=== PATIENT | male | born 1935 | race African-American/Black ===

== ENCOUNTER 2017-09-15 12:54 | Inpatient (IN) | payer OTHER ==
[~2017-09-15] VITALS: Ht 182.9 cm; Wt 61.2 kg
--- NOTE | 2017-09-15 13:37 | Emergency Room Report ---
History of Present Illness General Chief Complaint: Gastrointestinal Bleed Source: EMS Present Illness HPI 81-year-old male, coming from group home, presenting with lower GI bleeding. This morning noticed some bright red blood in diaper. Did not say how many bloody bowel movements. No vomiting. Currently patient is awake, oriented x1 which is his baseline. Denies any complaints at this time however poor historian. Patient is on Plavix. Unknown last colonoscopy or endoscopy Allergies: Coded Allergies: No Known Allergies (Unverified , 09/15/17) Patient History Past Medical History: see triage record Past Surgical History: none Pertinent Family History: none Reviewed Nursing Documentation: PMH: Agreed, PSxH: Agreed Nursing Documentation-PMH Hx Hypertension: Yes Hx Diabetes: Yes Hx Cerebrovascular Accident: Yes Review of Systems All Other Systems: negative except mentioned in HPI Physical Exam Vital Signs Date Time Temp Pulse Resp B/P (MAP) Pulse Ox O2 Delivery O2 Flow Rate FiO2 09/15/17 12:50 97.3 56 18 120/54 95 Room Air Sp02 EP Interpretation: reviewed, normal General Appearance: thin, other - NAD, Chronically Ill Head: normocephalic, atraumatic Eyes: bilateral eye normal inspection, bilateral eye PERRL, bilateral eye EOMI ENT: normal ENT inspection, normal pharynx, normal voice, moist mucus membranes Neck: normal inspection, full range of motion, supple Respiratory: normal inspection, lungs clear, normal breath sounds, no respiratory distress, no retraction, no wheezing, speaking full sentences, chest symmetrical Cardiovascular #1: normal inspection, regular rate, rhythm, normal capillary refill Cardiovascular #2: 2+ radial (R), 2+ radial (L) Gastrointestinal: other - thin abdomen, nontender all quadrants Musculoskeletal: back normal, non-tender Neurologic: other - Oriented to person, moving extremities on command however not able to cooperate with full exam Psychiatric: normal inspection, judgement/insight normal, memory normal Skin: normal inspection, normal color, no rash, warm/dry, well hydrated, normal turgor Medical Decision Making ER Course 81-year-old male with lower GI bleeding DDX: Diverticulosis versus diverticulitis versus AV malformation versus coagulopathy Plan: Obtain labs, ua, EKG, CXR Signed out to Dr Muñoz 81 yo M with BRBPR -pending labs and admission Please note that this Emergency Department Report was dictated using Digital [employer] stretcher technology software, occasionally this can lead to erroneous entry secondary to interpretation by the dictation equipment. Last Vital Signs Date Time Temp Pulse Resp B/P (MAP) Pulse Ox O2 Delivery O2 Flow Rate FiO2 09/15/17 12:50 97.3 56 18 120/54 95 Room Air Alexa Ngo M.D. Sep 15, 2017 13:37
[2017-09-15 14:00] VITALS: BP 128/49
[2017-09-15 14:13] LABS: BASOPHILS % (AUTO) 1.1 % (0.0-2.0); EOSINOPHILS % (AUTO) 1.9 % (0.0-3.0); HEMOGLOBIN 12.7 G/DL (14.2-18.0); LYMPHOCYTES % (AUTO) 29.5 % (20.0-45.0); MEAN CORPUSCULAR VOLUME 95 FL (80-99); MONOCYTES % (AUTO) 8.5 % (1.0-10.0); PLATELET COUNT 611 K/UL (150-450); RED BLOOD COUNT 4.21 M/UL (4.70-6.10); RED CELL DISTRIBUTION WIDTH 14.9 % (11.6-14.8); WHITE BLOOD COUNT 8.9 K/UL (4.8-10.8)
[2017-09-15 14:18] LABS: INR 1.1 (0.9-1.1)
--- NOTE | 2017-09-15 14:20 | Emergency Room Report ---
Physical Exam Patient presents with red blood per rectum. According to paramedics the facility said there was a large amount. This was initially noted this morning. The patient has dementia and cannot give history. Please see that note by Dr. Ngo. PMHx: agree with documented ROS: limited due to dementia. SHX: SNF Vital Signs Date Time Temp Pulse Resp B/P (MAP) Pulse Ox O2 Delivery O2 Flow Rate FiO2 09/15/17 12:50 97.3 56 18 120/54 95 Room Air Sp02 EP Interpretation: reviewed, abnormal - interpreted as low by me General Appearance: Chronically Ill Head: normocephalic, atraumatic Eyes: bilateral eye normal inspection, bilateral eye PERRL ENT: moist mucus membranes Neck: supple Respiratory: rhonchi Cardiovascular #1: regular rate, rhythm Cardiovascular #2: 2+ radial (L) Gastrointestinal: normal bowel sounds, non tender, soft, hernia - R inguinal, scaphoid Rectal: other - stool neg Genitourinary: other - R hernia Musculoskeletal: back normal, normal range of motion Neurologic: alert, motor strength/tone normal, DTRs symmetric, sensory intact Psychiatric: other - flat affect Skin: normal inspection, normal color, no rash Medical Decision Making Diagnostic Impression: Primary Impression: Gastrointestinal hemorrhage Qualified Codes: K92.2 - Gastrointestinal hemorrhage, unspecified Additional Impressions: Pulmonary infiltrate in right lung on chest x-ray Right inguinal hernia Dementia Qualified Codes: F03.90 - Unspecified dementia without behavioral disturbance ER Course The patient presents with lower GI bleed. Differential includes diverticulosis , and Coleman, mass amongst others. Evaluation will be with labs and CT. In addition to that he is coughing and will take a chest x-ray. EKG without injury. CXR with infiltrate. Labs with normal CBC and lytes ( slight anemia). BC and antibiotics begun. CT abdomen/pelvis: Improved however needs admission for lower GI bleed work up. Laboratory Tests Test 09/15/17 13:45 09/15/17 15:53 09/15/17 17:50 09/16/17 02:00 White Blood Count 8.9 K/UL (4.8-10.8) Red Blood Count 4.21 M/UL (4.70-6.10) L Hemoglobin 12.7 G/DL (14.2-18.0) L Hematocrit 40.0 % (42.0-52.0) L Mean Corpuscular Volume 95 FL (80-99) Mean Corpuscular Hemoglobin 30.1 PG (27.0-31.0) Mean Corpuscular Hemoglobin Concent 31.7 G/DL (32.0-36.0) L Red Cell Distribution Width 14.9 % (11.6-14.8) H Platelet Count 611 K/UL (150-450) H Mean Platelet Volume 5.3 FL (6.5-10.1) L Neutrophils (%) (Auto) 59.0 % (45.0-75.0) Lymphocytes (%) (Auto) 29.5 % (20.0-45.0) Monocytes (%) (Auto) 8.5 % (1.0-10.0) Eosinophils (%) (Auto) 1.9 % (0.0-3.0) Basophils (%) (Auto) 1.1 % (0.0-2.0) Prothrombin Time 11.2 SEC (9.30-11.50) Prothrombin Time INR 1.1 (0.9-1.1) PTT 24 SEC (23-33) Sodium Level 139 MMOL/L (136-145) Potassium Level 5.0 MMOL/L (3.5-5.1) Chloride Level 103 MMOL/L (98-107) Carbon Dioxide Level 28 MMOL/L (21-32) Anion Gap 8 mmol/L (5-15) Blood Urea Nitrogen 16 mg/dL (7-18) Creatinine 1.0 MG/DL (0.55-1.30) Estimate Glomerular Filtration Rate mL/min (>60) Glucose Level 97 MG/DL (74-106) Calcium Level 10.1 MG/DL (8.5-10.1) Total Bilirubin 0.5 MG/DL (0.2-1.0) Aspartate Amino Transferase (AST) 31 U/L (15-37) Alanine Aminotransferase (ALT) 49 U/L (12-78) Alkaline Phosphatase 183 U/L (46-116) H Troponin I 0.000 ng/mL (0.000-0.056) Total Protein 8.2 G/DL (6.4-8.2) Albumin 2.8 G/DL (3.4-5.0) L Globulin 5.4 g/dL Albumin/Globulin Ratio 0.5 (1.0-2.7) L Lipase 191 U/L (73-393) Lactic Acid Level 1.50 mmol/L (0.66-2.22) Urine Color Pale yellow Urine Appearance Clear Urine pH 7 (4.5-8.0) Urine Specific [place] 1.005 (1.005-1.035) Urine Protein Negative (NEGATIVE) Urine Glucose (UA) Negative (NEGATIVE) Urine Ketones Negative (NEGATIVE) Urine Occult Blood Negative (NEGATIVE) Urine Nitrite Negative (NEGATIVE) Urine Bilirubin Negative (NEGATIVE) Urine Urobilinogen Normal MG/DL (0.0-1.0) Urine Leukocyte Esterase Negative (NEGATIVE) Stool Occult Blood Pending EKG Diagnostic Results Rate: normal Rhythm: NSR ST Segments: no acute changes Rhythm Strip Diag. Results EP Interpretation: yes Rhythm: NSR, no PVC's, no ectopy Chest X-Ray Diagnostic Results Chest X-Ray Diagnostic Results : Chest X-Ray Ordered: Yes # of Views/Limited/Complete: 1 View Indication: Other Interpretation: no effusion, no pneumothorax, other - R infiltrate Impression: Other Electronically Signed by: Antonino Muñoz MD CT/MRI/US Diagnostic Results CT/MRI/US Diagnostic Results : Imaging Test Ordered: abd/pelvis Impression hernia, pulm densities IMPRESSION: Large right inguinal hernia containing bowel. Correlate clinically for incarceration. No CT evidence for bowel obstruction. Thickening of the urinary bladder wall consistent with cystitis. Correlate clinically. Reticular nodular densities at the lung bases. Consider small airways disease and interstitial pneumonitis. Spondylosis Atherosclerotic vascular disease Last Vital Signs Date Time Temp Pulse Resp B/P (MAP) Pulse Ox O2 Delivery O2 Flow Rate FiO2 09/16/17 04:25 96.4 88 18 137/64 95 Room Air Status: improved Disposition: ADMITTED INPATIENT Condition: Serious Antonino Muñoz M.D. Sep 15, 2017 14:20
[2017-09-15 14:24] LABS: ANION GAP 8 mmol/L (5-15); BLOOD UREA NITROGEN 16 mg/dL (7-18); CALCIUM 10.1 MG/DL (8.5-10.1); CARBON DIOXIDE 28 MMOL/L (21-32); CHLORIDE 103 MMOL/L (98-107); SODIUM 139 MMOL/L (136-145)
[2017-09-15 14:29] LABS: ALANINE AMINOTRANSFERASE 49 U/L (12-78); ALBUMIN 2.8 G/DL (3.4-5.0); ALBUMIN/GLOBULIN RATIO 0.5 (1.0-2.7); ALKALINE PHOSPHATASE 183 U/L (46-116); ASPARTATE AMINO TRANSFERASE 31 U/L (15-37); BILIRUBIN,TOTAL 0.5 MG/DL (0.2-1.0)
[2017-09-15] MEDS: Sodium Chloride 500ML 550 ML IV SCH ×2 (14:34→21:34)
[2017-09-15 14:57] VITALS: BP 128/49
--- NOTE | 2017-09-15 15:14 | Diagnostic Imaging Report ---
Indication: Dyspnea Comparison: None A single view chest radiograph was obtained. Findings: Vague interstitial prominence noted in the right perihilar region. Infiltrate suspected. Please correlate clinically. Deformity of the left humeral head noted. Bones are osteopenic. Heart size is within normal limits. IMPRESSION: Suspected infiltrate right perihilar region. Please correlate clinically for pneumonia.
[2017-09-15] MEDS ORDERED: cefTRIAXone 1 GM in NS 55 ML IVPB ONE (15:30)
[2017-09-15] MEDS ORDERED: NS 55 ML IV ONE (15:54)
[2017-09-15] MEDS ORDERED: Tubing IV Cassette IV ONE (15:54)
[2017-09-15 16:00] VITALS: BP 150/60
[2017-09-15] MEDS ORDERED: Bisacodyl EC 5mg tab ORAL ONE (16:00)
[2017-09-15] MEDS ORDERED: Nulytely 4L ORAL ONE (16:00)
[2017-09-15] MEDS ORDERED: Miralax 17gm pkt ORAL PRN (16:15)
[2017-09-15] MEDS ORDERED: Nitroglycerin Subl 0.4mg tab SL PRN (16:15)
[2017-09-15] MEDS ORDERED: Mylanta II UD 30ml ORAL PRN (16:15)
[2017-09-15] MEDS ORDERED: Morphine Sulfate 2mg/ml Inj IVP PRN (16:15)
--- NOTE | 2017-09-15 16:59 | Diagnostic Imaging Report ---
Indication: Abdominal pain Technique: Continuous helical transaxial imaging of the abdomen and pelvis was obtained from the lung bases to the pubic symphysis during intravenous contrast administration. Coronal 2-D reformats were also obtained. Study obtained in a Siemens sensation [address] Automatic Exposure Control was utilized. Total Dose length Product (DLP): 792.[address] Dose Index Volume (CTDIvol): 13.21 mGy Comparison: None Findings: Reticular nodular densities are demonstrated within the interstitium of the visualized part of the lung bases bilaterally. Findings are nonspecific but may indicate small airways disease. In addition there are coarse linear densities likely atelectasis. Trace right pleural effusion present. The liver and spleen are unremarkable in appearance. Gallbladder is unremarkable. Small renal cysts noted on the right. Moderate stool demonstrated within the colon. There is a large right inguinal hernia that contains loops of opacified small bowel and mesenteric fat. The hernia is 9 to 10 cm in size on transverse imaging and may be incarcerated. Please correlate clinically. There is no CT evidence for bowel obstruction due to the hernia. There is thickening of the wall of the urinary bladder. Aorta is mildly calcified. There is narrowing of intervertebral discs and accompanying endplate osteophyte formation. Hypertrophied facet joints also demonstrated.. IMPRESSION: Large right inguinal hernia containing bowel. Correlate clinically for incarceration. No CT evidence for bowel obstruction. Thickening of the urinary bladder wall consistent with cystitis. Correlate clinically. Reticular nodular densities at the lung bases. Consider small airways disease and interstitial pneumonitis. Spondylosis Atherosclerotic vascular disease The CT scanner at [facility] is accredited by the [employer] and the scans are performed using dose optimization techniques as appropriate to a performed exam including Automatic Exposure control.
--- NOTE | 2017-09-15 17:10 | GI Initial Consult Note ---
Nani Marley N.P. 09/15/17 1710: History of Present Illness General Date patient seen: Sep 15, 2017 Time patient seen: 17:04 Reason for Hospitalization: Gastrointestinal Bleed Referring physician: MARY STANTON Reason for Consultation: RECTAL BLEED Present Illness HPI 81-year-old male, coming from [facility], presenting with lower GI bleeding. This morning noticed some bright red blood in diaper. Did not say how many bloody bowel movements. No vomiting. Currently patient is awake, oriented x1 which is his baseline. Denies any complaints at this time however poor historian. Patient is on Plavix, unknown time of last administration. GI consulted for rectal bleed. HPI noted above. ROS limited, patient is poor historian. Seen in ED awake, A&O with no active N/V/D or rectal bleed noted. No external hemorrhoids noted. Trace amounts of blood noted in rectal area. Presents with anemia and elevated alkaline phosphatase. Unknown history of endoscopies / colonoscopies. Home Meds Reported Medications Bisacodyl (BISACODYL) 10 Mg Supp.rect, 10 MG RC DAILY Y for Constipation, SUPP 09/16/17 Magnesium Hydroxide* (MILK OF MAGNESIA*) 400 Mg/5 Ml Oral.susp, 30 ML ORAL DAILY Y for Constipation, ML 09/16/17 Docusate Sodium* (DOCUSATE SODIUM*) 100 Mg Capsule, 100 MG ORAL DAILY, CAP 09/16/17 Acetaminophen* (ACETAMINOPHEN 325MG TABLET*) 325 Mg Tablet, 650 MG ORAL Q6HR Y for Mild Pain/Temp > 100.5, TAB 09/16/17 Ipratropium/Albuterol Sulfate (DuoNeb 0.5-3(2.5)mg/3ml) 3 Ml Ampul.neb, 3 ML HHN Q4HR Y for Shortness of Breath, EA 09/16/17 Ondansetron (Zofran) 4 Mg Tablet, 4 MG ORAL Q6H Y for Nausea & Vomiting, TAB 09/16/17 Clopidogrel* (CLOPIDOGREL*) 75 Mg Tablet, 75 MG ORAL DAILY, TAB 09/16/17 Atorvastatin (Lipitor) 80 Mg Tablet, 40 MG ORAL BEDTIME, #30 TAB 0 Refills 09/16/17 Famotidine (FAMOTIDINE) 20 Mg Tablet, 20 MG ORAL DAILY, #30 TAB 0 Refills 09/16/17 Ipratropium [place] (ATROVENT HFA) 12.9 Gm Hfa.aer.ad, 17 MCG INH DAILY 09/16/17 Amlodipine Besylate (Norvasc) 5 Mg Tablet, 5 MG ORAL DAILY, TAB Hold for SBP less than 110 09/16/17 Metformin Hcl* (METFORMIN HCL*) 500 Mg Tablet, 500 MG ORAL TWICE A DAY, TAB 09/16/17 Allergies: Coded Allergies: No Known Allergies (Unverified , 09/15/17) Patient History Limited by: medical condition History Provided By: Medical Record PMH Narrative Past Medical History: see triage record Past Surgical History: none Pertinent Family History: none Reviewed Nursing Documentation: PMH: Agreed, PSxH: Agreed Nursing Documentation-PMH Hx Hypertension: Yes Hx Diabetes: Yes Hx Cerebrovascular Accident: Yes Review of Systems All Other Systems: negative except mentioned in HPI Physical Exam Vital Signs Date Time Temp Pulse Resp B/P (MAP) Pulse Ox O2 Delivery O2 Flow Rate FiO2 09/15/17 12:50 97.3 56 18 120/54 95 Room Air Sp02 EP Interpretation: reviewed, normal Labs Laboratory Tests Test 09/15/17 13:45 09/15/17 15:53 White Blood Count 8.9 K/UL (4.8-10.8) Red Blood Count 4.21 M/UL (4.70-6.10) L Hemoglobin 12.7 G/DL (14.2-18.0) L Hematocrit 40.0 % (42.0-52.0) L Mean Corpuscular Volume 95 FL (80-99) Mean Corpuscular Hemoglobin 30.1 PG (27.0-31.0) Mean Corpuscular Hemoglobin Concent 31.7 G/DL (32.0-36.0) L Red Cell Distribution Width 14.9 % (11.6-14.8) H Platelet Count 611 K/UL (150-450) H Mean Platelet Volume 5.3 FL (6.5-10.1) L Neutrophils (%) (Auto) 59.0 % (45.0-75.0) Lymphocytes (%) (Auto) 29.5 % (20.0-45.0) Monocytes (%) (Auto) 8.5 % (1.0-10.0) Eosinophils (%) (Auto) 1.9 % (0.0-3.0) Basophils (%) (Auto) 1.1 % (0.0-2.0) Prothrombin Time 11.2 SEC (9.30-11.50) Prothromb Time International Ratio 1.1 (0.9-1.1) Activated Partial Thromboplast Time 24 SEC (23-33) Sodium Level 139 MMOL/L (136-145) Potassium Level 5.0 MMOL/L (3.5-5.1) Chloride Level 103 MMOL/L (98-107) Carbon Dioxide Level 28 MMOL/L (21-32) Anion Gap 8 mmol/L (5-15) Blood Urea Nitrogen 16 mg/dL (7-18) Creatinine 1.0 MG/DL (0.55-1.30) Estimat Glomerular Filtration Rate mL/min (>60) Glucose Level 97 MG/DL (74-106) Calcium Level 10.1 MG/DL (8.5-10.1) Total Bilirubin 0.5 MG/DL (0.2-1.0) Aspartate Amino Transf (AST/SGOT) 31 U/L (15-37) Alanine Aminotransferase (ALT/SGPT) 49 U/L (12-78) Alkaline Phosphatase 183 U/L (46-116) H Troponin I 0.000 ng/mL (0.000-0.056) Total Protein 8.2 G/DL (6.4-8.2) Albumin 2.8 G/DL (3.4-5.0) L Globulin 5.4 g/dL Albumin/Globulin Ratio 0.5 (1.0-2.7) L Lipase 191 U/L (73-393) Lactic Acid Level 1.50 mmol/L (0.66-2.22) General Appearance: well appearing, no apparent distress, alert, thin Head: normocephalic EENT: PERRL/EOMI, normal ENT inspection Neck: supple Respiratory: normal breath sounds, no respiratory distress Cardiovascular: normal rate Gastrointestinal: normal inspection, non tender, soft, normal bowel sounds, non -distended Rectal: other - scant amounts of bright red blood. No active bleeding. No external hemorrhoids. Genitourinary: deferred Musculoskeletal: normal inspection, back normal Neurologic: normal inspection, alert, oriented x3, responsive Psychiatric: other - dementia Skin: normal inspection, normal color, no rash, warm/dry, palpation normal, well hydrated Lymphatic: normal inspection, no adenopathy Current Medications Current Medications Medications (Trade) Dose Ordered Sig/Lenora Route PRN Reason Start Time Stop Time Status Last Admin Dose Admin Acetaminophen (Tylenol) 650 mg Q4H PRN ORAL fever 09/15/17 16:15 10/15/17 16:14 UNV Al Hydroxide/Mg Hydroxide (Mylanta II) 30 ml Q6H PRN ORAL dyspepsia 09/15/17 16:15 10/15/17 16:14 UNV Bisacodyl (Dulcolax) 10 mg ONCE ONCE ORAL 09/15/17 16:00 09/15/17 16:01 UNV Dextrose (Dextrose 50%) STAT PRN IV Hypoglycemia 09/15/17 16:15 10/15/17 16:14 UNV Dextrose/Sodium Chloride 1,000 ml @ 75 mls/hr [id number] IV 09/15/17 16:01 10/15/17 16:00 UNV Diphenhydramine HCl (Benadryl) 25 mg Q6H PRN ORAL Itching/Pruritis 09/15/17 16:15 10/15/17 16:14 UNV Insulin Aspart (NovoLOG) BEFORE MEALS AND HS SUBQ 09/15/17 16:30 10/15/17 16:29 UNV Morphine Sulfate (Morphine Sulfate) 2 mg EVERY 4 HOURS PRN IVP severe Pain (Pain Scale 7-10) 09/15/17 16:15 09/22/17 16:14 UNV Nitroglycerin (Ntg) 0.4 mg Q5M X 3 DOSES PRN SL Prn Chest Pain 09/15/17 16:15 10/15/17 16:14 UNV Ondansetron HCl (Zofran) 4 mg Q6H PRN IVP Nausea & Vomiting 09/15/17 16:15 10/15/17 16:14 UNV Polyethylene Glycol (Miralax) 17 gm HSPRN PRN ORAL Constipation 09/15/17 16:15 10/15/17 16:14 UNV Polyethylene Glycol/ Electrolytes (Nulytely) 4,000 ml ONCE ONCE ORAL 09/15/17 16:00 09/15/17 16:01 UNV Sodium Chloride 550 ml @ 150 mls/hr Q3H40M IV 09/15/17 14:30 10/15/17 14:29 09/15/17 14:34 Sodium Phosphate (Fleet's Sodium Phosl Enema) 133 ml ONCE ONCE RECTAL 09/15/17 23:00 09/15/17 23:01 UNV Temazepam (Restoril) 15 mg HSPRN PRN ORAL Insomnia 09/15/17 16:15 09/22/17 16:14 UNV GI: Plan Problems: (1) Anemia (2) Gastrointestinal hemorrhage Plan Colonoscopy scheduled for tomorrow late case. - Place on [facility] now. Prep patient in ED [facility] and continue prep when patient is admitted as inpatient up until 0200. - NPO @ 0200am. The patient will be added onto Dr. Sifuentes's last case. Approximately 11am. - HOLD PLAVIX. monitor H&H, prn transfusions fu labs Discussed with Dr. Sifuentes. Thank you for this patient referral, we will follow. SRIKANTH SIFUENTES 09/16/17 1011: History of Present Illness General Reason for Hospitalization: Gastrointestinal Bleed Present Illness Home Meds Reported Medications Bisacodyl (BISACODYL) 10 Mg Supp.rect, 10 MG RC DAILY Y for Constipation, SUPP 09/16/17 Magnesium Hydroxide* (MILK OF MAGNESIA*) 400 Mg/5 Ml Oral.susp, 30 ML ORAL DAILY Y for Constipation, ML 09/16/17 Docusate Sodium* (DOCUSATE SODIUM*) 100 Mg Capsule, 100 MG ORAL DAILY, CAP 09/16/17 Acetaminophen* (ACETAMINOPHEN 325MG TABLET*) 325 Mg Tablet, 650 MG ORAL Q6HR Y for Mild Pain/Temp > 100.5, TAB 09/16/17 Ipratropium/Albuterol Sulfate (DuoNeb 0.5-3(2.5)mg/3ml) 3 Ml Ampul.neb, 3 ML HHN Q4HR Y for Shortness of Breath, EA 09/16/17 Ondansetron (Zofran) 4 Mg Tablet, 4 MG ORAL Q6H Y for Nausea & Vomiting, TAB 09/16/17 Clopidogrel* (CLOPIDOGREL*) 75 Mg Tablet, 75 MG ORAL DAILY, TAB 09/16/17 Atorvastatin (Lipitor) 80 Mg Tablet, 40 MG ORAL BEDTIME, #30 TAB 0 Refills 09/16/17 Famotidine (FAMOTIDINE) 20 Mg Tablet, 20 MG ORAL DAILY, #30 TAB 0 Refills 09/16/17 Ipratropium [place] (ATROVENT HFA) 12.9 Gm Hfa.aer.ad, 17 MCG INH DAILY 09/16/17 Amlodipine Besylate (Norvasc) 5 Mg Tablet, 5 MG ORAL DAILY, TAB Hold for SBP less than 110 09/16/17 Metformin Hcl* (METFORMIN HCL*) 500 Mg Tablet, 500 MG ORAL TWICE A DAY, TAB 09/16/17 Allergies: Coded Allergies: No Known Allergies (Unverified , 09/15/17) GI: Plan Plan The patient was seen and examined at bedside and all new and available data was reviewed in the patients chart. I agree with the above findings, impression and plan. (Patient seen earlier today. Signature stamp does not reflect patient encounter time.). - MD Ayaka Gomez Anh Jeromy Ward Sep 15, 2017 17:10 SRIKANTH SIFUENTES Sep 16, 2017 10:11
[2017-09-15 18:00] VITALS: BP 144/64
[2017-09-15 18:31] LABS: APPEARANCE,URINE CLEAR; BILIRUBIN, URINE NEGATIVE (NEGATIVE); COLOR,URINE PALE YELLOW; GLUCOSE, URINE (UA) NEGATIVE (NEGATIVE); KETONES,URINE NEGATIVE (NEGATIVE); LEUKOCYTE ESTERASE ,URINE NEGATIVE (NEGATIVE); NITRITE,URINE NEGATIVE (NEGATIVE); PH,URINE 7 (4.5-8.0); PROTEIN,URINE NEGATIVE (NEGATIVE); UROBILINOGEN,URINE NORMAL MG/DL (0.0-1.0)
--- NOTE | 2017-09-15 19:58 | History and Physical ---
History of Present Illness General Date patient seen: Sep 15, 2017 Reason for Hospitalization: Gastrointestinal Bleed Present Illness HPI 81-year-old male with hx of dementia, htn, cachexia, coming from long term, presenting with lower GI bleeding. This morning noticed some bright red blood in diaper. Currently patient is awake, oriented x1 which is his baseline. But cant give any history.. Patient is on Plavix. Pt is admitted to telemetry for further work up. Allergies: Coded Allergies: No Known Allergies (Unverified , 09/15/17) Medication History Scheduled Amlodipine Besylate (Norvasc), 5 MG ORAL DAILY, (Reported) Atorvastatin (Lipitor), 40 MG ORAL BEDTIME, (Reported) Clopidogrel* (Clopidogrel*), 75 MG ORAL DAILY, (Reported) Docusate Sodium* (Docusate Sodium*), 100 MG ORAL DAILY, (Reported) Famotidine (Famotidine), 20 MG ORAL DAILY, (Reported) Ipratropium [place] (Atrovent Hfa), 17 MCG INH DAILY, (Reported) Metformin Hcl* (Metformin Hcl*), 500 MG ORAL TWICE A DAY, (Reported) Scheduled PRN Acetaminophen* (Acetaminophen 325MG Tablet*), 650 MG ORAL Q6HR PRN for Mild Pain /Temp > 100.5, (Reported) Bisacodyl (Bisacodyl), 10 MG RC DAILY PRN for Constipation, (Reported) Ipratropium/Albuterol Sulfate (DuoNeb 0.5-3(2.5)mg/3ml), 3 ML HHN Q4HR PRN for Shortness of Breath, (Reported) Magnesium Hydroxide* (Milk Of Magnesia*), 30 ML ORAL DAILY PRN for Constipation, (Reported) Ondansetron (Zofran), 4 MG ORAL Q6H PRN for Nausea & Vomiting, (Reported) Patient History Healthcare decision maker N Resuscitation status Advanced Directive on File Past Medical/Surgical History Past Medical/Surgical History: (1) Dementia Review of Systems Constitutional: Reports: malaise, weakness Physical Exam General Appearance: cachetic Lines, tubes and drains: peripheral HEENT: normocephalic, atraumatic Neck: non-tender, normal alignment Respiratory/Chest: chest wall non-tender, lungs clear Breasts: no masses Cardiovascular/Chest: normal peripheral pulses Abdomen: normal bowel sounds Last 24 Hour Vital Signs Date Time Temp Pulse Resp B/P (MAP) Pulse Ox O2 Delivery O2 Flow Rate FiO2 09/15/17 18:00 87 18 144/64 99 Room Air 09/15/17 16:00 73 16 150/60 100 Room Air 09/15/17 14:00 72 18 128/49 100 Room Air 09/15/17 12:50 97.3 56 18 120/54 95 Room Air Laboratory Tests Test 09/15/17 13:45 09/15/17 15:53 09/15/17 17:50 White Blood Count 8.9 K/UL (4.8-10.8) Red Blood Count 4.21 M/UL (4.70-6.10) L Hemoglobin 12.7 G/DL (14.2-18.0) L Hematocrit 40.0 % (42.0-52.0) L Mean Corpuscular Volume 95 FL (80-99) Mean Corpuscular Hemoglobin 30.1 PG (27.0-31.0) Mean Corpuscular Hemoglobin Concent 31.7 G/DL (32.0-36.0) L Red Cell Distribution Width 14.9 % (11.6-14.8) H Platelet Count 611 K/UL (150-450) H Mean Platelet Volume 5.3 FL (6.5-10.1) L Neutrophils (%) (Auto) 59.0 % (45.0-75.0) Lymphocytes (%) (Auto) 29.5 % (20.0-45.0) Monocytes (%) (Auto) 8.5 % (1.0-10.0) Eosinophils (%) (Auto) 1.9 % (0.0-3.0) Basophils (%) (Auto) 1.1 % (0.0-2.0) Prothrombin Time 11.2 SEC (9.30-11.50) Prothromb Time International Ratio 1.1 (0.9-1.1) Activated Partial Thromboplast Time 24 SEC (23-33) Sodium Level 139 MMOL/L (136-145) Potassium Level 5.0 MMOL/L (3.5-5.1) Chloride Level 103 MMOL/L (98-107) Carbon Dioxide Level 28 MMOL/L (21-32) Anion Gap 8 mmol/L (5-15) Blood Urea Nitrogen 16 mg/dL (7-18) Creatinine 1.0 MG/DL (0.55-1.30) Estimat Glomerular Filtration Rate mL/min (>60) Glucose Level 97 MG/DL (74-106) Calcium Level 10.1 MG/DL (8.5-10.1) Total Bilirubin 0.5 MG/DL (0.2-1.0) Aspartate Amino Transf (AST/SGOT) 31 U/L (15-37) Alanine Aminotransferase (ALT/SGPT) 49 U/L (12-78) Alkaline Phosphatase 183 U/L (46-116) H Troponin I 0.000 ng/mL (0.000-0.056) Total Protein 8.2 G/DL (6.4-8.2) Albumin 2.8 G/DL (3.4-5.0) L Globulin 5.4 g/dL Albumin/Globulin Ratio 0.5 (1.0-2.7) L Lipase 191 U/L (73-393) Lactic Acid Level 1.50 mmol/L (0.66-2.22) Urine Color Pale yellow Urine Appearance Clear Urine pH 7 (4.5-8.0) Urine Specific [place] 1.005 (1.005-1.035) Urine Protein Negative (NEGATIVE) Urine Glucose (UA) Negative (NEGATIVE) Urine Ketones Negative (NEGATIVE) Urine Occult Blood Negative (NEGATIVE) Urine Nitrite Negative (NEGATIVE) Urine Bilirubin Negative (NEGATIVE) Urine Urobilinogen Normal MG/DL (0.0-1.0) Urine Leukocyte Esterase Negative (NEGATIVE) Height (Feet): 6 Weight (Pounds): 135 Medications Current Medications Medications (Trade) Dose Ordered Sig/Lenora Route PRN Reason Start Time Stop Time Status Last Admin Dose Admin Acetaminophen (Tylenol) 650 mg Q4H PRN ORAL fever 09/15/17 16:15 10/15/17 16:14 Al Hydroxide/Mg Hydroxide (Mylanta II) 30 ml Q6H PRN ORAL dyspepsia 09/15/17 16:15 10/15/17 16:14 Dextrose (Dextrose 50%) STAT PRN IV Hypoglycemia 09/15/17 16:15 10/15/17 16:14 Dextrose/Sodium Chloride 1,000 ml @ 75 mls/hr [id number] IV 09/15/17 16:01 10/15/17 16:00 Diphenhydramine HCl (Benadryl) 25 mg Q6H PRN ORAL Itching/Pruritis 09/15/17 16:15 10/15/17 16:14 Insulin Aspart (NovoLOG) BEFORE MEALS AND HS SUBQ 09/15/17 16:30 10/15/17 16:29 UNV Morphine Sulfate (Morphine Sulfate) 2 mg EVERY 4 HOURS PRN IVP severe Pain (Pain Scale 7-10) 09/15/17 16:15 09/22/17 16:14 Nitroglycerin (Ntg) 0.4 mg Q5M X 3 DOSES PRN SL Prn Chest Pain 09/15/17 16:15 10/15/17 16:14 Ondansetron HCl (Zofran) 4 mg Q6H PRN IVP Nausea & Vomiting 09/15/17 16:15 10/15/17 16:14 Polyethylene Glycol (Miralax) 17 gm HSPRN PRN ORAL Constipation 09/15/17 16:15 10/15/17 16:14 Sodium Chloride 550 ml @ 150 mls/hr Q3H40M IV 09/15/17 14:30 10/15/17 14:29 09/15/17 14:34 Sodium Phosphate (Fleet's Sodium Phosl Enema) 133 ml ONCE ONCE RECTAL 09/15/17 23:00 09/15/17 23:01 Temazepam (Restoril) 15 mg HSPRN PRN ORAL Insomnia 09/15/17 16:15 09/22/17 16:14 Assessment/Plan Problem List: (1) Gastrointestinal hemorrhage ICD Codes: K92.2 - Gastrointestinal hemorrhage, unspecified SNOMED: 26129660 Qualifiers: Qualified Codes: K92.2 - Gastrointestinal hemorrhage, unspecified (2) Anemia ICD Codes: D64.9 - Anemia, unspecified SNOMED: 945937557 (3) Dementia ICD Codes: F03.90 - Unspecified dementia without behavioral disturbance SNOMED: 38013345, 086018122 Qualifiers: Qualified Codes: F03.90 - Unspecified dementia without behavioral disturbance Assessment/Plan npo IV fluids check h/h prn prbc GI evaluation pt/ot MAYR FELIX Sep 15, 2017 19:57
[2017-09-15] MEDS: NovoLOG Insulin Flexpen SUBQ SCH (21:00)
[2017-09-15] MEDS: D5 1/2NS 1,000 ML IV SCH (21:24)
[2017-09-15] MEDS ORDERED: Fleet's Enema 133ml RECTAL ONE (23:00)
[2017-09-16] VITALS (12 sets, daily range): BP systolic 91–148; BP diastolic 43–71
[2017-09-16] MEDS ORDERED: LIPITOR80 MG ORAL (01:16)
[2017-09-16] MEDS ORDERED: ACETAMINOPHEN325 M1 ORAL (01:16)
[2017-09-16] MEDS ORDERED: FAMOTIDINE20 MG ORAL (01:16)
[2017-09-16] MEDS ORDERED: BISACODYL10 M1 RC (01:16)
[2017-09-16] MEDS ORDERED: DOCUSATE SODIU100 MG ORAL (01:16)
[2017-09-16] MEDS ORDERED: METFORMIN HCL500 M1 ORAL (01:16)
[2017-09-16] MEDS ORDERED: ZOFRAN4 M1 ORAL (01:16)
[2017-09-16] MEDS ORDERED: ATROVENT HFA12.9 GM INH (01:16)
[2017-09-16] MEDS ORDERED: NORVASC5 MG ORAL (01:16)
[2017-09-16] MEDS ORDERED: CLOPIDOGREL75 MG ORAL (01:16)
[2017-09-16] MEDS ORDERED: MILK OF MA400 MG/51 ORAL (01:16)
[2017-09-16] MEDS ORDERED: DUONEB 0.5-3(2.53 ML HHN (01:16)
[2017-09-16] MEDS: D5 1/2NS 1,000 ML IV SCH ×2 (05:31→18:39)
[2017-09-16] MEDS ORDERED: Fleet's Enema 133ml RECTAL ONE ×2 (06:00→08:45)
[2017-09-16] MEDS: NovoLOG Insulin Flexpen SUBQ SCH ×4 (06:21→21:00)
[2017-09-16] MEDS ORDERED: Midazolam 2mg/2ml Inj ONE (08:00)
[2017-09-16] MEDS ORDERED: Propofol 200mg/20ml IV ONE (08:00)
[2017-09-16] MEDS ORDERED: NS 500ML ONE (08:00)
[2017-09-16] MEDS ORDERED: Phenylephrine 10mg/ml Vial ONE (08:00)
[2017-09-16 08:24] LABS: BASOPHILS % (AUTO) 0.5 % (0.0-2.0); EOSINOPHILS % (AUTO) 0.2 % (0.0-3.0); HEMATOCRIT 37.2 % (42.0-52.0); HEMOGLOBIN 11.7 G/DL (14.2-18.0); LYMPHOCYTES % (AUTO) 13.1 % (20.0-45.0); MEAN CORPUSCULAR VOLUME 96 FL (80-99); MONOCYTES % (AUTO) 6.7 % (1.0-10.0); NEUTROPHILS % (AUTO) 79.5 % (45.0-75.0); PLATELET COUNT 617 K/UL (150-450); RED BLOOD COUNT 3.86 M/UL (4.70-6.10); WHITE BLOOD COUNT 11.9 K/UL (4.8-10.8)
--- NOTE | 2017-09-16 08:41 | Pre-Procedure Note/Attestation ---
Pre-Procedure Note/Attestation Complete Prior to Procedure Planned Procedure: not applicable Procedure Narrative: colonoscopy Indications for Procedure Pre-Operative Diagnosis: rectal bleed Attestation I attest that I discussed the nature of the procedure; its benefits; risks and complications; and alternatives (and the risks and benefits of such alternatives ), prior to the procedure, with the patient (or the patient's legal financial service representative). I attest that, if there was a reasonable possibility of needing a blood transfusion, the patient (or the patient's legal financial service representative) was given the [facility] standardized written summary, pursuant to the William Fitz Blood Safety Act ([place] Health and Safety Code # 1645, as amended). I attest that I re-evaluated the patient just prior to the surgery and that there has been no change in the patient's H&P, except as documented below: SRIKANTH SIFUENTES Sep 16, 2017 08:41
[2017-09-16 08:53] LABS: INR 1.1 (0.9-1.1)
[2017-09-16] MEDS ORDERED: NS 500ML IV ONE (08:55)
--- NOTE | 2017-09-16 09:26 | Anethesia Preoperative Eval ---
Anesthesia Pre-op PMH/ROS General Date of Evaluation: Sep 16, 2017 Time of Evaluation: 08:52 Anesthesiologist: Hollie ASA Score: ASA 4 Mallampati Score Class I : Soft palate, uvula, fauces, pillars visible Class II: Soft palate, uvula, fauces visible Class III: Soft palate, base of uvula visible Class IV: Only hard plate visible Mallampati Classification: Class II Surgeon: Milton Diagnosis: GI bleed Surgical Procedure: colonoscopy Anesthesia History: none Family History: no anesthesia problems Allergies: Coded Allergies: No Known Allergies (Unverified , 09/15/17) Medications: see eMAR Past Medical History Cardiovascular: Reports: HTN Pulmonary: Denies: asthma, COPD, WILLY, other Gastrointestinal/Genitourinary: Reports: GERD, other - GI bleed, Right inguinal hernia, dysphagia, scrotal edema/hernia Neurologic/Psychiatric: Reports: dementia, CVA Endocrine: Reports: DM Hematology/Immune: Reports: anemia Musculoskeletal/Integumentary: Reports: OA, other - muscle weakness, left side weakness Anesthesia Pre-op Phys. Exam Physician Exam Last Vital Signs Date Time Temp Pulse Resp B/P (MAP) Pulse Ox O2 Delivery O2 Flow Rate FiO2 09/16/17 04:25 96.4 88 18 137/64 95 Room Air Constitutional: NAD Neurologic: CN 2-12 intact Cardiovascular: RRR Respiratory: CTA Gastrointestinal: S/NT/ND Airway Exam Mallampati Score: Class II MO: full ROM: full Teeth: missing Dentures: no upper, no lower Anesthesia Pre-op A/P Labs Hematology Test 09/15/17 13:45 09/16/17 07:25 White Blood Count 8.9 K/UL (4.8-10.8) 11.9 K/UL (4.8-10.8) H Red Blood Count 4.21 M/UL (4.70-6.10) L 3.86 M/UL (4.70-6.10) L Hemoglobin 12.7 G/DL (14.2-18.0) L 11.7 G/DL (14.2-18.0) L Hematocrit 40.0 % (42.0-52.0) L 37.2 % (42.0-52.0) L Mean Corpuscular Volume 95 FL (80-99) 96 FL (80-99) Mean Corpuscular Hemoglobin 30.1 PG (27.0-31.0) 30.3 PG (27.0-31.0) Mean Corpuscular Hemoglobin Concent 31.7 G/DL (32.0-36.0) L 31.4 G/DL (32.0-36.0) L Red Cell Distribution Width 14.9 % (11.6-14.8) H 15.0 % (11.6-14.8) H Platelet Count 611 K/UL (150-450) H 617 K/UL (150-450) H Mean Platelet Volume 5.3 FL (6.5-10.1) L 5.5 FL (6.5-10.1) L Neutrophils (%) (Auto) 59.0 % (45.0-75.0) 79.5 % (45.0-75.0) H Lymphocytes (%) (Auto) 29.5 % (20.0-45.0) 13.1 % (20.0-45.0) L Monocytes (%) (Auto) 8.5 % (1.0-10.0) 6.7 % (1.0-10.0) Eosinophils (%) (Auto) 1.9 % (0.0-3.0) 0.2 % (0.0-3.0) Basophils (%) (Auto) 1.1 % (0.0-2.0) 0.5 % (0.0-2.0) Erythrocyte Sedimentation Rate Pending Reticulocyte Count Pending Coagulation Test 09/15/17 13:45 09/16/17 07:25 Prothrombin Time 11.2 SEC (9.30-11.50) 12.0 SEC (9.30-11.50) H Prothromb Time International Ratio 1.1 (0.9-1.1) 1.1 (0.9-1.1) Activated Partial Thromboplast Time 24 SEC (23-33) 33 SEC (23-33) Chemistry Test 09/15/17 13:45 09/15/17 15:53 09/16/17 07:25 Sodium Level 139 MMOL/L (136-145) Pending Potassium Level 5.0 MMOL/L (3.5-5.1) Pending Chloride Level 103 MMOL/L (98-107) Pending Carbon Dioxide Level 28 MMOL/L (21-32) Pending Anion Gap 8 mmol/L (5-15) Blood Urea Nitrogen 16 mg/dL (7-18) Pending Creatinine 1.0 MG/DL (0.55-1.30) Pending Estimat Glomerular Filtration Rate mL/min (>60) Pending Glucose Level 97 MG/DL (74-106) Pending Calcium Level 10.1 MG/DL (8.5-10.1) Pending Total Bilirubin 0.5 MG/DL (0.2-1.0) Pending Aspartate Amino Transf (AST/SGOT) 31 U/L (15-37) Pending Alanine Aminotransferase (ALT/SGPT) 49 U/L (12-78) Pending Alkaline Phosphatase 183 U/L (46-116) H Pending Troponin I 0.000 ng/mL (0.000-0.056) Total Protein 8.2 G/DL (6.4-8.2) Pending Albumin 2.8 G/DL (3.4-5.0) L Pending Globulin 5.4 g/dL Pending Albumin/Globulin Ratio 0.5 (1.0-2.7) L Lipase 191 U/L (73-393) Pending Lactic Acid Level 1.50 mmol/L (0.66-2.22) Iron Level Pending Unsaturated Iron Binding Pending Lactate Dehydrogenase Pending Amylase Level Pending Vitamin B12 Level Pending Folate Pending Studies Pre-op Studies: EKG - NSR 81 BPM Risk Assessment & Plan Assessment: confused, pt has dementia, spoke with family for anesthesia consent Plan: discussed with family and Dr. Milton AGUIRRE and convert to General if needed Status Change Before Surgery: No Pre-Antibiotics Given Within 1 Hr of Incision: Deya Mccormick CRNA Sep 16, 2017 09:26
--- NOTE | 2017-09-16 09:27 | Immediate Post-Op Evaluation ---
Immediate Post-Op Evalulation Immediate Post-Op Evalulation Procedure: colonoscopy with biopsy Date of Evaluation: Sep 16, 2017 Time of Evaluation: 09:41 IV Fluids: NSS 400 ml Blood Products: 0 Estimated Blood Loss: 0 Urinary Output: 0 Blood Pressure Systolic: 108 Blood Pressure Diastolic: 45 Pulse Rate: 66 Respiratory Rate: 20 O2 Sat by Pulse Oximetry: 99 Temperature (Fahrenheit): 97.7 Pain Score (1-10): 0 Nausea: No Vomiting: No Complications none Patient Status: awake, reacts Hydration Status: adequate Given Within 1 Hr of Incision: No - none per surgeon Deya Browne CRNA Sep 16, 2017 09:27
--- NOTE | 2017-09-16 09:28 | 48 Hour Post Anesthesia Eval ---
Post Anesthesia Evaluation Procedure: colonoscopy with biopsy Date of Evaluation: Sep 16, 2017 Time of Evaluation: 09:50 Blood Pressure Systolic: 105 0: 48 Pulse Rate: 66 Respiratory Rate: 20 Temperature (Fahrenheit): 97.7 O2 Sat by Pulse Oximetry: 99 Airway: patent Nausea: No Vomiting: No Pain Intensity: 0 Hydration Status: adequate Cardiopulmonary Status: WNL Mental Status/LOC: patient returned to baseline Post-Anesthesia Complications: none Follow-up care needed: patient intructions given Deya Browne CRNA Sep 16, 2017 09:27
--- NOTE | 2017-09-16 09:38 | Endoscopy Procedure Note ---
Endoscopy Procedure Note Indication for Procedure: rectal bleed Procedures Performed: colonoscopy Operative Findings/Diagnosis: 2 polyps, diverticulosis Specimen: yes Pt Tolerated Procedure Well: Yes Estimated Blood Loss: none Anesthesiologist: dez Anesthesia: MAC Implant(s) used?: No 50 yrs or older w/o bx or poly: Not Applicable 10yrs. F/U not recommended: Not Applicable SRIKANTH SIFUENTES Sep 16, 2017 09:37
[2017-09-16 09:52] LABS: ALANINE AMINOTRANSFERASE 58 U/L (12-78); ALBUMIN 2.7 G/DL (3.4-5.0); ALBUMIN/GLOBULIN RATIO 0.5 (1.0-2.7); ALKALINE PHOSPHATASE 176 U/L (46-116); AMYLASE 195 U/L (25-115); ANION GAP 10 mmol/L (5-15); ASPARTATE AMINO TRANSFERASE 29 U/L (15-37); BILIRUBIN,TOTAL 0.6 MG/DL (0.2-1.0); BLOOD UREA NITROGEN 13 mg/dL (7-18); CALCIUM 9.9 MG/DL (8.5-10.1); CARBON DIOXIDE 26 MMOL/L (21-32); CHLORIDE 103 MMOL/L (98-107); CREATININE 0.9 MG/DL (0.55-1.30); POTASSIUM 3.9 MMOL/L (3.5-5.1); SODIUM 139 MMOL/L (136-145)
[2017-09-16 10:54] LABS: LACTATE DEHYDROGENASE 214 U/L (81-234)
[2017-09-16 10:55] LABS: % IRON SATURATION 15 % (15-50); IRON 30 ug/dL (50-175); TOTAL IRON BINDING CAPACITY 205 ug/dL (250-450)
--- NOTE | 2017-09-16 14:34 | Pulmonology Progress Note ---
Assessment/Plan Problems: (1) Gastrointestinal hemorrhage (2) Anemia (3) Dementia Assessment/Plan iv venofer endoscoy results reviewed iv fluids watch h/h prn prbc hold plavix Subjective ROS Limited/Unobtainable: No Constitutional: Reports: no symptoms HEENT: Repors: no symptoms Respiratory: Reports: no symptoms Allergies: Coded Allergies: No Known Allergies (Unverified , 09/15/17) Objective Last 24 Hour Vital Signs Date Time Temp Pulse Resp B/P (MAP) Pulse Ox O2 Delivery O2 Flow Rate FiO2 09/16/17 12:00 97.5 72 20 129/60 93 Room Air 09/16/17 10:15 97.8 71 17 125/66 96 Room Air 09/16/17 10:00 68 18 102/51 97 Room Air 09/16/17 09:56 66 20 99 09/16/17 09:55 66 17 105/55 97 Room Air 09/16/17 09:55 66 20 99 09/16/17 09:50 67 17 107/46 96 Room Air 09/16/17 09:45 78 15 91/43 98 Room Air 09/16/17 09:40 97.2 66 20 108/45 95 Room Air 09/16/17 08:00 80 09/16/17 08:00 97.0 89 20 118/57 98 Room Air 09/16/17 04:25 96.4 88 18 137/64 95 Room Air 09/16/17 04:25 Room Air 09/16/17 04:00 81 09/16/17 00:27 98.1 90 18 145/71 95 Room Air 09/16/17 00:27 Room Air 09/16/17 00:00 89 09/15/17 20:13 97.3 87 18 144/64 99 Room Air 09/15/17 18:00 87 18 144/64 99 Room Air 09/15/17 16:00 73 16 150/60 100 Room Air Intake and Output 09/15/17 09/16/17 19:00 07:00 Intake Total 0 ml 720 ml Output Total 400 ml Balance 0 ml 320 ml Intake Oral 0 ml IV Total 720 ml Output Urine Total 400 ml # Bowel Movements 4 General Appearance: WD/WN HEENT: normocephalic, atraumatic Respiratory/Chest: chest wall non-tender, lungs clear Cardiovascular: normal peripheral pulses, normal rate Abdomen: normal bowel sounds, soft, non tender Genitourinary: normal external genitalia Laboratory Tests 09/15/17 15:53: Lactic Acid Level 1.50 09/15/17 17:50: Urine Color Pale yellow, Urine Appearance Clear, Urine pH 7, Urine Specific [place] 1.005, Urine Protein Negative, Urine Glucose (UA) Negative, Urine Ketones Negative, Urine Occult Blood Negative, Urine Nitrite Negative, Urine Bilirubin Negative, Urine Urobilinogen Normal, Urine Leukocyte Esterase Negative 09/16/17 02:00: Stool Occult Blood Positive 09/16/17 07:25: White Blood Count 11.9H, Red Blood Count 3.86L, Hemoglobin 11.7L, Hematocrit 37.2L, Mean Corpuscular Volume 96, Mean Corpuscular Hemoglobin 30.3, Mean Corpuscular Hemoglobin Concent 31.4L, Red Cell Distribution Width 15.0H, Platelet Count 617H, Mean Platelet Volume 5.5L, Neutrophils (%) (Auto) 79.5H, Lymphocytes (%) (Auto) 13.1L, Monocytes (%) (Auto) 6.7, Eosinophils (%) (Auto) 0.2, Basophils (%) (Auto) 0.5, Differential Total Cells Counted 100, Neutrophils % (Manual) 83H, Lymphocytes % (Manual) 11L, Monocytes % (Manual) 6, Eosinophils % (Manual) 0, Basophils % (Manual) 0, Band Neutrophils 0, Platelet Estimate IncreasedH, Platelet Morphology Normal, Hypochromasia 1+, Anisocytosis 1+, Erythrocyte Sedimentation Rate 82H, Reticulocyte Count 1.2, Prothrombin Time 12.0H, Prothromb Time International Ratio 1.1, Activated Partial Thromboplast Time 33, Sodium Level 139, Potassium Level 3.9, Chloride Level 103 , Carbon Dioxide Level 26, Anion Gap 10, Blood Urea Nitrogen 13, Creatinine 0.9 , Estimat Glomerular Filtration Rate , Glucose Level 104, Calcium Level 9.9, Iron Level 30L, Total Iron Binding Capacity 205L, Percent Iron Saturation 15, Unsaturated Iron Binding 175, Total Bilirubin 0.6, Aspartate Amino Transf (AST/ SGOT) 29, Alanine Aminotransferase (ALT/SGPT) 58, Alkaline Phosphatase 176H, Lactate Dehydrogenase 214, Total Protein 8.0, Albumin 2.7L, Globulin 5.3, Albumin/Globulin Ratio 0.5L, Amylase Level 195H, Lipase 147, Vitamin B12 Level 559, Folate 5.4L Current Medications Medications (Trade) Dose Ordered Sig/Lenora Route PRN Reason Start Time Stop Time Status Last Admin Dose Admin Acetaminophen (Tylenol) 650 mg Q4H PRN ORAL fever 09/15/17 16:15 10/15/17 16:14 Al Hydroxide/Mg Hydroxide (Mylanta II) 30 ml Q6H PRN ORAL dyspepsia 09/15/17 16:15 10/15/17 16:14 Dextrose (Dextrose 50%) STAT PRN IV Hypoglycemia 09/15/17 16:15 10/15/17 16:14 Dextrose/Sodium Chloride 1,000 ml @ 75 mls/hr [id number] IV 09/15/17 16:01 10/15/17 16:00 09/16/17 05:31 Diphenhydramine HCl (Benadryl) 25 mg Q6H PRN ORAL Itching/Pruritis 09/15/17 16:15 10/15/17 16:14 Insulin Aspart (NovoLOG) BEFORE MEALS AND HS SUBQ 09/15/17 21:00 10/15/17 20:59 Morphine Sulfate (Morphine Sulfate) 2 mg EVERY 4 HOURS PRN IVP severe Pain (Pain Scale 7-10) 09/15/17 16:15 09/22/17 16:14 Nitroglycerin (Ntg) 0.4 mg Q5M X 3 DOSES PRN SL Prn Chest Pain 09/15/17 16:15 10/15/17 16:14 Ondansetron HCl (Zofran) 4 mg Q6H PRN IVP Nausea & Vomiting 09/15/17 16:15 10/15/17 16:14 Polyethylene Glycol (Miralax) 17 gm HSPRN PRN ORAL Constipation 09/15/17 16:15 10/15/17 16:14 Temazepam (Restoril) 15 mg HSPRN PRN ORAL Insomnia 09/15/17 16:15 09/22/17 16:14 MARY FELIX Sep 16, 2017 14:34
--- NOTE | 2017-09-16 15:15 | Procedure Note ---
DATE OF PROCEDURE: 09/16/2017 SURGEON: Marshal Rose M.D. REFERRING PHYSICIAN: Earnestine Hanson M.D. PROCEDURE: Colonoscopy with snare polypectomy. ANESTHESIA: Per EDGAR Browne. INSTRUMENT: Olympus adult flexible colonoscope. INDICATION: Rectal bleeding. The procedure, risks, benefits, and possible consequences, including hemorrhage, aspiration, perforation and infection, and alternative treatments, were explained to the patient/legal guardian by Dr. Marshal Rose and the patient/legal guardian understood and accepted these risks. DESCRIPTION OF PROCEDURE: After informed consent was obtained and the patient was adequately sedated, first rectal exam performed, which was normal. Then, the scope was advanced from the rectum into the cecum documented by appendiceal orifice, ileocecal valve, and right upper quadrant palpation. Quality of prep was mediocre to poor. The patient had significant diverticulosis especially in the left colon. The whole right and left colon were full of , but more prominent in left making the procedure challenging given this prep. The patient had two polyps, the larger one was in the sigmoid colon, pedunculated about 1 cm, removed with the snare polypectomy technique. Another polyp in the ascending colon, sessile, measured 7 mm, removed with snare. There is no active bleeding at this time. The patient most probably bled from one of these diverticula and now stopped. Retroflexion of the rectum showed evidence of few small internal hemorrhoids. SUMMARY FINDINGS: 1. Mediocre/poor prep. 2. Diverticulosis. 3. Two colonic polyps removed. 4. Internal hemorrhoids. RECOMMENDATIONS: 1. Start full-liquid diet. 2. Monitor hemoglobin and hematocrit. 3. Transfuse as needed. 4. Follow up pathology. 5. Given this prep and this large polyp, we recommend repeat colonoscopy no later than three years. I want to thank Dr. Hanson for this kind referral. Marshal Rose M.D. DR: RONAN JOB#: [id number] CC: Earnestine Hanson M.D.; Fax#: [phone]
[2017-09-16] MEDS: Iron Sucrose 100 MG in NS 55 ML IV SCH (21:04)
[2017-09-17] VITALS: BP 164/81
[2017-09-17 04:00] VITALS: BP 144/66
[2017-09-17] MEDS: NovoLOG Insulin Flexpen SUBQ SCH ×4 (05:48→20:44)
[2017-09-17 07:02] LABS: BASOPHILS % (AUTO) 0.5 % (0.0-2.0); EOSINOPHILS % (AUTO) 1.5 % (0.0-3.0); HEMATOCRIT 30.1 % (42.0-52.0); HEMOGLOBIN 9.9 G/DL (14.2-18.0); LYMPHOCYTES % (AUTO) 23.1 % (20.0-45.0); MEAN CORPUSCULAR VOLUME 96 FL (80-99); MONOCYTES % (AUTO) 7.6 % (1.0-10.0); NEUTROPHILS % (AUTO) 67.3 % (45.0-75.0); PLATELET COUNT 467 K/UL (150-450); RED BLOOD COUNT 3.14 M/UL (4.70-6.10); RED CELL DISTRIBUTION WIDTH 14.9 % (11.6-14.8); WHITE BLOOD COUNT 9.9 K/UL (4.8-10.8)
[2017-09-17 07:11] LABS: ANION GAP 6 mmol/L (5-15); BLOOD UREA NITROGEN 9 mg/dL (7-18); CALCIUM 8.7 MG/DL (8.5-10.1); CARBON DIOXIDE 27 MMOL/L (21-32); CHLORIDE 105 MMOL/L (98-107); POTASSIUM 3.6 MMOL/L (3.5-5.1); SODIUM 138 MMOL/L (136-145)
[2017-09-17 08:00] VITALS: BP 127/71
[2017-09-17] MEDS: D5 1/2NS 1,000 ML IV SCH ×2 (09:58→13:35)
--- NOTE | 2017-09-17 10:51 | GI Progress Note ---
Assessment/Plan Problems: (1) Gastrointestinal hemorrhage ICD Codes: K92.2 - Gastrointestinal hemorrhage, unspecified SNOMED: 77485076 Qualifiers: Qualified Codes: K92.2 - Gastrointestinal hemorrhage, unspecified (2) Right inguinal hernia ICD Codes: K40.90 - Unilateral inguinal hernia, without obstruction or gangrene , not specified as recurrent SNOMED: 171297546, 681156188 (3) Pulmonary infiltrate in right lung on chest x-ray ICD Codes: R91.8 - Other nonspecific abnormal finding of lung field SNOMED: 310435635, 127007665 (4) Dementia ICD Codes: F03.90 - Unspecified dementia without behavioral disturbance SNOMED: 64843537, 016479406 Qualifiers: Qualified Codes: F03.90 - Unspecified dementia without behavioral disturbance (5) Anemia ICD Codes: D64.9 - Anemia, unspecified SNOMED: 036532293 (6) Acute blood loss anemia ICD Codes: D62 - Acute posthemorrhagic anemia SNOMED: 983182277 Status: stable Status Narrative Discussed with Dr. Rose. Assessment/Plan SUMMARY FINDINGS: 1. Mediocre/poor prep. 2. Diverticulosis. 3. Two colonic polyps removed. 4. Internal hemorrhoids. RECOMMENDATIONS: adv diet as tolerated 2. Monitor hemoglobin and hematocrit. 3. Transfuse as needed. 4. Follow up pathology. 5. Given this prep and this large polyp, we recommend repeat colonoscopy no later than three years. ok to restart Plavix per primary/cardio The patient was seen and examined at bedside and all new and available data was reviewed in the patients chart. I agree with the above findings, impression and plan. (Patient seen earlier today. Signature stamp does not reflect patient encounter time.). - Josh Rose MD Subjective Subjective limited Objective Last 24 Hour Vital Signs Date Time Temp Pulse Resp B/P (MAP) Pulse Ox O2 Delivery O2 Flow Rate FiO2 09/17/17 08:00 96.8 72 18 127/71 97 Room Air 72 09/17/17 04:00 Room Air 09/17/17 04:00 97.5 71 18 144/66 98 Room Air 71 09/17/17 04:00 68 09/17/17 00:00 70 09/17/17 00:00 98.1 91 20 164/81 93 Room Air 09/17/17 00:00 Room Air 1/17/18 20:00 88 09/16/17 20:00 Room Air 09/16/17 20:00 97.5 83 20 141/66 95 09/16/17 16:00 78 09/16/17 16:00 97.3 98 20 148/59 95 Room Air 09/16/17 12:00 97.5 72 20 129/60 93 Room Air 09/16/17 12:00 72 Intake and Output 09/16/17 09/17/17 19:00 07:00 Intake Total 675 ml 986 ml Balance 675 ml 986 ml IV Total 675 ml 986 ml # Bowel Movements 1 3 Laboratory Tests Test 09/17/17 06:25 White Blood Count 9.9 K/UL (4.8-10.8) Red Blood Count 3.14 M/UL (4.70-6.10) L Hemoglobin 9.9 G/DL (14.2-18.0) L Hematocrit 30.1 % (42.0-52.0) L Mean Corpuscular Volume 96 FL (80-99) Mean Corpuscular Hemoglobin 31.7 PG (27.0-31.0) H Mean Corpuscular Hemoglobin Concent 33.1 G/DL (32.0-36.0) Red Cell Distribution Width 14.9 % (11.6-14.8) H Platelet Count 467 K/UL (150-450) H Mean Platelet Volume 6.3 FL (6.5-10.1) L Neutrophils (%) (Auto) 67.3 % (45.0-75.0) Lymphocytes (%) (Auto) 23.1 % (20.0-45.0) Monocytes (%) (Auto) 7.6 % (1.0-10.0) Eosinophils (%) (Auto) 1.5 % (0.0-3.0) Basophils (%) (Auto) 0.5 % (0.0-2.0) Sodium Level 138 MMOL/L (136-145) Potassium Level 3.6 MMOL/L (3.5-5.1) Chloride Level 105 MMOL/L (98-107) Carbon Dioxide Level 27 MMOL/L (21-32) Anion Gap 6 mmol/L (5-15) Blood Urea Nitrogen 9 mg/dL (7-18) Creatinine 1.0 MG/DL (0.55-1.30) Estimat Glomerular Filtration Rate mL/min (>60) Glucose Level 86 MG/DL (74-106) Calcium Level 8.7 MG/DL (8.5-10.1) Height (Feet): 6 Height (Inches): 0.00 Weight (Pounds): 135 General Appearance: WD/WN, no apparent distress, alert, thin Cardiovascular: normal rate Respiratory/Chest: normal breath sounds, no respiratory distress Abdominal Exam: normal bowel sounds, non tender, soft Extremities: non-tender Nani Marley N.P. Sep 17, 2017 10:51 SRIKANTH ROSE Sep 17, 2017 15:38
--- NOTE | 2017-09-17 11:53 | Pulmonology Progress Note ---
Assessment/Plan Problems: (1) Gastrointestinal hemorrhage (2) Anemia (3) Dementia Assessment/Plan still blood in stool iv venofer endoscoy results reviewed iv fluids watch h/h prn prbc hold plavix check h/h in am Subjective ROS Limited/Unobtainable: No Constitutional: Reports: no symptoms HEENT: Repors: no symptoms Respiratory: Reports: no symptoms Allergies: Coded Allergies: No Known Allergies (Unverified , 09/15/17) Objective Last 24 Hour Vital Signs Date Time Temp Pulse Resp B/P (MAP) Pulse Ox O2 Delivery O2 Flow Rate FiO2 09/17/17 08:00 96.8 72 18 127/71 97 Room Air 72 09/17/17 04:00 Room Air 09/17/17 04:00 97.5 71 18 144/66 98 Room Air 71 09/17/17 04:00 68 09/17/17 00:00 70 09/17/17 00:00 98.1 91 20 164/81 93 Room Air 09/17/17 00:00 Room Air 09/16/17 20:00 88 09/16/17 20:00 Room Air 09/16/17 20:00 97.5 83 20 141/66 95 09/16/17 16:00 78 09/16/17 16:00 97.3 98 20 148/59 95 Room Air 09/16/17 12:00 97.5 72 20 129/60 93 Room Air 09/16/17 12:00 72 Intake and Output 09/16/17 09/17/17 19:00 07:00 Intake Total 675 ml 986 ml Balance 675 ml 986 ml IV Total 675 ml 986 ml # Bowel Movements 1 3 General Appearance: cachetic HEENT: normocephalic, atraumatic Respiratory/Chest: chest wall non-tender, normal breath sounds Cardiovascular: normal peripheral pulses, normal rate, regularly irregular Abdomen: normal bowel sounds, no organomegaly, no mass Genitourinary: normal external genitalia Extremities: no cyanosis Skin: no rash, no lesions Microbiology Date/Time Source Procedure Growth Status 09/15/17 15:55 Blood Blood Culture - Preliminary NO GROWTH AFTER 24 HOURS Resulted 09/15/17 15:35 Blood Blood Culture - Preliminary NO GROWTH AFTER 24 HOURS Resulted 09/15/17 16:00 Nasal Nares MRSA Culture - Final Staphylococcus Aureus - Mrsa Complete Laboratory Tests 09/17/17 06:25: White Blood Count 9.9, Red Blood Count 3.14L, Hemoglobin 9.9L, Hematocrit 30.1L , Mean Corpuscular Volume 96, Mean Corpuscular Hemoglobin 31.7H, Mean Corpuscular Hemoglobin Concent 33.1, Red Cell Distribution Width 14.9H, Platelet Count 467H, Mean Platelet Volume 6.3L, Neutrophils (%) (Auto) 67.3, Lymphocytes (%) (Auto) 23.1, Monocytes (%) (Auto) 7.6, Eosinophils (%) (Auto) 1.5, Basophils (%) (Auto) 0.5, Sodium Level 138, Potassium Level 3.6, Chloride Level 105, Carbon Dioxide Level 27, Anion Gap 6, Blood Urea Nitrogen 9, Creatinine 1.0, Estimat Glomerular Filtration Rate , Glucose Level 86, Calcium Level 8.7 Current Medications Medications (Trade) Dose Ordered Sig/Lenora Route PRN Reason Start Time Stop Time Status Last Admin Dose Admin Acetaminophen (Tylenol) 650 mg Q4H PRN ORAL fever 09/15/17 16:15 10/15/17 16:14 Al Hydroxide/Mg Hydroxide (Mylanta II) 30 ml Q6H PRN ORAL dyspepsia 09/15/17 16:15 10/15/17 16:14 Dextrose (Dextrose 50%) STAT PRN IV Hypoglycemia 09/15/17 16:15 10/15/17 16:14 Dextrose/Sodium Chloride 1,000 ml @ 75 mls/hr [id number] IV 09/15/17 16:01 10/15/17 16:00 09/17/17 09:58 Diphenhydramine HCl (Benadryl) 25 mg Q6H PRN ORAL Itching/Pruritis 09/15/17 16:15 10/15/17 16:14 Folic Acid (Folate) 1 mg DAILY ORAL 09/17/17 09:30 10/17/17 09:29 09/17/17 09:53 Insulin Aspart (NovoLOG) BEFORE MEALS AND HS SUBQ 09/15/17 21:00 10/15/17 20:59 09/16/17 16:36 Iron Sucrose 100 mg/Sodium Chloride 60 ml @ 240 mls/hr BEDTIME IV 09/16/17 21:00 09/20/17 21:14 09/16/17 21:04 Morphine Sulfate (Morphine Sulfate) 2 mg EVERY 4 HOURS PRN IVP severe Pain (Pain Scale 7-10) 09/15/17 16:15 09/22/17 16:14 Nitroglycerin (Ntg) 0.4 mg Q5M X 3 DOSES PRN SL Prn Chest Pain 09/15/17 16:15 10/15/17 16:14 Ondansetron HCl (Zofran) 4 mg Q6H PRN IVP Nausea & Vomiting 09/15/17 16:15 10/15/17 16:14 Polyethylene Glycol (Miralax) 17 gm HSPRN PRN ORAL Constipation 09/15/17 16:15 10/15/17 16:14 Temazepam (Restoril) 15 mg HSPRN PRN ORAL Insomnia 09/15/17 16:15 09/22/17 16:14 MARY FELIX Sep 17, 2017 11:53
[2017-09-17 12:00] VITALS: BP 129/66
[2017-09-17] MEDS ORDERED: Aminocaproic Acid Inj 5,000 MG in NS 110 ML IV ONE (13:30)
[2017-09-17 16:00] VITALS: BP 109/48
--- NOTE | 2017-09-17 18:29 | Consultation ---
History of Present Illness General Date patient seen: Sep 17, 2017 Chief Complaint: Gastrointestinal Bleed Referring physician: MARY STANTON Reason for Consultation: RECTAL BLEED Present Illness HPI 81M residential resident was noted to have bright red blood in diaper prior to admission. Was admitted to [facility] for care and management. Upon admission anemia and during admission worsening. Scope performed by GI and results noted. Surgery called to evaluate for GI bleeding. When seen patient states he is well. tolerating diet and comfortable. does not believe he is still having GI bleeding. patient examined, chart reviewed, labs noted. Allergies: Coded Allergies: No Known Allergies (Unverified , 09/15/17) Medication History Scheduled Amlodipine Besylate (Norvasc), 5 MG ORAL DAILY, (Reported) Atorvastatin (Lipitor), 40 MG ORAL BEDTIME, (Reported) Clopidogrel* (Clopidogrel*), 75 MG ORAL DAILY, (Reported) Docusate Sodium* (Docusate Sodium*), 100 MG ORAL DAILY, (Reported) Famotidine (Famotidine), 20 MG ORAL DAILY, (Reported) Ipratropium [place] (Atrovent Hfa), 17 MCG INH DAILY, (Reported) Metformin Hcl* (Metformin Hcl*), 500 MG ORAL TWICE A DAY, (Reported) Scheduled PRN Acetaminophen* (Acetaminophen 325MG Tablet*), 650 MG ORAL Q6HR PRN for Mild Pain /Temp > 100.5, (Reported) Bisacodyl (Bisacodyl), 10 MG RC DAILY PRN for Constipation, (Reported) Ipratropium/Albuterol Sulfate (DuoNeb 0.5-3(2.5)mg/3ml), 3 ML HHN Q4HR PRN for Shortness of Breath, (Reported) Magnesium Hydroxide* (Milk Of Magnesia*), 30 ML ORAL DAILY PRN for Constipation, (Reported) Ondansetron (Zofran), 4 MG ORAL Q6H PRN for Nausea & Vomiting, (Reported) Patient History History Provided By: Patient, Medical Record, PMD Healthcare decision maker N Resuscitation status Full Code Advanced Directive on File Past Medical/Surgical History Past Medical/Surgical History: (1) Anemia (2) Gastrointestinal hemorrhage (3) Dementia (4) Right inguinal hernia (5) Pulmonary infiltrate in right lung on chest x-ray (6) Acute blood loss anemia Review of Systems Constitutional: Denies: no symptoms, see HPI, chills, sweats, fever, malaise, weakness, other Eye: Denies: no symptoms, see HPI, eye pain, blurred vision, tearing, double vision, nose pain, nose congestion, acuity changes, discharge, other ENT: Denies: no symptoms, see HPI, ear pain, ear discharge, nose pain, nose congestion, throat pain, throat swelling, mouth pain, hearing loss, nasal discharge, other Respiratory: Denies: no symptoms, see HPI, cough, orthopnea, shortness of breath, stridor, wheezing, WHITESIDE, sputum, other Cardiovascular: Denies: no symptoms, see HPI, chest pain, edema, palpitations, syncope, PND, other Gastrointestinal: Denies: no symptoms, see HPI, abdominal pain, constipation, diarrhea, nausea, vomiting, melena, hematemesis, other Genitourinary: Denies: no symptoms, see HPI, discharge, dysuria, frequency, hematuria, pain, retention, incontinence, urgency, vag bleed/dc, other Musculoskeletal: Denies: no symptoms, see HPI, back pain, gout, joint pain, joint swelling, muscle pain, muscle stiffness, other Skin: Denies: no symptoms, see HPI, rash, change in color, change in hair/nails , dryness, lesions, other Psychiatric: Denies: no symptoms, see HPI, prior hx, anxiety, depressed feelings, emotional problems, SI, HI, hallucinations, other Neurological: Denies: no symptoms, see HPI, headache, numbness, paresthesia, seizure, tingling, tremors, focal weakness, syncope, dizziness, other Endocrine: Denies: no symptoms, see HPI, excessive sweating, flushing, intolerance to temperature, increased thirst, increased urine, unexplained weight loss, other Hematologic/Lymphatic: Denies: no symptoms, see HPI, anemia, blood clots, easy bleeding, easy bruising, swollen glands, diathesis, other Physical Exam General Appearance: no apparent distress, alert HEENT: atraumatic Neck: normal alignment, normal inspection Respiratory/Chest: normal breath sounds, no respiratory distress, no accessory muscle use Cardiovascular/Chest: normal peripheral pulses, normal rate Abdomen: soft, no organomegaly, no mass Extremities: normal range of motion, non-tender Skin Exam: normal pigmentation Neurologic: alert, responsive Last 24 Hour Vital Signs Date Time Temp Pulse Resp B/P (MAP) Pulse Ox O2 Delivery O2 Flow Rate FiO2 09/17/17 16:00 96.8 67 20 109/48 95 Room Air 72 09/17/17 16:00 68 09/17/17 12:00 96.2 86 20 129/66 97 Room Air 72 09/17/17 12:00 59 09/17/17 08:00 96.8 72 18 127/71 97 Room Air 72 09/17/17 08:00 75 09/17/17 04:00 Room Air 09/17/17 04:00 97.5 71 18 144/66 98 Room Air 71 09/17/17 04:00 68 09/17/17 00:00 70 09/17/17 00:00 98.1 91 20 164/81 93 Room Air 09/17/17 00:00 Room Air 09/16/17 20:00 88 09/16/17 20:00 Room Air 09/16/17 20:00 97.5 83 20 141/66 95 Intake and Output 09/16/17 09/17/17 19:00 07:00 Intake Total 675 ml 986 ml Balance 675 ml 986 ml IV Total 675 ml 986 ml # Bowel Movements 1 3 Laboratory Tests Test 09/17/17 06:25 White Blood Count 9.9 K/UL (4.8-10.8) Red Blood Count 3.14 M/UL (4.70-6.10) L Hemoglobin 9.9 G/DL (14.2-18.0) L Hematocrit 30.1 % (42.0-52.0) L Mean Corpuscular Volume 96 FL (80-99) Mean Corpuscular Hemoglobin 31.7 PG (27.0-31.0) H Mean Corpuscular Hemoglobin Concent 33.1 G/DL (32.0-36.0) Red Cell Distribution Width 14.9 % (11.6-14.8) H Platelet Count 467 K/UL (150-450) H Mean Platelet Volume 6.3 FL (6.5-10.1) L Neutrophils (%) (Auto) 67.3 % (45.0-75.0) Lymphocytes (%) (Auto) 23.1 % (20.0-45.0) Monocytes (%) (Auto) 7.6 % (1.0-10.0) Eosinophils (%) (Auto) 1.5 % (0.0-3.0) Basophils (%) (Auto) 0.5 % (0.0-2.0) Sodium Level 138 MMOL/L (136-145) Potassium Level 3.6 MMOL/L (3.5-5.1) Chloride Level 105 MMOL/L (98-107) Carbon Dioxide Level 27 MMOL/L (21-32) Anion Gap 6 mmol/L (5-15) Blood Urea Nitrogen 9 mg/dL (7-18) Creatinine 1.0 MG/DL (0.55-1.30) Estimat Glomerular Filtration Rate mL/min (>60) Glucose Level 86 MG/DL (74-106) Calcium Level 8.7 MG/DL (8.5-10.1) Height (Feet): 6 Height (Inches): 0.00 Weight (Pounds): 135 Medications Current Medications Medications (Trade) Dose Ordered Sig/Lenora Route PRN Reason Start Time Stop Time Status Last Admin Dose Admin Acetaminophen (Tylenol) 650 mg Q4H PRN ORAL fever 09/15/17 16:15 10/15/17 16:14 Al Hydroxide/Mg Hydroxide (Mylanta II) 30 ml Q6H PRN ORAL dyspepsia 09/15/17 16:15 10/15/17 16:14 Dextrose (Dextrose 50%) STAT PRN IV Hypoglycemia 09/15/17 16:15 10/15/17 16:14 Dextrose/Sodium Chloride 1,000 ml @ 50 mls/hr Q20H IV 09/17/17 12:30 10/17/17 12:29 09/17/17 13:35 Diphenhydramine HCl (Benadryl) 25 mg Q6H PRN ORAL Itching/Pruritis 09/15/17 16:15 10/15/17 16:14 Folic Acid (Folate) 1 mg DAILY ORAL 09/17/17 09:30 10/17/17 09:29 09/17/17 09:53 Insulin Aspart (NovoLOG) BEFORE MEALS AND HS SUBQ 09/15/17 21:00 10/15/17 20:59 09/17/17 17:37 Iron Sucrose 100 mg/Sodium Chloride 60 ml @ 240 mls/hr BEDTIME IV 09/16/17 21:00 09/20/17 21:14 09/16/17 21:04 Morphine Sulfate (Morphine Sulfate) 2 mg EVERY 4 HOURS PRN IVP severe Pain (Pain Scale 7-10) 09/15/17 16:15 09/22/17 16:14 Nitroglycerin (Ntg) 0.4 mg Q5M X 3 DOSES PRN SL Prn Chest Pain 09/15/17 16:15 10/15/17 16:14 Ondansetron HCl (Zofran) 4 mg Q6H PRN IVP Nausea & Vomiting 09/15/17 16:15 10/15/17 16:14 Polyethylene Glycol (Miralax) 17 gm HSPRN PRN ORAL Constipation 09/15/17 16:15 10/15/17 16:14 Temazepam (Restoril) 15 mg HSPRN PRN ORAL Insomnia 09/15/17 16:15 09/22/17 16:14 Assessment/Plan Problem List: (1) Gastrointestinal hemorrhage Assessment & Plan: 81M with lower GI bleed. afebrile, HD stable, anemia with Hb 9's today. colonoscopy with poor prep but polyps and diverticula noted. hemorrhoids noted. -no acute active bleeding currently but H/H is downtrending -trend H/H -no acute surgical intervention necessary but will monitor closely. thank you for this consultation. ICD Codes: K92.2 - Gastrointestinal hemorrhage, unspecified SNOMED: 51477893 Qualifiers: Qualified Codes: K92.2 - Gastrointestinal hemorrhage, unspecified Status: stable VirgilJordan Sep 17, 2017 18:29
[2017-09-17 20:00] VITALS: BP 116/54
[2017-09-17] MEDS: Iron Sucrose 100 MG in NS 55 ML IV SCH (20:31)
[2017-09-18] VITALS: BP 109/59
[2017-09-18 04:00] VITALS: BP 119/56
[2017-09-18] MEDS: NovoLOG Insulin Flexpen SUBQ SCH ×4 (06:30→20:30)
[2017-09-18 08:00] VITALS: BP 122/61
[2017-09-18 08:04] LABS: BASOPHILS % (AUTO) 0.9 % (0.0-2.0); EOSINOPHILS % (AUTO) 2.6 % (0.0-3.0); HEMATOCRIT 28.2 % (42.0-52.0); HEMOGLOBIN 9.1 G/DL (14.2-18.0); LYMPHOCYTES % (AUTO) 41.2 % (20.0-45.0); MEAN CORPUSCULAR VOLUME 96 FL (80-99); MONOCYTES % (AUTO) 9.2 % (1.0-10.0); NEUTROPHILS % (AUTO) 46.1 % (45.0-75.0); PLATELET COUNT 428 K/UL (150-450); RED BLOOD COUNT 2.95 M/UL (4.70-6.10); RED CELL DISTRIBUTION WIDTH 14.7 % (11.6-14.8); WHITE BLOOD COUNT 6.1 K/UL (4.8-10.8)
[2017-09-18 08:10] LABS: INR 1.1 (0.9-1.1)
[2017-09-18 08:19] LABS: ALANINE AMINOTRANSFERASE 37 U/L (12-78); ALBUMIN/GLOBULIN RATIO 0.5 (1.0-2.7); ALKALINE PHOSPHATASE 122 U/L (46-116); ANION GAP 7 mmol/L (5-15); ASPARTATE AMINO TRANSFERASE 27 U/L (15-37); BILIRUBIN,TOTAL 0.3 MG/DL (0.2-1.0); BLOOD UREA NITROGEN 12 mg/dL (7-18); CALCIUM 8.8 MG/DL (8.5-10.1); CARBON DIOXIDE 25 MMOL/L (21-32); CHLORIDE 107 MMOL/L (98-107); CREATININE 0.9 MG/DL (0.55-1.30); POTASSIUM 3.8 MMOL/L (3.5-5.1); SODIUM 138 MMOL/L (136-145)
[2017-09-18] MEDS: D5 1/2NS 1,000 ML IV SCH (08:49)
[2017-09-18 09:03] LABS: PHOSPHORUS 2.6 MG/DL (2.5-4.9)
--- NOTE | 2017-09-18 10:26 | GI Progress Note ---
Assessment/Plan Problems: (1) Gastrointestinal hemorrhage ICD Codes: K92.2 - Gastrointestinal hemorrhage, unspecified SNOMED: 85925779 Qualifiers: Qualified Codes: K92.2 - Gastrointestinal hemorrhage, unspecified (2) Right inguinal hernia ICD Codes: K40.90 - Unilateral inguinal hernia, without obstruction or gangrene , not specified as recurrent SNOMED: 875392325, 268729020 (3) Pulmonary infiltrate in right lung on chest x-ray ICD Codes: R91.8 - Other nonspecific abnormal finding of lung field SNOMED: 211912773, 302769374 (4) Dementia ICD Codes: F03.90 - Unspecified dementia without behavioral disturbance SNOMED: 99925586, 099295145 Qualifiers: Qualified Codes: F03.90 - Unspecified dementia without behavioral disturbance (5) Anemia ICD Codes: D64.9 - Anemia, unspecified SNOMED: 838675121 (6) Acute blood loss anemia ICD Codes: D62 - Acute posthemorrhagic anemia SNOMED: 052961730 Status: unchanged Status Narrative Discussed with Dr. Rose. Assessment/Plan SUMMARY FINDINGS: 1. Mediocre/poor prep. 2. Diverticulosis. >> most likely cause of bleed 3. Two colonic polyps removed. 4. Internal hemorrhoids. RECOMMENDATIONS: adv diet as tolerated Monitor hemoglobin and hematocrit. Transfuse as needed. Follow up pathology. >> no dysphagia, no malignancy Given this prep and this large polyp, we recommend repeat colonoscopy no later than three years. ok to restart Plavix per primary/cardio The patient was seen and examined at bedside and all new and available data was reviewed in the patients chart. I agree with the above findings, impression and plan. (Patient seen earlier today. Signature stamp does not reflect patient encounter time.). - Josh Rose MD Subjective Subjective limited, dementia denies any symptoms Objective Last 24 Hour Vital Signs Date Time Temp Pulse Resp B/P (MAP) Pulse Ox O2 Delivery O2 Flow Rate FiO2 09/18/17 08:00 60 09/18/17 08:00 97.9 63 18 122/61 99 Room Air 09/18/17 04:00 68 09/18/17 04:00 96.8 68 17 119/56 100 Room Air 09/18/17 00:00 67 09/18/17 00:00 98.2 67 19 109/59 99 09/17/17 20:00 97.8 69 19 116/54 98 09/17/17 20:00 71 09/17/17 16:00 96.8 67 20 109/48 95 Room Air 72 09/17/17 16:00 68 09/17/17 12:00 96.2 86 20 129/66 97 Room Air 72 09/17/17 12:00 59 Intake and Output 09/17/17 09/18/17 19:00 07:00 Intake Total 1040 ml 260 ml Output Total 100 ml Balance 940 ml 260 ml Intake Oral 990 ml 100 ml IV Total 50 ml 160 ml Output Urine Total 100 ml # Voids 3 2 # Bowel Movements 3 Laboratory Tests Test 09/18/17 06:30 White Blood Count 6.1 K/UL (4.8-10.8) Red Blood Count 2.95 M/UL (4.70-6.10) L Hemoglobin 9.1 G/DL (14.2-18.0) L Hematocrit 28.2 % (42.0-52.0) L Mean Corpuscular Volume 96 FL (80-99) Mean Corpuscular Hemoglobin 30.8 PG (27.0-31.0) Mean Corpuscular Hemoglobin Concent 32.2 G/DL (32.0-36.0) Red Cell Distribution Width 14.7 % (11.6-14.8) Platelet Count 428 K/UL (150-450) Mean Platelet Volume 5.8 FL (6.5-10.1) L Neutrophils (%) (Auto) 46.1 % (45.0-75.0) Lymphocytes (%) (Auto) 41.2 % (20.0-45.0) Monocytes (%) (Auto) 9.2 % (1.0-10.0) Eosinophils (%) (Auto) 2.6 % (0.0-3.0) Basophils (%) (Auto) 0.9 % (0.0-2.0) Prothrombin Time 12.0 SEC (9.30-11.50) H Prothromb Time International Ratio 1.1 (0.9-1.1) Activated Partial Thromboplast Time 44 SEC (23-33) H Sodium Level 138 MMOL/L (136-145) Potassium Level 3.8 MMOL/L (3.5-5.1) Chloride Level 107 MMOL/L (98-107) Carbon Dioxide Level 25 MMOL/L (21-32) Anion Gap 7 mmol/L (5-15) Blood Urea Nitrogen 12 mg/dL (7-18) Creatinine 0.9 MG/DL (0.55-1.30) Estimat Glomerular Filtration Rate mL/min (>60) Glucose Level 80 MG/DL (74-106) Calcium Level 8.8 MG/DL (8.5-10.1) Phosphorus Level 2.6 MG/DL (2.5-4.9) Magnesium Level 1.7 MG/DL (1.8-2.4) L Total Bilirubin 0.3 MG/DL (0.2-1.0) Aspartate Amino Transf (AST/SGOT) 27 U/L (15-37) Alanine Aminotransferase (ALT/SGPT) 37 U/L (12-78) Alkaline Phosphatase 122 U/L (46-116) H Total Protein 6.0 G/DL (6.4-8.2) L Albumin 2.0 G/DL (3.4-5.0) L Globulin 4.0 g/dL Albumin/Globulin Ratio 0.5 (1.0-2.7) L Height (Feet): 6 Height (Inches): 0.00 Weight (Pounds): 135 General Appearance: alert, thin Cardiovascular: normal rate Respiratory/Chest: normal breath sounds, no respiratory distress Abdominal Exam: normal bowel sounds, non tender, soft Extremities: non-tender Nani Marley N.P. Sep 18, 2017 10:26 SRIKANTH ROSE Sep 18, 2017 10:47
[2017-09-18 12:00] VITALS: BP 110/58
[2017-09-18 16:00] VITALS: BP 119/76
--- NOTE | 2017-09-18 16:55 | General Surgery Progress Note ---
General Surgery-Progress Note Subjective Additional Comments no acute events. stable. H/H trending down a bit today. no signs of active bleeding. Objective Last 24 Hour Vital Signs Date Time Temp Pulse Resp B/P (MAP) Pulse Ox O2 Delivery O2 Flow Rate FiO2 09/18/17 12:00 56 09/18/17 12:00 96.9 63 18 110/58 99 Room Air 09/18/17 08:00 60 09/18/17 08:00 97.9 63 18 122/61 99 Room Air 09/18/17 04:00 68 09/18/17 04:00 96.8 68 17 119/56 100 Room Air 09/18/17 00:00 67 09/18/17 00:00 98.2 67 19 109/59 99 09/17/17 20:00 97.8 69 19 116/54 98 09/17/17 20:00 71 I&O Intake and Output 09/17/17 09/18/17 19:00 07:00 Intake Total 1040 ml 260 ml Output Total 100 ml Balance 940 ml 260 ml Intake Oral 990 ml 100 ml IV Total 50 ml 160 ml Output Urine Total 100 ml # Voids 3 2 # Bowel Movements 3 Cardiovascular: RSR Respiratory: clear Abdomen: soft, non-tender, present bowel sounds Extremities: no tenderness Laboratory Tests Test 09/18/17 06:30 White Blood Count 6.1 K/UL (4.8-10.8) Red Blood Count 2.95 M/UL (4.70-6.10) L Hemoglobin 9.1 G/DL (14.2-18.0) L Hematocrit 28.2 % (42.0-52.0) L Mean Corpuscular Volume 96 FL (80-99) Mean Corpuscular Hemoglobin 30.8 PG (27.0-31.0) Mean Corpuscular Hemoglobin Concent 32.2 G/DL (32.0-36.0) Red Cell Distribution Width 14.7 % (11.6-14.8) Platelet Count 428 K/UL (150-450) Mean Platelet Volume 5.8 FL (6.5-10.1) L Neutrophils (%) (Auto) 46.1 % (45.0-75.0) Lymphocytes (%) (Auto) 41.2 % (20.0-45.0) Monocytes (%) (Auto) 9.2 % (1.0-10.0) Eosinophils (%) (Auto) 2.6 % (0.0-3.0) Basophils (%) (Auto) 0.9 % (0.0-2.0) Prothrombin Time 12.0 SEC (9.30-11.50) H Prothromb Time International Ratio 1.1 (0.9-1.1) Activated Partial Thromboplast Time 44 SEC (23-33) H Sodium Level 138 MMOL/L (136-145) Potassium Level 3.8 MMOL/L (3.5-5.1) Chloride Level 107 MMOL/L (98-107) Carbon Dioxide Level 25 MMOL/L (21-32) Anion Gap 7 mmol/L (5-15) Blood Urea Nitrogen 12 mg/dL (7-18) Creatinine 0.9 MG/DL (0.55-1.30) Estimat Glomerular Filtration Rate mL/min (>60) Glucose Level 80 MG/DL (74-106) Calcium Level 8.8 MG/DL (8.5-10.1) Phosphorus Level 2.6 MG/DL (2.5-4.9) Magnesium Level 1.7 MG/DL (1.8-2.4) L Total Bilirubin 0.3 MG/DL (0.2-1.0) Aspartate Amino Transf (AST/SGOT) 27 U/L (15-37) Alanine Aminotransferase (ALT/SGPT) 37 U/L (12-78) Alkaline Phosphatase 122 U/L (46-116) H Total Protein 6.0 G/DL (6.4-8.2) L Albumin 2.0 G/DL (3.4-5.0) L Globulin 4.0 g/dL Albumin/Globulin Ratio 0.5 (1.0-2.7) L Plan Problems: (1) Gastrointestinal hemorrhage Assessment & Plan: 81M with lower GI bleed. afebrile, HD stable, anemia. colonoscopy with poor prep but polyps and diverticula noted. hemorrhoids noted. no active bleeding. H/H trending down. -no acute active bleeding currently but H/H is downtrending -trend H/H -transfuse prn -no acute surgical intervention necessary but will monitor closely. thank you for this consultation. Jordan Herman Sep 18, 2017 16:55
--- NOTE | 2017-09-18 18:40 | Pulmonology Progress Note ---
Assessment/Plan Problems: (1) Severe protein-calorie malnutrition (2) Pulmonary infiltrate in right lung on chest x-ray (3) Gastrointestinal hemorrhage (4) Anemia (5) Dementia Assessment/Plan still blood in stool iv venofer check h/h endoscoy results reviewed iv fluids watch h/h prn prbc hold plavix check h/h in am Subjective ROS Limited/Unobtainable: Yes Constitutional: Reports: no symptoms Allergies: Coded Allergies: No Known Allergies (Unverified , 09/15/17) Objective Last 24 Hour Vital Signs Date Time Temp Pulse Resp B/P (MAP) Pulse Ox O2 Delivery O2 Flow Rate FiO2 09/18/17 16:00 63 09/18/17 16:00 98.1 76 18 119/76 100 Room Air 09/18/17 12:00 56 09/18/17 12:00 96.9 63 18 110/58 99 Room Air 09/18/17 08:00 60 09/18/17 08:00 97.9 63 18 122/61 99 Room Air 09/18/17 04:00 68 09/18/17 04:00 96.8 68 17 119/56 100 Room Air 09/18/17 00:00 67 09/18/17 00:00 98.2 67 19 109/59 99 09/17/17 20:00 97.8 69 19 116/54 98 09/17/17 20:00 71 Intake and Output 09/17/17 09/18/17 19:00 07:00 Intake Total 1040 ml 260 ml Output Total 100 ml Balance 940 ml 260 ml Intake Oral 990 ml 100 ml IV Total 50 ml 160 ml Output Urine Total 100 ml # Voids 3 2 # Bowel Movements 3 Objective General Appearance: cachetic HEENT: normocephalic, atraumatic Respiratory/Chest: chest wall non-tender, normal breath sounds Cardiovascular: normal peripheral pulses, normal rate, regularly irregular Abdomen: normal bowel sounds, no organomegaly, no mass Genitourinary: normal external genitalia Extremities: no cyanosis Skin: no rash, no lesions Laboratory Tests 09/18/17 06:30: White Blood Count 6.1, Red Blood Count 2.95L, Hemoglobin 9.1L, Hematocrit 28.2L , Mean Corpuscular Volume 96, Mean Corpuscular Hemoglobin 30.8, Mean Corpuscular Hemoglobin Concent 32.2, Red Cell Distribution Width 14.7, Platelet Count 428, Mean Platelet Volume 5.8L, Neutrophils (%) (Auto) 46.1, Lymphocytes ( %) (Auto) 41.2, Monocytes (%) (Auto) 9.2, Eosinophils (%) (Auto) 2.6, Basophils (%) (Auto) 0.9, Prothrombin Time 12.0H, Prothromb Time International Ratio 1.1, Activated Partial Thromboplast Time 44H, Sodium Level 138, Potassium Level 3.8, Chloride Level 107, Carbon Dioxide Level 25, Anion Gap 7, Blood Urea Nitrogen 12 , Creatinine 0.9, Estimat Glomerular Filtration Rate , Glucose Level 80, Calcium Level 8.8, Phosphorus Level 2.6, Magnesium Level 1.7L, Total Bilirubin 0.3, Aspartate Amino Transf (AST/SGOT) 27, Alanine Aminotransferase (ALT/SGPT) 37, Alkaline Phosphatase 122H, Total Protein 6.0L, Albumin 2.0L, Globulin 4.0, Albumin/Globulin Ratio 0.5L Current Medications Medications (Trade) Dose Ordered Sig/Lenora Route PRN Reason Start Time Stop Time Status Last Admin Dose Admin Acetaminophen (Tylenol) 650 mg Q4H PRN ORAL fever 09/15/17 16:15 10/15/17 16:14 Al Hydroxide/Mg Hydroxide (Mylanta II) 30 ml Q6H PRN ORAL dyspepsia 09/15/17 16:15 10/15/17 16:14 Dextrose (Dextrose 50%) STAT PRN IV Hypoglycemia 09/15/17 16:15 10/15/17 16:14 Dextrose/Sodium Chloride 1,000 ml @ 50 mls/hr Q20H IV 09/17/17 12:30 10/17/17 12:29 09/18/17 08:49 Diphenhydramine HCl (Benadryl) 25 mg Q6H PRN ORAL Itching/Pruritis 09/15/17 16:15 10/15/17 16:14 Folic Acid (Folate) 1 mg DAILY ORAL 09/17/17 09:30 10/17/17 09:29 09/18/17 08:49 Insulin Aspart (NovoLOG) BEFORE MEALS AND HS SUBQ 09/15/17 21:00 10/15/17 20:59 09/18/17 12:35 Iron Sucrose 100 mg/Sodium Chloride 60 ml @ 240 mls/hr BEDTIME IV 09/16/17 21:00 09/20/17 21:14 09/17/17 20:31 Magnesium Sulfate 100 ml @ 100 mls/hr Q1H IVPB 09/18/17 17:30 09/18/17 19:29 09/18/17 17:50 Morphine Sulfate (Morphine Sulfate) 2 mg EVERY 4 HOURS PRN IVP severe Pain (Pain Scale 7-10) 09/15/17 16:15 09/22/17 16:14 Nitroglycerin (Ntg) 0.4 mg Q5M X 3 DOSES PRN SL Prn Chest Pain 09/15/17 16:15 10/15/17 16:14 Ondansetron HCl (Zofran) 4 mg Q6H PRN IVP Nausea & Vomiting 09/15/17 16:15 10/15/17 16:14 Polyethylene Glycol (Miralax) 17 gm HSPRN PRN ORAL Constipation 09/15/17 16:15 10/15/17 16:14 Temazepam (Restoril) 15 mg HSPRN PRN ORAL Insomnia 09/15/17 16:15 09/22/17 16:14 MARY FELIX Sep 18, 2017 18:40
[2017-09-18] MEDS ORDERED: D5 1/2NS 1000ml IV ONE (18:59)
[2017-09-18] MEDS ORDERED: Tubing IV Secondary IV ONE (18:59)
[2017-09-18 20:00] VITALS: BP 128/68
[2017-09-18] MEDS: Iron Sucrose 100 MG in NS 55 ML IV SCH (20:29)
[2017-09-19] VITALS (7 sets, daily range): BP systolic 118–158; BP diastolic 52–74
[2017-09-19] MEDS: D5 1/2NS 1,000 ML IV SCH ×2 (05:31→19:00)
[2017-09-19] MEDS: NovoLOG Insulin Flexpen SUBQ SCH ×4 (06:29→21:00)
--- NOTE | 2017-09-19 07:26 | Pulmonology Progress Note ---
Assessment/Plan Assessment/Plan ASSESMENT GI hemorrhage anemia s/p colonoscopy severe protein calorie malnutrition PNA dementia DM PLAN OF CARE Tele GI follows stool OB + s/p colon with findings of polyps, s/p bx, diverticula, internal hemorrhoids Biopsy c/w tubular adenoma Due to poor prep GI recommended repeat colonoscopy within 3 years HH with trend down anemia w/up noted started on IV venofer , monitor counts, transfuse prn gentle IVF Hold Plavix Venous Duplex negative CT A/P with large inguinal hernia containing bowel surgery follows Per surgery no acute surgical interventions necessary at this time BS management with SS of insulin Bowel regimen Subjective Allergies: Coded Allergies: No Known Allergies (Unverified , 09/15/17) Objective Last 24 Hour Vital Signs Date Time Temp Pulse Resp B/P (MAP) Pulse Ox O2 Delivery O2 Flow Rate FiO2 09/19/17 04:31 98.7 101 20 152/70 97 Room Air 09/19/17 04:31 Room Air 09/19/17 04:00 71 09/19/17 00:33 98.7 66 20 139/74 98 09/19/17 00:33 Room Air 09/19/17 00:00 63 09/18/17 20:00 68 09/18/17 20:00 99.2 67 21 128/68 98 09/18/17 20:00 Room Air 09/18/17 16:00 63 09/18/17 16:00 98.1 76 18 119/76 100 Room Air 09/18/17 12:00 56 09/18/17 12:00 96.9 63 18 110/58 99 Room Air 09/18/17 08:00 60 09/18/17 08:00 97.9 63 18 122/61 99 Room Air Intake and Output 09/18/17 09/19/17 19:00 07:00 Intake Total 638 ml 548 ml Balance 638 ml 548 ml Intake Oral 588 ml IV Total 50 ml 548 ml # Voids 2 2 # Bowel Movements 3 Current Medications Medications (Trade) Dose Ordered Sig/Lenora Route PRN Reason Start Time Stop Time Status Last Admin Dose Admin Acetaminophen (Tylenol) 650 mg Q4H PRN ORAL fever 09/15/17 16:15 18 16:14 Al Hydroxide/Mg Hydroxide (Mylanta II) 30 ml Q6H PRN ORAL dyspepsia 09/15/17 16:15 10/15/17 16:14 Dextrose (Dextrose 50%) STAT PRN IV Hypoglycemia 09/15/17 16:15 10/15/17 16:14 Dextrose/Sodium Chloride 1,000 ml @ 50 mls/hr Q20H IV 09/17/17 12:30 10/17/17 12:29 09/19/17 05:31 Diphenhydramine HCl (Benadryl) 25 mg Q6H PRN ORAL Itching/Pruritis 09/15/17 16:15 10/15/17 16:14 Folic Acid (Folate) 1 mg DAILY ORAL 09/17/17 09:30 10/17/17 09:29 09/18/17 08:49 Insulin Aspart (NovoLOG) BEFORE MEALS AND HS SUBQ 09/15/17 21:00 10/15/17 20:59 09/18/17 12:35 Iron Sucrose 100 mg/Sodium Chloride 60 ml @ 240 mls/hr BEDTIME IV 09/16/17 21:00 09/20/17 21:14 09/18/17 20:29 Morphine Sulfate (Morphine Sulfate) 2 mg EVERY 4 HOURS PRN IVP severe Pain (Pain Scale 7-10) 09/15/17 16:15 09/22/17 16:14 Nitroglycerin (Ntg) 0.4 mg Q5M X 3 DOSES PRN SL Prn Chest Pain 09/15/17 16:15 10/15/17 16:14 Ondansetron HCl (Zofran) 4 mg Q6H PRN IVP Nausea & Vomiting 09/15/17 16:15 10/15/17 16:14 Polyethylene Glycol (Miralax) 17 gm HSPRN PRN ORAL Constipation 09/15/17 16:15 10/15/17 16:14 Temazepam (Restoril) 15 mg HSPRN PRN ORAL Insomnia 09/15/17 16:15 09/22/17 16:14 Akilah Mesa NP ([facility]) Sep 19, 2017 07:26
[2017-09-19 08:03] LABS: BASOPHILS % (AUTO) 0.6 % (0.0-2.0); EOSINOPHILS % (AUTO) 1.5 % (0.0-3.0); HEMATOCRIT 34.5 % (42.0-52.0); HEMOGLOBIN 10.9 G/DL (14.2-18.0); LYMPHOCYTES % (AUTO) 23.8 % (20.0-45.0); MEAN CORPUSCULAR VOLUME 96 FL (80-99); MONOCYTES % (AUTO) 7.1 % (1.0-10.0); PLATELET COUNT 523 K/UL (150-450); RED BLOOD COUNT 3.61 M/UL (4.70-6.10); WHITE BLOOD COUNT 9.1 K/UL (4.8-10.8)
--- NOTE | 2017-09-19 08:07 | General Progress Note ---
Assessment/Plan Problem List: (1) Severe protein-calorie malnutrition ICD Codes: E43 - Unspecified severe protein-calorie malnutrition SNOMED: 452998490 (2) Dementia ICD Codes: F03.90 - Unspecified dementia without behavioral disturbance SNOMED: 83756604, 014628911 Qualifiers: Qualified Codes: F03.90 - Unspecified dementia without behavioral disturbance (3) Gastrointestinal hemorrhage ICD Codes: K92.2 - Gastrointestinal hemorrhage, unspecified SNOMED: 71734342 Qualifiers: Qualified Codes: K92.2 - Gastrointestinal hemorrhage, unspecified (4) Anemia ICD Codes: D64.9 - Anemia, unspecified SNOMED: 636512640 Assessment/Plan SUMMARY FINDINGS: 1. Mediocre/poor prep. 2. Diverticulosis. >> most likely cause of bleed 3. Two colonic polyps removed. 4. Internal hemorrhoids. RECOMMENDATIONS: fu H&H prn blood transfusion plan repeat colonoscopy on Thursday if still bleeding Subjective ROS Limited/Unobtainable: No Allergies: Coded Allergies: No Known Allergies (Unverified , 09/15/17) Subjective still has some rectal bleed per nurses Objective Last 24 Hour Vital Signs Date Time Temp Pulse Resp B/P (MAP) Pulse Ox O2 Delivery O2 Flow Rate FiO2 09/19/17 04:31 98.7 101 20 152/70 97 Room Air 09/19/17 04:31 Room Air 09/19/17 04:00 71 09/19/17 00:33 98.7 66 20 139/74 98 09/19/17 00:33 Room Air 09/19/17 00:00 63 09/18/17 20:00 68 09/18/17 20:00 99.2 67 21 128/68 98 09/18/17 20:00 Room Air 09/18/17 16:00 63 09/18/17 16:00 98.1 76 18 119/76 100 Room Air 09/18/17 12:00 56 09/18/17 12:00 96.9 63 18 110/58 99 Room Air Intake and Output 09/18/17 09/19/17 19:00 07:00 Intake Total 638 ml 623 ml Balance 638 ml 623 ml Intake Oral 588 ml IV Total 50 ml 623 ml # Voids 2 2 # Bowel Movements 3 Laboratory Tests 09/19/17 06:25: White Blood Count [Pending], Red Blood Count [Pending], Hemoglobin [Pending], Hematocrit [Pending], Mean Corpuscular Volume [Pending], Mean Corpuscular Hemoglobin [Pending], Mean Corpuscular Hemoglobin Concent [Pending], Red Cell Distribution Width [Pending], Platelet Count [Pending], Mean Platelet Volume [ Pending], Neutrophils (%) (Auto) [Pending], Lymphocytes (%) (Auto) [Pending], Monocytes (%) (Auto) [Pending], Eosinophils (%) (Auto) [Pending], Basophils (%) (Auto) [Pending], Sodium Level [Pending], Potassium Level [Pending], Chloride Level [Pending], Carbon Dioxide Level [Pending], Blood Urea Nitrogen [Pending], Creatinine [Pending], Estimat Glomerular Filtration Rate [Pending], Glucose Level [Pending], Calcium Level [Pending] Height (Feet): 6 Height (Inches): 0.00 Weight (Pounds): 135 General Appearance: no apparent distress EENT: normal ENT inspection Neck: supple Cardiovascular: normal rate Respiratory/Chest: decreased breath sounds Abdomen: normal bowel sounds, non tender, soft Extremities: non-tender SRIKANTH SIFUENTES Sep 19, 2017 08:07
[2017-09-19 08:49] LABS: ANION GAP 9 mmol/L (5-15); BLOOD UREA NITROGEN 10 mg/dL (7-18); CALCIUM 9.3 MG/DL (8.5-10.1); CARBON DIOXIDE 27 MMOL/L (21-32); CHLORIDE 101 MMOL/L (98-107); CREATININE 0.9 MG/DL (0.55-1.30); POTASSIUM 3.6 MMOL/L (3.5-5.1); SODIUM 137 MMOL/L (136-145)
--- NOTE | 2017-09-19 14:03 | General Surgery Progress Note ---
General Surgery-Progress Note Subjective Symptoms: improved Additional Comments tolerating diet. having flatus and BM's. no active bleeding. no complaints. states he feels well. Objective Last 24 Hour Vital Signs Date Time Temp Pulse Resp B/P (MAP) Pulse Ox O2 Delivery O2 Flow Rate FiO2 09/19/17 12:00 63 09/19/17 12:00 98.0 63 20 139/65 98 Room Air 09/19/17 08:00 97.2 63 20 118/52 98 Room Air 09/19/17 08:00 76 09/19/17 04:31 98.7 101 20 152/70 97 Room Air 09/19/17 04:31 Room Air 09/19/17 04:00 71 09/19/17 00:33 98.7 66 20 139/74 98 09/19/17 00:33 Room Air 09/19/17 00:00 63 09/18/17 20:00 68 09/18/17 20:00 99.2 67 21 128/68 98 09/18/17 20:00 Room Air 09/18/17 16:00 63 09/18/17 16:00 98.1 76 18 119/76 100 Room Air I&O Intake and Output 09/18/17 09/19/17 19:00 07:00 Intake Total 638 ml 623 ml Balance 638 ml 623 ml Intake Oral 588 ml IV Total 50 ml 623 ml # Voids 2 2 # Bowel Movements 3 Cardiovascular: RSR Respiratory: clear Abdomen: soft, flat, non-tender, present bowel sounds Extremities: no tenderness Laboratory Tests Test 09/19/17 06:25 White Blood Count 9.1 K/UL (4.8-10.8) Red Blood Count 3.61 M/UL (4.70-6.10) L Hemoglobin 10.9 G/DL (14.2-18.0) L Hematocrit 34.5 % (42.0-52.0) L Mean Corpuscular Volume 96 FL (80-99) Mean Corpuscular Hemoglobin 30.3 PG (27.0-31.0) Mean Corpuscular Hemoglobin Concent 31.7 G/DL (32.0-36.0) L Red Cell Distribution Width 15.0 % (11.6-14.8) H Platelet Count 523 K/UL (150-450) H Mean Platelet Volume 5.5 FL (6.5-10.1) L Neutrophils (%) (Auto) 67.0 % (45.0-75.0) Lymphocytes (%) (Auto) 23.8 % (20.0-45.0) Monocytes (%) (Auto) 7.1 % (1.0-10.0) Eosinophils (%) (Auto) 1.5 % (0.0-3.0) Basophils (%) (Auto) 0.6 % (0.0-2.0) Sodium Level 137 MMOL/L (136-145) Potassium Level 3.6 MMOL/L (3.5-5.1) Chloride Level 101 MMOL/L (98-107) Carbon Dioxide Level 27 MMOL/L (21-32) Anion Gap 9 mmol/L (5-15) Blood Urea Nitrogen 10 mg/dL (7-18) Creatinine 0.9 MG/DL (0.55-1.30) Estimat Glomerular Filtration Rate mL/min (>60) Glucose Level 104 MG/DL (74-106) Calcium Level 9.3 MG/DL (8.5-10.1) Additional Comments LARGE reducible right inguinal hernia down to scrotum. able to reduce at bedside without difficulty. as noted on CT Plan Problems: (1) Gastrointestinal hemorrhage Assessment & Plan: 81M with lower GI bleed. afebrile, HD stable, anemia. colonoscopy with poor prep but polyps and diverticula noted. hemorrhoids noted. no active bleeding. H/H trending down. noted on CT to have large right inguinal hernia with bowel. able to completely reduce at bedside. hernia down to scrotum and easily reducible. -no acute active bleeding currently but H/H is downtrending -trend H/H -transfuse prn -no acute surgical intervention necessary but will monitor closely. -should have right inguinal hernia repaired. can be done electively unless becomes incarcerated, obstructive or strangulated. currently easily reducible. thank you for this consultation. Jordan Herman Sep 19, 2017 14:03
--- NOTE | 2017-09-19 15:35 | Pulmonology Progress Note ---
Assessment/Plan Assessment/Plan ASSESSMENT GI hemorrhage anemia s/p colonoscopy severe protein calorie malnutrition atelectasis, ( doubt PNA) dementia DM PLAN OF CARE Tele GI follows stool OB + s/p colon with findings of polyps, s/p bx, diverticula, internal hemorrhoids Biopsy c/w tubular adenoma Due to poor prep GI recommended repeat colonoscopy within 3 years HH with trend down anemia w/up noted started on IV venofer , monitor counts, transfuse prn gentle IVF Hold Plavix Venous Duplex negative CT A/P with large inguinal hernia containing bowel surgery follows Per surgery no acute surgical interventions necessary at this time BS management with SS of insulin Bowel regimen transfer to [place] floor per GI if still bleeding will consider repeat colonoscopy on Thursday case discussed and evaluated by supervising physician Subjective Allergies: Coded Allergies: No Known Allergies (Unverified , 09/15/17) Subjective HH remains stable no chest pain no SOB Objective Last 24 Hour Vital Signs Date Time Temp Pulse Resp B/P (MAP) Pulse Ox O2 Delivery O2 Flow Rate FiO2 09/19/17 12:00 63 09/19/17 12:00 98.0 63 20 139/65 98 Room Air 09/19/17 08:00 97.2 63 20 118/52 98 Room Air 09/19/17 08:00 76 09/19/17 04:31 98.7 101 20 152/70 97 Room Air 09/19/17 04:31 Room Air 09/19/17 04:00 71 09/19/17 00:33 98.7 66 20 139/74 98 09/19/17 00:33 Room Air 09/19/17 00:00 63 09/18/17 20:00 68 09/18/17 20:00 99.2 67 21 128/68 98 09/18/17 20:00 Room Air 09/18/17 16:00 63 09/18/17 16:00 98.1 76 18 119/76 100 Room Air Intake and Output 09/18/17 09/19/17 19:00 07:00 Intake Total 638 ml 623 ml Balance 638 ml 623 ml Intake Oral 588 ml IV Total 50 ml 623 ml # Voids 2 2 # Bowel Movements 3 General Appearance: no acute distress HEENT: normocephalic, atraumatic Respiratory/Chest: lungs clear, no respiratory distress Cardiovascular: normal rate, regular rhythm - SR on tele Abdomen: soft, non tender, non distended Extremities: no edema Neurologic/Psychiatric: abnormal gait, alert Musculoskeletal: atrophy - BLE Laboratory Tests 09/19/17 06:25: White Blood Count 9.1, Red Blood Count 3.61L, Hemoglobin 10.9L, Hematocrit 34.5L , Mean Corpuscular Volume 96, Mean Corpuscular Hemoglobin 30.3, Mean Corpuscular Hemoglobin Concent 31.7L, Red Cell Distribution Width 15.0H, Platelet Count 523H, Mean Platelet Volume 5.5L, Neutrophils (%) (Auto) 67.0, Lymphocytes (%) (Auto) 23.8, Monocytes (%) (Auto) 7.1, Eosinophils (%) (Auto) 1.5, Basophils (%) (Auto) 0.6, Sodium Level 137, Potassium Level 3.6, Chloride Level 101, Carbon Dioxide Level 27, Anion Gap 9, Blood Urea Nitrogen 10, Creatinine 0.9, Estimat Glomerular Filtration Rate , Glucose Level 104, Calcium Level 9.3 Current Medications Medications (Trade) Dose Ordered Sig/Lenora Route PRN Reason Start Time Stop Time Status Last Admin Dose Admin Acetaminophen (Tylenol) 650 mg Q4H PRN ORAL fever 09/15/17 16:15 10/15/17 16:14 Al Hydroxide/Mg Hydroxide (Mylanta II) 30 ml Q6H PRN ORAL dyspepsia 09/15/17 16:15 10/15/17 16:14 Dextrose (Dextrose 50%) STAT PRN IV Hypoglycemia 09/15/17 16:15 10/15/17 16:14 Dextrose/Sodium Chloride 1,000 ml @ 50 mls/hr Q20H IV 09/17/17 12:30 10/17/17 12:29 09/19/17 05:31 Diphenhydramine HCl (Benadryl) 25 mg Q6H PRN ORAL Itching/Pruritis 09/15/17 16:15 10/15/17 16:14 Folic Acid (Folate) 1 mg DAILY ORAL 09/17/17 09:30 10/17/17 09:29 09/19/17 09:18 Insulin Aspart (NovoLOG) BEFORE MEALS AND HS SUBQ 09/15/17 21:00 10/15/17 20:59 09/18/17 12:35 Iron Sucrose 100 mg/Sodium Chloride 60 ml @ 240 mls/hr BEDTIME IV 09/16/17 21:00 09/20/17 21:14 09/18/17 20:29 Morphine Sulfate (Morphine Sulfate) 2 mg EVERY 4 HOURS PRN IVP severe Pain (Pain Scale 7-10) 09/15/17 16:15 09/22/17 16:14 Nitroglycerin (Ntg) 0.4 mg Q5M X 3 DOSES PRN SL Prn Chest Pain 09/15/17 16:15 10/15/17 16:14 Ondansetron HCl (Zofran) 4 mg Q6H PRN IVP Nausea & Vomiting 09/15/17 16:15 10/15/17 16:14 Polyethylene Glycol (Miralax) 17 gm HSPRN PRN ORAL Constipation 09/15/17 16:15 10/15/17 16:14 Temazepam (Restoril) 15 mg HSPRN PRN ORAL Insomnia 09/15/17 16:15 09/22/17 16:14 Moshe ([facility])Akilah NP Sep 19, 2017 15:35
[2017-09-19] MEDS ORDERED: Nitroglycerin Subl 0.4mg tab SL PRN (18:00)
[2017-09-19] MEDS ORDERED: Mylanta II UD 30ml ORAL PRN (19:00)
[2017-09-19] MEDS ORDERED: Morphine Sulfate 2mg/ml Inj IVP PRN (19:00)
[2017-09-19] MEDS ORDERED: Miralax 17gm pkt ORAL PRN (19:00)
[2017-09-19] MEDS: Iron Sucrose 100 MG in NS 55 ML IV SCH (21:18)
[2017-09-19] MEDS ORDERED: Tubing IV Secondary IV ONE (22:53)
[2017-09-19] MEDS ORDERED: D5 1/2NS 1000ml IV ONE ×2 (22:53→22:55)
[2017-09-20] VITALS: BP 141/67
[2017-09-20 04:00] VITALS: BP 166/73
[2017-09-20] MEDS: NovoLOG Insulin Flexpen SUBQ SCH ×4 (06:30→21:00)
--- NOTE | 2017-09-20 07:30 | General Progress Note ---
Assessment/Plan Problem List: (1) Severe protein-calorie malnutrition ICD Codes: E43 - Unspecified severe protein-calorie malnutrition SNOMED: 622366118 (2) Dementia ICD Codes: F03.90 - Unspecified dementia without behavioral disturbance SNOMED: 61468142, 098374328 Qualifiers: Qualified Codes: F03.90 - Unspecified dementia without behavioral disturbance (3) Gastrointestinal hemorrhage ICD Codes: K92.2 - Gastrointestinal hemorrhage, unspecified SNOMED: 79995484 Qualifiers: Qualified Codes: K92.2 - Gastrointestinal hemorrhage, unspecified (4) Anemia ICD Codes: D64.9 - Anemia, unspecified SNOMED: 716066096 Assessment/Plan SUMMARY FINDINGS: 1. Mediocre/poor prep. 2. Diverticulosis. >> most likely cause of bleed 3. Two colonic polyps removed. 4. Internal hemorrhoids. RECOMMENDATIONS: fu H&H prn blood transfusion no recurrent bleed stable H&H on diet ok to dc GI stand point Subjective ROS Limited/Unobtainable: Yes Allergies: Coded Allergies: No Known Allergies (Unverified , 09/15/17) Subjective no recurrent rectal bleed Objective Last 24 Hour Vital Signs Date Time Temp Pulse Resp B/P (MAP) Pulse Ox O2 Delivery O2 Flow Rate FiO2 09/20/17 04:00 98.4 95 18 166/73 94 Room Air 09/20/17 00:00 98.7 88 18 141/67 96 Room Air 09/19/17 22:19 98.7 09/19/17 20:00 100.8 18 158/69 Room Air 09/19/17 18:30 98.6 86 20 149/61 96 Room Air 09/19/17 16:00 98.2 67 20 138/69 96 Room Air 09/19/17 16:00 65 09/19/17 12:00 63 09/19/17 12:00 98.0 63 20 139/65 98 Room Air 09/19/17 08:00 97.2 63 20 118/52 98 Room Air 09/19/17 08:00 76 Intake and Output 09/19/17 09/20/17 19:00 07:00 Intake Total 910 ml Balance 910 ml Intake Oral 360 ml IV Total 550 ml # Voids 2 # Bowel Movements 1 Height (Feet): 6 Height (Inches): 0.00 Weight (Pounds): 135 General Appearance: no apparent distress EENT: normal ENT inspection Neck: supple Cardiovascular: normal rate Respiratory/Chest: decreased breath sounds Abdomen: normal bowel sounds, non tender, soft Extremities: non-tender SRIKANTH SIFUENTES Sep 20, 2017 07:30
[2017-09-20 07:55] LABS: BASOPHILS % (AUTO) 0.8 % (0.0-2.0); HEMATOCRIT 34.1 % (42.0-52.0); HEMOGLOBIN 10.9 G/DL (14.2-18.0); LYMPHOCYTES % (AUTO) 9.5 % (20.0-45.0); MEAN CORPUSCULAR VOLUME 95 FL (80-99); MONOCYTES % (AUTO) 7.9 % (1.0-10.0); NEUTROPHILS % (AUTO) 81.8 % (45.0-75.0); PLATELET COUNT 466 K/UL (150-450); RED CELL DISTRIBUTION WIDTH 15.3 % (11.6-14.8); WHITE BLOOD COUNT 11.5 K/UL (4.8-10.8)
[2017-09-20 08:00] VITALS: BP 122/58
[2017-09-20 12:00] VITALS: BP 138/65
--- NOTE | 2017-09-20 12:27 | General Surgery Progress Note ---
General Surgery-Progress Note Subjective Additional Comments low grade fever. mild leukocytosis. otherwise well. alert and follows commands but not oriented. moving around in bed. noted to be eating way too fast and cupping food in his mouth Objective Last 24 Hour Vital Signs Date Time Temp Pulse Resp B/P (MAP) Pulse Ox O2 Delivery O2 Flow Rate FiO2 09/20/17 08:00 98.0 85 18 122/58 09/20/17 04:00 98.4 95 18 166/73 94 Room Air 09/20/17 00:00 98.7 88 18 141/67 96 Room Air 09/19/17 22:19 98.7 09/19/17 20:00 100.8 18 158/69 Room Air 09/19/17 18:30 98.6 86 20 149/61 96 Room Air 09/19/17 16:00 98.2 67 20 138/69 96 Room Air 09/19/17 16:00 65 I&O Intake and Output 09/19/17 09/20/17 19:00 07:00 Intake Total 910 ml 120 ml Balance 910 ml 120 ml Intake Oral 360 ml 120 ml IV Total 550 ml # Voids 2 # Bowel Movements 1 1 Cardiovascular: RSR Respiratory: clear Abdomen: soft, flat, non-tender, present bowel sounds Extremities: no tenderness Laboratory Tests Test 09/20/17 06:05 White Blood Count 11.5 K/UL (4.8-10.8) H Red Blood Count 3.60 M/UL (4.70-6.10) L Hemoglobin 10.9 G/DL (14.2-18.0) L Hematocrit 34.1 % (42.0-52.0) L Mean Corpuscular Volume 95 FL (80-99) Mean Corpuscular Hemoglobin 30.3 PG (27.0-31.0) Mean Corpuscular Hemoglobin Concent 31.9 G/DL (32.0-36.0) L Red Cell Distribution Width 15.3 % (11.6-14.8) H Platelet Count 466 K/UL (150-450) H Mean Platelet Volume 5.5 FL (6.5-10.1) L Neutrophils (%) (Auto) 81.8 % (45.0-75.0) H Lymphocytes (%) (Auto) 9.5 % (20.0-45.0) L Monocytes (%) (Auto) 7.9 % (1.0-10.0) Eosinophils (%) (Auto) 0.0 % (0.0-3.0) Basophils (%) (Auto) 0.8 % (0.0-2.0) Plan Problems: (1) Gastrointestinal hemorrhage Assessment & Plan: 81M with lower GI bleed. colonoscopy with poor prep but polyps and diverticula noted. hemorrhoids noted. no active bleeding. H/H stable noted on CT to have large right inguinal hernia with bowel. able to completely reduce at bedside. hernia down to scrotum and easily reducible. low grade fever and mild leukocytosis. hernia okay. no active bleeding -no acute active bleeding currently but H/H is downtrending -trend H/H -transfuse prn -no acute surgical intervention necessary but will monitor closely. -should have right inguinal hernia repaired. can be done electively unless becomes incarcerated, obstructive or strangulated. currently easily reducible. thank you for this consultation. Jordan Herman Sep 20, 2017 12:27
--- NOTE | 2017-09-20 14:42 | Pulmonology Progress Note ---
Assessment/Plan Assessment/Plan ASSESSMENT GI hemorrhage anemia of chronic disease folate deficiency anemia s/p colonoscopy with polypectomy internal hemorrhoids severe protein calorie malnutrition atelectasis, ( doubt PNA) large right inguinal hernia dementia DM PLAN OF CARE GI follows stool OB + s/p colon with findings of polyps, s/p bx, diverticula, internal hemorrhoids Biopsy c/w tubular adenoma Due to poor prep GI recommended repeat colonoscopy within 3 years HH with trend up bleeding was possibly due to internal hemorrhoids, HH remains stable , no further episode of GI bleeding anemia w/up noted on IV venofer , monitor counts, transfuse prn add folate gentle IVF Hold Plavix Venous Duplex negative CT A/P with large inguinal hernia containing bowel surgery follows Per surgery no acute surgical interventions necessary at this time BS management with SS of insulin Bowel regimen per surgery right inguinal hernia ( seen on CT) repair can be done electively unless becomes incarcerated, obstructive or strangulated. currently easily reducible. dc plan for am case discussed and evaluated by supervising physician Subjective Allergies: Coded Allergies: No Known Allergies (Unverified , 09/15/17) Subjective HH remains stable no chest pain no SOB low grade fever last night Objective Last 24 Hour Vital Signs Date Time Temp Pulse Resp B/P (MAP) Pulse Ox O2 Delivery O2 Flow Rate FiO2 09/20/17 12:00 97.8 77 18 138/65 96 Room Air 09/20/17 08:00 98.0 85 18 122/58 09/20/17 04:00 98.4 95 18 166/73 94 Room Air 09/20/17 00:00 98.7 88 18 141/67 96 Room Air 09/19/17 22:19 98.7 09/19/17 20:00 100.8 18 158/69 Room Air 09/19/17 18:30 98.6 86 20 149/61 96 Room Air 09/19/17 16:00 98.2 67 20 138/69 96 Room Air 09/19/17 16:00 65 Intake and Output 09/19/17 09/20/17 19:00 07:00 Intake Total 910 ml 120 ml Balance 910 ml 120 ml Intake Oral 360 ml 120 ml IV Total 550 ml # Voids 2 # Bowel Movements 1 1 Objective General Appearance: no acute distress HEENT: normocephalic, atraumatic Respiratory/Chest: lungs clear, no respiratory distress Cardiovascular: normal rate, regular rhythm - SR on tele Abdomen: soft, non tender, non distended Extremities: no edema Neurologic/Psychiatric: abnormal gait, alert Musculoskeletal: atrophy - BLE Laboratory Tests 09/20/17 06:05: White Blood Count 11.5H, Red Blood Count 3.60L, Hemoglobin 10.9L, Hematocrit 34.1L, Mean Corpuscular Volume 95, Mean Corpuscular Hemoglobin 30.3, Mean Corpuscular Hemoglobin Concent 31.9L, Red Cell Distribution Width 15.3H, Platelet Count 466H, Mean Platelet Volume 5.5L, Neutrophils (%) (Auto) 81.8H, Lymphocytes (%) (Auto) 9.5L, Monocytes (%) (Auto) 7.9, Eosinophils (%) (Auto) 0.0, Basophils (%) (Auto) 0.8 Current Medications Medications (Trade) Dose Ordered Sig/Lenora Route PRN Reason Start Time Stop Time Status Last Admin Dose Admin Acetaminophen (Tylenol) 650 mg Q4H PRN ORAL fever (temp>100.5F) 09/19/17 20:15 10/15/17 16:14 09/19/17 21:20 Al Hydroxide/Mg Hydroxide (Mylanta II) 30 ml Q6H PRN ORAL dyspepsia 09/19/17 19:00 10/15/17 18:59 Dextrose (Dextrose 50%) STAT PRN IV Hypoglycemia 09/19/17 19:00 10/19/17 18:59 Dextrose/Sodium Chloride 1,000 ml @ 50 mls/hr Q20H IV 09/19/17 19:00 10/17/17 18:59 Diphenhydramine HCl (Benadryl) 25 mg Q6H PRN ORAL Itching/Pruritis 09/19/17 19:00 10/15/17 18:59 Folic Acid (Folate) 1 mg DAILY ORAL 09/20/17 09:00 10/17/17 09:29 09/20/17 09:01 Insulin Aspart (NovoLOG) BEFORE MEALS AND HS SUBQ 09/19/17 21:00 10/15/17 20:59 Iron Sucrose 100 mg/Sodium Chloride 60 ml @ 240 mls/hr BEDTIME IV 09/19/17 21:00 09/20/17 21:01 09/19/17 21:18 Morphine Sulfate (Morphine Sulfate) 2 mg Q4H PRN IVP severe Pain (Pain Scale 7-10) 09/19/17 19:00 09/26/17 18:59 Nitroglycerin (Ntg) 0.4 mg Q5M X 3 DOSES PRN SL Prn Chest Pain 09/19/17 18:00 10/15/17 16:14 Ondansetron HCl (Zofran) 4 mg Q6H PRN IVP Nausea & Vomiting 09/19/17 19:00 10/15/17 18:59 Polyethylene Glycol (Miralax) 17 gm HSPRN PRN ORAL Constipation 09/19/17 19:00 10/19/17 18:59 Temazepam (Restoril) 15 mg HSPRN PRN ORAL Insomnia 09/19/17 19:00 09/26/17 18:59 Moshe ([facility])Akilah NP Sep 20, 2017 14:42
[2017-09-20] MEDS: D5 1/2NS 1,000 ML IV SCH (15:51)
[2017-09-20 16:00] VITALS: BP 126/57
[2017-09-20] MEDS ORDERED: FOLIC ACID1 MG ORAL (19:52)
[2017-09-20 20:00] VITALS: BP 130/61
[2017-09-20] MEDS: Iron Sucrose 100 MG in NS 55 ML IV SCH (22:00)
[2017-09-21] VITALS: BP 137/57
[2017-09-21 04:00] VITALS: BP 151/91
[2017-09-21] MEDS: NovoLOG Insulin Flexpen SUBQ SCH ×2 (06:30→13:09)
[2017-09-21 07:30] LABS: BASOPHILS % (AUTO) 0.4 % (0.0-2.0); EOSINOPHILS % (AUTO) 0.1 % (0.0-3.0); HEMATOCRIT 30.9 % (42.0-52.0); HEMOGLOBIN 9.9 G/DL (14.2-18.0); LYMPHOCYTES % (AUTO) 18.7 % (20.0-45.0); MEAN CORPUSCULAR VOLUME 95 FL (80-99); MONOCYTES % (AUTO) 13.7 % (1.0-10.0); NEUTROPHILS % (AUTO) 67.2 % (45.0-75.0); PLATELET COUNT 405 K/UL (150-450); RED BLOOD COUNT 3.24 M/UL (4.70-6.10); RED CELL DISTRIBUTION WIDTH 15.4 % (11.6-14.8); WHITE BLOOD COUNT 10.3 K/UL (4.8-10.8)
[2017-09-21 08:05] VITALS: BP 129/52
[2017-09-21] MEDS: D5 1/2NS 1,000 ML IV SCH (11:00)
[2017-09-21 11:45] VITALS: BP 183/99
--- NOTE | 2017-09-21 14:04 | General Surgery Progress Note ---
General Surgery-Progress Note Subjective Symptoms: improved Additional Comments no acute events. comfortable. no complaints. Objective Last 24 Hour Vital Signs Date Time Temp Pulse Resp B/P (MAP) Pulse Ox O2 Delivery O2 Flow Rate FiO2 09/21/17 11:45 97.7 92 20 183/99 96 Room Air 09/21/17 08:05 97.6 78 15 129/52 97 Room Air 09/21/17 04:00 97.5 107 20 151/91 92 09/21/17 00:00 98.4 79 19 137/57 98 Room Air 09/20/17 20:00 98.9 83 19 130/61 90 Room Air 09/20/17 16:00 98.2 72 18 126/57 95 I&O Intake and Output 09/20/17 09/21/17 19:00 07:00 Intake Total 630 ml 50 ml Balance 630 ml 50 ml Intake Oral 480 ml IV Total 150 ml 50 ml # Voids 6 3 # Bowel Movements 2 1 Drains: none Cardiovascular: RSR Respiratory: clear Abdomen: soft, non-tender, present bowel sounds Extremities: no tenderness Laboratory Tests Test 09/21/17 05:30 White Blood Count 10.3 K/UL (4.8-10.8) Red Blood Count 3.24 M/UL (4.70-6.10) L Hemoglobin 9.9 G/DL (14.2-18.0) L Hematocrit 30.9 % (42.0-52.0) L Mean Corpuscular Volume 95 FL (80-99) Mean Corpuscular Hemoglobin 30.6 PG (27.0-31.0) Mean Corpuscular Hemoglobin Concent 32.1 G/DL (32.0-36.0) Red Cell Distribution Width 15.4 % (11.6-14.8) H Platelet Count 405 K/UL (150-450) Mean Platelet Volume 5.7 FL (6.5-10.1) L Neutrophils (%) (Auto) 67.2 % (45.0-75.0) Lymphocytes (%) (Auto) 18.7 % (20.0-45.0) L Monocytes (%) (Auto) 13.7 % (1.0-10.0) H Eosinophils (%) (Auto) 0.1 % (0.0-3.0) Basophils (%) (Auto) 0.4 % (0.0-2.0) Additional Comments right inguinal hernia large, to scrotum, reducible. Plan Problems: (1) Gastrointestinal hemorrhage Assessment & Plan: 81M with lower GI bleed. colonoscopy with poor prep but polyps and diverticula noted. hemorrhoids noted. no active bleeding. H/H stable noted on CT to have large right inguinal hernia with bowel. able to completely reduce at bedside. hernia down to scrotum and easily reducible. -no acute surgical intervention necessary but will monitor closely. -should have right inguinal hernia repaired. can be done electively unless becomes incarcerated, obstructive or strangulated. currently easily reducible. thank you for this consultation. Jordan Herman Sep 21, 2017 14:04
[2017-09-21] MEDS ORDERED: D5 1/2NS 1000ml IV ONE (14:39)
[2017-09-21] MEDS ORDERED: Tubing IV Secondary IV ONE (14:39)
[2017-09-21] MEDS ORDERED: Sterile Water Irrig 1000ml IRRIG ONE (14:39)
--- NOTE | 2017-09-21 15:50 | GI Progress Note ---
Assessment/Plan Problems: (1) Gastrointestinal hemorrhage ICD Codes: K92.2 - Gastrointestinal hemorrhage, unspecified SNOMED: 68510054 Qualifiers: Qualified Codes: K92.2 - Gastrointestinal hemorrhage, unspecified (2) Right inguinal hernia ICD Codes: K40.90 - Unilateral inguinal hernia, without obstruction or gangrene , not specified as recurrent SNOMED: 007733472, 591279824 (3) Pulmonary infiltrate in right lung on chest x-ray ICD Codes: R91.8 - Other nonspecific abnormal finding of lung field SNOMED: 809150943, 594968106 (4) Dementia ICD Codes: F03.90 - Unspecified dementia without behavioral disturbance SNOMED: 19245458, 454286221 Qualifiers: Qualified Codes: F03.90 - Unspecified dementia without behavioral disturbance (5) Anemia ICD Codes: D64.9 - Anemia, unspecified SNOMED: 716757766 (6) Acute blood loss anemia ICD Codes: D62 - Acute posthemorrhagic anemia SNOMED: 447917187 Status: stable Status Narrative Discussed with Dr. Rose. Assessment/Plan SUMMARY FINDINGS: 1. Mediocre/poor prep. 2. Diverticulosis. >> most likely cause of bleed 3. Two colonic polyps removed. 4. Internal hemorrhoids. RECOMMENDATIONS: okay for DC per GI standpoint adv diet as tolerated Monitor hemoglobin and hematocrit. Transfuse as needed. Follow up pathology. >> no dysphagia, no malignancy Given this prep and this large polyp, we recommend repeat colonoscopy no later than three years. ok to restart Plavix per primary/cardio Subjective Gastrointestinal/Abdominal: Reports: no symptoms Subjective limited, dementia denies any symptoms Objective Last 24 Hour Vital Signs Date Time Temp Pulse Resp B/P (MAP) Pulse Ox O2 Delivery O2 Flow Rate FiO2 09/21/17 11:45 97.7 92 20 183/99 96 Room Air 09/21/17 08:05 97.6 78 15 129/52 97 Room Air 09/21/17 04:00 97.5 107 20 151/91 92 09/21/17 00:00 98.4 79 19 137/57 98 Room Air 09/20/17 20:00 98.9 83 19 130/61 90 Room Air 09/20/17 16:00 98.2 72 18 126/57 95 Intake and Output 09/20/17 09/21/17 19:00 07:00 Intake Total 630 ml 50 ml Balance 630 ml 50 ml Intake Oral 480 ml IV Total 150 ml 50 ml # Voids 6 3 # Bowel Movements 2 1 Laboratory Tests Test 09/21/17 05:30 White Blood Count 10.3 K/UL (4.8-10.8) Red Blood Count 3.24 M/UL (4.70-6.10) L Hemoglobin 9.9 G/DL (14.2-18.0) L Hematocrit 30.9 % (42.0-52.0) L Mean Corpuscular Volume 95 FL (80-99) Mean Corpuscular Hemoglobin 30.6 PG (27.0-31.0) Mean Corpuscular Hemoglobin Concent 32.1 G/DL (32.0-36.0) Red Cell Distribution Width 15.4 % (11.6-14.8) H Platelet Count 405 K/UL (150-450) Mean Platelet Volume 5.7 FL (6.5-10.1) L Neutrophils (%) (Auto) 67.2 % (45.0-75.0) Lymphocytes (%) (Auto) 18.7 % (20.0-45.0) L Monocytes (%) (Auto) 13.7 % (1.0-10.0) H Eosinophils (%) (Auto) 0.1 % (0.0-3.0) Basophils (%) (Auto) 0.4 % (0.0-2.0) Height (Feet): 6 Height (Inches): 0.00 Weight (Pounds): 135 General Appearance: WD/WN, no apparent distress, alert, thin Cardiovascular: normal rate Respiratory/Chest: normal breath sounds, no respiratory distress Abdominal Exam: normal bowel sounds, non tender, soft Extremities: normal range of motion, non-tender Nani Marley N.P. Sep 21, 2017 15:50
--- NOTE | 2017-09-21 16:47 | Pulmonology Progress Note ---
Assessment/Plan Problems: (1) Severe protein-calorie malnutrition (2) Pulmonary infiltrate in right lung on chest x-ray (3) Gastrointestinal hemorrhage (4) Anemia (5) Dementia Assessment/Plan improving iv venofer check h/h iv fluids watch h/h prn prbc dc planning in process Subjective ROS Limited/Unobtainable: No Allergies: Coded Allergies: No Known Allergies (Unverified , 09/15/17) Objective Last 24 Hour Vital Signs Date Time Temp Pulse Resp B/P (MAP) Pulse Ox O2 Delivery O2 Flow Rate FiO2 09/21/17 11:45 97.7 92 20 183/99 96 Room Air 09/21/17 08:05 97.6 78 15 129/52 97 Room Air 09/21/17 04:00 97.5 107 20 151/91 92 09/21/17 00:00 98.4 79 19 137/57 98 Room Air 09/20/17 20:00 98.9 83 19 130/61 90 Room Air Intake and Output 09/20/17 09/21/17 19:00 07:00 Intake Total 630 ml 50 ml Balance 630 ml 50 ml Intake Oral 480 ml IV Total 150 ml 50 ml # Voids 6 3 # Bowel Movements 2 1 Objective General Appearance: cachetic HEENT: normocephalic, atraumatic Respiratory/Chest: chest wall non-tender, normal breath sounds Cardiovascular: normal peripheral pulses, normal rate, regularly irregular Abdomen: normal bowel sounds, no organomegaly, no mass Genitourinary: normal external genitalia Extremities: no cyanosis Skin: no rash, no lesions Laboratory Tests 09/21/17 05:30: White Blood Count 10.3, Red Blood Count 3.24L, Hemoglobin 9.9L, Hematocrit 30.9L , Mean Corpuscular Volume 95, Mean Corpuscular Hemoglobin 30.6, Mean Corpuscular Hemoglobin Concent 32.1, Red Cell Distribution Width 15.4H, Platelet Count 405, Mean Platelet Volume 5.7L, Neutrophils (%) (Auto) 67.2, Lymphocytes (%) (Auto) 18.7L, Monocytes (%) (Auto) 13.7H, Eosinophils (%) (Auto ) 0.1, Basophils (%) (Auto) 0.4 MARY FELIX Sep 21, 2017 16:47
--- NOTE | 2017-09-22 13:22 | Discharge Summary ---
Discharge Summary Hospital Course Date of Admission Sep 15, 2017 at 15:00 Date of Discharge Sep 21, 2017 at 14:40 Admitting Diagnosis GI bleed HPI Ammon Melendez is a 81 year old male who was admitted on Sep 15, 2017 at 15:00 for Gastrointestinal Bleed Hospital Course dc summary #[id number] Discharge Medications New Medications: Folic Acid* (Folic Acid*) 1 Mg Tablet 1 MG ORAL DAILY, #30 TAB Continued Medications: Acetaminophen* (Acetaminophen 325MG Tablet*) 325 Mg Tablet 650 MG ORAL Q6HR PRN for Mild Pain/Temp > 100.5, TAB Amlodipine Besylate (Norvasc) 5 Mg Tablet 5 MG ORAL DAILY, TAB Hold for SBP less than 110 Atorvastatin (Lipitor) 80 Mg Tablet 40 MG ORAL BEDTIME, #30 TAB 0 Refills Bisacodyl (Bisacodyl) 10 Mg Supp.rect 10 MG RC DAILY PRN for Constipation, SUPP Docusate Sodium* (Docusate Sodium*) 100 Mg Capsule 100 MG ORAL DAILY, CAP Famotidine (Famotidine) 20 Mg Tablet 20 MG ORAL DAILY, #30 TAB 0 Refills Ipratropium [place] (Atrovent Hfa) 12.9 Gm Hfa.aer.ad 17 MCG INH DAILY Ipratropium/Albuterol Sulfate (DuoNeb 0.5-3(2.5)mg/3ml) 3 Ml Ampul.neb 3 ML HHN Q4HR PRN for Shortness of Breath, EA Magnesium Hydroxide* (Milk Of Magnesia*) 400 Mg/5 Ml Oral.susp 30 ML ORAL DAILY PRN for Constipation, ML Metformin Hcl* (Metformin Hcl*) 500 Mg Tablet 500 MG ORAL TWICE A DAY, TAB Ondansetron (Zofran) 4 Mg Tablet 4 MG ORAL Q6H PRN for Nausea & Vomiting, TAB Discontinued Medications: Clopidogrel* (Clopidogrel*) 75 Mg Tablet 75 MG ORAL DAILY, TAB Discharge Condition Upon Discharge: stable Discharge Disposition Patient was discharged to SNF Discharge Diagnoses: Moshe (Akilah Odonnell NP Sep 22, 2017 13:22
--- NOTE | 2017-09-23 00:30 | Discharge Summary 2 SIG ---
DATE OF ADMISSION: 09/15/2017 DATE OF DISCHARGE: 09/21/2017 REASON FOR ADMISSION: 81-year-old male with past medical history of CVA, hypertension, and diabetes, was [facility] from [facility] for lower GI bleeding. Nursing staff noted bright red blood in diaper. No vomiting. The patient was on Plavix. In the emergency department, vital signs were stable. No leukocytosis. Hemoglobin- 12.7 and hematocrit- 40. Electrolytes were stable. Glucose -97. LFT within normal limits. Troponin negative. Lipase -191. Albumin- 2.8. Lactic acid -1.5. Urinalysis with no evidence of UTI. EKG revealed sinus bradycardia -58. No evidence of acute ischemic changes. Chest x-ray revealed findings suspicious for infiltrate right perihilar region. The patient was admitted with diagnoses of GI hemorrhage, dementia, and pulmonary infiltrate in the right lung on chest x-ray. HOSPITAL COURSE: The patient was admitted. GI and Surgery consults were requested. Supplemental oxygen and pulmonary toilet were provided as needed. Pulse oximetry was stable on room air. No respiratory distress. Hemoglobin and hematocrit were closely monitored. The patient initially was kept NPO and started on the IV fluids. Stool OB was positive. Hemoglobin and hematocrit were closely monitored and remained at the baseline. No need for transfusion. CT of the abdomen and pelvis revealed reticular nodular density at the lung bases bilaterally. Findings were nonspecific, but probably indicative of small airway disease or possible interstitial pneumonitis. In addition, coarse linear density, likely due to atelectasis, with trace of right pleural effusion was present. The liver and spleen were unremarkable. Gallbladder was unremarkable. Large right inguinal hernia containing bowel noted. No evidence of bowel obstruction. Thickening of the urinary bladder consistent with cystitis. GI seen and evaluated the patient. The patient was scheduled for colonoscopy, which was done 09/16/2017. The patient was found to have poor preparation. Two colonic polyps were removed. Internal hemorrhoids and diverticulosis were noted. After colonoscopy, the patient was started on full liquid diet and advanced as tolerated. Given the poor prep and the large polyp, GI recommended to repeat colonoscopy no later than in three years. Bleeding was likely secondary to internal hemorrhoids. Pathology report revealed tubular adenoma . Surgeon seen and evaluated the patient. Per surgeon, no active bleeding; hemoglobin and hematocrit remained stable. Surgeon was able to completely reduce hernia at the bedside. Per surgeon, no acute surgical intervention was necessary at this time, monitor closely. The patient should have right inguinal hernia repair, which can be done electively unless becomes incarcerated , obstructed, or strangulated. Again, currently easily reducible. The patient was on the IV Venofer. Counts were monitored. Anemia workup revealed folate deficiency, folate supplement was added to medication regimen. The patient was on gentle IV fluids. Plavix was on hold. Venous duplex of bilateral lower extremities was negative. Blood sugar was managed with sliding scale of insulin. Bowel regimen instituted. No signs of respiratory distress, no fever, no respiratory complaints, no leukocytosis. Doubt pneumonia, likely atelectasis. The patient was stable for discharge. FINAL DIAGNOSES: 1. Gastrointestinal hemorrhage. 2. Anemia. 3. Status post colonoscopy with polypectomy. 4. Severe protein-calorie malnutrition. 5. Atelectasis. 6. Large right inguinal hernia. 7. Folate deficiency 8. Dementia. 9. Diabetes. DISCHARGE MEDICATIONS: See medication reconciliation list. DISCHARGE INSTRUCTIONS: The [facility]. FOLLOWUP: Follow up with medical doctor at the facility. Colonoscopy within three years as recommended by GI. Earnestine Hanson M.D. Akilah DewittNortheast Health SystemStephenie N.PGriffin DR: [place] JOB#: [id number] CC: MIKA
--- NOTE | 2017-09-27 20:31 | Diagnostic Imaging Report ---
APPROVED REPORT CPT Code: 85038 Present Symptoms Lower Extremity Pain: Comments: R/O DVT. BILATERAL LOWER EXTREMITY VENOUS DUPLEX: Imaging reveals a patent deep venous system bilaterally. There is no evidence of thrombus within the femoral, popliteal or tibial segments. The greater saphenous veins are also within normal limits. Doppler indicates normal spontaneous flow within these segments.
== END 2017-09-21 14:40 | DRG 377 ==
LOC: EDBD 12:54 → EMR 13:25 → 2E 15:00 → EDBEDREQ 18:57 → 2E 21:11 → 4E 09-19 18:59
PROC: 0DBN8ZZ Excision of Sigmoid Colon, Via Natural or Artificial Opening Endoscopic (ICD-10-PCS; principal; 2017-09-16 08:59)
PROC: 0DBK8ZZ Excision of Ascending Colon, Via Natural or Artificial Opening Endoscopic (ICD-10-PCS; principal; 2017-09-16 08:59)
DX: K92.2 Gastrointestinal hemorrhage, unspecified (principal); E43 Unspecified severe protein-calorie malnutrition; F03.90 Unspecified dementia, unspecified severity, without behavioral disturbance, psychotic disturbance, mood disturbance, and anxiety; D64.9 Anemia, unspecified; Z68.1 Body mass index [BMI] 19.9 or less, adult; J98.11 Atelectasis; K40.90 Unilateral inguinal hernia, without obstruction or gangrene, not specified as recurrent; Z79.02 Long term (current) use of antithrombotics/antiplatelets; E53.8 Deficiency of other specified B group vitamins; K57.90 Diverticulosis of intestine, part unspecified, without perforation or abscess without bleeding; K64.8 Other hemorrhoids; N30.90 Cystitis, unspecified without hematuria
CPT/HCPCS: 36415; 71045; 74177; 80048; 80053; 81003; 82150; 82270; 82378; 82607; 82746; 82962; 83540; 83550; 83605; 83615; 83690; 83735; 84100; 84484; 85007; 85025; 85044; 85060; 85610; 85651; 85730; 86850; 86900; 86901; 87040; 87081; 93970; 94003; 94150; 99285; J1815; J2250; J2370

== ENCOUNTER 2017-10-29 07:17 | Inpatient (IN) | payer MEDICARE, OTHER ==
[~2017-10-29] VITALS: Ht 165.1 cm; Wt 60.3 kg
[2017-10-29] VITALS (20 sets, daily range): BP systolic 70–149; BP diastolic 45–87
[~2017-10-29 07:17] MED LIST: ACETAMINOPHEN325 M1 ORAL; ATROVENT HFA12.9 GM INH; BISACODYL10 M1 RC; CLOPIDOGREL75 MG ORAL; DOCUSATE SODIU100 MG ORAL; DUONEB 0.5-3(2.53 ML HHN; FAMOTIDINE20 MG ORAL; FOLIC ACID1 MG ORAL; LIPITOR80 MG ORAL; METFORMIN HCL500 M1 ORAL; MILK OF MA400 MG/51 ORAL; NORVASC5 MG ORAL; ZOFRAN4 M1 ORAL
[2017-10-29] MEDS ORDERED: Piperacillin/Tazobactam 4.5 GM in NS 110 ML IV STA (07:24)
[2017-10-29] MEDS ORDERED: Solu-MEDROL 125mg Inj IVP ONE (07:30)
[2017-10-29] MEDS ORDERED: Albuterol ud Inhalation HHN ONE ×2 (07:30→09:00)
[2017-10-29] MEDS ORDERED: Vancomycin 1 GM in NS 275 ML IV ONE (07:30)
[2017-10-29] MEDS ORDERED: Ipratropium 0.02% Inh Soln 2.5ml UD HHN ONE (07:30)
--- NOTE | 2017-10-29 07:42 | Emergency Room Report ---
History of Present Illness General Chief Complaint: Dyspnea/Respdistress Source: EMS Present Illness HPI Patient was brought in by EMS. They were called to the senior care facility for altered mental status and respiratory difficulty. The patient has a history of COPD. Apparently they were unable to get O2 saturation above 55% with assisted ventilations. An IV was started. Accu-Chek was 127. Apparently the patient is a full code. He is unable to give us a history. Old records state L sided weakness. Discharged 09/21/17: 1. Gastrointestinal hemorrhage. 2. Anemia. 3. Status post colonoscopy with polypectomy. 4. Severe protein-calorie malnutrition. 5. Atelectasis. 6. Large right inguinal hernia. 7. Folate deficiency 8. Dementia. 9. Diabetes. Allergies: Coded Allergies: No Known Allergies (Unverified , 09/15/17) Patient History Limited by: medical condition Past Medical History: see triage record, old chart reviewed Social History Narrative SNF Reviewed Nursing Documentation: PMH: Agreed, PSxH: Agreed Nursing Documentation-PMH Past Medical History: No History, Except For Hx Cardiac Problems: Yes Hx Hypertension: Yes Hx Diabetes: Yes Hx Cancer: No Hx Gastrointestinal Problems: Yes Hx Neurological Problems: Yes Hx Cerebrovascular Accident: Yes Hx Dysphasia: Yes Hx Weakness: Yes - left side Review of Systems All Other Systems: limited Physical Exam Vital Signs Date Time Temp Pulse Resp B/P (MAP) Pulse Ox O2 Delivery O2 Flow Rate FiO2 10/29/17 07:17 125 12 102/51 97 Ambu-Bag 15.0 Sp02 EP Interpretation: reviewed, abnormal - critically low as interpreted by me General Appearance: severe distress, thin, Chronically Ill, Stupor Head: normocephalic, atraumatic Eyes: bilateral eye PERRL, bilateral eye EOMI ENT: moist mucus membranes, other - vomitus guaiac + Neck: supple Respiratory: respiratory distress, accessory muscle use, rales, wheezing, expiration, inspiration Cardiovascular #1: tachycardia Cardiovascular #2: 2+ femoral (R), 2+ femoral (L) Gastrointestinal: hernia - R innguinal with BS, decreased bowel sounds, scaphoid Genitourinary: normal inspection Neurologic: other - stupor Psychiatric: other - stupor Skin: cyanosis Procedures Critical Care Time Critical Care Time Total Critical Care Time: 90 min of bedside evaluation and treatment excludes procedures Procedures: CVP, intubation, EKG Reason for Critical Care: Hypotension, sepsis, metabolic acidosis, prevention of end organ injury, respiratory failure Course: the patient presented with AMS. I assessed respiratory distress/ failure. He was immediately intubated. He later dropped his blood pressure during fluid resuscitation. A central line was started. In addition, antibiotics were initiated. Guaiac + vomitus led to starting protonix and type and rh. Repeated evaluations were made as well as discussion with admitting MD. He was more alert and sedation with Versed was ordered. Based on ABG vent support adjusted. Patient with severe sepsis and repeated evaluations for this. His care was discussed with his sister. Improved mentation and BP without need for pressors. Patient admitted to ICU. Consultations: PMD, RT, nursing, family Alternative history: EMS Result: Patient was improved but critical Performed by: Dr. Muñoz Central Line Central Line : Consent: Emergent Central Line Lumen: triple Maximal Sterile Barrier Tech: yes cap, yes mask, yes sterile gown, yes sterile gloves, yes large sterile sheet, yes hand hygiene, yes chlorhexidine prep No Max Barrier Tech Because: emergency insertion Central Line Postion: femoral (L) Anesthesia: none Complications: arterial puncture R Central Line Post Position: sutured, good blood return Attempts: Other - 2 Patient Tolerated: Well Complications: Other - see above Progress Bloods drawn for type and screen EBL = 14 ml (with blood). Intubation Intubation : Consent: Emergent Intubation Method: orotracheal Tube Size (cm): 7.5 Medications: Other - none Breath Sounds after Intubation: equal Intubation Complications: no complications Post Intubation Xray: Yes Attempts: One Patient Tolerated: Well Complications: None Progress prior hypoxia. Attempt BAG valve mask with good airway but unable to raise O2 sat. Copious purulent sputum via ET. BS bilat with wheezes. Medical Decision Making Diagnostic Impression: Primary Impression: Respiratory failure Qualified Codes: J96.01 - Acute respiratory failure with hypoxia; J96.02 - Acute respiratory failure with hypercapnia Additional Impressions: Bilateral pneumonia Qualified Codes: J18.9 - Pneumonia, unspecified organism COPD (chronic obstructive pulmonary disease) Qualified Codes: J44.1 - Chronic obstructive pulmonary disease with (acute) exacerbation Upper GI bleed Severe sepsis ER Course Patient presents with hypoxia and respiratory failure. The patient was immediately intubated. Differential includes COPD recent exacerbation, pneumonia, pulmonary embolism, sepsis amongst others. Because of copious amount of purulent sputum pneumonia his highest on the list although the patient has bronchospasm and therefore will be treated with a page and send Solu -Medrol. EKG, no injury. CXR bilateral infiltrates. Discussed with patient's sister. 7:40, patient more awake and attempting to sit up. Vomiting OG ordered and sedation. 7:47 vomit tests guaiac + protonix ordered. Also type and Rh. 7:55 - BP low, initial bolus not in, however CVP started. 8:10 BP much better with initial bolus. Will give 30 ml/kg. Patient responds appropriately still tachycardia BP better extremities warm Has responded to initial fluid bolus (1 liter). 8:50 - vent orders changed based on ABG - albuterol ordered Improved but critical. Admit ICU. Laboratory Tests Test 10/29/17 07:30 10/29/17 07:55 10/29/17 08:15 10/29/17 08:35 White Blood Count 4.9 K/UL (4.8-10.8) Red Blood Count 4.68 M/UL (4.70-6.10) L Hemoglobin 14.4 G/DL (14.2-18.0) Hematocrit 44.8 % (42.0-52.0) Mean Corpuscular Volume 96 FL (80-99) Mean Corpuscular Hemoglobin 30.8 PG (27.0-31.0) Mean Corpuscular Hemoglobin Concent 32.2 G/DL (32.0-36.0) Red Cell Distribution Width 16.0 % (11.6-14.8) H Platelet Count 239 K/UL (150-450) Mean Platelet Volume 8.1 FL (6.5-10.1) Neutrophils (%) (Auto) 59.8 % (45.0-75.0) Lymphocytes (%) (Auto) 36.9 % (20.0-45.0) Monocytes (%) (Auto) 1.5 % (1.0-10.0) Eosinophils (%) (Auto) 0.6 % (0.0-3.0) Basophils (%) (Auto) 1.1 % (0.0-2.0) Lactic Acid Level 3.10 mmol/L (0.66-2.22) H 3.60 mmol/L (0.66-2.22) H Prothrombin Time 10.5 SEC (9.30-11.50) Prothrombin Time INR 1.0 (0.9-1.1) PTT 25 SEC (23-33) Urine Color Pale yellow Urine Appearance Clear Urine pH 6.5 (4.5-8.0) Urine Specific [place] 1.015 (1.005-1.035) Urine Protein 1+ (NEGATIVE) H Urine Glucose (UA) Negative (NEGATIVE) Urine Ketones Negative (NEGATIVE) Urine Occult Blood 5+ (NEGATIVE) H Urine Nitrite Negative (NEGATIVE) Urine Bilirubin Negative (NEGATIVE) Urine Urobilinogen 1 MG/DL (0.0-1.0) H Urine Leukocyte Esterase 1+ (NEGATIVE) H Urine RBC 20-30 /HPF (0 - 0) H Urine WBC 2-4 /HPF (0 - 0) Urine Squamous Epithelial Cells Occasional /LPF Urine Bacteria Occasional /HPF (NONE) Sodium Level 133 MMOL/L (136-145) L Potassium Level 4.0 MMOL/L (3.5-5.1) Chloride Level 100 MMOL/L (98-107) Carbon Dioxide Level 26 MMOL/L (21-32) Anion Gap 7 mmol/L (5-15) Blood Urea Nitrogen 28 mg/dL (7-18) H Creatinine 1.4 MG/DL (0.55-1.30) H Estimate Glomerular Filtration Rate mL/min (>60) Glucose Level 156 MG/DL (74-106) H Calcium Level 9.8 MG/DL (8.5-10.1) Total Bilirubin 0.6 MG/DL (0.2-1.0) Aspartate Amino Transferase (AST) 29 U/L (15-37) Alanine Aminotransferase (ALT) 37 U/L (12-78) Alkaline Phosphatase 140 U/L (46-116) H Total Creatine Kinase 72 U/L (26-308) Troponin I 0.017 ng/mL (0.000-0.056) Pro-B-Type Natriuretic Peptide 170 pg/mL (0-125) H Total Protein 7.4 G/DL (6.4-8.2) Albumin 3.2 G/DL (3.4-5.0) L Globulin 4.2 g/dL Albumin/Globulin Ratio 0.8 (1.0-2.7) L Arterial Blood pH 7.175 (7.350-7.450) Arterial Blood Partial Pressure CO2 60.3 mmHg (35.0-45.0) *H Arterial Blood Partial Pressure O2 265.3 mmHg (75.0-100.0) H Arterial Blood HCO3 21.7 mmol/L (22.0-26.0) L Arterial Blood Oxygen Saturation 98.8 % (92.0-98.0) H Arterial Blood Base Excess -7.4 Donnie Test Positive Test 10/29/17 17:50 Arterial Blood pH 7.310 (7.350-7.450) Arterial Blood Partial Pressure CO2 42.0 mmHg (35.0-45.0) Arterial Blood Partial Pressure O2 181.8 mmHg (75.0-100.0) H Arterial Blood HCO3 20.9 mmol/L (22.0-26.0) L Arterial Blood Oxygen Saturation 99.2 % (92.0-98.0) H Arterial Blood Base Excess -5.0 Donnie Test Positive Microbiology Date/Time Source Procedure Growth Status 10/29/17 07:20 Nasal Nares Influenza Types A,B Antigen (HAJA) - Final Complete EKG Diagnostic Results Rate: tachycardiac ST Segments: no acute changes Rhythm Strip Diag. Results EP Interpretation: yes Rhythm: no PVC's, no ectopy, other - ST Chest X-Ray Diagnostic Results Chest X-Ray Diagnostic Results #1: Chest X-Ray Ordered: Yes # of Views/Limited/Complete: 1 View Indication: Shortness of Breath Interpretation: no effusion, no pneumothorax, other - ET OK, bilateral infiltrates Impression: Other Electronically Signed by: Electronically signed by Antonino Muñoz MD Chest X-Ray Diagnostic Results #2: Chest X-Ray Ordered: Yes # of Views/Limited/Complete: 1 View Indication: Other Interpretation: no effusion, no pneumothorax, other - bilateral infiltrates , ET and NG too high Impression: Other Electronically Signed by: Antonino Muñoz MD Last Vital Signs Date Time Temp Pulse Resp B/P (MAP) Pulse Ox O2 Delivery O2 Flow Rate FiO2 10/29/17 23:00 109 20 75/45 100 Mechanical Ventilator 35 10/29/17 19:00 98.3 98.3 10/29/17 10:35 15.0 Status: improved Disposition: ADMITTED INPATIENT Condition: Critical Antonino Muñoz M.D. Oct 29, 2017 07:42
[2017-10-29 07:43] LABS: BASOPHILS % (AUTO) 1.1 % (0.0-2.0); EOSINOPHILS % (AUTO) 0.6 % (0.0-3.0); HEMATOCRIT 44.8 % (42.0-52.0); HEMOGLOBIN 14.4 G/DL (14.2-18.0); LYMPHOCYTES % (AUTO) 36.9 % (20.0-45.0); MEAN CORPUSCULAR VOLUME 96 FL (80-99); MONOCYTES % (AUTO) 1.5 % (1.0-10.0); NEUTROPHILS % (AUTO) 59.8 % (45.0-75.0); PLATELET COUNT 239 K/UL (150-450); RED BLOOD COUNT 4.68 M/UL (4.70-6.10); WHITE BLOOD COUNT 4.9 K/UL (4.8-10.8)
[2017-10-29] MEDS ORDERED: Midazolam 2mg/2ml Inj IVP ONE (07:45)
[2017-10-29] MEDS ORDERED: Midazolam for drip 50 MG in NS 90 ML IV ONE (07:45)
[2017-10-29] MEDS ORDERED: Zosyn 4.5gm inj ONE (08:00)
[2017-10-29] MEDS ORDERED: Pantoprazole Inj IVP ONE (08:00)
[2017-10-29 08:27] LABS: APPEARANCE,URINE CLEAR; BILIRUBIN, URINE NEGATIVE (NEGATIVE); COLOR,URINE PALE YELLOW; GLUCOSE, URINE (UA) NEGATIVE (NEGATIVE); KETONES,URINE NEGATIVE (NEGATIVE); LEUKOCYTE ESTERASE ,URINE 1+ (NEGATIVE); NITRITE,URINE NEGATIVE (NEGATIVE); PH,URINE 6.5 (4.5-8.0); PROTEIN,URINE 1+ (NEGATIVE); UROBILINOGEN,URINE 1 MG/DL (0.0-1.0)
[2017-10-29] MEDS ORDERED: NS 1000ml 1,900 ML IVLG ONE (08:30)
[2017-10-29 08:34] LABS: ANION GAP 7 mmol/L (5-15); BLOOD UREA NITROGEN 28 mg/dL (7-18); CALCIUM 9.8 MG/DL (8.5-10.1); CARBON DIOXIDE 26 MMOL/L (21-32); CHLORIDE 100 MMOL/L (98-107); CREATININE 1.4 MG/DL (0.55-1.30); SODIUM 133 MMOL/L (136-145)
[2017-10-29 08:45] LABS: ALANINE AMINOTRANSFERASE 37 U/L (12-78); ALBUMIN 3.2 G/DL (3.4-5.0); ALBUMIN/GLOBULIN RATIO 0.8 (1.0-2.7); ALKALINE PHOSPHATASE 140 U/L (46-116); ASPARTATE AMINO TRANSFERASE 29 U/L (15-37); BILIRUBIN,TOTAL 0.6 MG/DL (0.2-1.0); CREATINE KINASE 72 U/L (26-308)
--- NOTE | 2017-10-29 09:17 | Diagnostic Imaging Report ---
Indication: Post intubation Technique: One view of the chest Comparison: 09/15/2017 Findings: Interim endotracheal intubation, with satisfactory position of endotracheal tube approximately 7 cm above the paulo. Bilateral interstitial and airspace opacities are now present, diffuse but predominantly in the mid and lower lungs. Heart size is normal. The pleural spaces are clear. Degenerative changes of the shoulders are again noted Impression: Satisfactory endotracheal intubation Bilateral interstitial and alveolar infiltrates versus edema
[2017-10-29] MEDS ORDERED: Albuterol/Ipratropium 3ml neb HHN PRN (10:00)
[2017-10-29] MEDS ORDERED: Vancomycin 1gm inj IVPB ONE (10:11)
--- NOTE | 2017-10-29 10:12 | Diagnostic Imaging Report ---
Indication: Status post nasogastric intubation Technique: One view of the chest Comparison: 2 hours earlier Findings: Interim placement nasogastric tube, tip of which projects just beyond the gastroesophageal junction, proximal port in the distal esophagus. Serial satisfactory position of endotracheal tube. Bilateral interstitial and airspace opacities stable or perhaps slightly improved. Impression: High position of nasogastric tube. Advancement recommended. This critical value phoned to Dr. Muñoz in the emergency room at the time of interpretation Other findings as noted
[2017-10-29] MEDS ORDERED: Morphine Sulfate 2mg/ml Inj IVP PRN (11:00)
[2017-10-29] MEDS ORDERED: Promethazine/Codeine 5ml UD ORAL PRN (11:00)
[2017-10-29] MEDS ORDERED: Nitroglycerin Subl 0.4mg tab SL PRN (11:00)
[2017-10-29] MEDS ORDERED: Ketorolac 30mg Inj IV PRN (11:00)
[2017-10-29] MEDS ORDERED: LORazepam Inj 2mg/ml 1ml IV PRN ×2 (11:00→16:45)
[2017-10-29] MEDS: Solu-MEDROL 125mg Inj IV SCH ×2 (12:26→18:18)
[2017-10-29] MEDS ORDERED: Piperacillin/Tazobactam 2.25 GM in D5W 55 ML IV SCH (14:00)
[2017-10-29] MEDS: Zoysn 3.37gm in NS 100ML IVPB SCH ×2 (14:41→22:37)
--- NOTE | 2017-10-29 15:32 | Consultation ---
Consult Note Consult Note ID # [id number] BHUMI COLLINS M.D. Oct 29, 2017 15:32
--- NOTE | 2017-10-29 16:38 | History and Physical ---
History of Present Illness General Date patient seen: Oct 29, 2017 Reason for Hospitalization: Dyspnea/Respdistress Present Illness HPI 82 year old male with hx of COPD, [facility] resident was brought in by EMS. They were called for altered mental status and respiratory difficulty. The patient has a history of COPD. Apparently they were unable to get O2 saturation about 55% with assisted ventilations. An IV was started. Accu-Chek was 127. Apparently the patient is a full code. He was unable to give us a history. He was intubated in ER and transferred to ICU for further treatment. Allergies: Coded Allergies: No Known Allergies (Unverified , 09/15/17) Medication History Scheduled Amlodipine Besylate (Norvasc), 5 MG ORAL DAILY, (Reported) Atorvastatin (Lipitor), 40 MG ORAL BEDTIME, (Reported) Docusate Sodium* (Docusate Sodium*), 100 MG ORAL DAILY, (Reported) Famotidine (Famotidine), 20 MG ORAL DAILY, (Reported) Folic Acid* (Folic Acid*), 1 MG ORAL DAILY Ipratropium [place] (Atrovent Hfa), 17 MCG INH DAILY, (Reported) Metformin Hcl* (Metformin Hcl*), 500 MG ORAL TWICE A DAY, (Reported) Scheduled PRN Acetaminophen* (Acetaminophen 325MG Tablet*), 650 MG ORAL Q6HR PRN for Mild Pain /Temp > 100.5, (Reported) Bisacodyl (Bisacodyl), 10 MG RC DAILY PRN for Constipation, (Reported) Ipratropium/Albuterol Sulfate (DuoNeb 0.5-3(2.5)mg/3ml), 3 ML HHN Q4HR PRN for Shortness of Breath, (Reported) Magnesium Hydroxide* (Milk Of Magnesia*), 30 ML ORAL DAILY PRN for Constipation, (Reported) Ondansetron (Zofran), 4 MG ORAL Q6H PRN for Nausea & Vomiting, (Reported) Patient History Healthcare decision maker Resuscitation status Full Code Advanced Directive on File Past Medical/Surgical History Past Medical/Surgical History: (1) COPD (chronic obstructive pulmonary disease) Review of Systems All Other Systems: negative except mentioned in HPI Physical Exam General Appearance: WD/WN HEENT: normocephalic, atraumatic Neck: non-tender, normal alignment Respiratory/Chest: chest wall non-tender, lungs clear, normal breath sounds Breasts: no masses Cardiovascular/Chest: normal peripheral pulses, normal rate Abdomen: normal bowel sounds, non tender Genitourinary/Rectal: normal genital exam, normal rectal exam Extremities: normal range of motion Last 24 Hour Vital Signs Date Time Temp Pulse Resp B/P (MAP) Pulse Ox O2 Delivery O2 Flow Rate FiO2 10/29/17 15:17 107 21 65 10/29/17 15:00 110 22 102/58 100 Mechanical Ventilator 65 10/29/17 14:00 97.8 108 22 124/73 100 Mechanical Ventilator 65 97.8 10/29/17 13:14 104 21 65 10/29/17 13:00 109 22 124/73 100 Mechanical Ventilator 65 10/29/17 12:00 109 10/29/17 12:00 105 22 118/65 100 Mechanical Ventilator 65 10/29/17 12:00 65 10/29/17 10:55 126 34 65 10/29/17 10:45 97.7 124 30 134/65 100 Mechanical Ventilator 65 97.7 10/29/17 10:35 97.1 131 25 100/56 100 Mechanical Ventilator 15.0 65 97.1 10/29/17 10:31 122 25 65 10/29/17 10:02 97.1 131 31 100/56 100 Mechanical Ventilator 15.0 65 97.1 10/29/17 09:34 20 10/29/17 09:30 140 26 146/61 100 Mechanical Ventilator 15.0 65 10/29/17 09:00 133 30 146/61 100 Mechanical Ventilator 15.0 100 10/29/17 08:55 132 34 65 10/29/17 08:30 121 34 149/71 98 Mechanical Ventilator 15.0 100 10/29/17 08:15 121 28 96 Mechanical Ventilator 10/29/17 08:00 96.9 120 24 130/68 98 Mechanical Ventilator 15.0 100 96.9 10/29/17 07:41 113 28 93 Mechanical Ventilator 100 10/29/17 07:41 113 28 Mechanical Ventilator 100 10/29/17 07:30 117 25 89/64 97 Mechanical Ventilator 15.0 100 10/29/17 07:17 95.9 125 12 102/51 97 Ambu-Bag 15.0 95.9 10/29/17 07:17 125 12 Ambu-Bag 15.0 100 10/29/17 07:17 204.6 12 102/51 97 Ambu-Bag 15.0 100 204.6 10/29/17 07:17 15.0 100 10/29/17 07:15 116 28 100 Laboratory Tests Test 10/29/17 07:30 10/29/17 07:55 10/29/17 08:15 10/29/17 08:35 White Blood Count 4.9 K/UL (4.8-10.8) Red Blood Count 4.68 M/UL (4.70-6.10) L Hemoglobin 14.4 G/DL (14.2-18.0) Hematocrit 44.8 % (42.0-52.0) Mean Corpuscular Volume 96 FL (80-99) Mean Corpuscular Hemoglobin 30.8 PG (27.0-31.0) Mean Corpuscular Hemoglobin Concent 32.2 G/DL (32.0-36.0) Red Cell Distribution Width 16.0 % (11.6-14.8) H Platelet Count 239 K/UL (150-450) Mean Platelet Volume 8.1 FL (6.5-10.1) Neutrophils (%) (Auto) 59.8 % (45.0-75.0) Lymphocytes (%) (Auto) 36.9 % (20.0-45.0) Monocytes (%) (Auto) 1.5 % (1.0-10.0) Eosinophils (%) (Auto) 0.6 % (0.0-3.0) Basophils (%) (Auto) 1.1 % (0.0-2.0) Lactic Acid Level 3.10 mmol/L (0.66-2.22) H 3.60 mmol/L (0.66-2.22) H Prothrombin Time 10.5 SEC (9.30-11.50) Prothromb Time International Ratio 1.0 (0.9-1.1) Activated Partial Thromboplast Time 25 SEC (23-33) Urine Color Pale yellow Urine Appearance Clear Urine pH 6.5 (4.5-8.0) Urine Specific [place] 1.015 (1.005-1.035) Urine Protein 1+ (NEGATIVE) H Urine Glucose (UA) Negative (NEGATIVE) Urine Ketones Negative (NEGATIVE) Urine Occult Blood 5+ (NEGATIVE) H Urine Nitrite Negative (NEGATIVE) Urine Bilirubin Negative (NEGATIVE) Urine Urobilinogen 1 MG/DL (0.0-1.0) H Urine Leukocyte Esterase 1+ (NEGATIVE) H Urine RBC 20-30 /HPF (0 - 0) H Urine WBC 2-4 /HPF (0 - 0) Urine Squamous Epithelial Cells Occasional /LPF Urine Bacteria Occasional /HPF (NONE) Sodium Level 133 MMOL/L (136-145) L Potassium Level 4.0 MMOL/L (3.5-5.1) Chloride Level 100 MMOL/L (98-107) Carbon Dioxide Level 26 MMOL/L (21-32) Anion Gap 7 mmol/L (5-15) Blood Urea Nitrogen 28 mg/dL (7-18) H Creatinine 1.4 MG/DL (0.55-1.30) H Estimat Glomerular Filtration Rate mL/min (>60) Glucose Level 156 MG/DL (74-106) H Calcium Level 9.8 MG/DL (8.5-10.1) Total Bilirubin 0.6 MG/DL (0.2-1.0) Aspartate Amino Transf (AST/SGOT) 29 U/L (15-37) Alanine Aminotransferase (ALT/SGPT) 37 U/L (12-78) Alkaline Phosphatase 140 U/L (46-116) H Total Creatine Kinase 72 U/L (26-308) Troponin I 0.017 ng/mL (0.000-0.056) Pro-B-Type Natriuretic Peptide 170 pg/mL (0-125) H Total Protein 7.4 G/DL (6.4-8.2) Albumin 3.2 G/DL (3.4-5.0) L Globulin 4.2 g/dL Albumin/Globulin Ratio 0.8 (1.0-2.7) L Arterial Blood pH 7.175 (7.350-7.450) Arterial Blood Partial Pressure CO2 60.3 mmHg (35.0-45.0) *H Arterial Blood Partial Pressure O2 265.3 mmHg (75.0-100.0) H Arterial Blood HCO3 21.7 mmol/L (22.0-26.0) L Arterial Blood Oxygen Saturation 98.8 % (92.0-98.0) H Arterial Blood Base Excess -7.4 Donnie Test Positive Microbiology Date/Time Source Procedure Growth Status 10/29/17 07:20 Nasal Nares Influenza Types A,B Antigen (HAJA) - Final Complete Height (Feet): 5 Height (Inches): 8.00 Weight (Pounds): 127 Medications Current Medications Medications (Trade) Dose Ordered Sig/Lenora Route PRN Reason Start Time Stop Time Status Last Admin Dose Admin Albuterol/ Ipratropium (Albuterol/ Ipratropium) 3 ml Q4H PRN HHN dyspnea 10/29/17 10:00 11/03/17 09:59 Amlodipine Besylate (Norvasc) 5 mg DAILY ORAL 10/30/17 10:00 11/29/17 09:59 Dextrose (Dextrose 50%) STAT PRN IV Hypoglycemia 10/29/17 11:00 11/28/17 10:59 Heparin Sodium (Porcine) (Heparin 5000 units/ml) 5,000 units EVERY 12 HOURS SUBQ 10/29/17 21:00 11/28/17 20:59 Ketorolac Tromethamine (Toradol 30mg) 30 mg EVERY 8 HOURS PRN IV Moderate Pain (Pain Scale 4-6) 10/29/17 11:00 11/03/17 10:59 Lorazepam (Ativan 2mg/ml 1ml) 0.5 mg Q4H PRN IV For Anxiety 10/29/17 11:00 11/05/17 10:59 10/29/17 16:18 Methylprednisolone Sodium Succinate (Solu-MEDROL) 60 mg EVERY 6 HOURS IV 10/29/17 12:00 11/28/17 11:59 10/29/17 12:26 Morphine Sulfate (Morphine Sulfate) 2 mg Q4H PRN IVP Severe Pain (Pain Scale 7-10) 10/29/17 11:00 11/05/17 10:59 Nitroglycerin (Ntg) 0.4 mg Q5M X 3 DOSES PRN SL Prn Chest Pain 10/29/17 11:00 11/28/17 10:59 Ondansetron HCl (Zofran) 4 mg Q6H PRN IVP Nausea & Vomiting 10/29/17 11:00 11/28/17 10:59 Piperacillin Sod/ Tazobactam Sod 3.375 gm/Sodium Chloride 110 ml @ 27.5 mls/hr EVERY 8 HOURS IVPB 10/29/17 14:00 11/03/17 13:59 10/29/17 14:41 Promethazine HCl/ Codeine (Phenergan with Codeine) 5 ml Q6H PRN ORAL cough 10/29/17 11:00 11/28/17 10:59 Sodium Chloride 1,000 ml @ 300 mls/hr Q3H20M IV 10/29/17 07:30 11/28/17 07:29 10/29/17 09:28 Temazepam (Restoril) 15 mg HSPRN PRN ORAL Insomnia 10/29/17 21:00 11/05/17 20:59 Theophylline (Varghese-Dur) 100 mg EVERY 12 HOURS ORAL 10/29/17 21:00 11/28/17 20:59 Vancomycin HCl (Vanco rx to dose) 1 ea DAILY PRN MISC Per rx protocol 10/29/17 15:45 11/28/17 15:44 Vancomycin/Sodium Chloride 250 ml @ 166.667 mls/hr Q24H IVPB 10/30/17 10:00 11/04/17 09:59 Assessment/Plan Problem List: (1) Acute respiratory failure ICD Codes: J96.00 - Acute respiratory failure, unspecified whether with hypoxia or hypercapnia SNOMED: 92319934 (2) COPD (chronic obstructive pulmonary disease) ICD Codes: J44.9 - Chronic obstructive pulmonary disease, unspecified SNOMED: 98366882 Qualifiers: Qualified Codes: J44.1 - Chronic obstructive pulmonary disease with (acute) exacerbation (3) Bilateral pneumonia ICD Codes: J18.9 - Pneumonia, unspecified organism SNOMED: 816266928 Qualifiers: Qualified Codes: J18.9 - Pneumonia, unspecified organism (4) Severe sepsis ICD Codes: A41.9 - Sepsis, unspecified organism; R65.20 - Severe sepsis without septic shock SNOMED: 87740928 (5) Anemia ICD Codes: D64.9 - Anemia, unspecified SNOMED: 127482026 (6) Severe protein-calorie malnutrition ICD Codes: E43 - Unspecified severe protein-calorie malnutrition SNOMED: 236253865 Assessment/Plan respiratory treatment iv abx vent management daily cxr titrate fio2 TV, RR dvt prophylaxis NG tube feeding sedation, with ativan and morphine MARY FELIX Oct 29, 2017 16:38
[2017-10-29] MEDS ORDERED: Morphine Sulfate 4mg/ml Inj IVP PRN (16:45)
[2017-10-29] MEDS: Heparin 5000 units/ml inj SUBQ SCH (21:11)
[2017-10-29] MEDS: Theophylline ER 100mg ORAL SCH (21:12)
[2017-10-30] VITALS (24 sets, daily range): BP systolic 77–136; BP diastolic 41–67
[2017-10-30] MEDS: Solu-MEDROL 125mg Inj IV SCH ×5 (00:14→23:29)
--- NOTE | 2017-10-30 01:15 | Consultation ---
DATE OF CONSULTATION: 10/29/2017 INFECTIOUS DISEASE CONSULTATION CONSULTING PHYSICIAN: Dallas Myers M.D REFERRING PHYSICIAN: Earnestine Hanson M.D. REASON FOR CONSULTATION: Evaluation of patient for pneumonia, sepsis, antibiotic management. HISTORY OF PRESENT ILLNESS: The patient is an 82-year-old male, who was brought from nursing home facility to this medical center due to altered level of consciousness and shortness of breath. The patient had to be intubated and was placed in the ICU. Infectious Disease consultation has been requested for further evaluation of the patient's pneumonia and sepsis. PAST MEDICAL HISTORY: 1. History of CVA with left-sided weakness. 2. Hypertension. 3. Hyperlipidemia. 4. History of GI bleed/GERD. 5. History of diabetes. 6. Anemia. ALLERGIES: No known drug allergies. SOCIAL HISTORY: The [facility] a [facility]. FAMILY HISTORY: Unavailable. REVIEW OF SYSTEMS: Unobtainable. MEDICATIONS: Zosyn, Solu-Medrol, and vancomycin. PHYSICAL EXAMINATION: VITAL SIGNS: Temperature 97.8, blood pressure 124/73, pulse 56, and respiratory rate 18. HEENT: No pale conjunctivae. No icterus. NECK: No lymphadenopathy. CHEST: Coarse breath sounds. HEART: S1 and S2. ABDOMEN: Soft . EXTREMITIES: No cyanosis at this time. NEUROLOGIC: Obtunded. LABORATORY AND DIAGNOSTIC DATA: White blood cells 7.9, hemoglobin 14, platelets 239. UA, 20 to 30 red blood cells. BUN 28, creatinine 1.4. ALT and AST are unremarkable. Alkaline phosphatase 140. Influenza testing negative. Chest x-ray, bilateral interstitial alveolar infiltrates versus edema. ASSESSMENT: The patient is an 82-year-old male with, 1. Healthcare-associated pneumonia. 2. Sepsis. 3. Ventilator-dependent respiratory failure (intubated on 10/29/2017). 4. Rule out bacteremia. PLAN: 1. We will continue the patient on vancomycin and Zosyn. 2. Monitor CBC. 3. Monitor BMP. 4. Monitor cultures (blood, sputum, urine). 5. Monitor chest x-ray. 6. Urine Legionella antigen. 7. Continue respiratory support. 8. Based on the patient's clinical course and labs, we will do further recommendation. Thank you, Dr. Hanson, for allowing me to participate in the care of this patient. I will follow the patient with you during this hospitalization. Dallas Myers M.D. DR: KAREN JOB#: [id number] CC:
[2017-10-30 05:27] LABS: HEMATOCRIT 30.8 % (42.0-52.0); HEMOGLOBIN 10.4 G/DL (14.2-18.0); MEAN CORPUSCULAR VOLUME 96 FL (80-99); PLATELET COUNT 215 K/UL (150-450); RED BLOOD COUNT 3.22 M/UL (4.70-6.10); WHITE BLOOD COUNT 10.1 K/UL (4.8-10.8)
[2017-10-30] MEDS: Zoysn 3.37gm in NS 100ML IVPB SCH ×3 (05:39→20:41)
[2017-10-30 05:51] LABS: ALANINE AMINOTRANSFERASE 28 U/L (12-78); ALBUMIN 2.3 G/DL (3.4-5.0); ALBUMIN/GLOBULIN RATIO 0.6 (1.0-2.7); ALKALINE PHOSPHATASE 57 U/L (46-116); ANION GAP 8 mmol/L (5-15); ASPARTATE AMINO TRANSFERASE 20 U/L (15-37); BILIRUBIN,TOTAL 0.9 MG/DL (0.2-1.0); BLOOD UREA NITROGEN 31 mg/dL (7-18); CARBON DIOXIDE 26 MMOL/L (21-32); CHLORIDE 106 MMOL/L (98-107); CREATININE 1.3 MG/DL (0.55-1.30); PHOSPHORUS 3.2 MG/DL (2.5-4.9); POTASSIUM 4.5 MMOL/L (3.5-5.1); SODIUM 140 MMOL/L (136-145)
[2017-10-30] MEDS: Theophylline ER 100mg ORAL SCH ×2 (08:41→20:40)
[2017-10-30] MEDS: Pantoprazole Inj IV SCH (08:41)
[2017-10-30] MEDS: Heparin 5000 units/ml inj SUBQ SCH ×2 (08:47→20:42)
[2017-10-30] MEDS: Vancomycin 750mg/NS 250ml IVPB SCH (09:07)
--- NOTE | 2017-10-30 10:49 | Pulmonolgy Critical Care Note ---
Critical Care - Asmt/Plan Problems: (1) Acute respiratory failure (2) COPD (chronic obstructive pulmonary disease) (3) Bilateral pneumonia (4) Severe protein-calorie malnutrition Respiratory: monitor respiratory rate, adjust FIO2, CXR Cardiac: continue pressors, continue to monitor HR/BP Renal: F/U I&O, keep IV fluid Infectious Disease: check cultures Gastrointestinal: continue feedings/current rate Endocrine: monitor blood sugar, check TSH, continue sliding scale insulin Hematologic: monitor H/H, transfuse if hgb<8.5 Neurologic: PRN Ativan, keep patient comfortable Prophylaxis: Protonix, Heparin Time Spent (Minutes): 40 Notes 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, 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 Discussed with: nurses, consultants, manager caseshopper insights manager - Objective Last 24 Hour Vital Signs Date Time Temp Pulse Resp B/P (MAP) Pulse Ox O2 Delivery O2 Flow Rate FiO2 10/30/17 10:00 85 20 112/64 100 Mechanical Ventilator 35 10/30/17 09:21 95 20 35 10/30/17 09:08 92 100/56 10/30/17 09:00 99 10/30/17 09:00 92 20 96/41 100 Mechanical Ventilator 35 10/30/17 08:00 35 10/30/17 08:00 98.4 96 20 100/52 100 Mechanical Ventilator 35 98.4 10/30/17 07:07 95 20 35 10/30/17 07:00 109 20 95/61 100 Mechanical Ventilator 35 10/30/17 06:00 99 20 82/51 100 Mechanical Ventilator 35 10/30/17 05:20 112 21 35 10/30/17 05:00 101 20 98/50 100 Mechanical Ventilator 35 10/30/17 04:00 98.3 99 20 126/56 100 Mechanical Ventilator 35 98.3 10/30/17 04:00 35 10/30/17 04:00 103 10/30/17 03:25 100 20 35 10/30/17 03:00 101 20 98/50 100 Mechanical Ventilator 35 10/30/17 02:00 98 20 82/49 100 Mechanical Ventilator 35 10/30/17 01:20 96 20 35 10/30/17 01:00 99 20 77/47 100 Mechanical Ventilator 35 10/30/17 00:00 98.1 101 20 93/54 100 Mechanical Ventilator 35 98.1 10/30/17 00:00 95 10/29/17 23:00 109 20 75/45 100 Mechanical Ventilator 35 10/29/17 22:48 113 20 35 10/29/17 22:00 113 20 70/48 100 Mechanical Ventilator 35 10/29/17 21:00 109 20 98/57 100 Mechanical Ventilator 35 10/29/17 20:50 108 20 35 10/29/17 20:00 35 10/29/17 20:00 114 10/29/17 20:00 111 20 125/67 100 Mechanical Ventilator 55 10/29/17 19:04 119 23 45 10/29/17 19:00 98.3 116 21 97/60 100 Mechanical Ventilator 55 98.3 10/29/17 18:00 107 21 102/59 100 Mechanical Ventilator 55 10/29/17 17:01 115 19 55 10/29/17 17:00 65 10/29/17 17:00 113 16 87/52 100 Mechanical Ventilator 65 10/29/17 16:00 65 10/29/17 16:00 106 10/29/17 16:00 87 16 127/87 100 Mechanical Ventilator 65 10/29/17 15:17 107 21 65 10/29/17 15:00 110 22 102/58 100 Mechanical Ventilator 65 10/29/17 14:00 97.8 108 22 124/73 100 Mechanical Ventilator 65 97.8 10/29/17 13:14 104 21 65 10/29/17 13:00 109 22 124/73 100 Mechanical Ventilator 65 10/29/17 12:00 109 10/29/17 12:00 105 22 118/65 100 Mechanical Ventilator 65 10/29/17 12:00 65 10/29/17 10:55 126 34 65 Status: awake Condition: critical HEENT: atraumatic Neck: full ROM Heart: HR/BP stable Abdomen: soft, non-tender, feeding tube Extremities: no C/C/E, edema Micro: Microbiology Date/Time Source Procedure Growth Status 10/29/17 09:00 Sputum Gram Stain - Final Resulted 10/29/17 09:00 Sputum Culture - Preliminary Gram Negative Bacillus 1 Resulted 10/29/17 07:20 Nasal Nares Influenza Types A,B Antigen (HAJA) - Final Complete Accucheck: 104 Critical Care - Subjective ROS Limited/Unobtainable: Yes ICU Day: 2 Intubation Day: 2 Condition: critical EKG Rhythm: Sinus Rhythm FI02: 35 Vent Support Breath Rate: 20 Vent Support Mode: AC Vent Tidal Volume: 600 Sputum Amount: None PEEP: 5.0 PIP: 21 I&O: Intake and Output 10/29/17 10/30/17 19:00 07:00 Intake Total 2200.0 ml 170.0 ml Output Total 340 ml 270 ml Balance 1860.0 ml -100.0 ml Intake Free Water 30 ml IV Total 2170.0 ml 110.0 ml Other 60 ml Output Urine Total 340 ml 270 ml # Voids 1 # Bowel Movements 3 1 CXR: ET in good position, no change ET-Tube: 7.5 ET Position: 23 Labs: Laboratory Tests Test 10/29/17 17:50 10/30/17 04:00 10/30/17 05:00 Arterial Blood pH 7.310 (7.350-7.450) 7.425 (7.350-7.450) Arterial Blood Partial Pressure CO2 42.0 mmHg (35.0-45.0) 37.3 mmHg (35.0-45.0) Arterial Blood Partial Pressure O2 181.8 mmHg (75.0-100.0) H 103.4 mmHg (75.0-100.0) H Arterial Blood HCO3 20.9 mmol/L (22.0-26.0) L 23.9 mmol/L (22.0-26.0) Arterial Blood Oxygen Saturation 99.2 % (92.0-98.0) H 97.9 % (92.0-98.0) Arterial Blood Base Excess -5.0 -0.3 Donnie Test Positive Positive White Blood Count 10.1 K/UL (4.8-10.8) # Red Blood Count 3.22 M/UL (4.70-6.10) L Hemoglobin 10.4 G/DL (14.2-18.0) L Hematocrit 30.8 % (42.0-52.0) #L Mean Corpuscular Volume 96 FL (80-99) Mean Corpuscular Hemoglobin 32.2 PG (27.0-31.0) H Mean Corpuscular Hemoglobin Concent 33.7 G/DL (32.0-36.0) Red Cell Distribution Width 15.0 % (11.6-14.8) H Platelet Count 215 K/UL (150-450) Mean Platelet Volume 6.2 FL (6.5-10.1) L Neutrophils (%) (Auto) % (45.0-75.0) Lymphocytes (%) (Auto) % (20.0-45.0) Monocytes (%) (Auto) % (1.0-10.0) Eosinophils (%) (Auto) % (0.0-3.0) Basophils (%) (Auto) % (0.0-2.0) Differential Total Cells Counted 100 Neutrophils % (Manual) 73 % (45-75) Lymphocytes % (Manual) 16 % (20-45) L Monocytes % (Manual) 5 % (1-10) Eosinophils % (Manual) 0 % (0-3) Basophils % (Manual) 0 % (0-2) Band Neutrophils 6 % (0-8) Platelet Estimate Adequate Platelet Morphology Normal Anisocytosis 1+ Sodium Level 140 MMOL/L (136-145) Potassium Level 4.5 MMOL/L (3.5-5.1) Chloride Level 106 MMOL/L (98-107) Carbon Dioxide Level 26 MMOL/L (21-32) Anion Gap 8 mmol/L (5-15) Blood Urea Nitrogen 31 mg/dL (7-18) H Creatinine 1.3 MG/DL (0.55-1.30) Estimat Glomerular Filtration Rate mL/min (>60) Glucose Level 103 MG/DL (74-106) Calcium Level 9.0 MG/DL (8.5-10.1) Phosphorus Level 3.2 MG/DL (2.5-4.9) Magnesium Level 1.5 MG/DL (1.8-2.4) L Total Bilirubin 0.9 MG/DL (0.2-1.0) Aspartate Amino Transf (AST/SGOT) 20 U/L (15-37) Alanine Aminotransferase (ALT/SGPT) 28 U/L (12-78) Alkaline Phosphatase 57 U/L (46-116) Total Protein 6.0 G/DL (6.4-8.2) L Albumin 2.3 G/DL (3.4-5.0) L Globulin 3.7 g/dL Albumin/Globulin Ratio 0.6 (1.0-2.7) L MARY FELIX Oct 30, 2017 10:49
--- NOTE | 2017-10-30 11:54 | Diagnostic Imaging Report ---
Indication: Dyspnea Comparison: 10/29/2017 A single view chest radiograph was obtained. Findings: Reticular densities are present and patchy in distribution but appears improved overall since the last examination. The nasogastric tube is still high in location and should be advanced further. The tip, while in the stomach is high and the proximal port is above the EG junction. IMPRESSION: Patchy interstitial infiltrates with slight improvement since last exam. Nasogastric tube should be advanced further.
[2017-10-30] MEDS ORDERED: Lidocaine 1% MPF 10mg/ml 5ml INJ ONE (12:15)
[2017-10-30] MEDS ORDERED: Heparin 2000 units/Ns 1000ml INJ ONE (12:15)
--- NOTE | 2017-10-30 13:50 | Diagnostic Imaging Report ---
Indication: NG tube placement Comparison: None Single view of the abdomen obtained Findings: Visual the upper abdomen shows a proximal port and tip both in the stomach. IMPRESSION: NG tube satisfactory in position
[2017-10-30] MEDS ORDERED: Tubing IV Secondary IV ONE (14:53)
[2017-10-30] MEDS ORDERED: NovoLOG Insulin Flexpen SUBQ SCH (16:30)
--- NOTE | 2017-10-30 18:21 | Infectious Diseases Prog Note ---
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 Rule out bacteremia. History of CVA with left-sided weakness Hypertension Hyperlipidemia History of GI bleed/GERD History of diabetes Anemia P: We will continue the patient on vancomycin and Zosyn d# 2 Monitor CBC Monitor BMP Monitor cultures (blood, sputum, urine). Monitor chest x-ray. Urine Legionella antigen Continue respiratory support Subjective Constitutional: Denies: no symptoms, fever, chills, fatigue, anorexia, drenching sweats, other Allergies: Coded Allergies: No Known Allergies (Unverified , 09/15/17) Objective Vital Signs Last 24 Hour Vital Signs Date Time Temp Pulse Resp B/P (MAP) Pulse Ox O2 Delivery O2 Flow Rate FiO2 10/30/17 17:00 35 10/30/17 17:00 89 20 93/52 100 Mechanical Ventilator 35 10/30/17 16:00 82 10/30/17 16:00 98.2 86 20 93/50 98 Mechanical Ventilator 35 98.2 10/30/17 15:17 80 20 35 10/30/17 15:00 82 20 84/45 98 Mechanical Ventilator 35 10/30/17 14:00 92 20 100/50 99 Mechanical Ventilator 35 10/30/17 13:20 92 20 35 10/30/17 13:00 97 20 100/51 100 Mechanical Ventilator 35 10/30/17 12:00 98.4 96 20 88/48 98 Mechanical Ventilator 35 98.4 10/30/17 12:00 88 10/30/17 12:00 35 10/30/17 11:13 89 20 35 10/30/17 11:00 89 20 85/47 99 Mechanical Ventilator 35 10/30/17 10:00 85 20 112/64 100 Mechanical Ventilator 35 10/30/17 09:21 95 20 35 10/30/17 09:08 92 100/56 10/30/17 09:00 99 10/30/17 09:00 92 20 96/41 100 Mechanical Ventilator 35 10/30/17 08:00 35 10/30/17 08:00 98.4 96 20 100/52 100 Mechanical Ventilator 35 98.4 10/30/17 07:07 95 20 35 10/30/17 07:00 109 20 95/61 100 Mechanical Ventilator 35 10/30/17 06:00 99 20 82/51 100 Mechanical Ventilator 35 10/30/17 05:20 112 21 35 10/30/17 05:00 101 20 98/50 100 Mechanical Ventilator 35 10/30/17 04:00 98.3 99 20 126/56 100 Mechanical Ventilator 35 98.3 10/30/17 04:00 35 10/30/17 04:00 103 10/30/17 03:25 100 20 35 10/30/17 03:00 101 20 98/50 100 Mechanical Ventilator 35 10/30/17 02:00 98 20 82/49 100 Mechanical Ventilator 35 10/30/17 01:20 96 20 35 10/30/17 01:00 99 20 77/47 100 Mechanical Ventilator 35 10/30/17 00:00 98.1 101 20 93/54 100 Mechanical Ventilator 35 98.1 10/30/17 00:00 95 10/29/17 23:00 109 20 75/45 100 Mechanical Ventilator 35 10/29/17 22:48 113 20 35 10/29/17 22:00 113 20 70/48 100 Mechanical Ventilator 35 10/29/17 21:00 109 20 98/57 100 Mechanical Ventilator 35 10/29/17 20:50 108 20 35 10/29/17 20:00 35 10/29/17 20:00 114 10/29/17 20:00 111 20 125/67 100 Mechanical Ventilator 55 10/29/17 19:04 119 23 45 10/29/17 19:00 98.3 116 21 97/60 100 Mechanical Ventilator 55 98.3 Height (Feet): 5 Height (Inches): 8.00 Weight (Pounds): 127 HEENT: atraumatic Respiratory/Chest: no respiratory distress Cardiovascular: regular rhythm Abdomen: no organomegaly Extremities: no cyanosis Microbiology Date/Time Source Procedure Growth Status 10/29/17 09:00 Sputum Gram Stain - Final Resulted 10/29/17 09:00 Sputum Culture - Preliminary Gram Negative Bacillus 1 Resulted 10/29/17 07:20 Nasal Nares Influenza Types A,B Antigen (HAJA) - Final Complete Laboratory Tests Test 10/30/17 04:00 10/30/17 05:00 10/30/17 12:40 Arterial Blood pH 7.425 (7.350-7.450) Arterial Blood Partial Pressure CO2 37.3 mmHg (35.0-45.0) Arterial Blood Partial Pressure O2 103.4 mmHg (75.0-100.0) H Arterial Blood HCO3 23.9 mmol/L (22.0-26.0) Arterial Blood Oxygen Saturation 97.9 % (92.0-98.0) Arterial Blood Base Excess -0.3 Donnie Test Positive White Blood Count 10.1 K/UL (4.8-10.8) # Red Blood Count 3.22 M/UL (4.70-6.10) L Hemoglobin 10.4 G/DL (14.2-18.0) L Hematocrit 30.8 % (42.0-52.0) #L Mean Corpuscular Volume 96 FL (80-99) Mean Corpuscular Hemoglobin 32.2 PG (27.0-31.0) H Mean Corpuscular Hemoglobin Concent 33.7 G/DL (32.0-36.0) Red Cell Distribution Width 15.0 % (11.6-14.8) H Platelet Count 215 K/UL (150-450) Mean Platelet Volume 6.2 FL (6.5-10.1) L Neutrophils (%) (Auto) % (45.0-75.0) Lymphocytes (%) (Auto) % (20.0-45.0) Monocytes (%) (Auto) % (1.0-10.0) Eosinophils (%) (Auto) % (0.0-3.0) Basophils (%) (Auto) % (0.0-2.0) Differential Total Cells Counted 100 Neutrophils % (Manual) 73 % (45-75) Lymphocytes % (Manual) 16 % (20-45) L Monocytes % (Manual) 5 % (1-10) Eosinophils % (Manual) 0 % (0-3) Basophils % (Manual) 0 % (0-2) Band Neutrophils 6 % (0-8) Platelet Estimate Adequate Platelet Morphology Normal Anisocytosis 1+ Sodium Level 140 MMOL/L (136-145) Potassium Level 4.5 MMOL/L (3.5-5.1) Chloride Level 106 MMOL/L (98-107) Carbon Dioxide Level 26 MMOL/L (21-32) Anion Gap 8 mmol/L (5-15) Blood Urea Nitrogen 31 mg/dL (7-18) H Creatinine 1.3 MG/DL (0.55-1.30) Estimat Glomerular Filtration Rate mL/min (>60) Glucose Level 103 MG/DL (74-106) Calcium Level 9.0 MG/DL (8.5-10.1) Phosphorus Level 3.2 MG/DL (2.5-4.9) Magnesium Level 1.5 MG/DL (1.8-2.4) L Total Bilirubin 0.9 MG/DL (0.2-1.0) Aspartate Amino Transf (AST/SGOT) 20 U/L (15-37) Alanine Aminotransferase (ALT/SGPT) 28 U/L (12-78) Alkaline Phosphatase 57 U/L (46-116) Total Protein 6.0 G/DL (6.4-8.2) L Albumin 2.3 G/DL (3.4-5.0) L Globulin 3.7 g/dL Albumin/Globulin Ratio 0.6 (1.0-2.7) L Lactic Acid Level 1.30 mmol/L (0.66-2.22) Current Medications Medications (Trade) Dose Ordered Sig/Lenora Route PRN Reason Start Time Stop Time Status Last Admin Dose Admin Albuterol/ Ipratropium (Albuterol/ Ipratropium) 3 ml Q4H PRN HHN dyspnea 10/29/17 10:00 11/03/17 09:59 Amlodipine Besylate (Norvasc) 5 mg DAILY ORAL 10/30/17 10:00 11/29/17 09:59 10/30/17 09:08 Chlorhexidine Gluconate (Shoshana-Hex 2%) 1 applic DAILY@1999 TOPIC 10/30/17 20:00 11/29/17 19:59 Dextrose (Dextrose 50%) STAT PRN IV Hypoglycemia 10/29/17 11:00 11/28/17 10:59 Heparin Sodium (Porcine) (Heparin 5000 units/ml) 5,000 units EVERY 12 HOURS SUBQ 10/29/17 21:00 11/28/17 20:59 10/30/17 08:47 Insulin Aspart (NovoLOG) BEFORE MEALS AND HS SUBQ 10/30/17 16:30 11/29/17 16:29 10/30/17 16:10 Lorazepam (Ativan 2mg/ml 1ml) 2 mg Q4H PRN IV For Anxiety 10/29/17 16:45 11/05/17 16:44 Methylprednisolone Sodium Succinate (Solu-MEDROL) 60 mg EVERY 6 HOURS IV 10/29/17 12:00 11/28/17 11:59 10/30/17 17:07 Morphine Sulfate (Morphine Sulfate) 2 mg Q4H PRN IVP Severe Pain (Pain Scale 7-10) 10/29/17 11:00 11/05/17 10:59 Morphine Sulfate (Morphine Sulfate) 4 mg Q4H PRN IVP Severe breakthrough pain >7 10/29/17 16:45 11/05/17 16:44 10/29/17 22:44 Nitroglycerin (Ntg) 0.4 mg Q5M X 3 DOSES PRN SL Prn Chest Pain 10/29/17 11:00 11/28/17 10:59 Ondansetron HCl (Zofran) 4 mg Q6H PRN IVP Nausea & Vomiting 10/29/17 11:00 11/28/17 10:59 Pantoprazole (Protonix) 40 mg DAILY IV 10/30/17 09:00 11/29/17 08:59 10/30/17 08:41 Piperacillin Sod/ Tazobactam Sod 3.375 gm/Sodium Chloride 110 ml @ 27.5 mls/hr EVERY 8 HOURS IVPB 10/29/17 14:00 11/03/17 13:59 10/30/17 13:38 Promethazine HCl/ Codeine (Phenergan with Codeine) 5 ml Q6H PRN ORAL cough 10/29/17 11:00 11/28/17 10:59 Temazepam (Restoril) 15 mg HSPRN PRN ORAL Insomnia 10/29/17 21:00 11/05/17 20:59 Theophylline (Varghese-Dur) 100 mg EVERY 12 HOURS ORAL 10/29/17 21:00 11/28/17 20:59 10/30/17 08:41 Vancomycin HCl (Vanco rx to dose) 1 ea DAILY PRN MISC Per rx protocol 10/29/17 15:45 11/28/17 15:44 Vancomycin/Sodium Chloride 250 ml @ 166.667 mls/hr Q24H IVPB 10/30/17 10:00 11/04/17 09:59 10/30/17 09:07 BHUMI COLLINS M.D. Oct 30, 2017 18:21
[2017-10-30] MEDS: Dyna-Hex 2% Top Sol 2oz TOPIC SCH (20:40)
[2017-10-30] MEDS: NovoLOG Insulin Flexpen SUBQ SCH (23:29)
[2017-10-31] VITALS (24 sets, daily range): BP systolic 88–132; BP diastolic 52–82
[2017-10-31] MEDS: Solu-MEDROL 125mg Inj IV SCH ×3 (05:23→17:48)
[2017-10-31] MEDS: Zoysn 3.37gm in NS 100ML IVPB SCH ×3 (05:23→21:40)
[2017-10-31] MEDS: NovoLOG Insulin Flexpen SUBQ SCH ×3 (05:32→17:54)
[2017-10-31 07:15] LABS: HEMATOCRIT 30.1 % (42.0-52.0); HEMOGLOBIN 10.3 G/DL (14.2-18.0); MEAN CORPUSCULAR VOLUME 95 FL (80-99); PLATELET COUNT 218 K/UL (150-450); RED BLOOD COUNT 3.17 M/UL (4.70-6.10); RED CELL DISTRIBUTION WIDTH 14.8 % (11.6-14.8); WHITE BLOOD COUNT 15.8 K/UL (4.8-10.8)
--- NOTE | 2017-10-31 07:15 | Pulmonolgy Critical Care Note ---
Critical Care - Asmt/Plan Assessment/Plan: ASSESSMENT Acute hypoxemic hypercapnic RF requiring intubation severe sepsis Bilateral PNA COPD exacerbation Anemia HTN DM severe protein calorie malnutrition PLAN OF CARE ICU care vent support pulmonary toilet daily CXR and ABG titrate settings as needed wean when ready abx ID follows sputum, + Providencia steroids and taper gradually Theophylline a/tussive prn NGT feeding with strict aspiration precautions BS management with SSI BP management with CCB DVT GI prophylaxis case discussed and evaluated by supervising physician Critical Care - Objective Last 24 Hour Vital Signs Date Time Temp Pulse Resp B/P (MAP) Pulse Ox O2 Delivery O2 Flow Rate FiO2 10/31/17 07:00 89 21 114/66 98 Mechanical Ventilator 28 10/31/17 06:00 77 20 100/54 98 Mechanical Ventilator 28 10/31/17 05:19 78 20 35 10/31/17 05:00 78 20 106/54 98 Mechanical Ventilator 28 10/31/17 04:00 98.4 89 20 105/54 99 Mechanical Ventilator 28 98.4 10/31/17 04:00 28 10/31/17 04:00 103 10/31/17 03:42 98 20 35 10/31/17 03:00 93 20 127/68 99 Mechanical Ventilator 28 10/31/17 02:00 83 20 102/58 99 Mechanical Ventilator 28 10/31/17 01:00 75 20 104/56 98 Mechanical Ventilator 28 10/31/17 00:41 77 20 35 10/31/17 00:00 99.1 76 20 88/67 98 Mechanical Ventilator 28 99.1 10/31/17 00:00 76 10/31/17 00:00 28 10/30/17 23:00 76 20 88/67 98 Mechanical Ventilator 28 10/30/17 22:55 78 20 35 10/30/17 22:00 84 20 85/47 98 Mechanical Ventilator 28 10/30/17 21:34 99 21 35 10/30/17 21:00 102 20 95/46 98 Mechanical Ventilator 28 10/30/17 20:00 28 10/30/17 20:00 99.0 105 20 127/61 98 Mechanical Ventilator 28 99.0 10/30/17 20:00 98 10/30/17 19:57 97 21 35 10/30/17 19:00 99 20 124/60 97 Mechanical Ventilator 35 10/30/17 18:00 95 20 136/59 97 Mechanical Ventilator 35 10/30/17 17:08 82 20 35 10/30/17 17:00 35 10/30/17 17:00 89 20 93/52 100 Mechanical Ventilator 35 10/30/17 16:00 82 10/30/17 16:00 98.2 86 20 93/50 98 Mechanical Ventilator 35 98.2 10/30/17 15:17 80 20 35 10/30/17 15:00 82 20 84/45 98 Mechanical Ventilator 35 10/30/17 14:00 92 20 100/50 99 Mechanical Ventilator 35 10/30/17 13:20 92 20 35 10/30/17 13:00 97 20 100/51 100 Mechanical Ventilator 35 10/30/17 12:00 98.4 96 20 88/48 98 Mechanical Ventilator 35 98.4 10/30/17 12:00 88 10/30/17 12:00 35 10/30/17 11:13 89 20 35 10/30/17 11:00 89 20 85/47 99 Mechanical Ventilator 35 10/30/17 10:00 85 20 112/64 100 Mechanical Ventilator 35 10/30/17 09:21 95 20 35 10/30/17 09:08 92 100/56 10/30/17 09:00 99 10/30/17 09:00 92 20 96/41 100 Mechanical Ventilator 35 10/30/17 08:00 35 10/30/17 08:00 98.4 96 20 100/52 100 Mechanical Ventilator 35 98.4 Status: awake, other - awake, alert, responsive, intubated Condition: critical HEENT: atraumatic, normocephalic, other - OP with ET in place, NGT Lungs: rhonchi - ferw isolated rhonchi Heart: HR/BP stable Abdomen: soft, non-tender, active bowel sounds Extremities: no C/C/E Micro: Microbiology Date/Time Source Procedure Growth Status 10/29/17 09:00 Sputum Gram Stain - Final Resulted 10/29/17 09:00 Sputum Culture - Preliminary Gram Negative Bacillus 1 Resulted 10/29/17 07:20 Nasal Nares Influenza Types A,B Antigen (HAJA) - Final Complete Accucheck: 120 Critical Care - Subjective ROS Limited/Unobtainable: Yes Interval Events: leukocytosis, afebrile remains intubated no signs of resp distress Condition: critical IV Access: peripheral EKG Rhythm: Sinus Rhythm FI02: 28 Vent Support Breath Rate: 20 Vent Support Mode: AC Vent Tidal Volume: 600 Sputum Amount: None PEEP: 5.0 PIP: 24 Tube Feeding Amount: 45 I&O: Intake and Output 10/30/17 10/31/17 19:00 07:00 Intake Total 773.334 ml 592.5 ml Output Total 525 ml 450 ml Balance 248.334 ml 142.5 ml Intake Free Water 50 ml IV Total 698.334 ml 137.5 ml Tube Feeding 75 ml 405 ml Output Urine Total 525 ml 450 ml ET-Tube: 7.5 ET Position: 23 Moshe ([facility],Akilah REILLY Oct 31, 2017 07:15
[2017-10-31 07:20] LABS: ALANINE AMINOTRANSFERASE 33 U/L (12-78); ALBUMIN 2.5 G/DL (3.4-5.0); ALBUMIN/GLOBULIN RATIO 0.6 (1.0-2.7); ALKALINE PHOSPHATASE 68 U/L (46-116); ANION GAP 6 mmol/L (5-15); ASPARTATE AMINO TRANSFERASE 29 U/L (15-37); BILIRUBIN,TOTAL 0.8 MG/DL (0.2-1.0); BLOOD UREA NITROGEN 35 mg/dL (7-18); CALCIUM 9.7 MG/DL (8.5-10.1); CARBON DIOXIDE 26 MMOL/L (21-32); CHLORIDE 107 MMOL/L (98-107); CREATININE 1.2 MG/DL (0.55-1.30); PHOSPHORUS 2.6 MG/DL (2.5-4.9); POTASSIUM 3.7 MMOL/L (3.5-5.1); SODIUM 139 MMOL/L (136-145)
[2017-10-31] MEDS: Pantoprazole Inj IV SCH (08:49)
[2017-10-31] MEDS: Theophylline ER 100mg ORAL SCH ×2 (08:50→20:38)
[2017-10-31] MEDS: Heparin 5000 units/ml inj SUBQ SCH ×2 (08:52→20:39)
[2017-10-31 09:12] LABS: HEMATOCRIT 28.7 % (42.0-52.0); HEMOGLOBIN 9.9 G/DL (14.2-18.0); MEAN CORPUSCULAR VOLUME 95 FL (80-99); PLATELET COUNT 209 K/UL (150-450); RED BLOOD COUNT 3.02 M/UL (4.70-6.10); RED CELL DISTRIBUTION WIDTH 14.9 % (11.6-14.8)
[2017-10-31] MEDS: Vancomycin 750mg/NS 250ml IVPB SCH (10:29)
--- NOTE | 2017-10-31 11:09 | Diagnostic Imaging Report ---
Indication: Dyspnea Comparison: 10/30/2017 A single view chest radiograph was obtained. Findings: Interstitial reticular prominence noted within the lungs nonspecific in nature. Findings are stable. Heart size is stable. The nasogastric tube is high and should be advanced much further. The tip is at the GE junction. Endotracheal tube is in good position. IMPRESSION: Nasogastric tube is high and should be advanced further. Suggest 8 to 10 cm advancement. No change otherwise
[2017-10-31] MEDS: Dyna-Hex 2% Top Sol 2oz TOPIC SCH (20:37)
[2017-11-01] VITALS (24 sets, daily range): BP systolic 106–133; BP diastolic 53–80
[2017-11-01] MEDS: Solu-MEDROL 125mg Inj IV SCH ×4 (02:04→22:10)
[2017-11-01] MEDS: NovoLOG Insulin Flexpen SUBQ SCH ×4 (05:32→18:00)
[2017-11-01] MEDS: Zoysn 3.37gm in NS 100ML IVPB SCH ×3 (05:33→22:11)
[2017-11-01 06:57] LABS: ANION GAP 7 mmol/L (5-15); BLOOD UREA NITROGEN 33 mg/dL (7-18); CALCIUM 9.5 MG/DL (8.5-10.1); CARBON DIOXIDE 27 MMOL/L (21-32); CHLORIDE 112 MMOL/L (98-107); POTASSIUM 4.1 MMOL/L (3.5-5.1); SODIUM 146 MMOL/L (136-145)
[2017-11-01 07:00] LABS: HEMATOCRIT 29.2 % (42.0-52.0); HEMOGLOBIN 9.9 G/DL (14.2-18.0); MEAN CORPUSCULAR VOLUME 95 FL (80-99); PLATELET COUNT 206 K/UL (150-450); RED BLOOD COUNT 3.08 M/UL (4.70-6.10); RED CELL DISTRIBUTION WIDTH 15.2 % (11.6-14.8); WHITE BLOOD COUNT 12.7 K/UL (4.8-10.8)
[2017-11-01] MEDS: Theophylline ER 100mg ORAL SCH ×2 (09:00→21:15)
[2017-11-01] MEDS: Pantoprazole Inj IV SCH (09:00)
[2017-11-01] MEDS: Heparin 5000 units/ml inj SUBQ SCH ×2 (09:00→21:17)
[2017-11-01] MEDS: Vancomycin 750mg/NS 250ml IVPB SCH (10:00)
--- NOTE | 2017-11-01 10:50 | Pulmonolgy Critical Care Note ---
Critical Care - Asmt/Plan Assessment/Plan: ASSESSMENT Acute hypoxemic hypercapnic RF requiring intubation severe sepsis Bilateral PNA COPD exacerbation Anemia HTN DM severe protein calorie malnutrition PLAN OF CARE ICU care vent support pulmonary toilet daily CXR and ABG titrate settings as needed wean soon abx ID follows sputum, + Providencia steroids and taper gradually Theophylline a/tussive prn NGT feeding with strict aspiration precautions BS management with SSI BP management with CCB DVT GI prophylaxis case discussed and evaluated by supervising physician Critical Care - Objective Last 24 Hour Vital Signs Date Time Temp Pulse Resp B/P (MAP) Pulse Ox O2 Delivery O2 Flow Rate FiO2 11/01/17 10:36 64 20 28 11/01/17 10:00 64 20 127/75 99 Mechanical Ventilator 28 11/01/17 09:22 66 20 28 11/01/17 09:00 20 11/01/17 09:00 60 20 116/74 99 Mechanical Ventilator 28 11/01/17 08:00 97.5 61 20 119/72 98 Mechanical Ventilator 28 97.5 11/01/17 08:00 82 11/01/17 08:00 28 11/01/17 07:00 75 20 114/65 97 Mechanical Ventilator 28 11/01/17 06:54 67 20 28 11/01/17 06:00 58 20 116/65 98 Mechanical Ventilator 28 11/01/17 05:22 87 20 28 11/01/17 05:00 64 20 117/67 98 Mechanical Ventilator 28 11/01/17 04:00 28 11/01/17 04:00 98.6 77 20 111/55 98 Mechanical Ventilator 28 98.6 11/01/17 04:00 74 11/01/17 03:36 87 20 28 11/01/17 03:00 89 20 113/61 97 Mechanical Ventilator 28 11/01/17 02:22 75 20 28 11/01/17 02:00 89 20 125/67 98 Mechanical Ventilator 28 11/01/17 01:00 79 20 118/58 98 Mechanical Ventilator 28 11/01/17 00:00 99.4 77 20 106/56 98 Mechanical Ventilator 28 99.4 10/31/17 23:00 77 20 106/69 98 Mechanical Ventilator 10/31/17 22:00 78 21 108/82 100 Mechanical Ventilator 10/31/17 21:10 86 24 28 10/31/17 21:00 85 22 107/59 100 Mechanical Ventilator 10/31/17 20:00 99.0 80 24 97/54 100 Mechanical Ventilator 99.0 10/31/17 20:00 28 10/31/17 20:00 80 10/31/17 19:03 96 20 28 10/31/17 19:00 89 22 124/59 100 Mechanical Ventilator 10/31/17 18:00 98 20 113/54 Mechanical Ventilator 28 10/31/17 17:01 98 21 28 10/31/17 17:00 83 19 107/53 Mechanical Ventilator 28 10/31/17 16:00 99.4 99 20 103/52 Mechanical Ventilator 28 99.4 10/31/17 16:00 28 10/31/17 16:00 99 10/31/17 15:00 98 20 104/56 Mechanical Ventilator 28 10/31/17 14:30 95 20 28 10/31/17 14:00 88 20 118/73 Mechanical Ventilator 28 10/31/17 13:00 83 24 107/59 Mechanical Ventilator 28 10/31/17 12:54 80 20 28 10/31/17 12:00 28 10/31/17 12:00 99.0 82 20 100/56 Mechanical Ventilator 28 99.0 10/31/17 12:00 81 10/31/17 11:08 85 20 28 10/31/17 11:00 100 24 132/60 Mechanical Ventilator 28 Objective: Status: asleep, arousable, intubated Condition: critical HEENT: atraumatic, normocephalic, OP with ET in place, NGT Lungs: rhonchi - few isolated rhonchi Heart: HR/BP stable Abdomen: soft, non-tender, active bowel sounds Extremities: no C/C/E Accucheck: 110 Critical Care - Subjective ROS Limited/Unobtainable: Yes Interval Events: remains intubated, leuk with trend down,afebrile no signs of resp distress on current settings Condition: critical IV Access: peripheral EKG Rhythm: Sinus Rhythm FI02: 28 Vent Support Breath Rate: 20 Vent Support Mode: AC Vent Tidal Volume: 600 Sputum Amount: None PEEP: 5.0 PIP: 26 Tube Feeding Amount: 55 I&O: Intake and Output 10/31/17 11/01/17 19:00 07:00 Intake Total 993.4 ml 820 ml Output Total 384 ml 380 ml Balance 609.4 ml 440 ml Intake Free Water 50 ml IV Total 333.4 ml 110 ml Tube Feeding 660 ml 660 ml Output Urine Total 384 ml 380 ml Stool Total 0 ml CXR: Lung volumes are significantly less on the current evaluation. Interstitial disease again noted likely due to CHF/interstitial edema. Please correlate clinically. Tubes and lines are satisfactory and stable. ET-Tube: 7.5 ET Position: 23 Moshe ([facility]),Akilah REILLY Nov 01, 2017 10:50
[2017-11-01] MEDS ORDERED: Albuterol/Ipratropium 3ml neb HHN PRN (11:00)
--- NOTE | 2017-11-01 12:14 | Diagnostic Imaging Report ---
Indication: Dyspnea Comparison: 10/31/2017 A single view chest radiograph was obtained. Findings: Lung volumes are significantly less on the current evaluation. Interstitial disease again noted likely due to CHF/interstitial edema. Please correlate clinically. Tubes and lines are satisfactory and stable. IMPRESSION: Suspected interstitial edema.
[2017-11-01] MEDS ORDERED: NS 275ml ONE ×2 (16:51→18:31)
--- NOTE | 2017-11-01 17:11 | Infectious Diseases Prog Note ---
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 Rule out bacteremia. History of CVA with left-sided weakness Hypertension Hyperlipidemia History of GI bleed/GERD History of diabetes Anemia P: We will continue the patient on Zosyn d# 4, Dc vancomycin d# 4 Monitor CBC Monitor BMP Monitor cultures (blood, sputum, urine). Monitor chest x-ray. Urine Legionella antigen Continue respiratory support Subjective Allergies: Coded Allergies: No Known Allergies (Unverified , 09/15/17) Subjective afebrile Objective Vital Signs Last 24 Hour Vital Signs Date Time Temp Pulse Resp B/P (MAP) Pulse Ox O2 Delivery O2 Flow Rate FiO2 11/01/17 16:00 79 11/01/17 16:00 98.3 80 16 133/61 99 Mechanical Ventilator 28 98.3 11/01/17 15:04 77 16 28 11/01/17 15:00 76 18 131/67 98 Mechanical Ventilator 28 11/01/17 14:00 74 17 120/62 98 Mechanical Ventilator 28 11/01/17 14:00 28 11/01/17 13:35 75 15 28 11/01/17 13:00 76 16 115/65 98 Mechanical Ventilator 28 11/01/17 12:04 66 11/01/17 12:04 28 11/01/17 12:00 98.2 62 12 112/64 98 Mechanical Ventilator 28 98.2 11/01/17 11:00 62 20 118/61 98 Mechanical Ventilator 28 11/01/17 10:36 64 20 28 11/01/17 10:00 64 20 127/75 99 Mechanical Ventilator 28 11/01/17 09:22 66 20 28 11/01/17 09:00 20 11/01/17 09:00 60 20 116/74 99 Mechanical Ventilator 28 11/01/17 08:00 97.5 61 20 119/72 98 Mechanical Ventilator 28 97.5 11/01/17 08:00 82 11/01/17 08:00 28 11/01/17 07:00 75 20 114/65 97 Mechanical Ventilator 28 11/01/17 06:54 67 20 28 11/01/17 06:00 58 20 116/65 98 Mechanical Ventilator 28 11/01/17 05:22 87 20 28 11/01/17 05:00 64 20 117/67 98 Mechanical Ventilator 28 11/01/17 04:00 28 11/01/17 04:00 98.6 77 20 111/55 98 Mechanical Ventilator 28 98.6 11/01/17 04:00 74 11/01/17 03:36 87 20 28 11/01/17 03:00 89 20 113/61 97 Mechanical Ventilator 28 11/01/17 02:22 75 20 28 11/01/17 02:00 89 20 125/67 98 Mechanical Ventilator 28 11/01/17 01:00 79 20 118/58 98 Mechanical Ventilator 28 11/01/17 00:00 99.4 77 20 106/56 98 Mechanical Ventilator 28 99.4 10/31/17 23:00 77 20 106/69 98 Mechanical Ventilator 10/31/17 22:00 78 21 108/82 100 Mechanical Ventilator 10/31/17 21:10 86 24 28 10/31/17 21:00 85 22 107/59 100 Mechanical Ventilator 10/31/17 20:00 99.0 80 24 97/54 100 Mechanical Ventilator 99.0 10/31/17 20:00 28 10/31/17 20:00 80 10/31/17 19:03 96 20 28 10/31/17 19:00 89 22 124/59 100 Mechanical Ventilator 10/31/17 18:00 98 20 113/54 Mechanical Ventilator 28 Height (Feet): 5 Height (Inches): 8.00 Weight (Pounds): 118 HEENT: anicteric Respiratory/Chest: no respiratory distress Cardiovascular: regularly irregular Abdomen: no organomegaly Laboratory Tests Test 11/01/17 04:00 11/01/17 04:50 11/01/17 09:50 Arterial Blood pH 7.513 (7.350-7.450) Arterial Blood Partial Pressure CO2 33.7 mmHg (35.0-45.0) L Arterial Blood Partial Pressure O2 81.9 mmHg (75.0-100.0) Arterial Blood HCO3 26.5 mmol/L (22.0-26.0) H Arterial Blood Oxygen Saturation 95.3 % (92.0-98.0) Arterial Blood Base Excess 3.6 Donnie Test Positive White Blood Count 12.7 K/UL (4.8-10.8) H Red Blood Count 3.08 M/UL (4.70-6.10) L Hemoglobin 9.9 G/DL (14.2-18.0) L Hematocrit 29.2 % (42.0-52.0) L Mean Corpuscular Volume 95 FL (80-99) Mean Corpuscular Hemoglobin 32.1 PG (27.0-31.0) H Mean Corpuscular Hemoglobin Concent 33.9 G/DL (32.0-36.0) Red Cell Distribution Width 15.2 % (11.6-14.8) H Platelet Count 206 K/UL (150-450) Mean Platelet Volume 6.9 FL (6.5-10.1) Neutrophils (%) (Auto) % (45.0-75.0) Lymphocytes (%) (Auto) % (20.0-45.0) Monocytes (%) (Auto) % (1.0-10.0) Eosinophils (%) (Auto) % (0.0-3.0) Basophils (%) (Auto) % (0.0-2.0) Differential Total Cells Counted 100 Neutrophils % (Manual) 79 % (45-75) H Lymphocytes % (Manual) 7 % (20-45) L Monocytes % (Manual) 6 % (1-10) Eosinophils % (Manual) 0 % (0-3) Basophils % (Manual) 0 % (0-2) Band Neutrophils 8 % (0-8) Platelet Estimate Adequate Platelet Morphology Normal Anisocytosis 1+ Sodium Level 146 MMOL/L (136-145) H Potassium Level 4.1 MMOL/L (3.5-5.1) Chloride Level 112 MMOL/L (98-107) H Carbon Dioxide Level 27 MMOL/L (21-32) Anion Gap 7 mmol/L (5-15) Blood Urea Nitrogen 33 mg/dL (7-18) H Creatinine 1.0 MG/DL (0.55-1.30) Estimat Glomerular Filtration Rate mL/min (>60) Glucose Level 111 MG/DL (74-106) H Calcium Level 9.5 MG/DL (8.5-10.1) Vancomycin Level Trough 5.6 ug/mL (5.0-12.0) Current Medications Medications (Trade) Dose Ordered Sig/Lenora Route PRN Reason Start Time Stop Time Status Last Admin Dose Admin Albuterol/ Ipratropium (Albuterol/ Ipratropium) 3 ml Q4H PRN HHN dyspnea 11/01/17 11:00 11/06/17 10:59 Amlodipine Besylate (Norvasc) 5 mg DAILY ORAL 10/30/17 10:00 11/29/17 09:59 11/01/17 09:00 Chlorhexidine Gluconate (Shoshana-Hex 2%) 1 applic DAILY@1999 TOPIC 10/30/17 20:00 11/29/17 19:59 10/31/17 20:37 Dextrose (Dextrose 50%) STAT PRN IV Hypoglycemia 10/30/17 20:00 11/29/17 19:59 Heparin Sodium (Porcine) (Heparin 5000 units/ml) 5,000 units EVERY 12 HOURS SUBQ 10/29/17 21:00 11/28/17 20:59 11/01/17 09:00 Insulin Aspart (NovoLOG) EVERY 6 HOURS SUBQ 10/31/17 00:00 11/30/17 00:00 10/31/17 17:54 Lorazepam (Ativan 2mg/ml 1ml) 2 mg Q4H PRN IV For Anxiety 10/29/17 16:45 11/05/17 16:44 11/01/17 02:08 Methylprednisolone Sodium Succinate (Solu-MEDROL) 60 mg Q8HR IV 11/01/17 14:00 11/28/17 11:59 11/01/17 14:00 Morphine Sulfate (Morphine Sulfate) 2 mg Q4H PRN IVP Severe Pain (Pain Scale 7-10) 10/29/17 11:00 11/05/17 10:59 11/01/17 05:35 Morphine Sulfate (Morphine Sulfate) 4 mg Q4H PRN IVP Severe breakthrough pain >7 10/29/17 16:45 11/05/17 16:44 10/29/17 22:44 Nitroglycerin (Ntg) 0.4 mg Q5M X 3 DOSES PRN SL Prn Chest Pain 10/29/17 11:00 11/28/17 10:59 Ondansetron HCl (Zofran) 4 mg Q6H PRN IVP Nausea & Vomiting 10/29/17 11:00 11/28/17 10:59 Pantoprazole (Protonix) 40 mg DAILY IV 10/30/17 09:00 11/29/17 08:59 11/01/17 09:00 Piperacillin Sod/ Tazobactam Sod 3.375 gm/Sodium Chloride 110 ml @ 27.5 mls/hr EVERY 8 HOURS IVPB 10/29/17 14:00 11/03/17 13:59 11/01/17 14:01 Promethazine HCl/ Codeine (Phenergan with Codeine) 5 ml Q6H PRN ORAL cough 10/29/17 11:00 11/28/17 10:59 Temazepam (Restoril) 15 mg HSPRN PRN ORAL Insomnia 10/29/17 21:00 11/05/17 20:59 10/30/17 20:40 Theophylline (Vargehse-Dur) 100 mg EVERY 12 HOURS ORAL 10/29/17 21:00 11/28/17 20:59 11/01/17 09:00 Vancomycin HCl (Vanco rx to dose) 1 ea DAILY PRN MISC Per rx protocol 10/29/17 15:45 11/28/17 15:44 Vancomycin/Sodium Chloride 250 ml @ 166.667 mls/hr Q12HR@1000,2200 IVPB 11/01/17 22:00 11/06/17 21:59 BHUMI COLLINS M.D. Nov 01, 2017 17:11
[2017-11-01] MEDS ORDERED: D5W 275ml ONE (18:31)
[2017-11-01] MEDS ORDERED: Tubing IV Secondary IV ONE (18:31)
[2017-11-01] MEDS: Dyna-Hex 2% Top Sol 2oz TOPIC SCH (21:15)
[2017-11-01] MEDS ORDERED: Vancomycin 750mg/NS 250ml IVPB SCH (22:00)
[2017-11-02] VITALS (24 sets, daily range): BP systolic 108–138; BP diastolic 55–101
[2017-11-02] MEDS: NovoLOG Insulin Flexpen SUBQ SCH ×5 (05:26→23:43)
[2017-11-02] MEDS: Zoysn 3.37gm in NS 100ML IVPB SCH ×3 (05:30→22:26)
[2017-11-02] MEDS: Solu-MEDROL 125mg Inj IV SCH ×3 (05:30→22:23)
[2017-11-02 07:34] LABS: HEMATOCRIT 31.3 % (42.0-52.0); HEMOGLOBIN 10.4 G/DL (14.2-18.0); MEAN CORPUSCULAR VOLUME 96 FL (80-99); PLATELET COUNT 218 K/UL (150-450); RED BLOOD COUNT 3.26 M/UL (4.70-6.10); RED CELL DISTRIBUTION WIDTH 15.3 % (11.6-14.8); WHITE BLOOD COUNT 7.9 K/UL (4.8-10.8)
[2017-11-02 08:22] LABS: ANION GAP 6 mmol/L (5-15); BLOOD UREA NITROGEN 29 mg/dL (7-18); CALCIUM 9.3 MG/DL (8.5-10.1); CARBON DIOXIDE 28 MMOL/L (21-32); CHLORIDE 114 MMOL/L (98-107); POTASSIUM 4.5 MMOL/L (3.5-5.1); SODIUM 147 MMOL/L (136-145)
[2017-11-02] MEDS: Theophylline ER 100mg ORAL SCH ×2 (08:57→20:26)
[2017-11-02] MEDS: Pantoprazole Inj IV SCH (08:59)
[2017-11-02] MEDS: Heparin 5000 units/ml inj SUBQ SCH ×2 (09:10→20:27)
--- NOTE | 2017-11-02 10:14 | Diagnostic Imaging Report ---
Indication: Status post nasogastric tube placement Technique: Supine view of the abdomen Comparison: 10/30/2017 Findings: There is a nasogastric tube in place, tip projected at the level of the gastric antrum. Bowel gas pattern is unremarkable. Impression: Satisfactory nasogastric intubation. This agrees with the preliminary interpretation provided overnight by [facility] teleradiology service.
--- NOTE | 2017-11-02 10:57 | Pulmonolgy Critical Care Note ---
Critical Care - Asmt/Plan Problems: (1) Acute respiratory failure (2) COPD (chronic obstructive pulmonary disease) (3) Bilateral pneumonia (4) Severe protein-calorie malnutrition Respiratory: monitor respiratory rate, adjust FIO2, CXR Cardiac: continue to monitor HR/BP Renal: F/U I&O, keep IV fluid Infectious Disease: check cultures Gastrointestinal: continue feedings/current rate Endocrine: monitor blood sugar, check TSH, check HgA1C, continue sliding scale insulin Hematologic: monitor H/H, transfuse if hgb<8.5 Neurologic: PRN Ativan, keep patient comfortable Affect: PRN ativan Prophylaxis: Heparin Notes 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, 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 Discussed with: nurses, consultants, child support case officertheater manager - Objective Last 24 Hour Vital Signs Date Time Temp Pulse Resp B/P (MAP) Pulse Ox O2 Delivery O2 Flow Rate FiO2 11/02/17 10:00 28 11/02/17 10:00 62 15 124/55 99 Mechanical Ventilator 28 11/02/17 09:54 98 11/02/17 09:06 65 14 28 11/02/17 09:00 68 15 138/62 99 Mechanical Ventilator 28 11/02/17 08:57 64 126/65 11/02/17 08:00 28 11/02/17 08:00 62 11/02/17 08:00 97.5 65 14 126/65 98 Mechanical Ventilator 28 97.5 11/02/17 07:24 61 21 28 11/02/17 07:00 65 15 137/65 99 Mechanical Ventilator 28 11/02/17 06:00 97.5 67 16 112/61 100 Mechanical Ventilator 28 97.5 11/02/17 05:05 66 21 28 11/02/17 05:00 69 16 116/79 100 Mechanical Ventilator 28 11/02/17 04:00 62 14 121/62 99 Mechanical Ventilator 28 11/02/17 04:00 62 11/02/17 04:00 28 11/02/17 03:00 59 14 108/62 98 Mechanical Ventilator 28 11/02/17 02:50 61 15 28 11/02/17 02:00 68 16 116/64 99 Mechanical Ventilator 28 11/02/17 01:20 61 15 28 11/02/17 01:00 65 16 112/59 97 Mechanical Ventilator 28 11/02/17 00:00 62 11/02/17 00:00 97.8 65 16 119/62 97 Mechanical Ventilator 28 97.8 11/02/17 00:00 28 11/01/17 23:04 80 18 28 11/01/17 23:00 66 16 117/64 98 Mechanical Ventilator 28 11/01/17 22:00 79 11/01/17 22:00 70 18 117/64 98 Mechanical Ventilator 28 11/01/17 21:25 80 18 28 11/01/17 21:00 69 14 125/75 98 Mechanical Ventilator 28 11/01/17 20:14 76 16 28 11/01/17 20:00 28 11/01/17 20:00 98.2 70 14 120/80 98 Mechanical Ventilator 28 98.2 11/01/17 19:00 71 16 117/75 98 Mechanical Ventilator 28 11/01/17 18:00 79 17 125/75 98 Mechanical Ventilator 28 11/01/17 17:07 81 26 28 11/01/17 17:00 82 18 118/53 98 Mechanical Ventilator 28 11/01/17 16:00 79 11/01/17 16:00 98.3 80 16 133/61 99 Mechanical Ventilator 28 98.3 11/01/17 15:04 77 16 28 11/01/17 15:00 76 18 131/67 98 Mechanical Ventilator 28 11/01/17 14:00 74 17 120/62 98 Mechanical Ventilator 28 11/01/17 14:00 28 11/01/17 13:35 75 15 28 11/01/17 13:00 76 16 115/65 98 Mechanical Ventilator 28 11/01/17 12:04 66 11/01/17 12:04 28 11/01/17 12:00 98.2 62 12 112/64 98 Mechanical Ventilator 28 98.2 11/01/17 11:00 62 20 118/61 98 Mechanical Ventilator 28 Status: awake Condition: critical Lungs: chest wall tender Heart: regular Abdomen: feeding tube Decubiti: location Accucheck: 122 Critical Care - Subjective ROS Limited/Unobtainable: Yes ICU Day: 4 Condition: critical EKG Rhythm: Sinus Tachycardia FI02: 28 Vent Support Breath Rate: 10 Vent Support Mode: CPAP Vent Tidal Volume: 600 Sputum Amount: Small PEEP: 5.0 PIP: 22 Tube Feeding Amount: 55 I&O: Intake and Output 11/01/17 11/02/17 19:00 07:00 Intake Total 835.0 ml 1000.0 ml Output Total 475 ml 380 ml Balance 360.0 ml 620.0 ml Intake Free Water 100 ml 175 ml IV Total 350.0 ml 165.0 ml Tube Feeding 385 ml 660 ml Output Urine Total 475 ml 380 ml CXR: no acute infiltrate ET-Tube: 7.5 ET Position: 23 Labs: Laboratory Tests Test 11/02/17 06:00 11/02/17 08:52 White Blood Count 7.9 K/UL (4.8-10.8) Red Blood Count 3.26 M/UL (4.70-6.10) L Hemoglobin 10.4 G/DL (14.2-18.0) L Hematocrit 31.3 % (42.0-52.0) L Mean Corpuscular Volume 96 FL (80-99) Mean Corpuscular Hemoglobin 31.9 PG (27.0-31.0) H Mean Corpuscular Hemoglobin Concent 33.2 G/DL (32.0-36.0) Red Cell Distribution Width 15.3 % (11.6-14.8) H Platelet Count 218 K/UL (150-450) Mean Platelet Volume 6.8 FL (6.5-10.1) Neutrophils (%) (Auto) % (45.0-75.0) Lymphocytes (%) (Auto) % (20.0-45.0) Monocytes (%) (Auto) % (1.0-10.0) Eosinophils (%) (Auto) % (0.0-3.0) Basophils (%) (Auto) % (0.0-2.0) Differential Total Cells Counted 100 Neutrophils % (Manual) 73 % (45-75) Lymphocytes % (Manual) 16 % (20-45) L Monocytes % (Manual) 2 % (1-10) Eosinophils % (Manual) 0 % (0-3) Basophils % (Manual) 0 % (0-2) Band Neutrophils 9 % (0-8) H Platelet Estimate Adequate Platelet Morphology Normal Anisocytosis 1+ Sodium Level 147 MMOL/L (136-145) H Potassium Level 4.5 MMOL/L (3.5-5.1) Chloride Level 114 MMOL/L (98-107) H Carbon Dioxide Level 28 MMOL/L (21-32) Anion Gap 6 mmol/L (5-15) Blood Urea Nitrogen 29 mg/dL (7-18) H Creatinine 1.0 MG/DL (0.55-1.30) Estimat Glomerular Filtration Rate mL/min (>60) Glucose Level 118 MG/DL (74-106) H Calcium Level 9.3 MG/DL (8.5-10.1) Arterial Blood pH 7.440 (7.350-7.450) Arterial Blood Partial Pressure CO2 37.1 mmHg (35.0-45.0) Arterial Blood Partial Pressure O2 93.2 mmHg (75.0-100.0) Arterial Blood HCO3 25.1 mmol/L (22.0-26.0) Arterial Blood Oxygen Saturation 96.6 % (92.0-98.0) Arterial Blood Base Excess 1.2 Odnnie Test Positive MARY FELIX Nov 02, 2017 10:57
--- NOTE | 2017-11-02 11:22 | Diagnostic Imaging Report ---
Indication: Shortness of breath Technique: One view of the chest Comparison: 11/01/2017 Findings: Stable satisfactory position of endotracheal tube. Nasogastric tube projects beyond the edge of the image, appears to be in farther than on the prior study. There is marked improvement of previously demonstrated retrocardiac consolidation. Better aeration currently. Overall decreased interstitial congestion. Some atelectasis persists at the left lung base. There is likely a small amount of pleural fluid at the left lung base Impression: Decreased retrocardiac consolidation. Decreased generalized interstitial congestion, over one day Left lateral basilar atelectasis and small effusion persists Stable tube positions as described
[2017-11-02] MEDS: Dyna-Hex 2% Top Sol 2oz TOPIC SCH (20:26)
--- NOTE | 2017-11-02 22:17 | Infectious Diseases Prog Note ---
Assessment/Plan Assessment/Plan ASSESSMENT: The patient is an 82-year-old male with, Healthcare-associated pneumonia Scx: Providencia ( MDR ) Influenza: negative Chest x-ray, bilateral interstitial alveolar infiltrates versus edema Sepsis Leukocytosis improving Ventilator-dependent respiratory failure (intubated on 10/29/2017)., Extubated Rule out bacteremia. History of CVA with left-sided weakness Hypertension Hyperlipidemia History of GI bleed/GERD History of diabetes Anemia P: We will continue the patient on Zosyn d# 5 3/4 SP vancomycin d# 4 Monitor CBC Monitor BMP Monitor cultures (blood, urine) Monitor chest x-ray. Urine Legionella antigen Continue respiratory support Subjective Allergies: Coded Allergies: No Known Allergies (Unverified , 09/15/17) Subjective afebrile Objective Vital Signs Last 24 Hour Vital Signs Date Time Temp Pulse Resp B/P (MAP) Pulse Ox O2 Delivery O2 Flow Rate FiO2 11/02/17 21:00 73 15 138/68 94 Nasal Cannula 2.0 11/02/17 20:00 97.6 75 16 132/73 95 Nasal Cannula 2.0 97.6 11/02/17 19:04 Nasal Cannula 2.0 28 11/02/17 19:04 94 Nasal Cannula 2.0 28 11/02/17 19:00 75 14 131/70 95 Mechanical Ventilator 2.0 11/02/17 18:00 81 16 135/68 93 Mechanical Ventilator 2.0 11/02/17 17:00 80 15 134/64 94 Mechanical Ventilator 2.0 11/02/17 16:00 98.1 74 14 132/67 94 Mechanical Ventilator 2.0 98.1 11/02/17 16:00 73 11/02/17 15:36 Nasal Cannula 2.0 11/02/17 15:35 98 Nasal Cannula 2.0 11/02/17 15:00 73 14 123/69 100 Mechanical Ventilator 28 11/02/17 14:00 80 16 135/69 100 Mechanical Ventilator 28 11/02/17 13:30 Nasal Cannula 2.0 11/02/17 13:00 80 15 132/68 100 Mechanical Ventilator 28 11/02/17 12:40 82 17 28 11/02/17 12:00 75 11/02/17 12:00 98.0 71 17 127/100 100 Mechanical Ventilator 28 98.0 11/02/17 11:06 72 13 28 11/02/17 11:00 87 15 133/101 100 Mechanical Ventilator 28 11/02/17 10:00 28 11/02/17 10:00 62 15 124/55 99 Mechanical Ventilator 28 11/02/17 09:54 98 11/02/17 09:06 65 14 28 11/02/17 09:00 68 15 138/62 99 Mechanical Ventilator 28 11/02/17 08:57 64 126/65 11/02/17 08:00 28 11/02/17 08:00 62 11/02/17 08:00 97.5 65 14 126/65 98 Mechanical Ventilator 28 97.5 11/02/17 07:24 61 21 28 11/02/17 07:00 65 15 137/65 99 Mechanical Ventilator 28 11/02/17 06:00 97.5 67 16 112/61 100 Mechanical Ventilator 28 97.5 11/02/17 05:05 66 21 28 11/02/17 05:00 69 16 116/79 100 Mechanical Ventilator 28 11/02/17 04:00 62 14 121/62 99 Mechanical Ventilator 28 11/02/17 04:00 62 11/02/17 04:00 28 11/02/17 03:00 59 14 108/62 98 Mechanical Ventilator 28 11/02/17 02:50 61 15 28 11/02/17 02:00 68 16 116/64 99 Mechanical Ventilator 28 11/02/17 01:20 61 15 28 11/02/17 01:00 65 16 112/59 97 Mechanical Ventilator 28 11/02/17 00:00 62 11/02/17 00:00 97.8 65 16 119/62 97 Mechanical Ventilator 28 97.8 11/02/17 00:00 28 11/01/17 23:04 80 18 28 11/01/17 23:00 66 16 117/64 98 Mechanical Ventilator 28 Height (Feet): 5 Height (Inches): 8.00 Weight (Pounds): 128 HEENT: atraumatic Respiratory/Chest: no respiratory distress Cardiovascular: no gallop/murmur Abdomen: no organomegaly Laboratory Tests Test 11/02/17 06:00 11/02/17 08:52 11/02/17 10:58 White Blood Count 7.9 K/UL (4.8-10.8) Red Blood Count 3.26 M/UL (4.70-6.10) L Hemoglobin 10.4 G/DL (14.2-18.0) L Hematocrit 31.3 % (42.0-52.0) L Mean Corpuscular Volume 96 FL (80-99) Mean Corpuscular Hemoglobin 31.9 PG (27.0-31.0) H Mean Corpuscular Hemoglobin Concent 33.2 G/DL (32.0-36.0) Red Cell Distribution Width 15.3 % (11.6-14.8) H Platelet Count 218 K/UL (150-450) Mean Platelet Volume 6.8 FL (6.5-10.1) Neutrophils (%) (Auto) % (45.0-75.0) Lymphocytes (%) (Auto) % (20.0-45.0) Monocytes (%) (Auto) % (1.0-10.0) Eosinophils (%) (Auto) % (0.0-3.0) Basophils (%) (Auto) % (0.0-2.0) Differential Total Cells Counted 100 Neutrophils % (Manual) 73 % (45-75) Lymphocytes % (Manual) 16 % (20-45) L Monocytes % (Manual) 2 % (1-10) Eosinophils % (Manual) 0 % (0-3) Basophils % (Manual) 0 % (0-2) Band Neutrophils 9 % (0-8) H Platelet Estimate Adequate Platelet Morphology Normal Anisocytosis 1+ Sodium Level 147 MMOL/L (136-145) H Potassium Level 4.5 MMOL/L (3.5-5.1) Chloride Level 114 MMOL/L (98-107) H Carbon Dioxide Level 28 MMOL/L (21-32) Anion Gap 6 mmol/L (5-15) Blood Urea Nitrogen 29 mg/dL (7-18) H Creatinine 1.0 MG/DL (0.55-1.30) Estimat Glomerular Filtration Rate mL/min (>60) Glucose Level 118 MG/DL (74-106) H Calcium Level 9.3 MG/DL (8.5-10.1) Arterial Blood pH 7.440 (7.350-7.450) 7.450 (7.350-7.450) Arterial Blood Partial Pressure CO2 37.1 mmHg (35.0-45.0) 35.1 mmHg (35.0-45.0) Arterial Blood Partial Pressure O2 93.2 mmHg (75.0-100.0) 87.3 mmHg (75.0-100.0) Arterial Blood HCO3 25.1 mmol/L (22.0-26.0) 24.0 mmol/L (22.0-26.0) Arterial Blood Oxygen Saturation 96.6 % (92.0-98.0) 96.5 % (92.0-98.0) Arterial Blood Base Excess 1.2 0.3 Donnie Test Positive Positive Current Medications Medications (Trade) Dose Ordered Sig/Lenora Route PRN Reason Start Time Stop Time Status Last Admin Dose Admin Albuterol/ Ipratropium (Albuterol/ Ipratropium) 3 ml Q4H PRN HHN dyspnea 11/01/17 11:00 11/06/17 10:59 Amlodipine Besylate (Norvasc) 5 mg DAILY ORAL 10/30/17 10:00 11/29/17 09:59 11/02/17 08:57 Chlorhexidine Gluconate (Shoshana-Hex 2%) 1 applic DAILY@1999 TOPIC 10/30/17 20:00 11/29/17 19:59 11/02/17 20:26 Dextrose (Dextrose 50%) STAT PRN IV Hypoglycemia 10/30/17 20:00 11/29/17 19:59 Heparin Sodium (Porcine) (Heparin 5000 units/ml) 5,000 units EVERY 12 HOURS SUBQ 10/29/17 21:00 11/28/17 20:59 11/02/17 20:27 Insulin Aspart (NovoLOG) EVERY 6 HOURS SUBQ 10/31/17 00:00 11/30/17 00:00 11/02/17 17:51 Lorazepam (Ativan 2mg/ml 1ml) 2 mg Q4H PRN IV For Anxiety 10/29/17 16:45 11/05/17 16:44 11/01/17 02:08 Methylprednisolone Sodium Succinate (Solu-MEDROL) 60 mg Q8HR IV 11/01/17 14:00 11/28/17 11:59 11/02/17 14:55 Morphine Sulfate (Morphine Sulfate) 2 mg Q4H PRN IVP Severe Pain (Pain Scale 7-10) 10/29/17 11:00 11/05/17 10:59 11/01/17 05:35 Morphine Sulfate (Morphine Sulfate) 4 mg Q4H PRN IVP Severe breakthrough pain >7 10/29/17 16:45 11/05/17 16:44 10/29/17 22:44 Nitroglycerin (Ntg) 0.4 mg Q5M X 3 DOSES PRN SL Prn Chest Pain 10/29/17 11:00 11/28/17 10:59 Ondansetron HCl (Zofran) 4 mg Q6H PRN IVP Nausea & Vomiting 10/29/17 11:00 11/28/17 10:59 Pantoprazole (Protonix) 40 mg DAILY IV 10/30/17 09:00 11/29/17 08:59 11/02/17 08:59 Piperacillin Sod/ Tazobactam Sod 3.375 gm/Sodium Chloride 110 ml @ 27.5 mls/hr EVERY 8 HOURS IVPB 10/29/17 14:00 11/07/17 13:59 11/02/17 14:55 Promethazine HCl/ Codeine (Phenergan with Codeine) 5 ml Q6H PRN ORAL cough 10/29/17 11:00 11/28/17 10:59 Temazepam (Restoril) 15 mg HSPRN PRN ORAL Insomnia 10/29/17 21:00 11/05/17 20:59 10/30/17 20:40 Theophylline (Varghese-Dur) 100 mg EVERY 12 HOURS ORAL 10/29/17 21:00 11/28/17 20:59 11/02/17 20:26 BHUMI COLLINS M.D. Nov 02, 2017 22:17
[2017-11-03] VITALS (15 sets, daily range): BP systolic 129–146; BP diastolic 63–111
[2017-11-03 04:44] LABS: BASOPHILS % (AUTO) 0.7 % (0.0-2.0); HEMOGLOBIN 11.7 G/DL (14.2-18.0); LYMPHOCYTES % (AUTO) 12.4 % (20.0-45.0); MEAN CORPUSCULAR VOLUME 97 FL (80-99); MONOCYTES % (AUTO) 6.8 % (1.0-10.0); NEUTROPHILS % (AUTO) 80.1 % (45.0-75.0); PLATELET COUNT 241 K/UL (150-450); RED BLOOD COUNT 3.73 M/UL (4.70-6.10); RED CELL DISTRIBUTION WIDTH 15.3 % (11.6-14.8)
[2017-11-03 05:01] LABS: ALANINE AMINOTRANSFERASE 32 U/L (12-78); ALBUMIN 2.3 G/DL (3.4-5.0); ALBUMIN/GLOBULIN RATIO 0.6 (1.0-2.7); ALKALINE PHOSPHATASE 88 U/L (46-116); ANION GAP 8 mmol/L (5-15); ASPARTATE AMINO TRANSFERASE 13 U/L (15-37); BILIRUBIN,TOTAL 0.4 MG/DL (0.2-1.0); BLOOD UREA NITROGEN 24 mg/dL (7-18); CALCIUM 9.2 MG/DL (8.5-10.1); CARBON DIOXIDE 26 MMOL/L (21-32); CHLORIDE 112 MMOL/L (98-107); CREATININE 0.9 MG/DL (0.55-1.30); PHOSPHORUS 2.9 MG/DL (2.5-4.9); POTASSIUM 3.9 MMOL/L (3.5-5.1); SODIUM 146 MMOL/L (136-145)
[2017-11-03] MEDS: NovoLOG Insulin Flexpen SUBQ SCH ×3 (05:23→17:50)
[2017-11-03] MEDS: Solu-MEDROL 125mg Inj IV SCH ×3 (05:24→21:11)
[2017-11-03] MEDS: Zoysn 3.37gm in NS 100ML IVPB SCH (05:24)
--- NOTE | 2017-11-03 06:46 | Pulmonolgy Critical Care Note ---
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, 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, 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 Discussed with: nurses, consultants, nurse case managementpayment manager - Objective Last 24 Hour Vital Signs Date Time Temp Pulse Resp B/P (MAP) Pulse Ox O2 Delivery O2 Flow Rate FiO2 11/03/17 04:00 74 11/03/17 04:00 96.0 68 15 129/68 91 Nasal Cannula 2.0 96.0 11/03/17 03:00 75 15 133/71 95 Nasal Cannula 2.0 11/03/17 02:00 78 16 140/76 96 Nasal Cannula 2.0 11/03/17 01:00 75 16 135/70 94 Nasal Cannula 2.0 11/03/17 00:00 77 11/03/17 00:00 97.1 72 14 132/66 93 Nasal Cannula 2.0 97.1 11/02/17 23:00 74 15 127/66 93 Nasal Cannula 2.0 11/02/17 22:00 76 16 133/68 94 Nasal Cannula 2.0 11/02/17 21:00 73 15 138/68 94 Nasal Cannula 2.0 11/02/17 20:00 79 11/02/17 20:00 97.6 75 16 132/73 95 Nasal Cannula 2.0 97.6 11/02/17 19:04 Nasal Cannula 2.0 28 11/02/17 19:04 94 Nasal Cannula 2.0 28 11/02/17 19:00 75 14 131/70 95 Mechanical Ventilator 2.0 11/02/17 18:00 81 16 135/68 93 Mechanical Ventilator 2.0 11/02/17 17:00 80 15 134/64 94 Mechanical Ventilator 2.0 11/02/17 16:00 98.1 74 14 132/67 94 Mechanical Ventilator 2.0 98.1 11/02/17 16:00 73 11/02/17 15:36 Nasal Cannula 2.0 11/02/17 15:35 98 Nasal Cannula 2.0 11/02/17 15:00 73 14 123/69 100 Mechanical Ventilator 28 11/02/17 14:00 80 16 135/69 100 Mechanical Ventilator 28 11/02/17 13:30 Nasal Cannula 2.0 11/02/17 13:00 80 15 132/68 100 Mechanical Ventilator 28 11/02/17 12:40 82 17 28 11/02/17 12:00 75 11/02/17 12:00 98.0 71 17 127/100 100 Mechanical Ventilator 28 98.0 11/02/17 11:06 72 13 28 11/02/17 11:00 87 15 133/101 100 Mechanical Ventilator 28 11/02/17 10:00 28 11/02/17 10:00 62 15 124/55 99 Mechanical Ventilator 28 11/02/17 09:54 98 11/02/17 09:06 65 14 28 11/02/17 09:00 68 15 138/62 99 Mechanical Ventilator 28 11/02/17 08:57 64 126/65 11/02/17 08:00 28 11/02/17 08:00 62 11/02/17 08:00 97.5 65 14 126/65 98 Mechanical Ventilator 28 97.5 11/02/17 07:24 61 21 28 11/02/17 07:00 65 15 137/65 99 Mechanical Ventilator 28 Status: awake Condition: critical HEENT: atraumatic Neck: full ROM Lungs: chest wall tender Heart: HR/BP stable Abdomen: soft, non-tender Decubiti: location Accucheck: 140 Critical Care - Subjective ROS Limited/Unobtainable: No ICU Day: 5 Intubation Day: tolerated extubation Condition: critical FI02: 28 Vent Support Breath Rate: 10 Vent Support Mode: CPAP Vent Tidal Volume: 600 Sputum Amount: Scant PEEP: 5.0 PIP: 11 Tube Feeding Amount: 55 I&O: Intake and Output 11/02/17 11/03/17 19:00 07:00 Intake Total 1235.0 ml 715.0 ml Output Total 460 ml 465 ml Balance 775.0 ml 250.0 ml IV Total 495.0 ml 110.0 ml Tube Feeding 660 ml 605 ml Other 80 ml Output Urine Total 460 ml 465 ml CXR: no change ET-Tube: 7.5 ET Position: 23 Labs: Laboratory Tests Test 11/02/17 08:52 11/02/17 10:58 11/03/17 03:50 Arterial Blood pH 7.440 (7.350-7.450) 7.450 (7.350-7.450) Arterial Blood Partial Pressure CO2 37.1 mmHg (35.0-45.0) 35.1 mmHg (35.0-45.0) Arterial Blood Partial Pressure O2 93.2 mmHg (75.0-100.0) 87.3 mmHg (75.0-100.0) Arterial Blood HCO3 25.1 mmol/L (22.0-26.0) 24.0 mmol/L (22.0-26.0) Arterial Blood Oxygen Saturation 96.6 % (92.0-98.0) 96.5 % (92.0-98.0) Arterial Blood Base Excess 1.2 0.3 Donnie Test Positive Positive White Blood Count 7.0 K/UL (4.8-10.8) Red Blood Count 3.73 M/UL (4.70-6.10) L Hemoglobin 11.7 G/DL (14.2-18.0) L Hematocrit 36.0 % (42.0-52.0) L Mean Corpuscular Volume 97 FL (80-99) Mean Corpuscular Hemoglobin 31.4 PG (27.0-31.0) H Mean Corpuscular Hemoglobin Concent 32.5 G/DL (32.0-36.0) Red Cell Distribution Width 15.3 % (11.6-14.8) H Platelet Count 241 K/UL (150-450) Mean Platelet Volume 7.0 FL (6.5-10.1) Neutrophils (%) (Auto) 80.1 % (45.0-75.0) H Lymphocytes (%) (Auto) 12.4 % (20.0-45.0) L Monocytes (%) (Auto) 6.8 % (1.0-10.0) Eosinophils (%) (Auto) 0.0 % (0.0-3.0) Basophils (%) (Auto) 0.7 % (0.0-2.0) Sodium Level 146 MMOL/L (136-145) H Potassium Level 3.9 MMOL/L (3.5-5.1) Chloride Level 112 MMOL/L (98-107) H Carbon Dioxide Level 26 MMOL/L (21-32) Anion Gap 8 mmol/L (5-15) Blood Urea Nitrogen 24 mg/dL (7-18) H Creatinine 0.9 MG/DL (0.55-1.30) Estimat Glomerular Filtration Rate mL/min (>60) Glucose Level 121 MG/DL (74-106) H Calcium Level 9.2 MG/DL (8.5-10.1) Phosphorus Level 2.9 MG/DL (2.5-4.9) Magnesium Level 2.2 MG/DL (1.8-2.4) Total Bilirubin 0.4 MG/DL (0.2-1.0) Aspartate Amino Transf (AST/SGOT) 13 U/L (15-37) L Alanine Aminotransferase (ALT/SGPT) 32 U/L (12-78) Alkaline Phosphatase 88 U/L (46-116) Total Protein 6.3 G/DL (6.4-8.2) L Albumin 2.3 G/DL (3.4-5.0) L Globulin 4.0 g/dL Albumin/Globulin Ratio 0.6 (1.0-2.7) L MARY FELIX Nov 03, 2017 06:46
[2017-11-03] MEDS: Pantoprazole Inj IV SCH (08:33)
[2017-11-03] MEDS: Theophylline ER 100mg ORAL SCH ×2 (08:33→21:00)
[2017-11-03] MEDS: Heparin 5000 units/ml inj SUBQ SCH ×2 (08:34→21:12)
[2017-11-03] MEDS ORDERED: Fleet's Mineral Oil Enema RECTAL PRN ×2 (10:15→12:30)
--- NOTE | 2017-11-03 11:22 | Diagnostic Imaging Report ---
Indication: Dyspnea Comparison: 11/02/2017 A single view chest radiograph was obtained. Findings: Interval disappearance of the left hemidiaphragm noted indicative of underlying parenchymal disease and or effusion. Heart size is stable. Generalized prominence of the interstitium noted again within the lungs. NG tube is in good position. IMPRESSION: Development of left basilar parenchymal disease and/or pleural effusion.
--- NOTE | 2017-11-03 12:08 | Infectious Diseases Prog Note ---
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 Urine Legionella antigen Continue respiratory support Subjective Constitutional: Denies: no symptoms, fever, chills, fatigue, anorexia, drenching sweats, other Allergies: Coded Allergies: No Known Allergies (Unverified , 09/15/17) Subjective afebrile Objective Vital Signs Last 24 Hour Vital Signs Date Time Temp Pulse Resp B/P (MAP) Pulse Ox O2 Delivery O2 Flow Rate FiO2 11/03/17 11:00 68 16 136/74 96 Nasal Cannula 2.0 11/03/17 10:27 65 20 11/03/17 10:26 Room Air 11/03/17 10:20 100 Room Air 11/03/17 10:00 66 15 140/69 100 Nasal Cannula 2.0 11/03/17 09:00 58 15 133/78 100 Nasal Cannula 2.0 11/03/17 08:33 70 140/111 11/03/17 08:00 81 11/03/17 08:00 97.8 63 17 140/111 100 Nasal Cannula 2.0 97.8 11/03/17 07:00 72 15 135/71 92 Nasal Cannula 2.0 11/03/17 06:00 73 16 132/66 94 Nasal Cannula 2.0 11/03/17 05:00 69 15 130/63 95 Nasal Cannula 2.0 11/03/17 04:00 74 11/03/17 04:00 96.0 68 15 129/68 91 Nasal Cannula 2.0 96.0 11/03/17 03:00 75 15 133/71 95 Nasal Cannula 2.0 11/03/17 02:00 78 16 140/76 96 Nasal Cannula 2.0 11/03/17 01:00 75 16 135/70 94 Nasal Cannula 2.0 11/03/17 00:00 77 11/03/17 00:00 97.1 72 14 132/66 93 Nasal Cannula 2.0 97.1 11/02/17 23:00 74 15 127/66 93 Nasal Cannula 2.0 11/02/17 22:00 76 16 133/68 94 Nasal Cannula 2.0 11/02/17 21:00 73 15 138/68 94 Nasal Cannula 2.0 11/02/17 20:00 79 11/02/17 20:00 97.6 75 16 132/73 95 Nasal Cannula 2.0 97.6 11/02/17 19:04 Nasal Cannula 2.0 28 11/02/17 19:04 94 Nasal Cannula 2.0 28 11/02/17 19:00 75 14 131/70 95 Mechanical Ventilator 2.0 11/02/17 18:00 81 16 135/68 93 Mechanical Ventilator 2.0 11/02/17 17:00 80 15 134/64 94 Mechanical Ventilator 2.0 11/02/17 16:00 98.1 74 14 132/67 94 Mechanical Ventilator 2.0 98.1 11/02/17 16:00 73 11/02/17 15:36 Nasal Cannula 2.0 11/02/17 15:35 98 Nasal Cannula 2.0 11/02/17 15:00 73 14 123/69 100 Mechanical Ventilator 28 11/02/17 14:00 80 16 135/69 100 Mechanical Ventilator 28 11/02/17 13:30 Nasal Cannula 2.0 11/02/17 13:00 80 15 132/68 100 Mechanical Ventilator 28 11/02/17 12:40 82 17 28 Height (Feet): 5 Height (Inches): 8.00 Weight (Pounds): 127 HEENT: anicteric Respiratory/Chest: no respiratory distress Cardiovascular: regularly irregular Abdomen: no organomegaly Laboratory Tests Test 11/03/17 03:50 11/03/17 10:00 White Blood Count 7.0 K/UL (4.8-10.8) Red Blood Count 3.73 M/UL (4.70-6.10) L Hemoglobin 11.7 G/DL (14.2-18.0) L Hematocrit 36.0 % (42.0-52.0) L Mean Corpuscular Volume 97 FL (80-99) Mean Corpuscular Hemoglobin 31.4 PG (27.0-31.0) H Mean Corpuscular Hemoglobin Concent 32.5 G/DL (32.0-36.0) Red Cell Distribution Width 15.3 % (11.6-14.8) H Platelet Count 241 K/UL (150-450) Mean Platelet Volume 7.0 FL (6.5-10.1) Neutrophils (%) (Auto) 80.1 % (45.0-75.0) H Lymphocytes (%) (Auto) 12.4 % (20.0-45.0) L Monocytes (%) (Auto) 6.8 % (1.0-10.0) Eosinophils (%) (Auto) 0.0 % (0.0-3.0) Basophils (%) (Auto) 0.7 % (0.0-2.0) Sodium Level 146 MMOL/L (136-145) H Potassium Level 3.9 MMOL/L (3.5-5.1) Chloride Level 112 MMOL/L (98-107) H Carbon Dioxide Level 26 MMOL/L (21-32) Anion Gap 8 mmol/L (5-15) Blood Urea Nitrogen 24 mg/dL (7-18) H Creatinine 0.9 MG/DL (0.55-1.30) Estimat Glomerular Filtration Rate mL/min (>60) Glucose Level 121 MG/DL (74-106) H Calcium Level 9.2 MG/DL (8.5-10.1) Phosphorus Level 2.9 MG/DL (2.5-4.9) Magnesium Level 2.2 MG/DL (1.8-2.4) Total Bilirubin 0.4 MG/DL (0.2-1.0) Aspartate Amino Transf (AST/SGOT) 13 U/L (15-37) L Alanine Aminotransferase (ALT/SGPT) 32 U/L (12-78) Alkaline Phosphatase 88 U/L (46-116) Total Protein 6.3 G/DL (6.4-8.2) L Albumin 2.3 G/DL (3.4-5.0) L Globulin 4.0 g/dL Albumin/Globulin Ratio 0.6 (1.0-2.7) L Arterial Blood pH 7.440 (7.350-7.450) Arterial Blood Partial Pressure CO2 34.0 mmHg (35.0-45.0) L Arterial Blood Partial Pressure O2 80.6 mmHg (75.0-100.0) Arterial Blood HCO3 22.7 mmol/L (22.0-26.0) Arterial Blood Oxygen Saturation 95.5 % (92.0-98.0) Arterial Blood Base Excess -0.9 Donnie Test Positive Current Medications Medications (Trade) Dose Ordered Sig/Lenora Route PRN Reason Start Time Stop Time Status Last Admin Dose Admin Albuterol/ Ipratropium (Albuterol/ Ipratropium) 3 ml Q4H PRN HHN dyspnea 11/03/17 15:00 11/06/17 10:59 UNV Amlodipine Besylate (Norvasc) 5 mg DAILY ORAL 11/04/17 09:00 11/29/17 09:59 UNV Chlorhexidine Gluconate (Shoshana-Hex 2%) 1 applic DAILY@2000 TOPIC 11/03/17 20:00 11/29/17 19:59 UNV Dextrose (Dextrose 50%) STAT PRN IV Hypoglycemia 11/03/17 20:00 11/29/17 19:59 UNV Heparin Sodium (Porcine) (Heparin 5000 units/ml) 5,000 units EVERY 12 HOURS SUBQ 11/03/17 21:00 11/28/17 20:59 UNV Insulin Aspart (NovoLOG) EVERY 6 HOURS SUBQ 11/03/17 12:00 11/30/17 00:00 UNV Lorazepam (Ativan 2mg/ml 1ml) 2 mg Q4H PRN IV For Anxiety 11/03/17 12:45 11/05/17 16:44 UNV Methylprednisolone Sodium Succinate (Solu-MEDROL) 60 mg Q8HR IV 11/03/17 14:00 11/28/17 11:59 UNV Mineral Oil (Fleet's Mineral Oil Enema) 133 ml DAILYPRN PRN RECTAL Constipation 11/04/17 10:15 12/03/17 10:14 UNV Morphine Sulfate (Morphine Sulfate) 2 mg Q4H PRN IVP Severe Pain (Pain Scale 7-10) 11/03/17 15:00 11/05/17 10:59 UNV Morphine Sulfate (Morphine Sulfate) 4 mg Q4H PRN IVP Severe breakthrough pain >7 11/03/17 12:45 11/05/17 16:44 UNV Nitroglycerin (Ntg) 0.4 mg Q5M X 3 DOSES PRN SL Prn Chest Pain 11/03/17 11:45 11/28/17 10:59 UNV Ondansetron HCl (Zofran) 4 mg Q6H PRN IVP Nausea & Vomiting 11/03/17 17:00 11/28/17 10:59 UNV Pantoprazole (Protonix) 40 mg DAILY IV 11/04/17 09:00 11/29/17 08:59 UNV Piperacillin Sod/ Tazobactam Sod 3.375 gm/Sodium Chloride 110 ml @ 27.5 mls/hr EVERY 8 HOURS IVPB 11/03/17 14:00 11/07/17 13:59 UNV Promethazine HCl/ Codeine (Phenergan with Codeine) 5 ml Q6H PRN ORAL cough 11/03/17 17:00 11/28/17 10:59 UNV Temazepam (Restoril) 15 mg HSPRN PRN ORAL Insomnia 11/03/17 21:00 11/05/17 20:59 UNV Theophylline (Varghese-Dur) 100 mg EVERY 12 HOURS ORAL 11/03/17 21:00 11/28/17 20:59 UNV BHUMI COLLINS M.D. Nov 03, 2017 12:08
[2017-11-03] MEDS ORDERED: LORazepam Inj 2mg/ml 1ml IV PRN (12:45)
[2017-11-03] MEDS ORDERED: Promethazine/Codeine 5ml UD ORAL PRN (13:00)
[2017-11-03] MEDS ORDERED: Morphine Sulfate 4mg/ml Inj IVP PRN (13:00)
[2017-11-03] MEDS ORDERED: Morphine Sulfate 2mg/ml Inj IVP PRN (13:00)
[2017-11-03] MEDS ORDERED: Albuterol/Ipratropium 3ml neb HHN PRN (13:00)
[2017-11-03] MEDS ORDERED: Nitroglycerin Subl 0.4mg tab SL PRN (13:00)
[2017-11-03] MEDS: Piperacillin/Tazobactam 3.375 GM in NS 110 ML IVPB SCH ×2 (13:46→22:06)
[2017-11-03] MEDS ORDERED: Dyna-Hex 2% Top Sol 2oz TOPIC SCH (20:00)
[2017-11-03] MEDS: D5 1/2NS 1,000 ML IV SCH (20:12)
[2017-11-04 04:00] VITALS: BP 164/91
[2017-11-04 04:32] VITALS: BP 149/88
[2017-11-04] MEDS: Solu-MEDROL 125mg Inj IV SCH ×3 (05:45→21:10)
[2017-11-04] MEDS: Piperacillin/Tazobactam 3.375 GM in NS 110 ML IVPB SCH ×3 (05:45→21:11)
[2017-11-04] MEDS: NovoLOG Insulin Flexpen SUBQ SCH ×4 (06:00→17:10)
[2017-11-04 07:29] LABS: BASOPHILS % (AUTO) 0.8 % (0.0-2.0); HEMOGLOBIN 11.5 G/DL (14.2-18.0); MEAN CORPUSCULAR VOLUME 95 FL (80-99); MONOCYTES % (AUTO) 13.1 % (1.0-10.0); PLATELET COUNT 281 K/UL (150-450); RED BLOOD COUNT 3.67 M/UL (4.70-6.10); RED CELL DISTRIBUTION WIDTH 15.1 % (11.6-14.8); WHITE BLOOD COUNT 7.8 K/UL (4.8-10.8)
[2017-11-04 07:43] VITALS: BP 144/80
[2017-11-04] MEDS: Pantoprazole Inj IV SCH (08:36)
[2017-11-04] MEDS: Theophylline ER 100mg ORAL SCH ×2 (08:36→21:00)
[2017-11-04] MEDS: Heparin 5000 units/ml inj SUBQ SCH ×2 (08:42→21:11)
[2017-11-04 08:46] LABS: ALANINE AMINOTRANSFERASE 28 U/L (12-78); ALBUMIN 2.2 G/DL (3.4-5.0); ALBUMIN/GLOBULIN RATIO 0.6 (1.0-2.7); ALKALINE PHOSPHATASE 76 U/L (46-116); ANION GAP 5 mmol/L (5-15); ASPARTATE AMINO TRANSFERASE 13 U/L (15-37); BILIRUBIN,TOTAL 0.5 MG/DL (0.2-1.0); BLOOD UREA NITROGEN 23 mg/dL (7-18); CALCIUM 9.2 MG/DL (8.5-10.1); CARBON DIOXIDE 27 MMOL/L (21-32); CHLORIDE 112 MMOL/L (98-107); CREATININE 0.9 MG/DL (0.55-1.30); PHOSPHORUS 3.5 MG/DL (2.5-4.9); POTASSIUM 3.7 MMOL/L (3.5-5.1); SODIUM 144 MMOL/L (136-145)
[2017-11-04 12:00] VITALS: BP 146/75
--- NOTE | 2017-11-04 12:07 | Infectious Diseases Prog Note ---
Assessment/Plan Assessment/Plan ASSESSMENT: The patient is an 82-year-old male with, Healthcare-associated pneumonia Scx: Providencia ( MDR ) Chest x-ray, Interval disappearance of the left hemidiaphragm noted indicative of underlying parenchymal disease and or effusion. 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)., Extubated 3 /5 History of CVA with left-sided weakness Hypertension Hyperlipidemia History of GI bleed/GERD History of diabetes Anemia P: We will continue the patient on Zosyn d# 7/ 7 -10 , upon Dc will stop AB Rx 3/ SP vancomycin d# 4 Monitor CBC Monitor BMP Monitor chest x-ray in AM Urine Legionella antigen Subjective Constitutional: Denies: no symptoms, fever, chills, fatigue, anorexia, drenching sweats, other Allergies: Coded Allergies: No Known Allergies (Unverified , 09/15/17) Subjective afebrile Objective Vital Signs Last 24 Hour Vital Signs Date Time Temp Pulse Resp B/P (MAP) Pulse Ox O2 Delivery O2 Flow Rate FiO2 11/04/17 08:38 74 144/80 11/04/17 07:43 97.5 74 19 144/80 94 Nasal Cannula 2.0 97.5 11/04/17 04:32 149/88 Nasal Cannula 2.0 11/04/17 04:00 97.5 81 19 164/91 94 97.5 11/04/17 00:00 Nasal Cannula 2.0 11/03/17 23:48 97.9 72 18 145/75 96 97.9 11/03/17 20:00 Nasal Cannula 2.0 11/03/17 19:50 98.1 76 18 135/81 94 98.1 11/03/17 19:03 99 Room Air 21 11/03/17 19:03 Room Air 21 11/03/17 16:00 97.2 75 18 146/74 96 Nasal Cannula 2.0 97.2 Height (Feet): 5 Height (Inches): 8.00 Weight (Pounds): 124 HEENT: anicteric Respiratory/Chest: normal breath sounds Cardiovascular: regularly irregular Abdomen: no organomegaly Laboratory Tests Test 11/04/17 06:10 White Blood Count 7.8 K/UL (4.8-10.8) Red Blood Count 3.67 M/UL (4.70-6.10) L Hemoglobin 11.5 G/DL (14.2-18.0) L Hematocrit 35.0 % (42.0-52.0) L Mean Corpuscular Volume 95 FL (80-99) Mean Corpuscular Hemoglobin 31.4 PG (27.0-31.0) H Mean Corpuscular Hemoglobin Concent 33.0 G/DL (32.0-36.0) Red Cell Distribution Width 15.1 % (11.6-14.8) H Platelet Count 281 K/UL (150-450) Mean Platelet Volume 7.5 FL (6.5-10.1) Neutrophils (%) (Auto) 68.0 % (45.0-75.0) Lymphocytes (%) (Auto) 18.0 % (20.0-45.0) L Monocytes (%) (Auto) 13.1 % (1.0-10.0) H Eosinophils (%) (Auto) 0.0 % (0.0-3.0) Basophils (%) (Auto) 0.8 % (0.0-2.0) Sodium Level 144 MMOL/L (136-145) Potassium Level 3.7 MMOL/L (3.5-5.1) Chloride Level 112 MMOL/L (98-107) H Carbon Dioxide Level 27 MMOL/L (21-32) Anion Gap 5 mmol/L (5-15) Blood Urea Nitrogen 23 mg/dL (7-18) H Creatinine 0.9 MG/DL (0.55-1.30) Estimat Glomerular Filtration Rate mL/min (>60) Glucose Level 99 MG/DL (74-106) Calcium Level 9.2 MG/DL (8.5-10.1) Phosphorus Level 3.5 MG/DL (2.5-4.9) Magnesium Level 2.2 MG/DL (1.8-2.4) Total Bilirubin 0.5 MG/DL (0.2-1.0) Aspartate Amino Transf (AST/SGOT) 13 U/L (15-37) L Alanine Aminotransferase (ALT/SGPT) 28 U/L (12-78) Alkaline Phosphatase 76 U/L (46-116) Total Protein 5.8 G/DL (6.4-8.2) L Albumin 2.2 G/DL (3.4-5.0) L Globulin 3.6 g/dL Albumin/Globulin Ratio 0.6 (1.0-2.7) L Current Medications Medications (Trade) Dose Ordered Sig/Lenora Route PRN Reason Start Time Stop Time Status Last Admin Dose Admin Albuterol/ Ipratropium (Albuterol/ Ipratropium) 3 ml Q4H PRN HHN dyspnea 11/03/17 13:00 11/06/17 12:59 Amlodipine Besylate (Norvasc) 5 mg DAILY ORAL 11/04/17 09:00 11/29/17 09:59 11/04/17 08:38 Chlorhexidine Gluconate (Shoshana-Hex 2%) 1 applic DAILY@2000 TOPIC 11/03/17 20:00 11/29/17 19:59 Dextrose (Dextrose 50%) STAT PRN IV Hypoglycemia 11/03/17 20:00 11/29/17 19:59 Dextrose/Sodium Chloride 1,000 ml @ 50 mls/hr Q20H IV 11/03/17 19:30 12/03/17 19:29 11/03/17 20:12 Heparin Sodium (Porcine) (Heparin 5000 units/ml) 5,000 units EVERY 12 HOURS SUBQ 11/03/17 21:00 11/28/17 20:59 11/04/17 08:42 Insulin Aspart (NovoLOG) EVERY 6 HOURS SUBQ 11/03/17 18:00 11/30/17 17:59 Lorazepam (Ativan 2mg/ml 1ml) 2 mg Q4H PRN IV For Anxiety 11/03/17 12:45 11/05/17 16:44 Methylprednisolone Sodium Succinate (Solu-MEDROL) 60 mg Q8HR IV 11/03/17 14:00 11/28/17 11:59 11/04/17 05:45 Mineral Oil (Fleet's Mineral Oil Enema) 133 ml DAILYPRN PRN RECTAL Constipation 11/03/17 12:30 12/03/17 12:29 Morphine Sulfate (Morphine Sulfate) 2 mg Q4H PRN IVP Severe Pain (Pain Scale 7-10) 11/03/17 13:00 11/05/17 12:59 Morphine Sulfate (Morphine Sulfate) 4 mg Q4H PRN IVP Severe breakthrough pain >7 11/03/17 13:00 11/05/17 12:59 Nitroglycerin (Ntg) 0.4 mg Q5M X 3 DOSES PRN SL Prn Chest Pain 11/03/17 13:00 11/28/17 12:59 Ondansetron HCl (Zofran) 4 mg Q6H PRN IVP Nausea & Vomiting 11/03/17 13:00 11/28/17 12:59 Pantoprazole (Protonix) 40 mg DAILY IV 11/04/17 09:00 11/29/17 08:59 11/04/17 08:36 Piperacillin Sod/ Tazobactam Sod 3.375 gm/Sodium Chloride 110 ml @ 27.5 mls/hr EVERY 8 HOURS IVPB 11/03/17 14:00 11/07/17 13:59 11/04/17 05:45 Promethazine HCl/ Codeine (Phenergan with Codeine) 5 ml Q6H PRN ORAL cough 11/03/17 13:00 11/28/17 12:59 Temazepam (Restoril) 15 mg HSPRN PRN ORAL Insomnia 11/03/17 21:00 11/05/17 20:59 Theophylline (Varghese-Dur) 100 mg EVERY 12 HOURS ORAL 11/03/17 21:00 11/28/17 20:59 11/04/17 08:36 BHUMI COLLINS M.D. Nov 04, 2017 12:07
--- NOTE | 2017-11-04 13:28 | Diagnostic Imaging Report ---
Indication: Dyspnea Comparison: 11/03/2017 A single view chest radiograph was obtained. Findings: Dense retrocardiac opacification demonstrated. Heart size is borderline. Nasogastric tube was removed. Interstitial prominence again demonstrated within the lungs. Bones are osteopenic. Erosive changes of the left shoulder again noted. IMPRESSION: No change compared to the prior day
[2017-11-04] MEDS: D5 1/2NS 1,000 ML IV SCH (15:30)
[2017-11-04 16:00] VITALS: BP 139/77
[2017-11-04] MEDS ORDERED: NS 275ml ONE (17:17)
--- NOTE | 2017-11-04 17:53 | Pulmonology Progress Note ---
Assessment/Plan Problems: (1) Acute respiratory failure (2) COPD (chronic obstructive pulmonary disease) (3) Bilateral pneumonia (4) Severe sepsis (5) Anemia (6) Severe protein-calorie malnutrition Assessment/Plan pt failed swallow study need to contact familly about feeding tube. respiratory treatment titrate fio2 abx as per ID check electrolytes Subjective ROS Limited/Unobtainable: Yes Interval Events: awake, confused Allergies: Coded Allergies: No Known Allergies (Unverified , 09/15/17) Objective Last 24 Hour Vital Signs Date Time Temp Pulse Resp B/P (MAP) Pulse Ox O2 Delivery O2 Flow Rate FiO2 11/04/17 16:00 97.7 75 20 139/77 94 Nasal Cannula 97.7 11/04/17 12:00 98.1 72 18 146/75 94 98.1 11/04/17 08:38 74 144/80 11/04/17 07:43 97.5 74 19 144/80 94 Nasal Cannula 2.0 97.5 11/04/17 04:32 149/88 Nasal Cannula 2.0 11/04/17 04:00 97.5 81 19 164/91 94 97.5 11/04/17 00:00 Nasal Cannula 2.0 11/03/17 23:48 97.9 72 18 145/75 96 97.9 11/03/17 20:00 Nasal Cannula 2.0 11/03/17 19:50 98.1 76 18 135/81 94 98.1 11/03/17 19:03 99 Room Air 21 11/03/17 19:03 Room Air 21 Intake and Output 11/03/17 11/04/17 19:00 07:00 Intake Total 357.5 ml 687.5 ml Output Total 520 ml 800 ml Balance -162.5 ml -112.5 ml IV Total 82.5 ml 687.5 ml Tube Feeding 275 ml Output Urine Total 520 ml 800 ml # Bowel Movements 2 Objective General Appearance: cachectic Lines, tubes and drains: peripheral HEENT: normocephalic, atraumatic Neck: non-tender, normal alignment Respiratory/Chest: chest wall non-tender, lungs clear Cardiovascular/Chest: normal peripheral pulses, normal rate Abdomen: normal bowel sounds, non tender Extremities: normal range of motion, non-tender Skin Exam: normal pigmentation General Appearance: cachetic Laboratory Tests 11/04/17 06:10: White Blood Count 7.8, Red Blood Count 3.67L, Hemoglobin 11.5L, Hematocrit 35.0L , Mean Corpuscular Volume 95, Mean Corpuscular Hemoglobin 31.4H, Mean Corpuscular Hemoglobin Concent 33.0, Red Cell Distribution Width 15.1H, Platelet Count 281, Mean Platelet Volume 7.5, Neutrophils (%) (Auto) 68.0, Lymphocytes (%) (Auto) 18.0L, Monocytes (%) (Auto) 13.1H, Eosinophils (%) (Auto ) 0.0, Basophils (%) (Auto) 0.8, Sodium Level 144, Potassium Level 3.7, Chloride Level 112H, Carbon Dioxide Level 27, Anion Gap 5, Blood Urea Nitrogen 23H, Creatinine 0.9, Estimat Glomerular Filtration Rate , Glucose Level 99, Calcium Level 9.2, Phosphorus Level 3.5, Magnesium Level 2.2, Total Bilirubin 0.5, Aspartate Amino Transf (AST/SGOT) 13L, Alanine Aminotransferase (ALT/SGPT) 28, Alkaline Phosphatase 76, Total Protein 5.8L, Albumin 2.2L, Globulin 3.6, Albumin/Globulin Ratio 0.6L Current Medications Medications (Trade) Dose Ordered Sig/Lenora Route PRN Reason Start Time Stop Time Status Last Admin Dose Admin Albuterol/ Ipratropium (Albuterol/ Ipratropium) 3 ml Q4H PRN HHN dyspnea 11/03/17 13:00 11/06/17 12:59 Amlodipine Besylate (Norvasc) 5 mg DAILY ORAL 11/04/17 09:00 11/29/17 09:59 11/04/17 08:38 Chlorhexidine Gluconate (Shoshana-Hex 2%) 1 applic DAILY@2000 TOPIC 11/03/17 20:00 11/29/17 19:59 Dextrose (Dextrose 50%) STAT PRN IV Hypoglycemia 11/03/17 20:00 11/29/17 19:59 Dextrose/Sodium Chloride 1,000 ml @ 50 mls/hr Q20H IV 11/03/17 19:30 12/03/17 19:29 11/04/17 15:30 Heparin Sodium (Porcine) (Heparin 5000 units/ml) 5,000 units EVERY 12 HOURS SUBQ 11/03/17 21:00 11/28/17 20:59 11/04/17 08:42 Insulin Aspart (NovoLOG) EVERY 6 HOURS SUBQ 11/03/17 18:00 11/30/17 17:59 Lorazepam (Ativan 2mg/ml 1ml) 2 mg Q4H PRN IV For Anxiety 11/03/17 12:45 11/05/17 16:44 Methylprednisolone Sodium Succinate (Solu-MEDROL) 60 mg Q8HR IV 11/03/17 14:00 11/28/17 11:59 11/04/17 14:20 Mineral Oil (Fleet's Mineral Oil Enema) 133 ml DAILYPRN PRN RECTAL Constipation 11/03/17 12:30 12/03/17 12:29 Morphine Sulfate (Morphine Sulfate) 2 mg Q4H PRN IVP Severe Pain (Pain Scale 7-10) 11/03/17 13:00 11/05/17 12:59 Morphine Sulfate (Morphine Sulfate) 4 mg Q4H PRN IVP Severe breakthrough pain >7 11/03/17 13:00 11/05/17 12:59 Nitroglycerin (Ntg) 0.4 mg Q5M X 3 DOSES PRN SL Prn Chest Pain 11/03/17 13:00 11/28/17 12:59 Ondansetron HCl (Zofran) 4 mg Q6H PRN IVP Nausea & Vomiting 11/03/17 13:00 11/28/17 12:59 Pantoprazole (Protonix) 40 mg DAILY IV 11/04/17 09:00 11/29/17 08:59 11/04/17 08:36 Piperacillin Sod/ Tazobactam Sod 3.375 gm/Sodium Chloride 110 ml @ 27.5 mls/hr EVERY 8 HOURS IVPB 11/03/17 14:00 11/07/17 13:59 11/04/17 14:25 Promethazine HCl/ Codeine (Phenergan with Codeine) 5 ml Q6H PRN ORAL cough 11/03/17 13:00 11/28/17 12:59 Temazepam (Restoril) 15 mg HSPRN PRN ORAL Insomnia 11/03/17 21:00 11/05/17 20:59 Theophylline (Varghese-Dur) 100 mg EVERY 12 HOURS ORAL 11/03/17 21:00 11/28/17 20:59 11/04/17 08:36 MARY FELIX 7, 2018 17:53
[2017-11-04 20:01] VITALS: BP 147/87
[2017-11-05] VITALS: BP 159/81
[2017-11-05 04:00] VITALS: BP 146/80
[2017-11-05] MEDS: Piperacillin/Tazobactam 3.375 GM in NS 110 ML IVPB SCH ×3 (05:28→21:43)
[2017-11-05] MEDS: Solu-MEDROL 125mg Inj IV SCH ×3 (05:29→21:43)
[2017-11-05] MEDS: NovoLOG Insulin Flexpen SUBQ SCH ×5 (06:00→23:47)
[2017-11-05 08:38] VITALS: BP 141/78
[2017-11-05] MEDS: Pantoprazole Inj IV SCH (09:20)
[2017-11-05] MEDS: Heparin 5000 units/ml inj SUBQ SCH ×2 (09:21→21:44)
[2017-11-05] MEDS: Theophylline ER 100mg ORAL SCH ×2 (09:23→21:42)
[2017-11-05 11:51] VITALS: BP 138/72
[2017-11-05] MEDS: D5 1/2NS 1,000 ML IV SCH (12:09)
[2017-11-05 16:54] VITALS: BP 127/85
[2017-11-05] MEDS ORDERED: D5 1/2NS 1000ml IV ONE ×2 (17:53→19:58)
--- NOTE | 2017-11-05 19:02 | Pulmonology Progress Note ---
Assessment/Plan Problems: (1) Acute respiratory failure (2) COPD (chronic obstructive pulmonary disease) (3) Bilateral pneumonia (4) Severe sepsis (5) Anemia (6) Severe protein-calorie malnutrition Assessment/Plan pt failed swallow study d/w two sisters at the bed site. they want Gtube feeding respiratory treatment titrate fio2 abx as per ID check electrolytes dr [place] contacted Subjective ROS Limited/Unobtainable: No Constitutional: Reports: no symptoms HEENT: Repors: no symptoms Allergies: Coded Allergies: No Known Allergies (Unverified , 09/15/17) Objective Last 24 Hour Vital Signs Date Time Temp Pulse Resp B/P (MAP) Pulse Ox O2 Delivery O2 Flow Rate FiO2 11/05/17 16:54 98.2 90 20 127/85 90 Room Air 98.2 11/05/17 11:51 98.2 65 20 138/72 97 98.2 11/05/17 09:23 60 141/78 11/05/17 08:38 97.5 60 20 141/78 97 97.5 11/05/17 08:07 96 Nasal Cannula 2.0 28 11/05/17 08:07 Nasal Cannula 2.0 28 11/05/17 04:00 Nasal Cannula 2.0 11/05/17 04:00 98.2 76 18 146/80 95 98.2 11/05/17 00:00 97.8 73 18 159/81 96 97.8 11/04/17 21:28 Nasal Cannula 28.0 28 11/04/17 21:28 92 Nasal Cannula 2.0 28 11/04/17 20:05 95 Nasal Cannula 2.0 11/04/17 20:01 98.1 79 18 147/87 92 98.1 Intake and Output 11/04/17 11/05/17 18:59 06:59 Intake Total 692.5 ml 737.5 ml Output Total 500 ml 500 ml Balance 192.5 ml 237.5 ml IV Total 692.5 ml 737.5 ml Output Urine Total 500 ml 500 ml # Bowel Movements 1 Objective General Appearance: cachectic Lines, tubes and drains: peripheral HEENT: normocephalic, atraumatic Neck: non-tender, normal alignment Respiratory/Chest: chest wall non-tender, lungs clear Cardiovascular/Chest: normal peripheral pulses, normal rate Abdomen: normal bowel sounds, non tender Extremities: normal range of motion, non-tender Skin Exam: normal pigmentation Current Medications Medications (Trade) Dose Ordered Sig/Lenora Route PRN Reason Start Time Stop Time Status Last Admin Dose Admin Albuterol/ Ipratropium (Albuterol/ Ipratropium) 3 ml Q4H PRN HHN dyspnea 11/03/17 13:00 11/06/17 12:59 Amlodipine Besylate (Norvasc) 5 mg DAILY ORAL 11/04/17 09:00 11/29/17 09:59 11/05/17 09:23 Dextrose (Dextrose 50%) STAT PRN IV Hypoglycemia 11/03/17 20:00 11/29/17 19:59 Dextrose/Sodium Chloride 1,000 ml @ 50 mls/hr Q20H IV 11/03/17 19:30 12/03/17 19:29 11/05/17 12:09 Heparin Sodium (Porcine) (Heparin 5000 units/ml) 5,000 units EVERY 12 HOURS SUBQ 11/03/17 21:00 11/28/17 20:59 11/05/17 09:21 Insulin Aspart (NovoLOG) EVERY 6 HOURS SUBQ 11/03/17 18:00 11/30/17 17:59 Methylprednisolone Sodium Succinate (Solu-MEDROL) 60 mg Q8HR IV 11/03/17 14:00 11/28/17 11:59 11/05/17 14:43 Mineral Oil (Fleet's Mineral Oil Enema) 133 ml DAILYPRN PRN RECTAL Constipation 11/03/17 12:30 12/03/17 12:29 Nitroglycerin (Ntg) 0.4 mg Q5M X 3 DOSES PRN SL Prn Chest Pain 11/03/17 13:00 11/28/17 12:59 Ondansetron HCl (Zofran) 4 mg Q6H PRN IVP Nausea & Vomiting 11/03/17 13:00 11/28/17 12:59 Pantoprazole (Protonix) 40 mg DAILY IV 11/04/17 09:00 11/29/17 08:59 11/05/17 09:20 Piperacillin Sod/ Tazobactam Sod 3.375 gm/Sodium Chloride 110 ml @ 27.5 mls/hr EVERY 8 HOURS IVPB 11/03/17 14:00 11/07/17 13:59 11/05/17 14:43 Promethazine HCl/ Codeine (Phenergan with Codeine) 5 ml Q6H PRN ORAL cough 11/03/17 13:00 11/28/17 12:59 Temazepam (Restoril) 15 mg HSPRN PRN ORAL Insomnia 11/03/17 21:00 11/05/17 20:59 Theophylline (Varghese-Dur) 100 mg EVERY 12 HOURS ORAL 11/03/17 21:00 11/28/17 20:59 11/05/17 09:23 MARY FELIX Nov 05, 2017 19:01
[2017-11-05 19:31] VITALS: BP 125/83
[2017-11-05] MEDS ORDERED: Tubing IV Secondary IV ONE (19:58)
[2017-11-05] MEDS ORDERED: NS 275ml ONE (19:58)
--- NOTE | 2017-11-05 21:32 | Infectious Diseases Prog Note ---
Assessment/Plan Assessment/Plan ASSESSMENT: The patient is an 82-year-old male with, Healthcare-associated pneumonia Scx: Providencia ( MDR ) Chest x-ray, Interval disappearance of the left hemidiaphragm noted indicative of underlying parenchymal disease and or effusion. 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)., Extubated 3 /5 History of CVA with left-sided weakness Hypertension Hyperlipidemia History of GI bleed/GERD History of diabetes Anemia P: We will continue the patient on Zosyn d# 8/ 7 -10 , upon Dc will stop AB Rx 3/4 SP vancomycin d# 4 Monitor CBC Monitor BMP Monitor chest x-ray in AM Urine Legionella antigen Subjective Constitutional: Denies: no symptoms, fever, chills, fatigue, anorexia, drenching sweats, other Allergies: Coded Allergies: No Known Allergies (Unverified , 09/15/17) Subjective afebrile Objective Vital Signs Last 24 Hour Vital Signs Date Time Temp Pulse Resp B/P (MAP) Pulse Ox O2 Delivery O2 Flow Rate FiO2 11/05/17 19:49 95 Room Air 21 11/05/17 19:31 97.7 86 20 125/83 95 Room Air 97.7 11/05/17 16:54 98.2 90 20 127/85 90 Room Air 98.2 11/05/17 11:51 98.2 65 20 138/72 97 98.2 11/05/17 09:23 60 141/78 11/05/17 08:38 97.5 60 20 141/78 97 97.5 11/05/17 08:07 96 Nasal Cannula 2.0 28 11/05/17 08:07 Nasal Cannula 2.0 28 11/05/17 04:00 Nasal Cannula 2.0 11/05/17 04:00 98.2 76 18 146/80 95 98.2 11/05/17 00:00 97.8 73 18 159/81 96 97.8 Height (Feet): 5 Height (Inches): 8.00 Weight (Pounds): 122 HEENT: anicteric Respiratory/Chest: normal breath sounds Cardiovascular: regular rhythm Abdomen: no organomegaly Current Medications Medications (Trade) Dose Ordered Sig/Lenora Route PRN Reason Start Time Stop Time Status Last Admin Dose Admin Albuterol/ Ipratropium (Albuterol/ Ipratropium) 3 ml Q4H PRN HHN dyspnea 11/03/17 13:00 11/06/17 12:59 Amlodipine Besylate (Norvasc) 5 mg DAILY ORAL 11/04/17 09:00 11/29/17 09:59 11/05/17 09:23 Dextrose (Dextrose 50%) STAT PRN IV Hypoglycemia 11/03/17 20:00 11/29/17 19:59 Dextrose/Sodium Chloride 1,000 ml @ 50 mls/hr Q20H IV 11/03/17 19:30 12/03/17 19:29 11/05/17 12:09 Heparin Sodium (Porcine) (Heparin 5000 units/ml) 5,000 units EVERY 12 HOURS SUBQ 11/03/17 21:00 11/28/17 20:59 11/05/17 09:21 Insulin Aspart (NovoLOG) EVERY 6 HOURS SUBQ 11/03/17 18:00 11/30/17 17:59 Methylprednisolone Sodium Succinate (Solu-MEDROL) 60 mg Q8HR IV 11/03/17 14:00 11/28/17 11:59 11/05/17 14:43 Mineral Oil (Fleet's Mineral Oil Enema) 133 ml DAILYPRN PRN RECTAL Constipation 11/03/17 12:30 12/03/17 12:29 Nitroglycerin (Ntg) 0.4 mg Q5M X 3 DOSES PRN SL Prn Chest Pain 11/03/17 13:00 11/28/17 12:59 Ondansetron HCl (Zofran) 4 mg Q6H PRN IVP Nausea & Vomiting 11/03/17 13:00 11/28/17 12:59 Pantoprazole (Protonix) 40 mg DAILY IV 11/04/17 09:00 11/29/17 08:59 11/05/17 09:20 Piperacillin Sod/ Tazobactam Sod 3.375 gm/Sodium Chloride 110 ml @ 27.5 mls/hr EVERY 8 HOURS IVPB 11/03/17 14:00 11/07/17 13:59 11/05/17 14:43 Promethazine HCl/ Codeine (Phenergan with Codeine) 5 ml Q6H PRN ORAL cough 11/03/17 13:00 11/28/17 12:59 Theophylline (Varghese-Dur) 100 mg EVERY 12 HOURS ORAL 11/03/17 21:00 11/28/17 20:59 11/05/17 09:23 BHUMI COLLINS M.D. Nov 05, 2017 21:32
[2017-11-06] VITALS (11 sets, daily range): BP systolic 114–143; BP diastolic 59–79
[2017-11-06] MEDS: NovoLOG Insulin Flexpen SUBQ SCH ×3 (06:00→18:00)
[2017-11-06] MEDS: Piperacillin/Tazobactam 3.375 GM in NS 110 ML IVPB SCH ×3 (06:17→21:00)
[2017-11-06] MEDS: Solu-MEDROL 125mg Inj IV SCH ×3 (06:17→21:00)
[2017-11-06] MEDS: D5 1/2NS 1,000 ML IV SCH (06:18)
[2017-11-06 07:02] LABS: INR 1.2 (0.9-1.1)
[2017-11-06 07:11] LABS: BASOPHILS % (AUTO) 0.4 % (0.0-2.0); HEMATOCRIT 34.1 % (42.0-52.0); HEMOGLOBIN 11.7 G/DL (14.2-18.0); LYMPHOCYTES % (AUTO) 10.7 % (20.0-45.0); MEAN CORPUSCULAR VOLUME 93 FL (80-99); MONOCYTES % (AUTO) 4.9 % (1.0-10.0); PLATELET COUNT 352 K/UL (150-450); RED BLOOD COUNT 3.66 M/UL (4.70-6.10); RED CELL DISTRIBUTION WIDTH 14.6 % (11.6-14.8); WHITE BLOOD COUNT 9.4 K/UL (4.8-10.8)
[2017-11-06 07:17] LABS: ANION GAP 10 mmol/L (5-15); BLOOD UREA NITROGEN 18 mg/dL (7-18); CALCIUM 8.9 MG/DL (8.5-10.1); CARBON DIOXIDE 24 MMOL/L (21-32); CHLORIDE 106 MMOL/L (98-107); CREATININE 0.8 MG/DL (0.55-1.30); POTASSIUM 3.6 MMOL/L (3.5-5.1); SODIUM 139 MMOL/L (136-145)
[2017-11-06] MEDS: Theophylline ER 100mg ORAL SCH ×2 (09:00→21:00)
--- NOTE | 2017-11-06 10:04 | GI Initial Consult Note ---
Talisha Marleyh Jeromy N.P. 11/06/17 1004: History of Present Illness General Date patient seen: Nov 06, 2017 Time patient seen: 10:00 Reason for Hospitalization: Dyspnea/Respdistress Referring physician: MARY STANTON Reason for Consultation: PEG EVALUATION Present Illness HPI Patient was brought in by EMS. They were called to the nursing home facility for altered mental status and respiratory difficulty. The patient has a history of COPD. Apparently they were unable to get O2 saturation above 55% with assisted ventilations. An IV was started. Accu-Chek was 127. Apparently the patient is a full code. He is unable to give us a history. GI consulted for PEG evaluation. ROS limited, pt seen NAD no active s/sx of N/ V/D. ST evaluation noted, patient had failed swallow study. Primary MD discussed with family regarding POC and they agreed to have PEG. Pt presents today with FTT, dysphagia and anemia. Home Meds Active Scripts Folic Acid* (FOLIC ACID*) 1 Mg Tablet, 1 MG ORAL DAILY, #30 TAB Prov:Akilah Mesa (Vanchtein) CLERICAL CAR CHECKER 09/20/17 Reported Medications Bisacodyl (BISACODYL) 10 Mg Supp.rect, 10 MG RC DAILY Y for Constipation, SUPP 09/16/17 Magnesium Hydroxide* (MILK OF MAGNESIA*) 400 Mg/5 Ml Oral.susp, 30 ML ORAL DAILY Y for Constipation, ML 09/16/17 Docusate Sodium* (DOCUSATE SODIUM*) 100 Mg Capsule, 100 MG ORAL DAILY, CAP 09/16/17 Acetaminophen* (ACETAMINOPHEN 325MG TABLET*) 325 Mg Tablet, 650 MG ORAL Q6HR Y for Mild Pain/Temp > 100.5, TAB 09/16/17 Ipratropium/Albuterol Sulfate (DuoNeb 0.5-3(2.5)mg/3ml) 3 Ml Ampul.neb, 3 ML HHN Q4HR Y for Shortness of Breath, EA 09/16/17 Ondansetron (Zofran) 4 Mg Tablet, 4 MG ORAL Q6H Y for Nausea & Vomiting, TAB 09/16/17 Atorvastatin (Lipitor) 80 Mg Tablet, 40 MG ORAL BEDTIME, #30 TAB 0 Refills 09/16/17 Famotidine (FAMOTIDINE) 20 Mg Tablet, 20 MG ORAL DAILY, #30 TAB 0 Refills 09/16/17 Ipratropium Powers (ATROVENT HFA) 12.9 Gm Hfa.aer.ad, 17 MCG INH DAILY 09/16/17 Amlodipine Besylate (Norvasc) 5 Mg Tablet, 5 MG ORAL DAILY, TAB Hold for SBP less than 110 09/16/17 Metformin Hcl* (METFORMIN HCL*) 500 Mg Tablet, 500 MG ORAL TWICE A DAY, TAB 09/16/17 Med list reviewed/reconciled: Yes Allergies: Coded Allergies: No Known Allergies (Unverified , 09/15/17) Patient History Limited by: medical condition History Provided By: Medical Record PMH Narrative Old records state L sided weakness. Discharged 09/21/17: 1. Gastrointestinal hemorrhage. 2. Anemia. 3. Status post colonoscopy with polypectomy. 4. Severe protein-calorie malnutrition. 5. Atelectasis. 6. Large right inguinal hernia. 7. Folate deficiency 8. Dementia. 9. Diabetes. Limited by: medical condition Past Medical History: see triage record, old chart reviewed Social History Narrative SNF Reviewed Nursing Documentation: PMH: Agreed, PSxH: Agreed Nursing Documentation-PMH Past Medical History: No History, Except For Hx Cardiac Problems: Yes Hx Hypertension: Yes Hx Diabetes: Yes Hx Cancer: No Hx Gastrointestinal Problems: Yes Hx Neurological Problems: Yes Hx Cerebrovascular Accident: Yes Hx Dysphasia: Yes Hx Weakness: Yes - left side Review of Systems All Other Systems: limited Physical Exam Vital Signs Date Time Temp Pulse Resp B/P (MAP) Pulse Ox O2 Delivery O2 Flow Rate FiO2 11/02/17 07:00 65 15 137/65 99 Mechanical Ventilator 28 11/02/17 08:00 97.5 97.5 11/02/17 13:30 2.0 Sp02 EP Interpretation: reviewed, normal Labs Laboratory Tests Test 11/06/17 05:25 White Blood Count 9.4 K/UL (4.8-10.8) Red Blood Count 3.66 M/UL (4.70-6.10) L Hemoglobin 11.7 G/DL (14.2-18.0) L Hematocrit 34.1 % (42.0-52.0) L Mean Corpuscular Volume 93 FL (80-99) Mean Corpuscular Hemoglobin 31.9 PG (27.0-31.0) H Mean Corpuscular Hemoglobin Concent 34.1 G/DL (32.0-36.0) Red Cell Distribution Width 14.6 % (11.6-14.8) Platelet Count 352 K/UL (150-450) Mean Platelet Volume 7.0 FL (6.5-10.1) Neutrophils (%) (Auto) 84.0 % (45.0-75.0) H Lymphocytes (%) (Auto) 10.7 % (20.0-45.0) L Monocytes (%) (Auto) 4.9 % (1.0-10.0) Eosinophils (%) (Auto) 0.0 % (0.0-3.0) Basophils (%) (Auto) 0.4 % (0.0-2.0) Prothrombin Time 12.1 SEC (9.30-11.50) H Prothromb Time International Ratio 1.2 (0.9-1.1) H Activated Partial Thromboplast Time 33 SEC (23-33) Sodium Level 139 MMOL/L (136-145) Potassium Level 3.6 MMOL/L (3.5-5.1) Chloride Level 106 MMOL/L (98-107) Carbon Dioxide Level 24 MMOL/L (21-32) Anion Gap 10 mmol/L (5-15) Blood Urea Nitrogen 18 mg/dL (7-18) Creatinine 0.8 MG/DL (0.55-1.30) Estimat Glomerular Filtration Rate mL/min (>60) Glucose Level 101 MG/DL (74-106) Calcium Level 8.9 MG/DL (8.5-10.1) General Appearance: no apparent distress Head: normocephalic EENT: PERRL/EOMI, normal ENT inspection Neck: supple Respiratory: normal breath sounds, no respiratory distress Cardiovascular: normal rate Gastrointestinal: normal inspection, non tender, soft, normal bowel sounds, non -distended Rectal: deferred Genitourinary: deferred Neurologic: alert Skin: normal inspection, normal color, no rash, warm/dry, palpation normal, well hydrated Lymphatic: normal inspection, no adenopathy Current Medications Current Medications Medications (Trade) Dose Ordered Sig/Lenora Route PRN Reason Start Time Stop Time Status Last Admin Dose Admin Albuterol/ Ipratropium (Albuterol/ Ipratropium) 3 ml Q4H PRN HHN dyspnea 3/6/18 13:00 11/06/17 12:59 Amlodipine Besylate (Norvasc) 5 mg DAILY ORAL 11/04/17 09:00 11/29/17 09:59 11/05/17 09:23 Dextrose (Dextrose 50%) STAT PRN IV Hypoglycemia 11/03/17 20:00 11/29/17 19:59 Dextrose/Sodium Chloride 1,000 ml @ 50 mls/hr Q20H IV 11/03/17 19:30 12/03/17 19:29 11/06/17 06:18 Heparin Sodium (Porcine) (Heparin 5000 units/ml) 5,000 units EVERY 12 HOURS SUBQ 11/03/17 21:00 11/28/17 20:59 11/05/17 21:44 Insulin Aspart (NovoLOG) EVERY 6 HOURS SUBQ 11/03/17 18:00 11/30/17 17:59 Methylprednisolone Sodium Succinate (Solu-MEDROL) 60 mg Q8HR IV 11/03/17 14:00 11/28/17 11:59 11/06/17 06:17 Mineral Oil (Fleet's Mineral Oil Enema) 133 ml DAILYPRN PRN RECTAL Constipation 11/03/17 12:30 12/03/17 12:29 Nitroglycerin (Ntg) 0.4 mg Q5M X 3 DOSES PRN SL Prn Chest Pain 11/03/17 13:00 11/28/17 12:59 Ondansetron HCl (Zofran) 4 mg Q6H PRN IVP Nausea & Vomiting 11/03/17 13:00 11/28/17 12:59 Pantoprazole (Protonix) 40 mg DAILY IV 11/04/17 09:00 11/29/17 08:59 11/05/17 09:20 Piperacillin Sod/ Tazobactam Sod 3.375 gm/Sodium Chloride 110 ml @ 27.5 mls/hr EVERY 8 HOURS IVPB 11/03/17 14:00 11/07/17 13:59 11/06/17 06:17 Promethazine HCl/ Codeine (Phenergan with Codeine) 5 ml Q6H PRN ORAL cough 11/03/17 13:00 11/28/17 12:59 Theophylline (Varghese-Dur) 100 mg EVERY 12 HOURS ORAL 11/03/17 21:00 11/28/17 20:59 11/05/17 21:42 GI: Plan Problems: (1) Encounter for PEG (percutaneous endoscopic gastrostomy) (2) Severe protein-calorie malnutrition (3) Anemia Plan ST evaluation reviewed. labs reviewed. PEG scheduled for today. - patient has been NPO since [place], consent signed. will follow up with additional recommendations Discussed with Dr. Sifuentes. Thank you for this patient referral, we will follow. SRIKANTH SIFUENTES 11/16/17 1225: History of Present Illness General Reason for Hospitalization: Dyspnea/Respdistress Present Illness Home Meds Active Scripts Folic Acid* (FOLIC ACID*) 1 Mg Tablet, 1 MG ORAL DAILY, #30 TAB Prov:Mesa (Malcolm)Akilah CLERICAL CAR CHECKER 09/20/17 Reported Medications Bisacodyl (BISACODYL) 10 Mg Supp.rect, 10 MG RC DAILY Y for Constipation, SUPP 09/16/17 Magnesium Hydroxide* (MILK OF MAGNESIA*) 400 Mg/5 Ml Oral.susp, 30 ML ORAL DAILY Y for Constipation, ML 09/16/17 Docusate Sodium* (DOCUSATE SODIUM*) 100 Mg Capsule, 100 MG ORAL DAILY, CAP 09/16/17 Acetaminophen* (ACETAMINOPHEN 325MG TABLET*) 325 Mg Tablet, 650 MG ORAL Q6HR Y for Mild Pain/Temp > 100.5, TAB 09/16/17 Ipratropium/Albuterol Sulfate (DuoNeb 0.5-3(2.5)mg/3ml) 3 Ml Ampul.neb, 3 ML HHN Q4HR Y for Shortness of Breath, EA 09/16/17 Ondansetron (Zofran) 4 Mg Tablet, 4 MG ORAL Q6H Y for Nausea & Vomiting, TAB 09/16/17 Atorvastatin (Lipitor) 80 Mg Tablet, 40 MG ORAL BEDTIME, #30 TAB 0 Refills 09/16/17 Famotidine (FAMOTIDINE) 20 Mg Tablet, 20 MG ORAL DAILY, #30 TAB 0 Refills 09/16/17 Ipratropium Powers (ATROVENT HFA) 12.9 Gm Hfa.aer.ad, 17 MCG INH DAILY 09/16/17 Amlodipine Besylate (Norvasc) 5 Mg Tablet, 5 MG ORAL DAILY, TAB Hold for SBP less than 110 09/16/17 Metformin Hcl* (METFORMIN HCL*) 500 Mg Tablet, 500 MG ORAL TWICE A DAY, TAB 09/16/17 Allergies: Coded Allergies: No Known Allergies (Unverified , 09/15/17) GI: Plan Plan The patient was seen and examined at bedside and all new and available data was reviewed in the patients chart. I agree with the above findings, impression and plan. (Patient seen earlier today. Signature stamp does not reflect patient encounter time.). - MD Ayaka Gomez Anh Jeromy Ward Nov 06, 2017 10:04 SRIKANTH SIFUENTES Nov 16, 2017 12:25
[2017-11-06] MEDS: Pantoprazole Inj IV SCH (10:09)
[2017-11-06] MEDS: Heparin 5000 units/ml inj SUBQ SCH ×2 (10:15→21:01)
[2017-11-06] MEDS ORDERED: Lidocaine 1% MPF 10mg/ml 5ml ONE (13:00)
[2017-11-06] MEDS ORDERED: LR 1000ml ONE (13:00)
[2017-11-06] MEDS ORDERED: Propofol 200mg/20ml IV ONE (13:00)
[2017-11-06] MEDS ORDERED: NS 500ML IV ONE (13:10)
--- NOTE | 2017-11-06 13:13 | Endoscopy Procedure Note ---
Endoscopy Procedure Note General Indication for Procedure: dysphagia Procedures Performed: EGD, PEG Operative Findings/Diagnosis: same Specimen: none Pt Tolerated Procedure Well: Yes Estimated Blood Loss: none Anesthesia Anesthesiologist: karan Anesthesia: MAC Inserted Devices Implant(s) used?: No GI Core Measures 50 yrs or older w/o bx or poly: Not Applicable 10yrs. F/U not recommended: Not Applicable SRIKANTH SIFUENTES Nov 06, 2017 13:13
[2017-11-06] MEDS ORDERED: cefOXitin 1gm Inj ONE (13:15)
--- NOTE | 2017-11-06 13:31 | Infectious Diseases Prog Note ---
Assessment/Plan Assessment/Plan ASSESSMENT: The patient is an 82-year-old male with, Healthcare-associated pneumonia Scx: Providencia ( MDR ) Chest x-ray, Interval disappearance of the left hemidiaphragm noted indicative of underlying parenchymal disease and or effusion. 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)., Extubated 3 /5 History of CVA with left-sided weakness Hypertension Hyperlipidemia History of GI bleed/GERD History of diabetes Anemia P: We will continue the patient on Zosyn d# 9 / 7 -10 , upon Dc will stop AB Rx 3/4 SP vancomycin d# 4 Monitor CBC Monitor BMP Urine Legionella antigen Subjective Allergies: Coded Allergies: No Known Allergies (Unverified , 09/15/17) Subjective afebrile Objective Vital Signs Last 24 Hour Vital Signs Date Time Temp Pulse Resp B/P (MAP) Pulse Ox O2 Delivery O2 Flow Rate FiO2 11/06/17 12:00 97.3 70 20 129/73 92 97.3 11/06/17 09:00 71 135/78 11/06/17 08:00 97.3 71 20 135/78 94 97.3 11/06/17 07:22 Room Air 21 11/06/17 07:22 96 Room Air 21 11/06/17 04:00 97.8 91 21 143/78 91 Room Air 97.8 11/06/17 00:14 97.5 76 20 143/76 94 Room Air 97.5 11/05/17 19:49 95 Room Air 21 11/05/17 19:31 97.7 86 20 125/83 95 Room Air 97.7 11/05/17 16:54 98.2 90 20 127/85 90 Room Air 98.2 Height (Feet): 5 Height (Inches): 5.00 Weight (Pounds): 122 HEENT: anicteric Respiratory/Chest: normal breath sounds Cardiovascular: regular rhythm Abdomen: soft, non tender Laboratory Tests Test 11/06/17 05:25 White Blood Count 9.4 K/UL (4.8-10.8) Red Blood Count 3.66 M/UL (4.70-6.10) L Hemoglobin 11.7 G/DL (14.2-18.0) L Hematocrit 34.1 % (42.0-52.0) L Mean Corpuscular Volume 93 FL (80-99) Mean Corpuscular Hemoglobin 31.9 PG (27.0-31.0) H Mean Corpuscular Hemoglobin Concent 34.1 G/DL (32.0-36.0) Red Cell Distribution Width 14.6 % (11.6-14.8) Platelet Count 352 K/UL (150-450) Mean Platelet Volume 7.0 FL (6.5-10.1) Neutrophils (%) (Auto) 84.0 % (45.0-75.0) H Lymphocytes (%) (Auto) 10.7 % (20.0-45.0) L Monocytes (%) (Auto) 4.9 % (1.0-10.0) Eosinophils (%) (Auto) 0.0 % (0.0-3.0) Basophils (%) (Auto) 0.4 % (0.0-2.0) Prothrombin Time 12.1 SEC (9.30-11.50) H Prothromb Time International Ratio 1.2 (0.9-1.1) H Activated Partial Thromboplast Time 33 SEC (23-33) Sodium Level 139 MMOL/L (136-145) Potassium Level 3.6 MMOL/L (3.5-5.1) Chloride Level 106 MMOL/L (98-107) Carbon Dioxide Level 24 MMOL/L (21-32) Anion Gap 10 mmol/L (5-15) Blood Urea Nitrogen 18 mg/dL (7-18) Creatinine 0.8 MG/DL (0.55-1.30) Estimat Glomerular Filtration Rate mL/min (>60) Glucose Level 101 MG/DL (74-106) Calcium Level 8.9 MG/DL (8.5-10.1) Current Medications Medications (Trade) Dose Ordered Sig/Lenora Route PRN Reason Start Time Stop Time Status Last Admin Dose Admin Amlodipine Besylate (Norvasc) 5 mg DAILY ORAL 11/04/17 09:00 11/29/17 09:59 11/05/17 09:23 Dextrose (Dextrose 50%) STAT PRN IV Hypoglycemia 11/03/17 20:00 11/29/17 19:59 Dextrose/Sodium Chloride 1,000 ml @ 50 mls/hr Q20H IV 11/03/17 19:30 12/03/17 19:29 3/9/18 06:18 Heparin Sodium (Porcine) (Heparin 5000 units/ml) 5,000 units EVERY 12 HOURS SUBQ 11/03/17 21:00 11/28/17 20:59 11/06/17 10:15 Insulin Aspart (NovoLOG) EVERY 6 HOURS SUBQ 11/03/17 18:00 11/30/17 17:59 Methylprednisolone Sodium Succinate (Solu-MEDROL) 60 mg Q8HR IV 11/03/17 14:00 11/28/17 11:59 11/06/17 06:17 Mineral Oil (Fleet's Mineral Oil Enema) 133 ml DAILYPRN PRN RECTAL Constipation 11/03/17 12:30 12/03/17 12:29 Nitroglycerin (Ntg) 0.4 mg Q5M X 3 DOSES PRN SL Prn Chest Pain 11/03/17 13:00 11/28/17 12:59 Ondansetron HCl (Zofran) 4 mg Q6H PRN IVP Nausea & Vomiting 11/03/17 13:00 11/28/17 12:59 Pantoprazole (Protonix) 40 mg DAILY IV 11/04/17 09:00 11/29/17 08:59 11/06/17 10:09 Piperacillin Sod/ Tazobactam Sod 3.375 gm/Sodium Chloride 110 ml @ 27.5 mls/hr EVERY 8 HOURS IVPB 11/03/17 14:00 11/07/17 13:59 11/06/17 06:17 Promethazine HCl/ Codeine (Phenergan with Codeine) 5 ml Q6H PRN ORAL cough 11/03/17 13:00 11/28/17 12:59 Theophylline (Varghese-Dur) 100 mg EVERY 12 HOURS ORAL 11/03/17 21:00 11/28/17 20:59 11/05/17 21:42 BHUMI COLLINS M.D. Nov 06, 2017 13:31
--- NOTE | 2017-11-06 13:43 | Immediate Post-Op Evaluation ---
Immediate Post-Op Evalulation Immediate Post-Op Evalulation Procedure: PEG Date of Evaluation: Nov 06, 2017 Time of Evaluation: 13:40 IV Fluids: 300 Blood Pressure Systolic: 116 Blood Pressure Diastolic: 69 Pulse Rate: 63 Respiratory Rate: 14 O2 Sat by Pulse Oximetry: 98 Temperature (Fahrenheit): 97.6 Nausea: No Vomiting: No Complications none Patient Status: awake, reacts, patent Hydration Status: adequate Drug: zosyn Given Within 1 Hr of Incision: Yes Time Given: 13:15 DAE GUEVARA CRNA Nov 06, 2017 13:43
--- NOTE | 2017-11-06 13:46 | Anethesia Preoperative Eval ---
Anesthesia Pre-op PMH/ROS General Date of Evaluation: Nov 06, 2017 Time of Evaluation: 13:15 Anesthesiologist: maggie ASA Score: ASA 3 Mallampati Score Class I : Soft palate, uvula, fauces, pillars visible Class II: Soft palate, uvula, fauces visible Class III: Soft palate, base of uvula visible Class IV: Only hard plate visible Mallampati Classification: Class II Surgeon: hilaria Diagnosis: Resp Failure Surgical Procedure: EGD/PEG Anesthesia History: none Family History: no anesthesia problems Allergies: Coded Allergies: No Known Allergies (Unverified , 09/15/17) Medications: see eMAR Past Medical History Cardiovascular: Reports: HTN Pulmonary: Reports: COPD, other - Pneumonia, resp failure Gastrointestinal/Genitourinary: Reports: GERD Neurologic/Psychiatric: Reports: dementia Endocrine: Reports: DM, Denies: hypothyroidism, steroids, other HEENT: Denies: cataract (L), cataract (R), glaucoma, [place] (L), [place] (R), other Hematology/Immune: Denies: anemia, DVT, bleeding disorder, other Musculoskeletal/Integumentary: Denies: OA, RA, DJD, DDD, edema, other PSxH Narrative: unknown Anesthesia Pre-op Phys. Exam Physician Exam Last Vital Signs Date Time Temp Pulse Resp B/P (MAP) Pulse Ox O2 Delivery O2 Flow Rate FiO2 11/06/17 12:00 97.3 70 20 129/73 92 97.3 11/06/17 07:22 Room Air 21 11/05/17 08:07 2.0 Constitutional: NAD Neurologic: other - demented Cardiovascular: RRR, other - ronchi Respiratory: CTA Gastrointestinal: S/NT/ND Airway Exam Mallampati Score: Class II MO: full ROM: full Dentures: no upper, no lower Anesthesia Pre-op A/P Labs Hematology Test 11/06/17 05:25 White Blood Count 9.4 K/UL (4.8-10.8) Red Blood Count 3.66 M/UL (4.70-6.10) L Hemoglobin 11.7 G/DL (14.2-18.0) L Hematocrit 34.1 % (42.0-52.0) L Mean Corpuscular Volume 93 FL (80-99) Mean Corpuscular Hemoglobin 31.9 PG (27.0-31.0) H Mean Corpuscular Hemoglobin Concent 34.1 G/DL (32.0-36.0) Red Cell Distribution Width 14.6 % (11.6-14.8) Platelet Count 352 K/UL (150-450) Mean Platelet Volume 7.0 FL (6.5-10.1) Neutrophils (%) (Auto) 84.0 % (45.0-75.0) H Lymphocytes (%) (Auto) 10.7 % (20.0-45.0) L Monocytes (%) (Auto) 4.9 % (1.0-10.0) Eosinophils (%) (Auto) 0.0 % (0.0-3.0) Basophils (%) (Auto) 0.4 % (0.0-2.0) Coagulation Test 11/06/17 05:25 Prothrombin Time 12.1 SEC (9.30-11.50) H Prothromb Time International Ratio 1.2 (0.9-1.1) H Activated Partial Thromboplast Time 33 SEC (23-33) Chemistry Test 11/06/17 05:25 Sodium Level 139 MMOL/L (136-145) Potassium Level 3.6 MMOL/L (3.5-5.1) Chloride Level 106 MMOL/L (98-107) Carbon Dioxide Level 24 MMOL/L (21-32) Anion Gap 10 mmol/L (5-15) Blood Urea Nitrogen 18 mg/dL (7-18) Creatinine 0.8 MG/DL (0.55-1.30) Estimat Glomerular Filtration Rate mL/min (>60) Glucose Level 101 MG/DL (74-106) Calcium Level 8.9 MG/DL (8.5-10.1) Studies Pre-op Studies: EKG - SR Risk Assessment & Plan Plan: mac Status Change Before Surgery: No Pre-Antibiotics Drug: zosyn Given Within 1 Hr of Incision: Yes Time Given: 13:15 DAE GUEVARA CRNA Nov 06, 2017 13:46
--- NOTE | 2017-11-06 15:28 | Pulmonology Progress Note ---
Assessment/Plan Problems: (1) Acute respiratory failure (2) COPD (chronic obstructive pulmonary disease) (3) Bilateral pneumonia (4) Severe sepsis (5) Anemia (6) Severe protein-calorie malnutrition Assessment/Plan pt failed swallow study d/w two sisters at the bed site. they want Gtube feeding respiratory treatment titrate fio2 abx as per ID check electrolytes dr Milan contacted PEG soon Subjective ROS Limited/Unobtainable: No Constitutional: Reports: no symptoms HEENT: Repors: no symptoms Respiratory: Reports: no symptoms Allergies: Coded Allergies: No Known Allergies (Unverified , 09/15/17) Objective Last 24 Hour Vital Signs Date Time Temp Pulse Resp B/P (MAP) Pulse Ox O2 Delivery O2 Flow Rate FiO2 11/06/17 14:10 98.0 62 24 137/76 98 Nasal Cannula 3.0 98.0 11/06/17 13:55 62 19 141/77 98 Nasal Cannula 3.0 11/06/17 13:43 207.7 63 14 98 11/06/17 13:40 64 17 132/74 98 Nasal Cannula 3.0 11/06/17 13:35 72 20 120/79 98 Nasal Cannula 3.0 11/06/17 13:30 97.6 63 27 116/69 98 Nasal Cannula 3.0 97.6 11/06/17 12:00 97.3 70 20 129/73 92 97.3 11/06/17 09:00 71 135/78 11/06/17 08:00 97.3 71 20 135/78 94 97.3 11/06/17 07:22 Room Air 21 11/06/17 07:22 96 Room Air 21 11/06/17 04:00 97.8 91 21 143/78 91 Room Air 97.8 11/06/17 00:14 97.5 76 20 143/76 94 Room Air 97.5 11/05/17 19:49 95 Room Air 21 11/05/17 19:31 97.7 86 20 125/83 95 Room Air 97.7 11/05/17 16:54 98.2 90 20 127/85 90 Room Air 98.2 Intake and Output 11/05/17 11/06/17 19:00 07:00 Intake Total 592.5 ml Output Total 400 ml 350 ml Balance 192.5 ml -350 ml IV Total 592.5 ml Output Urine Total 400 ml 350 ml Objective General Appearance: cachectic Lines, tubes and drains: peripheral HEENT: normocephalic, atraumatic Neck: non-tender, normal alignment Respiratory/Chest: chest wall non-tender, lungs clear Cardiovascular/Chest: normal peripheral pulses, normal rate Abdomen: normal bowel sounds, non tender Extremities: normal range of motion, non-tender Skin Exam: normal pigmentation Laboratory Tests 11/06/17 05:25: White Blood Count 9.4, Red Blood Count 3.66L, Hemoglobin 11.7L, Hematocrit 34.1L , Mean Corpuscular Volume 93, Mean Corpuscular Hemoglobin 31.9H, Mean Corpuscular Hemoglobin Concent 34.1, Red Cell Distribution Width 14.6, Platelet Count 352, Mean Platelet Volume 7.0, Neutrophils (%) (Auto) 84.0H, Lymphocytes ( %) (Auto) 10.7L, Monocytes (%) (Auto) 4.9, Eosinophils (%) (Auto) 0.0, Basophils (%) (Auto) 0.4, Prothrombin Time 12.1H, Prothromb Time International Ratio 1.2H, Activated Partial Thromboplast Time 33, Sodium Level 139, Potassium Level 3.6, Chloride Level 106, Carbon Dioxide Level 24, Anion Gap 10, Blood Urea Nitrogen 18, Creatinine 0.8, Estimat Glomerular Filtration Rate , Glucose Level 101, Calcium Level 8.9 Current Medications Medications (Trade) Dose Ordered Sig/Lenora Route PRN Reason Start Time Stop Time Status Last Admin Dose Admin Amlodipine Besylate (Norvasc) 5 mg DAILY ORAL 11/04/17 09:00 11/29/17 09:59 11/05/17 09:23 Dextrose (Dextrose 50%) STAT PRN IV Hypoglycemia 11/03/17 20:00 11/29/17 19:59 Dextrose/Sodium Chloride 1,000 ml @ 50 mls/hr Q20H IV 11/03/17 19:30 12/03/17 19:29 11/06/17 06:18 Heparin Sodium (Porcine) (Heparin 5000 units/ml) 5,000 units EVERY 12 HOURS SUBQ 11/03/17 21:00 11/28/17 20:59 11/06/17 10:15 Insulin Aspart (NovoLOG) EVERY 6 HOURS SUBQ 11/03/17 18:00 11/30/17 17:59 Methylprednisolone Sodium Succinate (Solu-MEDROL) 60 mg Q8HR IV 11/03/17 14:00 11/28/17 11:59 11/06/17 06:17 Mineral Oil (Fleet's Mineral Oil Enema) 133 ml DAILYPRN PRN RECTAL Constipation 11/03/17 12:30 12/03/17 12:29 Nitroglycerin (Ntg) 0.4 mg Q5M X 3 DOSES PRN SL Prn Chest Pain 11/03/17 13:00 11/28/17 12:59 Ondansetron HCl (Zofran) 4 mg Q6H PRN IVP Nausea & Vomiting 11/03/17 13:00 11/28/17 12:59 Pantoprazole (Protonix) 40 mg DAILY IV 11/04/17 09:00 11/29/17 08:59 11/06/17 10:09 Piperacillin Sod/ Tazobactam Sod 3.375 gm/Sodium Chloride 110 ml @ 27.5 mls/hr EVERY 8 HOURS IVPB 11/03/17 14:00 11/07/17 13:59 11/06/17 14:00 Promethazine HCl/ Codeine (Phenergan with Codeine) 5 ml Q6H PRN ORAL cough 11/03/17 13:00 11/28/17 12:59 Theophylline (Varghese-Dur) 100 mg EVERY 12 HOURS ORAL 11/03/17 21:00 11/28/17 20:59 11/05/17 21:42 MARY FELIX Nov 06, 2017 15:28
[2017-11-06] MEDS ORDERED: D5 1/2NS 1000ml IV ONE (17:09)
[2017-11-07 00:03] VITALS: BP 125/67
[2017-11-07] MEDS: NovoLOG Insulin Flexpen SUBQ SCH ×4 (01:21→17:55)
--- NOTE | 2017-11-07 02:00 | Procedure Note ---
DATE OF PROCEDURE: 11/06/2017 SURGEON: Marshal Rose M.D. PROCEDURE: Upper endoscopy with PEG placement. ANESTHESIA: Per EDGAR, Jennifer Patel. INDICATION: Dysphagia, failure to thrive. REASON FOR PROCEDURE: The procedure, risks, benefits, and possible consequences, including hemorrhage, aspiration, perforation and infection, and alternative treatments, were explained to the patient/legal guardian by Dr. Marshal Rose and the patient/legal guardian understood and accepted these risks. DESCRIPTION OF PROCEDURE: After informed consent was obtained and the patient was adequately sedated, the Olympus upper endoscope was advanced from mouth into the second portion of duodenum and retroflexion was performed in the stomach. Then, under endoscopic guidance under sterile condition, a 20-Mongolian pull type of G-tube was successfully placed in the epigastric area. The distance from the tip of the tube to skin was about 2.5 cm in size. The patient tolerated the procedure well without any complication. SUMMARY OF FINDINGS: Status post successful PEG placement. RECOMMENDATIONS: 1. Abdominal binder. 2. Elevate the head of the bed at all times. 3. G-tube flush. 4. G-tube care. 5. Start tube feeding later tonight. 6. The patient received dose of antibiotics prior to this procedure. Marshal Rose M.D. DR: ALKA JOB#: [id number] CC: MIKA
[2017-11-07] MEDS: D5 1/2NS 1,000 ML IV SCH ×2 (03:04→23:30)
[2017-11-07 03:51] VITALS: BP 107/57
[2017-11-07] MEDS: Solu-MEDROL 125mg Inj IV SCH ×3 (06:14→21:10)
[2017-11-07] MEDS: Piperacillin/Tazobactam 3.375 GM in NS 110 ML IVPB SCH (06:14)
[2017-11-07 07:49] LABS: HEMATOCRIT 36.6 % (42.0-52.0); HEMOGLOBIN 12.6 G/DL (14.2-18.0); MEAN CORPUSCULAR VOLUME 94 FL (80-99); PLATELET COUNT 400 K/UL (150-450); RED BLOOD COUNT 3.89 M/UL (4.70-6.10); RED CELL DISTRIBUTION WIDTH 15.2 % (11.6-14.8); WHITE BLOOD COUNT 11.4 K/UL (4.8-10.8)
[2017-11-07 08:00] VITALS: BP 109/60
[2017-11-07 08:06] LABS: ANION GAP 7 mmol/L (5-15); BLOOD UREA NITROGEN 21 mg/dL (7-18); CALCIUM 9.2 MG/DL (8.5-10.1); CARBON DIOXIDE 25 MMOL/L (21-32); CHLORIDE 106 MMOL/L (98-107); CREATININE 0.9 MG/DL (0.55-1.30); POTASSIUM 4.2 MMOL/L (3.5-5.1); SODIUM 138 MMOL/L (136-145)
[2017-11-07] MEDS: Pantoprazole Inj IV SCH (09:07)
[2017-11-07] MEDS: Heparin 5000 units/ml inj SUBQ SCH ×2 (09:11→21:09)
[2017-11-07] MEDS: Theophylline ER 100mg ORAL SCH ×2 (09:13→21:09)
--- NOTE | 2017-11-07 11:07 | Pulmonology Progress Note ---
Assessment/Plan Problems: (1) Acute respiratory failure (2) COPD (chronic obstructive pulmonary disease) (3) Bilateral pneumonia (4) Severe sepsis (5) Anemia (6) Severe protein-calorie malnutrition Assessment/Plan pt failed swallow study d/w two sisters at the bed site. they want Gtube feeding symptoamtic treatment respiratory treatment titrate fio2 abx as per ID check electrolytes dr Milan contacted PEG soon Subjective ROS Limited/Unobtainable: No Allergies: Coded Allergies: No Known Allergies (Unverified , 09/15/17) Objective Last 24 Hour Vital Signs Date Time Temp Pulse Resp B/P (MAP) Pulse Ox O2 Delivery O2 Flow Rate FiO2 11/07/17 09:07 86 109/60 11/07/17 08:00 98.2 86 20 109/60 92 98.2 11/07/17 03:51 97.0 71 20 107/57 94 Room Air 97.0 11/07/17 00:03 96.8 59 20 125/67 95 Room Air 96.8 11/06/17 20:08 Room Air 11/06/17 20:07 95 Room Air 11/06/17 19:33 96.8 86 20 114/59 95 Room Air 96.8 11/06/17 16:00 97.3 65 20 143/75 95 97.3 11/06/17 14:10 98.0 62 24 137/76 98 Nasal Cannula 3.0 98.0 11/06/17 13:55 62 19 141/77 98 Nasal Cannula 3.0 11/06/17 13:43 207.7 63 14 98 11/06/17 13:40 64 17 132/74 98 Nasal Cannula 3.0 11/06/17 13:35 72 20 120/79 98 Nasal Cannula 3.0 11/06/17 13:30 97.6 63 27 116/69 98 Nasal Cannula 3.0 97.6 11/06/17 12:00 97.3 70 20 129/73 92 97.3 Intake and Output 11/06/17 11/07/17 19:00 07:00 Intake Total 865 ml 1735.0 ml Output Total 1350 ml Balance -485 ml 1735.0 ml Intake Oral 480 ml Free Water 450 ml IV Total 350 ml 710.0 ml Tube Feeding 35 ml 575 ml Output Urine Total 1350 ml # Voids 2 Objective General Appearance: cachectic Lines, tubes and drains: peripheral HEENT: normocephalic, atraumatic Neck: non-tender, normal alignment Respiratory/Chest: chest wall non-tender, lungs clear Cardiovascular/Chest: normal peripheral pulses, normal rate Abdomen: normal bowel sounds, non tender Extremities: normal range of motion, non-tender Skin Exam: normal pigmentation Laboratory Tests 11/07/17 05:50: White Blood Count 11.4H, Red Blood Count 3.89L, Hemoglobin 12.6L, Hematocrit 36.6L, Mean Corpuscular Volume 94, Mean Corpuscular Hemoglobin 32.5H, Mean Corpuscular Hemoglobin Concent 34.5, Red Cell Distribution Width 15.2H, Platelet Count 400, Mean Platelet Volume 6.8, Neutrophils (%) (Auto) , Lymphocytes (%) (Auto) , Monocytes (%) (Auto) , Eosinophils (%) (Auto) , Basophils (%) (Auto) , Differential Total Cells Counted 100, Neutrophils % ( Manual) 89H, Lymphocytes % (Manual) 7L, Monocytes % (Manual) 4, Eosinophils % ( Manual) 0, Basophils % (Manual) 0, Band Neutrophils 0, Platelet Estimate Adequate, Platelet Morphology Normal, Anisocytosis 1+, Sodium Level 138, Potassium Level 4.2, Chloride Level 106, Carbon Dioxide Level 25, Anion Gap 7, Blood Urea Nitrogen 21H, Creatinine 0.9, Estimat Glomerular Filtration Rate , Glucose Level 121H, Calcium Level 9.2 Current Medications Medications (Trade) Dose Ordered Sig/Lenora Route PRN Reason Start Time Stop Time Status Last Admin Dose Admin Amlodipine Besylate (Norvasc) 5 mg DAILY ORAL 11/04/17 09:00 11/29/17 09:59 11/07/17 09:07 Dextrose (Dextrose 50%) STAT PRN IV Hypoglycemia 11/03/17 20:00 11/29/17 19:59 Dextrose/Sodium Chloride 1,000 ml @ 50 mls/hr Q20H IV 11/03/17 19:30 12/03/17 19:29 11/07/17 03:04 Heparin Sodium (Porcine) (Heparin 5000 units/ml) 5,000 units EVERY 12 HOURS SUBQ 11/03/17 21:00 11/28/17 20:59 11/07/17 09:11 Insulin Aspart (NovoLOG) EVERY 6 HOURS SUBQ 11/03/17 18:00 11/30/17 17:59 11/07/17 06:16 Methylprednisolone Sodium Succinate (Solu-MEDROL) 60 mg Q8HR IV 11/03/17 14:00 11/28/17 11:59 11/07/17 06:14 Mineral Oil (Fleet's Mineral Oil Enema) 133 ml DAILYPRN PRN RECTAL Constipation 11/03/17 12:30 12/03/17 12:29 Nitroglycerin (Ntg) 0.4 mg Q5M X 3 DOSES PRN SL Prn Chest Pain 11/03/17 13:00 11/28/17 12:59 Ondansetron HCl (Zofran) 4 mg Q6H PRN IVP Nausea & Vomiting 11/03/17 13:00 11/28/17 12:59 Pantoprazole (Protonix) 40 mg DAILY IV 11/04/17 09:00 11/29/17 08:59 11/07/17 09:07 Piperacillin Sod/ Tazobactam Sod 3.375 gm/Sodium Chloride 110 ml @ 27.5 mls/hr EVERY 8 HOURS IVPB 11/03/17 14:00 11/07/17 13:59 11/07/17 06:14 Promethazine HCl/ Codeine (Phenergan with Codeine) 5 ml Q6H PRN ORAL cough 11/03/17 13:00 11/28/17 12:59 Theophylline (Varghese-Dur) 100 mg EVERY 12 HOURS ORAL 11/03/17 21:00 11/28/17 20:59 11/07/17 09:13 MARY FELIX Nov 07, 2017 11:07
[2017-11-07 11:51] VITALS: BP 100/53
[2017-11-07 16:00] VITALS: BP 117/57
[2017-11-07 20:00] VITALS: BP 123/51
--- NOTE | 2017-11-07 21:10 | Infectious Diseases Prog Note ---
Assessment/Plan Assessment/Plan ASSESSMENT: The patient is an 82-year-old male with, Healthcare-associated pneumonia Scx: Providencia ( MDR ) , SP RX Chest x-ray, Interval disappearance of the left hemidiaphragm noted indicative of underlying parenchymal disease and or effusion. Influenza: negative Sepsis, SP Leukocytosis, mild ( on steroids ) Ventilator-dependent respiratory failure (intubated on 10/29/2017)., Extubated 3 / History of CVA with left-sided weakness Hypertension Hyperlipidemia History of GI bleed/GERD History of diabetes Anemia P: DC on Zosyn d# 10 / , and monitor pt off of AB Rx 3/ SP vancomycin d# 4 Monitor CBC Monitor BMP Subjective Allergies: Coded Allergies: No Known Allergies (Unverified , 09/15/17) Subjective no acute event Objective Vital Signs Last 24 Hour Vital Signs Date Time Temp Pulse Resp B/P (MAP) Pulse Ox O2 Delivery O2 Flow Rate FiO2 11/07/17 20:00 97.7 74 19 123/51 97.7 11/07/17 16:00 97.7 74 20 117/57 92 97.7 11/07/17 11:51 97.7 68 20 100/53 92 97.7 11/07/17 09:07 86 109/60 11/07/17 08:00 98.2 86 20 109/60 92 98.2 11/07/17 06:58 95 Room Air 21 11/07/17 06:58 Room Air 21 11/07/17 03:51 97.0 71 20 107/57 94 Room Air 97.0 11/07/17 00:03 96.8 59 20 125/67 95 Room Air 96.8 Height (Feet): 5 Height (Inches): 5.00 Weight (Pounds): 123 HEENT: anicteric Respiratory/Chest: decreased breath sounds Cardiovascular: regular rhythm Abdomen: soft, non tender Laboratory Tests Test 11/07/17 05:50 White Blood Count 11.4 K/UL (4.8-10.8) H Red Blood Count 3.89 M/UL (4.70-6.10) L Hemoglobin 12.6 G/DL (14.2-18.0) L Hematocrit 36.6 % (42.0-52.0) L Mean Corpuscular Volume 94 FL (80-99) Mean Corpuscular Hemoglobin 32.5 PG (27.0-31.0) H Mean Corpuscular Hemoglobin Concent 34.5 G/DL (32.0-36.0) Red Cell Distribution Width 15.2 % (11.6-14.8) H Platelet Count 400 K/UL (150-450) Mean Platelet Volume 6.8 FL (6.5-10.1) Neutrophils (%) (Auto) % (45.0-75.0) Lymphocytes (%) (Auto) % (20.0-45.0) Monocytes (%) (Auto) % (1.0-10.0) Eosinophils (%) (Auto) % (0.0-3.0) Basophils (%) (Auto) % (0.0-2.0) Differential Total Cells Counted 100 Neutrophils % (Manual) 89 % (45-75) H Lymphocytes % (Manual) 7 % (20-45) L Monocytes % (Manual) 4 % (1-10) Eosinophils % (Manual) 0 % (0-3) Basophils % (Manual) 0 % (0-2) Band Neutrophils 0 % (0-8) Platelet Estimate Adequate Platelet Morphology Normal Anisocytosis 1+ Sodium Level 138 MMOL/L (136-145) Potassium Level 4.2 MMOL/L (3.5-5.1) Chloride Level 106 MMOL/L (98-107) Carbon Dioxide Level 25 MMOL/L (21-32) Anion Gap 7 mmol/L (5-15) Blood Urea Nitrogen 21 mg/dL (7-18) H Creatinine 0.9 MG/DL (0.55-1.30) Estimat Glomerular Filtration Rate mL/min (>60) Glucose Level 121 MG/DL (74-106) H Calcium Level 9.2 MG/DL (8.5-10.1) Current Medications Medications (Trade) Dose Ordered Sig/Lenora Route PRN Reason Start Time Stop Time Status Last Admin Dose Admin Amlodipine Besylate (Norvasc) 5 mg DAILY ORAL 11/04/17 09:00 11/29/17 09:59 11/07/17 09:07 Dextrose (Dextrose 50%) STAT PRN IV Hypoglycemia 11/03/17 20:00 11/29/17 19:59 Dextrose/Sodium Chloride 1,000 ml @ 50 mls/hr Q20H IV 11/03/17 19:30 12/03/17 19:29 11/07/17 03:04 Heparin Sodium (Porcine) (Heparin 5000 units/ml) 5,000 units EVERY 12 HOURS SUBQ 11/03/17 21:00 11/28/17 20:59 11/07/17 09:11 Insulin Aspart (NovoLOG) EVERY 6 HOURS SUBQ 11/03/17 18:00 11/30/17 17:59 11/07/17 17:55 Methylprednisolone Sodium Succinate (Solu-MEDROL) 60 mg Q8HR IV 11/03/17 14:00 11/28/17 11:59 11/07/17 14:12 Mineral Oil (Fleet's Mineral Oil Enema) 133 ml DAILYPRN PRN RECTAL Constipation 11/03/17 12:30 12/03/17 12:29 Nitroglycerin (Ntg) 0.4 mg Q5M X 3 DOSES PRN SL Prn Chest Pain 11/03/17 13:00 11/28/17 12:59 Ondansetron HCl (Zofran) 4 mg Q6H PRN IVP Nausea & Vomiting 11/03/17 13:00 11/28/17 12:59 Pantoprazole (Protonix) 40 mg DAILY IV 11/04/17 09:00 11/29/17 08:59 11/07/17 09:07 Piperacillin Sod/ Tazobactam Sod 3.375 gm/Sodium Chloride 110 ml @ 27.5 mls/hr EVERY 8 HOURS IVPB 11/07/17 22:00 11/14/17 21:59 Promethazine HCl/ Codeine (Phenergan with Codeine) 5 ml Q6H PRN ORAL cough 11/03/17 13:00 11/28/17 12:59 Theophylline (Varghese-Dur) 100 mg EVERY 12 HOURS ORAL 11/03/17 21:00 11/28/17 20:59 11/07/17 09:13 BHUMI COLLINS M.D. Nov 07, 2017 21:09
[2017-11-07] MEDS ORDERED: Piperacillin/Tazobactam 3.375 GM in NS 110 ML IVPB SCH (22:00)
[2017-11-08] VITALS: BP 118/65
[2017-11-08] MEDS: D5 1/2NS 1,000 ML IV SCH (02:00)
[2017-11-08 04:00] VITALS: BP 129/70
[2017-11-08] MEDS: Solu-MEDROL 125mg Inj IV SCH ×3 (05:54→21:01)
[2017-11-08] MEDS: NovoLOG Insulin Flexpen SUBQ SCH ×4 (05:54→18:43)
[2017-11-08 06:55] LABS: INR 1.1 (0.9-1.1)
[2017-11-08 07:13] LABS: ALANINE AMINOTRANSFERASE 23 U/L (12-78); ALBUMIN 1.9 G/DL (3.4-5.0); ALBUMIN/GLOBULIN RATIO 0.5 (1.0-2.7); ALKALINE PHOSPHATASE 75 U/L (46-116); ANION GAP 5 mmol/L (5-15); ASPARTATE AMINO TRANSFERASE 10 U/L (15-37); BILIRUBIN,TOTAL 0.5 MG/DL (0.2-1.0); BLOOD UREA NITROGEN 17 mg/dL (7-18); CALCIUM 8.9 MG/DL (8.5-10.1); CARBON DIOXIDE 27 MMOL/L (21-32); CHLORIDE 106 MMOL/L (98-107); CREATININE 0.8 MG/DL (0.55-1.30); PHOSPHORUS 2.9 MG/DL (2.5-4.9); SODIUM 138 MMOL/L (136-145)
[2017-11-08 07:15] LABS: HEMATOCRIT 33.1 % (42.0-52.0); HEMOGLOBIN 11.3 G/DL (14.2-18.0); MEAN CORPUSCULAR VOLUME 94 FL (80-99); PLATELET COUNT 351 K/UL (150-450); RED BLOOD COUNT 3.51 M/UL (4.70-6.10); RED CELL DISTRIBUTION WIDTH 15.9 % (11.6-14.8); WHITE BLOOD COUNT 19.9 K/UL (4.8-10.8)
[2017-11-08 08:00] VITALS: BP 119/60
[2017-11-08] MEDS: Theophylline ER 100mg ORAL SCH ×2 (08:54→21:01)
[2017-11-08] MEDS: Pantoprazole Inj IV SCH (08:54)
[2017-11-08] MEDS: Heparin 5000 units/ml inj SUBQ SCH ×2 (09:06→21:02)
[2017-11-08 12:11] VITALS: BP 114/63
--- NOTE | 2017-11-08 12:40 | Pulmonology Progress Note ---
Assessment/Plan Problems: (1) Acute respiratory failure (2) COPD (chronic obstructive pulmonary disease) (3) Bilateral pneumonia (4) Severe sepsis (5) Anemia (6) Severe protein-calorie malnutrition Assessment/Plan PEG in am check labs in am pt failed swallow study d/w two sisters at the bed site. they want Gtube feeding symptoamtic treatment respiratory treatment titrate fio2 abx as per ID check electrolytes Subjective ROS Limited/Unobtainable: No Constitutional: Reports: no symptoms HEENT: Repors: no symptoms Respiratory: Reports: no symptoms Allergies: Coded Allergies: No Known Allergies (Unverified , 09/15/17) Objective Last 24 Hour Vital Signs Date Time Temp Pulse Resp B/P (MAP) Pulse Ox O2 Delivery O2 Flow Rate FiO2 11/08/17 12:11 97.9 73 20 114/63 97 Nasal Cannula 2.0 97.9 11/08/17 08:55 72 119/60 11/08/17 08:00 97.9 72 20 119/60 93 Nasal Cannula 2.0 97.9 11/08/17 07:54 Room Air 21 11/08/17 07:54 96 Room Air 21 11/08/17 04:00 97.9 78 18 129/70 97.9 11/08/17 00:00 96 Room Air 11/08/17 00:00 97.8 73 19 118/65 97.8 11/07/17 20:00 93 Room Air 11/07/17 20:00 97.7 74 19 123/51 97.7 11/07/17 16:00 97.7 74 20 117/57 92 97.7 Intake and Output 11/07/17 11/08/17 19:00 07:00 Intake Total 1380 ml 1570 ml Output Total 200 ml Balance 1180 ml 1570 ml Free Water 250 ml 250 ml IV Total 500 ml 600 ml Tube Feeding 630 ml 720 ml Output Urine Total 200 ml Objective General Appearance: cachectic Lines, tubes and drains: peripheral HEENT: normocephalic, atraumatic Neck: non-tender, normal alignment Respiratory/Chest: chest wall non-tender, lungs clear Cardiovascular/Chest: normal peripheral pulses, normal rate Abdomen: normal bowel sounds, non tender Extremities: normal range of motion, non-tender Skin Exam: normal pigmentation Laboratory Tests 11/08/17 05:25: White Blood Count 19.9#H, Red Blood Count 3.51L, Hemoglobin 11.3L, Hematocrit 33.1L, Mean Corpuscular Volume 94, Mean Corpuscular Hemoglobin 32.1H, Mean Corpuscular Hemoglobin Concent 34.0, Red Cell Distribution Width 15.9H, Platelet Count 351, Mean Platelet Volume 6.7, Neutrophils (%) (Auto) , Lymphocytes (%) (Auto) , Monocytes (%) (Auto) , Eosinophils (%) (Auto) , Basophils (%) (Auto) , Differential Total Cells Counted 100, Neutrophils % ( Manual) 94H, Lymphocytes % (Manual) 3L, Monocytes % (Manual) 3, Eosinophils % ( Manual) 0, Basophils % (Manual) 0, Band Neutrophils 0, Platelet Estimate Adequate, Platelet Morphology Normal, Hypochromasia 1+, Prothrombin Time 11.9H, Prothromb Time International Ratio 1.1, Activated Partial Thromboplast Time 37H , Sodium Level 138, Potassium Level 4.0, Chloride Level 106, Carbon Dioxide Level 27, Anion Gap 5, Blood Urea Nitrogen 17, Creatinine 0.8, Estimat Glomerular Filtration Rate , Glucose Level 95, Calcium Level 8.9, Phosphorus Level 2.9, Magnesium Level 2.0, Total Bilirubin 0.5, Aspartate Amino Transf (AST /SGOT) 10L, Alanine Aminotransferase (ALT/SGPT) 23, Alkaline Phosphatase 75, Total Protein 5.4L, Albumin 1.9L, Globulin 3.5, Albumin/Globulin Ratio 0.5L Current Medications Medications (Trade) Dose Ordered Sig/Lenora Route PRN Reason Start Time Stop Time Status Last Admin Dose Admin Amlodipine Besylate (Norvasc) 5 mg DAILY ORAL 11/04/17 09:00 11/29/17 09:59 11/08/17 08:55 Dextrose (Dextrose 50%) STAT PRN IV Hypoglycemia 11/03/17 20:00 11/29/17 19:59 Dextrose/Sodium Chloride 1,000 ml @ 50 mls/hr Q20H IV 11/03/17 19:30 12/03/17 19:29 11/08/17 02:00 Heparin Sodium (Porcine) (Heparin 5000 units/ml) 5,000 units EVERY 12 HOURS SUBQ 11/03/17 21:00 11/28/17 20:59 11/08/17 09:06 Insulin Aspart (NovoLOG) EVERY 6 HOURS SUBQ 11/03/17 18:00 11/30/17 17:59 11/08/17 12:16 Methylprednisolone Sodium Succinate (Solu-MEDROL) 60 mg Q8HR IV 11/03/17 14:00 11/28/17 11:59 11/08/17 05:54 Mineral Oil (Fleet's Mineral Oil Enema) 133 ml DAILYPRN PRN RECTAL Constipation 11/03/17 12:30 12/03/17 12:29 Nitroglycerin (Ntg) 0.4 mg Q5M X 3 DOSES PRN SL Prn Chest Pain 11/03/17 13:00 11/28/17 12:59 Ondansetron HCl (Zofran) 4 mg Q6H PRN IVP Nausea & Vomiting 11/03/17 13:00 11/28/17 12:59 Pantoprazole (Protonix) 40 mg DAILY IV 11/04/17 09:00 11/29/17 08:59 11/08/17 08:54 Promethazine HCl/ Codeine (Phenergan with Codeine) 5 ml Q6H PRN ORAL cough 11/03/17 13:00 11/28/17 12:59 Theophylline (Varghese-Dur) 100 mg EVERY 12 HOURS ORAL 11/03/17 21:00 11/28/17 20:59 11/08/17 08:54 MARY FELIX 11, 2018 12:40
[2017-11-08 16:00] VITALS: BP 105/50
[2017-11-08 19:42] VITALS: BP 116/70
[2017-11-09] MEDS: NovoLOG Insulin Flexpen SUBQ SCH ×4 (00:02→18:01)
[2017-11-09] MEDS: D5 1/2NS 1,000 ML IV SCH ×2 (01:53→22:46)
[2017-11-09 04:02] VITALS: BP 116/70
[2017-11-09] MEDS: Solu-MEDROL 125mg Inj IV SCH ×3 (05:53→22:40)
[2017-11-09 07:26] LABS: HEMOGLOBIN 11.3 G/DL (14.2-18.0); MEAN CORPUSCULAR VOLUME 94 FL (80-99); PLATELET COUNT 357 K/UL (150-450); RED CELL DISTRIBUTION WIDTH 16.1 % (11.6-14.8); WHITE BLOOD COUNT 17.7 K/UL (4.8-10.8)
[2017-11-09 07:48] LABS: INR 1.1 (0.9-1.1)
[2017-11-09 07:57] LABS: ALANINE AMINOTRANSFERASE 21 U/L (12-78); ALBUMIN 1.9 G/DL (3.4-5.0); ALBUMIN/GLOBULIN RATIO 0.5 (1.0-2.7); ALKALINE PHOSPHATASE 74 U/L (46-116); ANION GAP 7 mmol/L (5-15); ASPARTATE AMINO TRANSFERASE 11 U/L (15-37); BILIRUBIN,TOTAL 0.3 MG/DL (0.2-1.0); BLOOD UREA NITROGEN 19 mg/dL (7-18); CALCIUM 8.6 MG/DL (8.5-10.1); CARBON DIOXIDE 25 MMOL/L (21-32); CHLORIDE 106 MMOL/L (98-107); CREATININE 0.8 MG/DL (0.55-1.30); PHOSPHORUS 2.1 MG/DL (2.5-4.9); SODIUM 138 MMOL/L (136-145)
[2017-11-09 08:00] VITALS: BP 123/62
[2017-11-09] MEDS: Pantoprazole Inj IV SCH (08:37)
[2017-11-09] MEDS: Theophylline ER 100mg ORAL SCH ×2 (08:37→22:40)
[2017-11-09] MEDS: Heparin 5000 units/ml inj SUBQ SCH ×2 (08:39→22:43)
[2017-11-09 12:00] VITALS: BP 121/57
--- NOTE | 2017-11-09 12:26 | GI Progress Note ---
Assessment/Plan Problems: (1) Encounter for PEG (percutaneous endoscopic gastrostomy) ICD Codes: Z43.1 - Encounter for attention to gastrostomy SNOMED: 021587753, 395347470 (2) Severe protein-calorie malnutrition ICD Codes: E43 - Unspecified severe protein-calorie malnutrition SNOMED: 274817331 (3) Anemia ICD Codes: D64.9 - Anemia, unspecified SNOMED: 934369019 (4) Upper GI bleed ICD Codes: K92.2 - Gastrointestinal hemorrhage, unspecified SNOMED: 91025037 Status: stable Status Narrative Discussed with Dr. Rose. Assessment/Plan SUMMARY OF FINDINGS: Status post successful PEG placement. RECOMMENDATIONS: GTFs per evaluation for oral grat GT site care/flush prn transfusions ppi fu labs Subjective Subjective hungry thirsty Objective Last 24 Hour Vital Signs Date Time Temp Pulse Resp B/P (MAP) Pulse Ox O2 Delivery O2 Flow Rate FiO2 11/09/17 12:00 97.7 78 19 121/57 94 97.7 11/09/17 08:45 74 110/60 11/09/17 08:35 Room Air 21 11/09/17 08:35 94 Room Air 21 11/09/17 08:00 96.8 72 19 123/62 98 96.8 11/09/17 04:02 97.8 74 16 116/70 92 Room Air 97.8 11/08/17 19:42 98.0 79 18 116/70 94 Room Air 98.0 11/08/17 16:00 97.9 73 20 105/50 90 Room Air 97.9 Intake and Output 11/08/17 11/09/17 19:00 07:00 Intake Total 910 ml 1570 ml Output Total 250 ml 320 ml Balance 660 ml 1250 ml Free Water 200 ml 250 ml IV Total 50 ml 600 ml Tube Feeding 660 ml 720 ml Output Urine Total 250 ml 320 ml Laboratory Tests Test 11/09/17 05:45 White Blood Count 17.7 K/UL (4.8-10.8) H Red Blood Count 3.50 M/UL (4.70-6.10) L Hemoglobin 11.3 G/DL (14.2-18.0) L Hematocrit 33.0 % (42.0-52.0) L Mean Corpuscular Volume 94 FL (80-99) Mean Corpuscular Hemoglobin 32.2 PG (27.0-31.0) H Mean Corpuscular Hemoglobin Concent 34.1 G/DL (32.0-36.0) Red Cell Distribution Width 16.1 % (11.6-14.8) H Platelet Count 357 K/UL (150-450) Mean Platelet Volume 6.9 FL (6.5-10.1) Neutrophils (%) (Auto) % (45.0-75.0) Lymphocytes (%) (Auto) % (20.0-45.0) Monocytes (%) (Auto) % (1.0-10.0) Eosinophils (%) (Auto) % (0.0-3.0) Basophils (%) (Auto) % (0.0-2.0) Differential Total Cells Counted 100 Neutrophils % (Manual) 96 % (45-75) H Lymphocytes % (Manual) 4 % (20-45) L Monocytes % (Manual) 0 % (1-10) L Eosinophils % (Manual) 0 % (0-3) Basophils % (Manual) 0 % (0-2) Band Neutrophils 0 % (0-8) Platelet Estimate Adequate Platelet Morphology Normal Anisocytosis 1+ Prothrombin Time 11.2 SEC (9.30-11.50) Prothromb Time International Ratio 1.1 (0.9-1.1) Activated Partial Thromboplast Time 37 SEC (23-33) H Sodium Level 138 MMOL/L (136-145) Potassium Level 4.0 MMOL/L (3.5-5.1) Chloride Level 106 MMOL/L (98-107) Carbon Dioxide Level 25 MMOL/L (21-32) Anion Gap 7 mmol/L (5-15) Blood Urea Nitrogen 19 mg/dL (7-18) H Creatinine 0.8 MG/DL (0.55-1.30) Estimat Glomerular Filtration Rate mL/min (>60) Glucose Level 130 MG/DL (74-106) H Calcium Level 8.6 MG/DL (8.5-10.1) Phosphorus Level 2.1 MG/DL (2.5-4.9) L Magnesium Level 2.1 MG/DL (1.8-2.4) Total Bilirubin 0.3 MG/DL (0.2-1.0) Aspartate Amino Transf (AST/SGOT) 11 U/L (15-37) L Alanine Aminotransferase (ALT/SGPT) 21 U/L (12-78) Alkaline Phosphatase 74 U/L (46-116) Total Protein 5.4 G/DL (6.4-8.2) L Albumin 1.9 G/DL (3.4-5.0) L Globulin 3.5 g/dL Albumin/Globulin Ratio 0.5 (1.0-2.7) L Height (Feet): 5 Height (Inches): 5.00 Weight (Pounds): 128 General Appearance: WD/WN, no apparent distress, alert Cardiovascular: normal rate Respiratory/Chest: normal breath sounds, no respiratory distress Abdominal Exam: normal bowel sounds, non tender, soft, GT site - c/d/i Extremities: non-tender Nani Marley N.P. Nov 09, 2017 12:26
--- NOTE | 2017-11-09 13:22 | Infectious Diseases Prog Note ---
Assessment/Plan Assessment/Plan ASSESSMENT: The patient is an 82-year-old male with, Healthcare-associated pneumonia Scx: Providencia ( MDR ) , SP RX Chest x-ray, Interval disappearance of the left hemidiaphragm noted indicative of underlying parenchymal disease and or effusion. Influenza: negative Sepsis, SP Leukocytosis, worseing ( on high dose steroids )- r/o new infection Ventilator-dependent respiratory failure (intubated on 10/29/2017)., Extubated 3 / History of CVA with left-sided weakness Hypertension Hyperlipidemia History of GI bleed/GERD History of diabetes Anemia P: Continue to monitor pt off of AB Rx unless febrile, HD unstable 11/07 SP Zosyn #10 11/01 SP vancomycin d# 4 -Repeat cx, u/a and CXR -Cdiff if diarrhea Monitor CBC; trend WBC Monitor BMP Subjective Allergies: Coded Allergies: No Known Allergies (Unverified , 09/15/17) Subjective afebrile leukocytosis but on high dose steroids at RA Objective Vital Signs Last 24 Hour Vital Signs Date Time Temp Pulse Resp B/P (MAP) Pulse Ox O2 Delivery O2 Flow Rate FiO2 11/09/17 12:00 97.7 78 19 121/57 94 97.7 11/09/17 08:45 74 110/60 11/09/17 08:35 Room Air 21 11/09/17 08:35 94 Room Air 21 11/09/17 08:00 96.8 72 19 123/62 98 96.8 11/09/17 04:02 97.8 74 16 116/70 92 Room Air 97.8 11/08/17 19:42 98.0 79 18 116/70 94 Room Air 98.0 11/08/17 16:00 97.9 73 20 105/50 90 Room Air 97.9 Height (Feet): 5 Height (Inches): 5.00 Weight (Pounds): 128 Objective General Appearance: cachectic Lines, tubes and drains: peripheral HEENT: normocephalic, atraumatic Neck: non-tender, normal alignment Respiratory/Chest: chest wall non-tender, lungs clear Cardiovascular/Chest: normal peripheral pulses, normal rate Abdomen: normal bowel sounds, non tender Extremities: normal range of motion, non-tender Skin Exam: normal pigmentation Laboratory Tests Test 11/09/17 05:45 White Blood Count 17.7 K/UL (4.8-10.8) H Red Blood Count 3.50 M/UL (4.70-6.10) L Hemoglobin 11.3 G/DL (14.2-18.0) L Hematocrit 33.0 % (42.0-52.0) L Mean Corpuscular Volume 94 FL (80-99) Mean Corpuscular Hemoglobin 32.2 PG (27.0-31.0) H Mean Corpuscular Hemoglobin Concent 34.1 G/DL (32.0-36.0) Red Cell Distribution Width 16.1 % (11.6-14.8) H Platelet Count 357 K/UL (150-450) Mean Platelet Volume 6.9 FL (6.5-10.1) Neutrophils (%) (Auto) % (45.0-75.0) Lymphocytes (%) (Auto) % (20.0-45.0) Monocytes (%) (Auto) % (1.0-10.0) Eosinophils (%) (Auto) % (0.0-3.0) Basophils (%) (Auto) % (0.0-2.0) Differential Total Cells Counted 100 Neutrophils % (Manual) 96 % (45-75) H Lymphocytes % (Manual) 4 % (20-45) L Monocytes % (Manual) 0 % (1-10) L Eosinophils % (Manual) 0 % (0-3) Basophils % (Manual) 0 % (0-2) Band Neutrophils 0 % (0-8) Platelet Estimate Adequate Platelet Morphology Normal Anisocytosis 1+ Prothrombin Time 11.2 SEC (9.30-11.50) Prothromb Time International Ratio 1.1 (0.9-1.1) Activated Partial Thromboplast Time 37 SEC (23-33) H Sodium Level 138 MMOL/L (136-145) Potassium Level 4.0 MMOL/L (3.5-5.1) Chloride Level 106 MMOL/L (98-107) Carbon Dioxide Level 25 MMOL/L (21-32) Anion Gap 7 mmol/L (5-15) Blood Urea Nitrogen 19 mg/dL (7-18) H Creatinine 0.8 MG/DL (0.55-1.30) Estimat Glomerular Filtration Rate mL/min (>60) Glucose Level 130 MG/DL (74-106) H Calcium Level 8.6 MG/DL (8.5-10.1) Phosphorus Level 2.1 MG/DL (2.5-4.9) L Magnesium Level 2.1 MG/DL (1.8-2.4) Total Bilirubin 0.3 MG/DL (0.2-1.0) Aspartate Amino Transf (AST/SGOT) 11 U/L (15-37) L Alanine Aminotransferase (ALT/SGPT) 21 U/L (12-78) Alkaline Phosphatase 74 U/L (46-116) Total Protein 5.4 G/DL (6.4-8.2) L Albumin 1.9 G/DL (3.4-5.0) L Globulin 3.5 g/dL Albumin/Globulin Ratio 0.5 (1.0-2.7) L Current Medications Medications (Trade) Dose Ordered Sig/Lenora Route PRN Reason Start Time Stop Time Status Last Admin Dose Admin Amlodipine Besylate (Norvasc) 5 mg DAILY ORAL 11/04/17 09:00 11/29/17 09:59 11/09/17 08:45 Dextrose (Dextrose 50%) STAT PRN IV Hypoglycemia 11/03/17 20:00 11/29/17 19:59 Dextrose/Sodium Chloride 1,000 ml @ 50 mls/hr Q20H IV 11/03/17 19:30 12/03/17 19:29 11/09/17 01:53 Heparin Sodium (Porcine) (Heparin 5000 units/ml) 5,000 units EVERY 12 HOURS SUBQ 11/03/17 21:00 11/28/17 20:59 11/09/17 08:39 Insulin Aspart (NovoLOG) EVERY 6 HOURS SUBQ 11/03/17 18:00 11/30/17 17:59 11/09/17 11:55 Methylprednisolone Sodium Succinate (Solu-MEDROL) 60 mg Q8HR IV 11/03/17 14:00 11/28/17 11:59 11/09/17 05:53 Mineral Oil (Fleet's Mineral Oil Enema) 133 ml DAILYPRN PRN RECTAL Constipation 11/03/17 12:30 12/03/17 12:29 Nitroglycerin (Ntg) 0.4 mg Q5M X 3 DOSES PRN SL Prn Chest Pain 11/03/17 13:00 11/28/17 12:59 Ondansetron HCl (Zofran) 4 mg Q6H PRN IVP Nausea & Vomiting 11/03/17 13:00 11/28/17 12:59 Pantoprazole (Protonix) 40 mg DAILY IV 11/04/17 09:00 11/29/17 08:59 11/09/17 08:37 Promethazine HCl/ Codeine (Phenergan with Codeine) 5 ml Q6H PRN ORAL cough 11/03/17 13:00 11/28/17 12:59 Theophylline (Varghese-Dur) 100 mg EVERY 12 HOURS ORAL 11/03/17 21:00 11/28/17 20:59 11/09/17 08:37 Dunia Mondragon M.D. Nov 09, 2017 13:22
--- NOTE | 2017-11-09 14:23 | Diagnostic Imaging Report ---
Indication: Cough Technique: One view of the chest Comparison: 11/04/2017 Findings: Again demonstrated is retrocardiac consolidation and a likely left pleural effusion. This is unchanged. Stable borderline interstitial prominence. There is free air under the right hemidiaphragm. A gastrostomy balloon is present. Extensive chronic appearing changes of the left shoulder are again noted Impression: Stable left basilar pleural and parenchymal disease, over 5 days Pneumoperitoneum. Presumably secondary to gastrostomy performed on 11/06/2016. However, there is still amount of a fair of residual air given the time interval since the gastrostomy, so the possibility of perforated viscus should also be considered. Monitoring for signs of peritonitis is recommended, consideration for CT if indicated by clinical findings. Dr. Hanson was notified of this at the time of interpretation
[2017-11-09 15:01] LABS: APPEARANCE,URINE CLEAR; BILIRUBIN, URINE NEGATIVE (NEGATIVE); GLUCOSE, URINE (UA) 2+ (NEGATIVE); KETONES,URINE NEGATIVE (NEGATIVE); LEUKOCYTE ESTERASE ,URINE 1+ (NEGATIVE); NITRITE,URINE NEGATIVE (NEGATIVE); PH,URINE 6 (4.5-8.0); PROTEIN,URINE 2+ (NEGATIVE); UROBILINOGEN,URINE 8 MG/DL (0.0-1.0)
[2017-11-09 15:11] LABS: COLOR,URINE YELLOW
[2017-11-09 16:00] VITALS: BP 126/61
--- NOTE | 2017-11-09 17:58 | Pulmonology Progress Note ---
Assessment/Plan Problems: (1) Acute respiratory failure (2) COPD (chronic obstructive pulmonary disease) (3) Bilateral pneumonia (4) Severe sepsis (5) Anemia (6) Severe protein-calorie malnutrition Assessment/Plan PEG today check labs in am pt failed swallow study d/w two sisters at the bed site. they want Gtube feeding symptoamtic treatment respiratory treatment titrate fio2 abx as per ID check electrolytes dc planning soon Subjective ROS Limited/Unobtainable: No Allergies: Coded Allergies: No Known Allergies (Unverified , 09/15/17) Objective Last 24 Hour Vital Signs Date Time Temp Pulse Resp B/P (MAP) Pulse Ox O2 Delivery O2 Flow Rate FiO2 11/09/17 12:00 97.7 78 19 121/57 94 97.7 11/09/17 08:45 74 110/60 11/09/17 08:35 Room Air 21 11/09/17 08:35 94 Room Air 21 11/09/17 08:00 96.8 72 19 123/62 98 96.8 11/09/17 04:02 97.8 74 16 116/70 92 Room Air 97.8 11/08/17 19:42 98.0 79 18 116/70 94 Room Air 98.0 Intake and Output 11/08/17 11/09/17 19:00 07:00 Intake Total 910 ml 1570 ml Output Total 250 ml 320 ml Balance 660 ml 1250 ml Free Water 200 ml 250 ml IV Total 50 ml 600 ml Tube Feeding 660 ml 720 ml Output Urine Total 250 ml 320 ml Objective General Appearance: cachectic Lines, tubes and drains: peripheral HEENT: normocephalic, atraumatic Neck: non-tender, normal alignment Respiratory/Chest: chest wall non-tender, lungs clear Cardiovascular/Chest: normal peripheral pulses, normal rate Abdomen: normal bowel sounds, non tender Extremities: normal range of motion, non-tender Skin Exam: normal pigmentation Laboratory Tests 11/09/17 05:45: White Blood Count 17.7H, Red Blood Count 3.50L, Hemoglobin 11.3L, Hematocrit 33.0L, Mean Corpuscular Volume 94, Mean Corpuscular Hemoglobin 32.2H, Mean Corpuscular Hemoglobin Concent 34.1, Red Cell Distribution Width 16.1H, Platelet Count 357, Mean Platelet Volume 6.9, Neutrophils (%) (Auto) , Lymphocytes (%) (Auto) , Monocytes (%) (Auto) , Eosinophils (%) (Auto) , Basophils (%) (Auto) , Differential Total Cells Counted 100, Neutrophils % ( Manual) 96H, Lymphocytes % (Manual) 4L, Monocytes % (Manual) 0L, Eosinophils % ( Manual) 0, Basophils % (Manual) 0, Band Neutrophils 0, Platelet Estimate Adequate, Platelet Morphology Normal, Anisocytosis 1+, Prothrombin Time 11.2, Prothromb Time International Ratio 1.1, Activated Partial Thromboplast Time 37H , Sodium Level 138, Potassium Level 4.0, Chloride Level 106, Carbon Dioxide Level 25, Anion Gap 7, Blood Urea Nitrogen 19H, Creatinine 0.8, Estimat Glomerular Filtration Rate , Glucose Level 130H, Calcium Level 8.6, Phosphorus Level 2.1L, Magnesium Level 2.1, Total Bilirubin 0.3, Aspartate Amino Transf ( AST/SGOT) 11L, Alanine Aminotransferase (ALT/SGPT) 21, Alkaline Phosphatase 74, Total Protein 5.4L, Albumin 1.9L, Globulin 3.5, Albumin/Globulin Ratio 0.5L 11/09/17 14:30: Urine Color Yellow, Urine Appearance Clear, Urine pH 6, Urine Specific [place] 1.020, Urine Protein 2+H, Urine Glucose (UA) 2+H, Urine Ketones Negative, Urine Occult Blood 1+H, Urine Nitrite Negative, Urine Bilirubin Negative, Urine Urobilinogen 8H, Urine Leukocyte Esterase 1+H, Urine RBC 5-10H, Urine WBC 2-4, Urine Squamous Epithelial Cells Occasional, Urine Bacteria Occasional Current Medications Medications (Trade) Dose Ordered Sig/Lenora Route PRN Reason Start Time Stop Time Status Last Admin Dose Admin Amlodipine Besylate (Norvasc) 5 mg DAILY ORAL 11/04/17 09:00 11/29/17 09:59 11/09/17 08:45 Dextrose (Dextrose 50%) STAT PRN IV Hypoglycemia 11/03/17 20:00 11/29/17 19:59 Dextrose/Sodium Chloride 1,000 ml @ 50 mls/hr Q20H IV 11/03/17 19:30 12/03/17 19:29 11/09/17 01:53 Heparin Sodium (Porcine) (Heparin 5000 units/ml) 5,000 units EVERY 12 HOURS SUBQ 11/03/17 21:00 11/28/17 20:59 11/09/17 08:39 Insulin Aspart (NovoLOG) EVERY 6 HOURS SUBQ 11/03/17 18:00 11/30/17 17:59 11/09/17 11:55 Methylprednisolone Sodium Succinate (Solu-MEDROL) 60 mg Q8HR IV 11/03/17 14:00 11/28/17 11:59 11/09/17 14:46 Mineral Oil (Fleet's Mineral Oil Enema) 133 ml DAILYPRN PRN RECTAL Constipation 11/03/17 12:30 12/03/17 12:29 Nitroglycerin (Ntg) 0.4 mg Q5M X 3 DOSES PRN SL Prn Chest Pain 11/03/17 13:00 11/28/17 12:59 Ondansetron HCl (Zofran) 4 mg Q6H PRN IVP Nausea & Vomiting 11/03/17 13:00 11/28/17 12:59 Pantoprazole (Protonix) 40 mg DAILY IV 11/04/17 09:00 11/29/17 08:59 11/09/17 08:37 Promethazine HCl/ Codeine (Phenergan with Codeine) 5 ml Q6H PRN ORAL cough 11/03/17 13:00 11/28/17 12:59 Theophylline (Varghese-Dur) 100 mg EVERY 12 HOURS ORAL 11/03/17 21:00 11/28/17 20:59 11/09/17 08:37 MARY FELIX Nov 09, 2017 17:58
[2017-11-09 18:04] VITALS: BP 123/69
[2017-11-09 20:00] VITALS: BP 133/68
[2017-11-10] VITALS: BP 131/74
[2017-11-10] MEDS: NovoLOG Insulin Flexpen SUBQ SCH ×4 (00:33→16:55)
[2017-11-10 04:00] VITALS: BP 142/74
[2017-11-10] MEDS: Solu-MEDROL 125mg Inj IV SCH ×3 (05:55→21:43)
[2017-11-10 07:01] LABS: HEMATOCRIT 32.6 % (42.0-52.0); HEMOGLOBIN 11.1 G/DL (14.2-18.0); MEAN CORPUSCULAR VOLUME 95 FL (80-99); PLATELET COUNT 359 K/UL (150-450); RED BLOOD COUNT 3.43 M/UL (4.70-6.10); RED CELL DISTRIBUTION WIDTH 16.1 % (11.6-14.8); WHITE BLOOD COUNT 13.9 K/UL (4.8-10.8)
[2017-11-10 07:18] LABS: ALANINE AMINOTRANSFERASE 23 U/L (12-78); ALBUMIN 1.7 G/DL (3.4-5.0); ALBUMIN/GLOBULIN RATIO 0.5 (1.0-2.7); ALKALINE PHOSPHATASE 71 U/L (46-116); ANION GAP 5 mmol/L (5-15); ASPARTATE AMINO TRANSFERASE 10 U/L (15-37); BILIRUBIN,TOTAL 0.2 MG/DL (0.2-1.0); BLOOD UREA NITROGEN 20 mg/dL (7-18); CALCIUM 8.7 MG/DL (8.5-10.1); CARBON DIOXIDE 27 MMOL/L (21-32); CHLORIDE 104 MMOL/L (98-107); CREATININE 0.7 MG/DL (0.55-1.30); SODIUM 136 MMOL/L (136-145)
[2017-11-10 07:37] LABS: PHOSPHORUS 2.3 MG/DL (2.5-4.9)
[2017-11-10 08:00] VITALS: BP 116/78
[2017-11-10] MEDS: Pantoprazole Inj IV SCH (08:20)
[2017-11-10] MEDS: Theophylline ER 100mg ORAL SCH ×2 (08:20→21:45)
[2017-11-10] MEDS: Heparin 5000 units/ml inj SUBQ SCH ×2 (08:22→21:46)
[2017-11-10 12:00] VITALS: BP 112/62
--- NOTE | 2017-11-10 13:39 | Infectious Diseases Prog Note ---
Assessment/Plan Assessment/Plan ASSESSMENT: The patient is an 82-year-old male with, Healthcare-associated pneumonia Scx: Providencia ( MDR ) , SP RX Chest x-ray, Interval disappearance of the left hemidiaphragm noted indicative of underlying parenchymal disease and or effusion. Influenza: negative Sepsis, SP Leukocytosis, improving off abx( on high dose steroids )- r/o new infection -u/a no pyuria -CXR 11/09: Stable left basilar pleural and parenchymal disease, over 5 days. Pneumoperitoneum. Presumably secondary to gastrostomy performed on 11/06/2016. However, there is still amount of a fair of residual air given the time interval since the gastrostomy, so the possibility of perforated viscus should also be considered. -Bcx 11/09 p Pneumoperitoneum- ?related to PEG; monitor closely s/p PEG 11/06 Ventilator-dependent respiratory failure (intubated on 10/29/2017)., Extubated History of CVA with left-sided weakness Hypertension Hyperlipidemia History of GI bleed/GERD History of diabetes Anemia P: Continue to monitor pt off of AB Rx unless febrile, HD unstable 11/07 SP Zosyn #10 11/01 SP vancomycin d# 4 -Low threshold for CT abd/p if febrile, abd/pain given CXR findings -f/u repeat cultures Monitor CBC; trend WBC Monitor BMP -GI following Subjective Allergies: Coded Allergies: No Known Allergies (Unverified , 09/15/17) Subjective afebrile leukocytosis improving at RA off abx Objective Vital Signs Last 24 Hour Vital Signs Date Time Temp Pulse Resp B/P (MAP) Pulse Ox O2 Delivery O2 Flow Rate FiO2 11/10/17 12:00 97.5 64 19 112/62 96 97.5 11/10/17 08:19 65 116/78 11/10/17 08:00 97.2 65 19 116/78 100 97.2 11/10/17 04:00 97.9 72 19 142/74 97 97.9 11/10/17 00:00 98.6 78 19 131/74 96 98.6 11/09/17 20:00 99.5 86 19 133/68 94 99.5 11/09/17 19:15 Room Air 21 11/09/17 19:15 95 Room Air 21 11/09/17 18:04 99.5 75 18 123/69 98 Room Air 99.5 11/09/17 16:00 98.0 75 20 126/61 98 Room Air 98.0 Height (Feet): 5 Height (Inches): 5.00 Weight (Pounds): 128 Objective General Appearance: cachectic Lines, tubes and drains: peripheral HEENT: normocephalic, atraumatic Neck: non-tender, normal alignment Respiratory/Chest: chest wall non-tender, lungs clear Cardiovascular/Chest: normal peripheral pulses, normal rate Abdomen: normal bowel sounds, non tender Extremities: normal range of motion, non-tender Skin Exam: normal pigmentation Laboratory Tests Test 11/09/17 14:30 11/10/17 05:30 Urine Color Yellow Urine Appearance Clear Urine pH 6 (4.5-8.0) Urine Specific [place] 1.020 (1.005-1.035) Urine Protein 2+ (NEGATIVE) H Urine Glucose (UA) 2+ (NEGATIVE) H Urine Ketones Negative (NEGATIVE) Urine Occult Blood 1+ (NEGATIVE) H Urine Nitrite Negative (NEGATIVE) Urine Bilirubin Negative (NEGATIVE) Urine Urobilinogen 8 MG/DL (0.0-1.0) H Urine Leukocyte Esterase 1+ (NEGATIVE) H Urine RBC 5-10 /HPF (0 - 0) H Urine WBC 2-4 /HPF (0 - 0) Urine Squamous Epithelial Cells Occasional /LPF Urine Bacteria Occasional /HPF (NONE) White Blood Count 13.9 K/UL (4.8-10.8) H Red Blood Count 3.43 M/UL (4.70-6.10) L Hemoglobin 11.1 G/DL (14.2-18.0) L Hematocrit 32.6 % (42.0-52.0) L Mean Corpuscular Volume 95 FL (80-99) Mean Corpuscular Hemoglobin 32.4 PG (27.0-31.0) H Mean Corpuscular Hemoglobin Concent 34.1 G/DL (32.0-36.0) Red Cell Distribution Width 16.1 % (11.6-14.8) H Platelet Count 359 K/UL (150-450) Mean Platelet Volume 6.7 FL (6.5-10.1) Neutrophils (%) (Auto) % (45.0-75.0) Lymphocytes (%) (Auto) % (20.0-45.0) Monocytes (%) (Auto) % (1.0-10.0) Eosinophils (%) (Auto) % (0.0-3.0) Basophils (%) (Auto) % (0.0-2.0) Differential Total Cells Counted 100 Neutrophils % (Manual) 95 % (45-75) H Lymphocytes % (Manual) 1 % (20-45) L Monocytes % (Manual) 4 % (1-10) Eosinophils % (Manual) 0 % (0-3) Basophils % (Manual) 0 % (0-2) Band Neutrophils 0 % (0-8) Platelet Estimate Adequate Platelet Morphology Normal Anisocytosis 1+ Sodium Level 136 MMOL/L (136-145) Potassium Level 4.0 MMOL/L (3.5-5.1) Chloride Level 104 MMOL/L (98-107) Carbon Dioxide Level 27 MMOL/L (21-32) Anion Gap 5 mmol/L (5-15) Blood Urea Nitrogen 20 mg/dL (7-18) H Creatinine 0.7 MG/DL (0.55-1.30) Estimat Glomerular Filtration Rate mL/min (>60) Glucose Level 134 MG/DL (74-106) H Calcium Level 8.7 MG/DL (8.5-10.1) Phosphorus Level 2.3 MG/DL (2.5-4.9) L Magnesium Level 2.0 MG/DL (1.8-2.4) Total Bilirubin 0.2 MG/DL (0.2-1.0) Aspartate Amino Transf (AST/SGOT) 10 U/L (15-37) L Alanine Aminotransferase (ALT/SGPT) 23 U/L (12-78) Alkaline Phosphatase 71 U/L (46-116) Total Protein 5.2 G/DL (6.4-8.2) L Albumin 1.7 G/DL (3.4-5.0) L Globulin 3.5 g/dL Albumin/Globulin Ratio 0.5 (1.0-2.7) L Current Medications Medications (Trade) Dose Ordered Sig/Lenora Route PRN Reason Start Time Stop Time Status Last Admin Dose Admin Amlodipine Besylate (Norvasc) 5 mg DAILY ORAL 11/04/17 09:00 11/29/17 09:59 11/10/17 08:19 Dextrose (Dextrose 50%) STAT PRN IV Hypoglycemia 11/03/17 20:00 11/29/17 19:59 Dextrose/Sodium Chloride 1,000 ml @ 50 mls/hr Q20H IV 11/03/17 19:30 12/03/17 19:29 11/09/17 22:46 Heparin Sodium (Porcine) (Heparin 5000 units/ml) 5,000 units EVERY 12 HOURS SUBQ 11/03/17 21:00 11/28/17 20:59 11/10/17 08:22 Insulin Aspart (NovoLOG) EVERY 6 HOURS SUBQ 11/03/17 18:00 11/30/17 17:59 11/10/17 05:57 Methylprednisolone Sodium Succinate (Solu-MEDROL) 60 mg Q8HR IV 11/03/17 14:00 11/28/17 11:59 11/10/17 13:21 Mineral Oil (Fleet's Mineral Oil Enema) 133 ml DAILYPRN PRN RECTAL Constipation 11/03/17 12:30 12/03/17 12:29 Nitroglycerin (Ntg) 0.4 mg Q5M X 3 DOSES PRN SL Prn Chest Pain 11/03/17 13:00 11/28/17 12:59 Ondansetron HCl (Zofran) 4 mg Q6H PRN IVP Nausea & Vomiting 11/03/17 13:00 11/28/17 12:59 Pantoprazole (Protonix) 40 mg DAILY IV 11/04/17 09:00 11/29/17 08:59 11/10/17 08:20 Promethazine HCl/ Codeine (Phenergan with Codeine) 5 ml Q6H PRN ORAL cough 11/03/17 13:00 11/28/17 12:59 Theophylline (Varghese-Dur) 100 mg EVERY 12 HOURS ORAL 11/03/17 21:00 11/28/17 20:59 11/10/17 08:20 Dunia Mondragon M.D. Nov 10, 2017 13:38
[2017-11-10 15:56] VITALS: BP 110/82
--- NOTE | 2017-11-10 16:33 | GI Progress Note ---
Assessment/Plan Problems: (1) Encounter for PEG (percutaneous endoscopic gastrostomy) ICD Codes: Z43.1 - Encounter for attention to gastrostomy SNOMED: 378668643, 577443014 (2) Severe protein-calorie malnutrition ICD Codes: E43 - Unspecified severe protein-calorie malnutrition SNOMED: 338974326 (3) Anemia ICD Codes: D64.9 - Anemia, unspecified SNOMED: 699283800 (4) Upper GI bleed ICD Codes: K92.2 - Gastrointestinal hemorrhage, unspecified SNOMED: 32271381 Status: stable Status Narrative Discussed with Dr. Rose. Assessment/Plan SUMMARY OF FINDINGS: Status post successful PEG placement. RECOMMENDATIONS: GTFs per ST evaluation for oral grat GT site care/flush prn transfusions ppi fu labs Subjective Subjective hungry thirsty Objective Last 24 Hour Vital Signs Date Time Temp Pulse Resp B/P (MAP) Pulse Ox O2 Delivery O2 Flow Rate FiO2 11/10/17 15:56 97.3 82 19 110/82 97 97.3 11/10/17 12:00 97.5 64 19 112/62 96 97.5 11/10/17 08:19 65 116/78 11/10/17 08:00 97.2 65 19 116/78 100 97.2 11/10/17 04:00 97.9 72 19 142/74 97 97.9 11/10/17 00:00 98.6 78 19 131/74 96 98.6 11/09/17 20:00 99.5 86 19 133/68 94 99.5 11/09/17 19:15 Room Air 21 11/09/17 19:15 95 Room Air 21 11/09/17 18:04 99.5 75 18 123/69 98 Room Air 99.5 Intake and Output 11/09/17 11/10/17 19:00 07:00 Intake Total 1470 ml 1310 ml Output Total 500 ml Balance 1470 ml 810 ml Free Water 150 ml 150 ml IV Total 600 ml 500 ml Tube Feeding 720 ml 660 ml Output Urine Total 500 ml Laboratory Tests Test 11/10/17 05:30 White Blood Count 13.9 K/UL (4.8-10.8) H Red Blood Count 3.43 M/UL (4.70-6.10) L Hemoglobin 11.1 G/DL (14.2-18.0) L Hematocrit 32.6 % (42.0-52.0) L Mean Corpuscular Volume 95 FL (80-99) Mean Corpuscular Hemoglobin 32.4 PG (27.0-31.0) H Mean Corpuscular Hemoglobin Concent 34.1 G/DL (32.0-36.0) Red Cell Distribution Width 16.1 % (11.6-14.8) H Platelet Count 359 K/UL (150-450) Mean Platelet Volume 6.7 FL (6.5-10.1) Neutrophils (%) (Auto) % (45.0-75.0) Lymphocytes (%) (Auto) % (20.0-45.0) Monocytes (%) (Auto) % (1.0-10.0) Eosinophils (%) (Auto) % (0.0-3.0) Basophils (%) (Auto) % (0.0-2.0) Differential Total Cells Counted 100 Neutrophils % (Manual) 95 % (45-75) H Lymphocytes % (Manual) 1 % (20-45) L Monocytes % (Manual) 4 % (1-10) Eosinophils % (Manual) 0 % (0-3) Basophils % (Manual) 0 % (0-2) Band Neutrophils 0 % (0-8) Platelet Estimate Adequate Platelet Morphology Normal Anisocytosis 1+ Sodium Level 136 MMOL/L (136-145) Potassium Level 4.0 MMOL/L (3.5-5.1) Chloride Level 104 MMOL/L (98-107) Carbon Dioxide Level 27 MMOL/L (21-32) Anion Gap 5 mmol/L (5-15) Blood Urea Nitrogen 20 mg/dL (7-18) H Creatinine 0.7 MG/DL (0.55-1.30) Estimat Glomerular Filtration Rate mL/min (>60) Glucose Level 134 MG/DL (74-106) H Calcium Level 8.7 MG/DL (8.5-10.1) Phosphorus Level 2.3 MG/DL (2.5-4.9) L Magnesium Level 2.0 MG/DL (1.8-2.4) Total Bilirubin 0.2 MG/DL (0.2-1.0) Aspartate Amino Transf (AST/SGOT) 10 U/L (15-37) L Alanine Aminotransferase (ALT/SGPT) 23 U/L (12-78) Alkaline Phosphatase 71 U/L (46-116) Total Protein 5.2 G/DL (6.4-8.2) L Albumin 1.7 G/DL (3.4-5.0) L Globulin 3.5 g/dL Albumin/Globulin Ratio 0.5 (1.0-2.7) L Height (Feet): 5 Height (Inches): 5.00 Weight (Pounds): 128 General Appearance: WD/WN, no apparent distress, alert Cardiovascular: normal rate Respiratory/Chest: normal breath sounds, no respiratory distress Abdominal Exam: normal bowel sounds, non tender, soft Extremities: normal range of motion, non-tender Nani Marley N.P. Nov 10, 2017 16:32
[2017-11-10 20:00] VITALS: BP 146/75
--- NOTE | 2017-11-10 21:24 | Pulmonology Progress Note ---
Assessment/Plan Problems: (1) Acute respiratory failure (2) COPD (chronic obstructive pulmonary disease) (3) Bilateral pneumonia (4) Severe sepsis (5) Anemia (6) Severe protein-calorie malnutrition Assessment/Plan 2bc still high , off abx check labs in am d/w two sisters at the bed site. they want Gtube feeding symptoamtic treatment respiratory treatment titrate fio2 abx as per ID check electrolytes dc planning soon Subjective ROS Limited/Unobtainable: No Constitutional: Reports: no symptoms HEENT: Repors: no symptoms Respiratory: Reports: no symptoms Allergies: Coded Allergies: No Known Allergies (Unverified , 09/15/17) Objective Last 24 Hour Vital Signs Date Time Temp Pulse Resp B/P (MAP) Pulse Ox O2 Delivery O2 Flow Rate FiO2 11/10/17 20:00 97.5 75 17 146/75 97.5 11/10/17 15:56 97.3 82 19 110/82 97 97.3 11/10/17 12:00 97.5 64 19 112/62 96 97.5 11/10/17 08:19 65 116/78 11/10/17 08:00 97.2 65 19 116/78 100 97.2 11/10/17 04:00 97.9 72 19 142/74 97 97.9 11/10/17 00:00 98.6 78 19 131/74 96 98.6 Intake and Output 11/09/17 11/10/17 19:00 07:00 Intake Total 1470 ml 1310 ml Output Total 500 ml Balance 1470 ml 810 ml Free Water 150 ml 150 ml IV Total 600 ml 500 ml Tube Feeding 720 ml 660 ml Output Urine Total 500 ml Objective General Appearance: cachectic Lines, tubes and drains: peripheral HEENT: normocephalic, atraumatic Neck: non-tender, normal alignment Respiratory/Chest: chest wall non-tender, lungs clear Cardiovascular/Chest: normal peripheral pulses, normal rate Abdomen: normal bowel sounds, non tender Extremities: normal range of motion, non-tender Skin Exam: normal pigmentation Laboratory Tests 11/10/17 05:30: White Blood Count 13.9H, Red Blood Count 3.43L, Hemoglobin 11.1L, Hematocrit 32.6L, Mean Corpuscular Volume 95, Mean Corpuscular Hemoglobin 32.4H, Mean Corpuscular Hemoglobin Concent 34.1, Red Cell Distribution Width 16.1H, Platelet Count 359, Mean Platelet Volume 6.7, Neutrophils (%) (Auto) , Lymphocytes (%) (Auto) , Monocytes (%) (Auto) , Eosinophils (%) (Auto) , Basophils (%) (Auto) , Differential Total Cells Counted 100, Neutrophils % ( Manual) 95H, Lymphocytes % (Manual) 1L, Monocytes % (Manual) 4, Eosinophils % ( Manual) 0, Basophils % (Manual) 0, Band Neutrophils 0, Platelet Estimate Adequate, Platelet Morphology Normal, Anisocytosis 1+, Sodium Level 136, Potassium Level 4.0, Chloride Level 104, Carbon Dioxide Level 27, Anion Gap 5, Blood Urea Nitrogen 20H, Creatinine 0.7, Estimat Glomerular Filtration Rate , Glucose Level 134H, Calcium Level 8.7, Phosphorus Level 2.3L, Magnesium Level 2.0, Total Bilirubin 0.2, Aspartate Amino Transf (AST/SGOT) 10L, Alanine Aminotransferase (ALT/SGPT) 23, Alkaline Phosphatase 71, Total Protein 5.2L, Albumin 1.7L, Globulin 3.5, Albumin/Globulin Ratio 0.5L Current Medications Medications (Trade) Dose Ordered Sig/Lenora Route PRN Reason Start Time Stop Time Status Last Admin Dose Admin Amlodipine Besylate (Norvasc) 5 mg DAILY ORAL 11/04/17 09:00 11/29/17 09:59 11/10/17 08:19 Dextrose (Dextrose 50%) STAT PRN IV Hypoglycemia 11/03/17 20:00 11/29/17 19:59 Dextrose/Sodium Chloride 1,000 ml @ 50 mls/hr Q20H IV 11/03/17 19:30 12/03/17 19:29 11/09/17 22:46 Heparin Sodium (Porcine) (Heparin 5000 units/ml) 5,000 units EVERY 12 HOURS SUBQ 11/03/17 21:00 11/28/17 20:59 11/10/17 08:22 Insulin Aspart (NovoLOG) EVERY 6 HOURS SUBQ 11/03/17 18:00 11/30/17 17:59 11/10/17 16:55 Methylprednisolone Sodium Succinate (Solu-MEDROL) 60 mg Q8HR IV 11/03/17 14:00 11/28/17 11:59 11/10/17 13:21 Mineral Oil (Fleet's Mineral Oil Enema) 133 ml DAILYPRN PRN RECTAL Constipation 11/03/17 12:30 12/03/17 12:29 Nitroglycerin (Ntg) 0.4 mg Q5M X 3 DOSES PRN SL Prn Chest Pain 11/03/17 13:00 11/28/17 12:59 Ondansetron HCl (Zofran) 4 mg Q6H PRN IVP Nausea & Vomiting 11/03/17 13:00 11/28/17 12:59 Pantoprazole (Protonix) 40 mg DAILY IV 11/04/17 09:00 11/29/17 08:59 11/10/17 08:20 Promethazine HCl/ Codeine (Phenergan with Codeine) 5 ml Q6H PRN ORAL cough 11/03/17 13:00 11/28/17 12:59 Theophylline (Varghese-Dur) 100 mg EVERY 12 HOURS ORAL 11/03/17 21:00 11/28/17 20:59 11/10/17 08:20 Earnestine Hanson MD Nov 10, 2017 21:24
[2017-11-11] VITALS: BP 120/62
[2017-11-11] MEDS: NovoLOG Insulin Flexpen SUBQ SCH ×3 (00:25→12:00)
[2017-11-11 04:00] VITALS: BP 131/73
[2017-11-11] MEDS: Solu-MEDROL 125mg Inj IV SCH (06:10)
[2017-11-11] MEDS: D5 1/2NS 1,000 ML IV SCH (06:11)
[2017-11-11 08:00] VITALS: BP 122/60
[2017-11-11] MEDS: Theophylline ER 100mg ORAL SCH (08:37)
[2017-11-11] MEDS: Pantoprazole Inj IV SCH (08:37)
[2017-11-11] MEDS: Heparin 5000 units/ml inj SUBQ SCH (08:50)
[2017-11-11 09:29] LABS: HEMATOCRIT 37.5 % (42.0-52.0); HEMOGLOBIN 12.6 G/DL (14.2-18.0); MEAN CORPUSCULAR VOLUME 95 FL (80-99); PLATELET COUNT 394 K/UL (150-450); RED BLOOD COUNT 3.94 M/UL (4.70-6.10); RED CELL DISTRIBUTION WIDTH 16.3 % (11.6-14.8); WHITE BLOOD COUNT 14.8 K/UL (4.8-10.8)
[2017-11-11 09:52] LABS: ALANINE AMINOTRANSFERASE 30 U/L (12-78); ALBUMIN 1.8 G/DL (3.4-5.0); ALBUMIN/GLOBULIN RATIO 0.5 (1.0-2.7); ALKALINE PHOSPHATASE 81 U/L (46-116); ANION GAP 6 mmol/L (5-15); ASPARTATE AMINO TRANSFERASE 13 U/L (15-37); BILIRUBIN,TOTAL 0.3 MG/DL (0.2-1.0); BLOOD UREA NITROGEN 20 mg/dL (7-18); CALCIUM 8.6 MG/DL (8.5-10.1); CARBON DIOXIDE 27 MMOL/L (21-32); CHLORIDE 102 MMOL/L (98-107); CREATININE 0.7 MG/DL (0.55-1.30); POTASSIUM 4.3 MMOL/L (3.5-5.1); SODIUM 135 MMOL/L (136-145)
[2017-11-11 10:34] LABS: PHOSPHORUS 2.5 MG/DL (2.5-4.9)
[2017-11-11] MEDS ORDERED: D5 1/2NS 1000ml IV ONE ×4 (11:15→14:48)
--- NOTE | 2017-11-11 11:15 | GI Progress Note ---
Assessment/Plan Problems: (1) Encounter for PEG (percutaneous endoscopic gastrostomy) ICD Codes: Z43.1 - Encounter for attention to gastrostomy SNOMED: 471875322, 836015207 (2) Severe protein-calorie malnutrition ICD Codes: E43 - Unspecified severe protein-calorie malnutrition SNOMED: 731476412 (3) Anemia ICD Codes: D64.9 - Anemia, unspecified SNOMED: 107213424 (4) Upper GI bleed ICD Codes: K92.2 - Gastrointestinal hemorrhage, unspecified SNOMED: 29079440 Status: stable, progressing Status Narrative Discussed with Dr. Rose. Assessment/Plan SUMMARY OF FINDINGS: Status post successful PEG placement. RECOMMENDATIONS: GTFs per evaluation for oral grat GT site care/flush prn transfusions ppi fu labs The patient was seen and examined at bedside and all new and available data was reviewed in the patients chart. I agree with the above findings, impression and plan. (Patient seen earlier today. Signature stamp does not reflect patient encounter time.). - Josh Rose MD Subjective Subjective hungry thirsty Objective Last 24 Hour Vital Signs Date Time Temp Pulse Resp B/P (MAP) Pulse Ox O2 Delivery O2 Flow Rate FiO2 11/11/17 08:37 70 131/73 11/11/17 08:00 97.7 75 16 122/60 97 97.7 11/11/17 07:56 Room Air 21 11/11/17 07:55 96 Room Air 21 11/11/17 04:00 97.6 70 17 131/73 96 97.6 11/11/17 00:00 97.7 70 16 120/62 94 97.7 11/10/17 20:00 97.5 75 17 146/75 97.5 11/10/17 15:56 97.3 82 19 110/82 97 97.3 11/10/17 12:00 97.5 64 19 112/62 96 97.5 Intake and Output 11/10/17 11/11/17 19:00 07:00 Intake Total 1190 ml 980 ml Output Total 250 ml Balance 940 ml 980 ml Free Water 300 ml 150 ml IV Total 350 ml 350 ml Tube Feeding 540 ml 480 ml Output Urine Total 250 ml Laboratory Tests Test 11/11/17 08:45 White Blood Count 14.8 K/UL (4.8-10.8) H Red Blood Count 3.94 M/UL (4.70-6.10) L Hemoglobin 12.6 G/DL (14.2-18.0) L Hematocrit 37.5 % (42.0-52.0) L Mean Corpuscular Volume 95 FL (80-99) Mean Corpuscular Hemoglobin 31.9 PG (27.0-31.0) H Mean Corpuscular Hemoglobin Concent 33.5 G/DL (32.0-36.0) Red Cell Distribution Width 16.3 % (11.6-14.8) H Platelet Count 394 K/UL (150-450) Mean Platelet Volume 7.3 FL (6.5-10.1) Neutrophils (%) (Auto) % (45.0-75.0) Lymphocytes (%) (Auto) % (20.0-45.0) Monocytes (%) (Auto) % (1.0-10.0) Eosinophils (%) (Auto) % (0.0-3.0) Basophils (%) (Auto) % (0.0-2.0) Differential Total Cells Counted 100 Neutrophils % (Manual) 91 % (45-75) H Lymphocytes % (Manual) 3 % (20-45) L Monocytes % (Manual) 6 % (1-10) Eosinophils % (Manual) 0 % (0-3) Basophils % (Manual) 0 % (0-2) Band Neutrophils 0 % (0-8) Platelet Estimate Adequate Platelet Morphology Normal Anisocytosis 1+ Erythrocyte Sedimentation Rate 32 MM/HR (0-30) H Sodium Level 135 MMOL/L (136-145) L Potassium Level 4.3 MMOL/L (3.5-5.1) Chloride Level 102 MMOL/L (98-107) Carbon Dioxide Level 27 MMOL/L (21-32) Anion Gap 6 mmol/L (5-15) Blood Urea Nitrogen 20 mg/dL (7-18) H Creatinine 0.7 MG/DL (0.55-1.30) Estimat Glomerular Filtration Rate mL/min (>60) Glucose Level 138 MG/DL (74-106) H Calcium Level 8.6 MG/DL (8.5-10.1) Phosphorus Level 2.5 MG/DL (2.5-4.9) Magnesium Level 2.0 MG/DL (1.8-2.4) Total Bilirubin 0.3 MG/DL (0.2-1.0) Aspartate Amino Transf (AST/SGOT) 13 U/L (15-37) L Alanine Aminotransferase (ALT/SGPT) 30 U/L (12-78) Alkaline Phosphatase 81 U/L (46-116) C-Reactive Protein, Quantitative 2.5 mg/dL (0.00-0.90) H Total Protein 5.5 G/DL (6.4-8.2) L Albumin 1.8 G/DL (3.4-5.0) L Globulin 3.7 g/dL Albumin/Globulin Ratio 0.5 (1.0-2.7) L Height (Feet): 5 Height (Inches): 5.00 Weight (Pounds): 133 General Appearance: alert Cardiovascular: normal rate Respiratory/Chest: normal breath sounds Abdominal Exam: normal bowel sounds, non tender, soft, GT site - c/d/i Nani Marley N.P. Nov 11, 2017 11:15 SRIKANTH ROSE Nov 20, 2017 08:26
[2017-11-11 12:00] VITALS: BP 128/72
--- NOTE | 2017-11-11 17:09 | Cardiology Report ---
APPROVED REPORT EKG Measurement Heart [id number] Sinus tachycardia Biatrial enlargement Nonspecific ST abnormality Abnormal ECG
--- NOTE | 2017-11-11 19:58 | Pulmonology Progress Note ---
Assessment/Plan Problems: (1) Acute respiratory failure (2) COPD (chronic obstructive pulmonary disease) (3) Bilateral pneumonia (4) Severe sepsis (5) Anemia (6) Severe protein-calorie malnutrition Assessment/Plan imrpivong symptoamtic treatment respiratory treatment titrate fio2 abx as per ID check electrolytes dc planning to custodial soon Subjective ROS Limited/Unobtainable: No Constitutional: Reports: no symptoms HEENT: Repors: no symptoms Respiratory: Reports: no symptoms Allergies: Coded Allergies: No Known Allergies (Unverified , 09/15/17) Objective Last 24 Hour Vital Signs Date Time Temp Pulse Resp B/P (MAP) Pulse Ox O2 Delivery O2 Flow Rate FiO2 11/11/17 12:00 96.4 64 15 128/72 93 96.4 11/11/17 08:37 70 131/73 11/11/17 08:00 97.7 75 16 122/60 97 97.7 11/11/17 07:56 Room Air 21 11/11/17 07:55 96 Room Air 21 11/11/17 04:00 97.6 70 17 131/73 96 97.6 11/11/17 00:00 97.7 70 16 120/62 94 97.7 11/10/17 20:00 97.5 75 17 146/75 97.5 Intake and Output 11/10/17 11/11/17 19:00 07:00 Intake Total 1190 ml 980 ml Output Total 250 ml Balance 940 ml 980 ml Free Water 300 ml 150 ml IV Total 350 ml 350 ml Tube Feeding 540 ml 480 ml Output Urine Total 250 ml Objective General Appearance: cachectic Lines, tubes and drains: peripheral HEENT: normocephalic, atraumatic Neck: non-tender, normal alignment Respiratory/Chest: chest wall non-tender, lungs clear Cardiovascular/Chest: normal peripheral pulses, normal rate Abdomen: normal bowel sounds, non tender Extremities: normal range of motion, non-tender Skin Exam: normal pigmentation Microbiology Date/Time Source Procedure Growth Status 11/09/17 14:45 Blood Blood Culture - Preliminary NO GROWTH AFTER 24 HOURS Resulted 11/09/17 14:40 Blood Blood Culture - Preliminary NO GROWTH AFTER 24 HOURS Resulted Laboratory Tests 11/11/17 08:45: White Blood Count 14.8H, Red Blood Count 3.94L, Hemoglobin 12.6L, Hematocrit 37.5L, Mean Corpuscular Volume 95, Mean Corpuscular Hemoglobin 31.9H, Mean Corpuscular Hemoglobin Concent 33.5, Red Cell Distribution Width 16.3H, Platelet Count 394, Mean Platelet Volume 7.3, Neutrophils (%) (Auto) , Lymphocytes (%) (Auto) , Monocytes (%) (Auto) , Eosinophils (%) (Auto) , Basophils (%) (Auto) , Differential Total Cells Counted 100, Neutrophils % ( Manual) 91H, Lymphocytes % (Manual) 3L, Monocytes % (Manual) 6, Eosinophils % ( Manual) 0, Basophils % (Manual) 0, Band Neutrophils 0, Platelet Estimate Adequate, Platelet Morphology Normal, Anisocytosis 1+, Erythrocyte Sedimentation Rate 32H, Sodium Level 135L, Potassium Level 4.3, Chloride Level 102, Carbon Dioxide Level 27, Anion Gap 6, Blood Urea Nitrogen 20H, Creatinine 0.7, Estimat Glomerular Filtration Rate , Glucose Level 138H, Calcium Level 8.6 , Phosphorus Level 2.5, Magnesium Level 2.0, Total Bilirubin 0.3, Aspartate Amino Transf (AST/SGOT) 13L, Alanine Aminotransferase (ALT/SGPT) 30, Alkaline Phosphatase 81, C-Reactive Protein, Quantitative 2.5H, Total Protein 5.5L, Albumin 1.8L, Globulin 3.7, Albumin/Globulin Ratio 0.5L Earnestine Hanson MD Nov 11, 2017 19:58
[2017-11-12 11:51] VITALS: BP 128/78
--- NOTE | 2017-11-12 11:51 | 48 Hour Post Anesthesia Eval ---
Post Anesthesia Evaluation Procedure: PEG Date of Evaluation: Nov 10, 2017 Time of Evaluation: 11:50 Blood Pressure Systolic: 128 0: 78 Pulse Rate: 72 Respiratory Rate: 14 Airway: patent Nausea: No Vomiting: No Hydration Status: adequate Cardiopulmonary Status: stable Mental Status/LOC: patient returned to baseline Post-Anesthesia Complications: none Follow-up care needed: N/A DAE GUEVARA CRNA Nov 12, 2017 11:51
--- NOTE | 2017-11-13 17:07 | Discharge Summary ---
Discharge Summary Hospital Course Date of Admission Oct 29, 2017 at 08:50 Date of Discharge Nov 11, 2017 at 13:55 Admitting Diagnosis RESPIRATORY FAILURE DONNA Melendez is a 82 year old male who was admitted on Oct 29, 2017 at 08:50 for Respiratory Failure Hospital Course [id number] Discharge Discharge Disposition Patient was discharged to SNF/Subacute Facility(03) Discharge Diagnoses: Angelia Gutiérrez NP Nov 13, 2017 17:07
--- NOTE | 2017-11-14 02:30 | Discharge Summary 2 SIG ---
DATE OF ADMISSION: 10/29/2017 DATE OF DISCHARGE: 11/11/2017 CONSULTANTS: 1. Dallas Myers M.D. 2. Marshal Rose M.D. BRIEF HOSPITAL COURSE: The patient is an 82-year-old male with history of COPD, dementia, diabetes, history of GI bleed and anemia, history of right inguinal hernia, folate deficiency, and severe protein-calorie malnutrition, who is a resident of [facility], was transferred via EMS due to altered mental status and respiratory failure. Apparently, O2 saturations were 55%. On arrival to ED, he was immediately orally intubated and a central line was inserted to the left femoral vein. There was no leukocytosis noted. Chest x-ray done showed bilateral interstitial and alveolar infiltrates. NG-tube was inserted. He was admitted to ICU for acute respiratory failure and possible sepsis due to pneumonia. He was followed by Infectious Disease specialist. He was started on vancomycin and Zosyn. He continued to have leukocytosis. He eventually was extubated on 11/02/2017. Influenza screen was negative and blood culture did not isolate any growth. Sputum showed growth of Providencia with usual respiratory lisa. Vancomycin was discontinued and was continued on Zosyn. He eventually failed swallow evaluation. Dr. Rose was consulted. He underwent EGD with PEG tube placement on 11/06/2017. Abdominal binder was placed. He was advised aspiration precaution and elevate head of the bed at all times. He was eventually started on tube feedings. He was tolerating tube feeding well. He was given proton pump inhibitors. He completed 10 days of Zosyn. He was taken off antibiotic treatment and was observed off antibiotics. He was saturating well on room air. Repeat blood culture did not isolate any growth. Echevarria catheter was discontinued and the patient was discharged back to [facility]. FINAL DIAGNOSES: 1. Acute respiratory failure requiring intubation, status post extubation. 2. Acute chronic obstructive pulmonary disease. 3. Bilateral pneumonia. 4. Sepsis. 5. Severe protein-calorie malnutrition. 6. Dysphagia requiring percutaneous endoscopic gastrostomy tube insertion. 7. Anemia. 8. Hyperlipidemia. 9. Hypertension. 10. 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 11. 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 DISPOSITION: The patient was discharged to [facility]. DISCHARGE MEDICATIONS: Refer to medication list. Earnestine Hanson M.D. I have been assigned to dictate discharge summary on this account and I was not involved in the patient's management. Angelia Gutiérrez N.P. DR: KYLE JOB#: [id number] CC: MIKA
--- NOTE | 2017-11-17 11:06 | Pre-Procedure Note/Attestation ---
Pre-Procedure Note/Attestation Complete Prior to Procedure Planned Procedure: not applicable Procedure Narrative: esophagogastroduodenoscopy peg Indications for Procedure Pre-Operative Diagnosis: ftt Attestation I attest that I discussed the nature of the procedure; its benefits; risks and complications; and alternatives (and the risks and benefits of such alternatives ), prior to the procedure, with the patient (or the patient's legal customer assistance representative). I attest that, if there was a reasonable possibility of needing a blood transfusion, the patient (or the patient's legal customer assistance representative) was given the [facility] standardized written summary, pursuant to the William Fitz Blood Safety Act ([place] Health and Safety Code # 1645, as amended). I attest that I re-evaluated the patient just prior to the surgery and that there has been no change in the patient's H&P, except as documented below: SRIKANTH SIFUENTES Nov 17, 2017 11:06
--- NOTE | 2017-11-23 16:25 | Diagnostic Imaging Report ---
Indications: Dysphagia Technique: Patient ingested multiple substances under the supervision of speech pathology. Video fluoroscopic recording performed. Total fluoroscopy time 270 seconds. Total dose area product 0.3429 mGycm2 Comparison: none Findings: Ingestion of thin liquid barium results in early and delayed pooling of contrast. Equivocal penetration is noted. Early and delayed pooling of nectar thick liquid barium as well as penetration is noted. Equivocal penetration of barium puree noted. Impression: Penetration of multiple substances, as described Please refer to speech pathology report for more detailed analysis
== END 2017-11-11 13:55 | DRG 870 ==
LOC: EDBD 07:17 → EMR 08:43 → ICU 08:50 → EDBEDREQ 09:55 → ICU 11:20 → 4W 11-03 12:04
PROC: 0BH17EZ Insertion of Endotracheal Airway into Trachea, Via Natural or Artificial Opening (ICD-10-PCS; principal; 2017-10-29)
PROC: 5A1955Z Respiratory Ventilation, Greater than 96 Consecutive Hours (ICD-10-PCS; principal; 2017-10-29)
PROC: 0DH68UZ Insertion of Feeding Device into Stomach, Via Natural or Artificial Opening Endoscopic (ICD-10-PCS; 2017-11-06 13:15)
DX: A41.9 Sepsis, unspecified organism (principal); J96.01 Acute respiratory failure with hypoxia; E43 Unspecified severe protein-calorie malnutrition; J15.8 Pneumonia due to other specified bacteria; J44.0 Chronic obstructive pulmonary disease with (acute) lower respiratory infection; Z99.11 Dependence on respirator [ventilator] status; I69.954 Hemiplegia and hemiparesis following unspecified cerebrovascular disease affecting left non-dominant side; J18.9 Pneumonia, unspecified organism; K92.2 Gastrointestinal hemorrhage, unspecified; J44.1 Chronic obstructive pulmonary disease with (acute) exacerbation; Z68.1 Body mass index [BMI] 19.9 or less, adult; R13.10 Dysphagia, unspecified; D64.9 Anemia, unspecified; R65.20 Severe sepsis without septic shock; Z68.22 Body mass index [BMI] 22.0-22.9, adult; I10 Essential (primary) hypertension; K21.9 Gastro-esophageal reflux disease without esophagitis; E11.9 Type 2 diabetes mellitus without complications; R62.7 Adult failure to thrive; E78.5 Hyperlipidemia, unspecified
CPT/HCPCS: 31500; 36415; 36600; 71045; 74018; 74230; 80048; 80053; 80202; 81003; 82550; 82803; 82962; 83605; 83735; 83880; 84100; 84484; 85007; 85025; 85610; 85651; 85730; 86140; 86710; 86900; 86901; 87040; 87070; 87081; 87181; 87205; 93005; 94002; 94003; 94150; 94640; 94664; 94760; J1815; J2250

== ENCOUNTER 2017-11-16 22:12 | Inpatient (IN) | payer MEDICARE, OTHER ==
[~2017-11-16] VITALS: Ht 182.9 cm; Wt 86.2 kg
[2017-11-16] MEDS ORDERED: Sodium Chloride 500ML 500 ML IV ONE (22:58)
[2017-11-16] MEDS ORDERED: Solu-MEDROL 125mg Inj IVP ONE (23:00)
[2017-11-16 23:06] LABS: HEMATOCRIT 33.6 % (42.0-52.0); HEMOGLOBIN 11.5 G/DL (14.2-18.0); MEAN CORPUSCULAR VOLUME 94 FL (80-99); PLATELET COUNT 243 K/UL (150-450); RED BLOOD COUNT 3.59 M/UL (4.70-6.10); RED CELL DISTRIBUTION WIDTH 16.4 % (11.6-14.8)
[2017-11-16] MEDS: Albuterol ud Inhalation HHN SCH ×3 (23:07→23:32)
[2017-11-16] MEDS: Ipratropium 0.02% Inh Soln 2.5ml UD HHN SCH ×3 (23:07→23:32)
[2017-11-16 23:09] LABS: ANION GAP 13 mmol/L (5-15); BLOOD UREA NITROGEN 38 mg/dL (7-18); CALCIUM 8.4 MG/DL (8.5-10.1); CARBON DIOXIDE 23 MMOL/L (21-32); CHLORIDE 104 MMOL/L (98-107); CREATININE 1.8 MG/DL (0.55-1.30); POTASSIUM 4.2 MMOL/L (3.5-5.1); SODIUM 139 MMOL/L (136-145)
[2017-11-16 23:10] LABS: WHITE BLOOD COUNT 1.8 K/UL (4.8-10.8)
[2017-11-16 23:32] LABS: ALANINE AMINOTRANSFERASE 29 U/L (12-78); ALBUMIN/GLOBULIN RATIO 0.5 (1.0-2.7); ALKALINE PHOSPHATASE 119 U/L (46-116); ASPARTATE AMINO TRANSFERASE 25 U/L (15-37); CKMB < 0.5 NG/ML (0.0-3.6); CREATINE KINASE 37 U/L (26-308)
[2017-11-17] VITALS (7 sets, daily range): BP systolic 79–136; BP diastolic 38–75
[2017-11-17] MEDS ORDERED: Piperacillin/Tazobactam 3.375 GM in NS 110 ML IVPB ONE ×2
[2017-11-17] MEDS ORDERED: NS 1000ml 2,600 ML IVLG ONE
[2017-11-17] MEDS ORDERED: Azithromycin 500 MG in NS 275 ML IV ONE ×2
[2017-11-17] MEDS ORDERED: Zosyn 3.375gm inj ONE (00:16)
[2017-11-17] MEDS ORDERED: Azithromycin 500mg Inj IV ONE (01:05)
[2017-11-17 02:12] LABS: BILIRUBIN, URINE NEGATIVE (NEGATIVE); GLUCOSE, URINE (UA) NEGATIVE (NEGATIVE); KETONES,URINE NEGATIVE (NEGATIVE); LEUKOCYTE ESTERASE ,URINE 3+ (NEGATIVE); NITRITE,URINE NEGATIVE (NEGATIVE); PH,URINE 7 (4.5-8.0); PROTEIN,URINE 2+ (NEGATIVE); UROBILINOGEN,URINE 1 MG/DL (0.0-1.0)
[2017-11-17 02:13] LABS: APPEARANCE,URINE CLOUDY; COLOR,URINE YELLOW
--- NOTE | 2017-11-17 04:12 | Emergency Room Report ---
History of Present Illness General Chief Complaint: Altered Level of Consciousness Source: Medical Record Present Illness HPI 82-year-old male presents ED for evaluation. Patient presents from longterm facility shortness of breath 1 day. Low O2 sat at the facility. Brought here with O2 sats improved on oxygen. Patient did have fever of [facility]. Afebrile here. Patient does have dementia and is unable to provide any additional history at this time. Patient showing mild distress with some retractions. No other aggravating relieving factors. No other associated symptoms Allergies: Coded Allergies: No Known Allergies (Unverified , 09/15/17) Patient History Past Medical History: DM, HTN, GERD, CVA/TIA, dementia Social History: Denies: smoking, alcohol use, drug use Immunizations: UTD Reviewed Nursing Documentation: PMH: Agreed, PSxH: Agreed Nursing Documentation-PMH Hx Cardiac Problems: Yes - HTN and Hyperlipidemia Hx Hypertension: Yes Hx Diabetes: Yes Hx Cancer: No Hx Gastrointestinal Problems: Yes - GI Hemmorrhage and GERD, GTUBE Hx Neurological Problems: Yes Hx Cerebrovascular Accident: Yes - Left side weakness Hx Dementia: Yes Hx Dysphasia: Yes Hx Weakness: Yes - left side Review of Systems All Other Systems: limited Physical Exam Vital Signs Date Time Temp Pulse Resp B/P (MAP) Pulse Ox O2 Delivery O2 Flow Rate FiO2 11/16/17 22:05 98.0 130 24 100/44 91 Non-Rebreather 10.0 98.1 11/16/17 23:08 100 Sp02 EP Interpretation: reviewed, normal General Appearance: mild distress, thin Head: normocephalic Eyes: bilateral eye normal inspection, bilateral eye PERRL ENT: normal ENT inspection Neck: normal inspection Respiratory: decreased breath sounds, accessory muscle use, wheezing Cardiovascular #1: regular rate, rhythm, no edema Gastrointestinal: normal bowel sounds, non tender, soft, non-distended, no guarding, no rebound Rectal: deferred Genitourinary: no CVA tenderness Musculoskeletal: normal inspection Neurologic: other - dementia Psychiatric: other - dementia Skin: normal inspection Lymphatic: normal inspection Procedures Critical Care Time Critical Care Time i. I feel this is a highly complex case requiring extensive working including EKG/Rhythm strip, Xray/CT/US, Blood/urine lab work, repeat exams while in ED, and administration of strong opiates/narcotics for pain control, admission to hospital or close patient follow up. Total time: 30 min bedside evaluation and treatment excludes procedures (EKG). Reason for critical care: Respiratory distress, sepsis Possible complications: hypotension, hypertension, NC, shock, arrhythmias, metabolic acidosis, end organ damage, respiratory failure. Interventions: Nebulizer treatment, EKG, chest x-ray, IV fluids, labs, antibiotics Course: Patient presenting with respiratory distress. Started on breathing treatments with O2 sats improving. Significant leukopenia noted. Renal insufficiency noted. Troponins elevated. Lactate greater than 4. Initially hypotensive improved with IV fluids. abx given Consultations: nursing staff, EMS, family Performed by: Dr Jordan Tolerated well condition = serious j. because of unstable vital signs this patient had a condition that could potentially threaten life or limb. I feel this is a critical patient who required my full attention while patient was considered critical. Total Critical Care Time excluding procedures was greater than 35 minutes Medical Decision Making Diagnostic Impression: Primary Impression: Pneumonia Qualified Codes: J18.1 - Lobar pneumonia, unspecified organism Additional Impressions: Sepsis Qualified Codes: A41.9 - Sepsis, unspecified organism Renal insufficiency UTI (urinary tract infection) Qualified Codes: N39.0 - Urinary tract infection, site not specified ER Course Hospital Course 82-year-old male presents ED with respiratory distress, hypoxic, hypotensive Differential diagnoses include: Pneumonia, CHF exacerbation, pneumothorax, fluid overload Clinical course Patient placed on stretcher. On radiographer cardiac catheterization with hypoxia on room air and hypotensive. After initial history and physical, I ordered nebulizer treatments. I ordered labs, IV fluids, EKG, chest x-ray, blood cultures, UA. Labs -leukopenia noted, hemoglobin/hematocrit stable, BUN/Cr elevated, lactate > 4, UA +, trop elevated CXR -LLL infitlrate EKG - NSR, no acute ischemic changes interpreted by me O2 saturations improved after nebulizer treatment. Patient given 30 mL per KG fluid bolus with blood pressure improved. Given broad-spectrum antibiotics Case discussed with Dr. Blanco and he agreed to the patient to his service for further care and support I feel this is a highly complex case requiring extensive working including EKG/ Rhythm strip, Xray/CT/US, Blood/urine lab work, repeat exams while in ED, and administration of strong opiates/narcotics for pain control, admission to hospital or close patient follow up. Diagnosis - pneumonia, sepsis, renal insufficiency, UTI Patient admitted to telemetry in serious condition Labs Test 11/16/17 22:40 11/17/17 01:15 11/17/17 01:45 White Blood Count 1.8 K/UL (4.8-10.8) Red Blood Count 3.59 M/UL (4.70-6.10) Hemoglobin 11.5 G/DL (14.2-18.0) Hematocrit 33.6 % (42.0-52.0) Mean Corpuscular Volume 94 FL (80-99) Mean Corpuscular Hemoglobin 32.1 PG (27.0-31.0) Mean Corpuscular Hemoglobin Concent 34.3 G/DL (32.0-36.0) Red Cell Distribution Width 16.4 % (11.6-14.8) Platelet Count 243 K/UL (150-450) Mean Platelet Volume 6.3 FL (6.5-10.1) Neutrophils (%) (Auto) % (45.0-75.0) Lymphocytes (%) (Auto) % (20.0-45.0) Monocytes (%) (Auto) % (1.0-10.0) Eosinophils (%) (Auto) % (0.0-3.0) Basophils (%) (Auto) % (0.0-2.0) Sodium Level 139 MMOL/L (136-145) Potassium Level 4.2 MMOL/L (3.5-5.1) Chloride Level 104 MMOL/L (98-107) Carbon Dioxide Level 23 MMOL/L (21-32) Anion Gap 13 mmol/L (5-15) Blood Urea Nitrogen 38 mg/dL (7-18) Creatinine 1.8 MG/DL (0.55-1.30) Estimat Glomerular Filtration Rate mL/min (>60) Glucose Level 96 MG/DL (74-106) Lactic Acid Level 4.10 mmol/L (0.66-2.22) 6.30 mmol/L (0.66-2.22) Calcium Level 8.4 MG/DL (8.5-10.1) Total Bilirubin 1.0 MG/DL (0.2-1.0) Aspartate Amino Transf (AST/SGOT) 25 U/L (15-37) Alanine Aminotransferase (ALT/SGPT) 29 U/L (12-78) Alkaline Phosphatase 119 U/L (46-116) Total Creatine Kinase 37 U/L (26-308) Creatine Kinase MB < 0.5 NG/ML (0.0-3.6) Creatine Kinase MB Relative Index 1.3 Troponin I 0.081 ng/mL (0.000-0.056) Pro-B-Type Natriuretic Peptide 4926 pg/mL (0-125) Total Protein 6.0 G/DL (6.4-8.2) Albumin 2.0 G/DL (3.4-5.0) Globulin 4.0 g/dL Albumin/Globulin Ratio 0.5 (1.0-2.7) Urine Color Yellow Urine Appearance Cloudy Urine pH 7 (4.5-8.0) Urine Specific [place] 1.010 (1.005-1.035) Urine Protein 2+ (NEGATIVE) Urine Glucose (UA) Negative (NEGATIVE) Urine Ketones Negative (NEGATIVE) Urine Occult Blood 3+ (NEGATIVE) Urine Nitrite Negative (NEGATIVE) Urine Bilirubin Negative (NEGATIVE) Urine Urobilinogen 1 MG/DL (0.0-1.0) Urine Leukocyte Esterase 3+ (NEGATIVE) Urine RBC 2-4 /HPF (0 - 0) Urine WBC 60-80 /HPF (0 - 0) Urine Squamous Epithelial Cells None /LPF (NONE/OCC) Urine Bacteria Many /HPF (NONE) EKG Diagnostic Results Rate: normal Rhythm: NSR ST Segments: no acute changes ASA given to the pt in ED: No Rhythm Strip Diag. Results EP Interpretation: yes Rhythm: NSR, no PVC's, no ectopy Chest X-Ray Diagnostic Results Chest X-Ray Diagnostic Results : Chest X-Ray Ordered: Yes # of Views/Limited/Complete: 1 View Indication: Shortness of Breath EP Interpretation: Yes Interpretation: no pneumothorax, no acute cardiopulmonary disease, other - bilateral lobe infiltrate Impression: Other - PNA Electronically Signed by: Electronically signed by Félix Jordan MD Last Vital Signs Date Time Temp Pulse Resp B/P (MAP) Pulse Ox O2 Delivery O2 Flow Rate FiO2 11/17/17 02:05 97.2 139 24 115/53 96 Non-Rebreather 10.0 97.2 11/16/17 23:33 100 Status: improved Disposition: ADMITTED INPATIENT Condition: Serious Referrals: Tito Blanco MD (PCP) FÉLIX JORDAN M.D. Nov 17, 2017 04:12
--- NOTE | 2017-11-17 06:50 | Emergency Room Report ---
History of Present Illness General Chief Complaint: Altered Level of Consciousness Source: Medical Record Present Illness Allergies: Coded Allergies: No Known Allergies (Unverified , 09/15/17) Nursing Documentation-PMH Hx Cardiac Problems: Yes - HTN and Hyperlipidemia Hx Hypertension: Yes Hx Diabetes: Yes Hx Cancer: No Hx Gastrointestinal Problems: Yes - GI Hemmorrhage and GERD, GTUBE Hx Neurological Problems: Yes Hx Cerebrovascular Accident: Yes - Left side weakness Hx Dementia: Yes Hx Dysphasia: Yes Hx Weakness: Yes - left side Physical Exam Vital Signs Date Time Temp Pulse Resp B/P (MAP) Pulse Ox O2 Delivery O2 Flow Rate FiO2 11/16/17 22:05 98.0 130 24 100/44 91 Non-Rebreather 10.0 98.1 11/16/17 23:08 100 Procedures Critical Care Time Critical Care Time i. I feel this is a highly complex case requiring extensive working including EKG/Rhythm strip, Xray/CT/US, Blood/urine lab work, repeat exams while in ED, and administration of strong opiates/narcotics for pain control, admission to hospital or close patient follow up. Total time: 30 min bedside evaluation and treatment excludes procedures (EKG). Reason for critical care: Hypoxic, respiratory distress, cardiac arrest Possible complications: hypotension, hypertension, [place], shock, arrhythmias, metabolic acidosis, end organ damage, respiratory failure. Interventions: Chest compressions, epinephrine, intubation Course: Patient with labored breathing in TIFF. ABG shows acidosis with hypoxia. Patient went into cardiac arrest. Regained pulses after one round of chest compressions and epinephrine. Patient intubated Consultations: nursing staff, EMS, family Performed by: Dr Jordan Tolerated well condition = critical j. because of unstable vital signs this patient had a condition that could potentially threaten life or limb. I feel this is a critical patient who required my full attention while patient was considered critical. Total Critical Care Time excluding procedures was greater than 35 minutes CPR/Code Blue CPR/Code Blue Narrative see code blue sheet for narrative Intubation Intubation : Consent: Verbal Intubation Method: orotracheal Tube Size (cm): 7.5 Breath Sounds after Intubation: equal Intubation Complications: no complications Post Intubation Xray: Yes Attempts: One Patient Tolerated: Well Complications: None Medical Decision Making Diagnostic Impression: Primary Impression: Pneumonia Qualified Codes: J18.1 - Lobar pneumonia, unspecified organism Additional Impressions: Renal insufficiency Sepsis Qualified Codes: A41.9 - Sepsis, unspecified organism UTI (urinary tract infection) Qualified Codes: N39.0 - Urinary tract infection, site not specified ER Course I was called to TIFF for this CODE BLUE. Patient became more increasingly hypoxic. ABG showed acidosis and hypoxia. Patient then lost pulses. Chest compressions started. Given epinephrine 1 with regaining of pulses. I intubated the patient. Chest x-ray shows good ET tube placement. Nebulizer treatments started as well. Admitting physicians informed of patient's status Last Vital Signs Date Time Temp Pulse Resp B/P (MAP) Pulse Ox O2 Delivery O2 Flow Rate FiO2 11/17/17 05:43 129 24 100 11/17/17 04:00 98.0 107/51 95 Non-Rebreather 10.0 98.0 Status: improved Disposition: ADMITTED INPATIENT Condition: Critical Referrals: Tito Blanco MD (PCP) ANNA JORDAN M.D. Nov 17, 2017 06:49
[2017-11-17] MEDS ORDERED: LORazepam Inj 2mg/ml 1ml IV PRN (07:30)
[2017-11-17] MEDS ORDERED: Morphine Sulfate 4mg/ml Inj IVP PRN (07:30)
[2017-11-17] MEDS ORDERED: Amikacin Rx to dose MISC PRN (07:30)
[2017-11-17 08:31] LABS: HEMATOCRIT 28.9 % (42.0-52.0); HEMOGLOBIN 9.3 G/DL (14.2-18.0); MEAN CORPUSCULAR VOLUME 100 FL (80-99); PLATELET COUNT 132 K/UL (150-450); RED BLOOD COUNT 2.89 M/UL (4.70-6.10)
[2017-11-17 08:40] LABS: ANION GAP 10 mmol/L (5-15); BLOOD UREA NITROGEN 44 mg/dL (7-18); CALCIUM 7.2 MG/DL (8.5-10.1); CARBON DIOXIDE 22 MMOL/L (21-32); CHLORIDE 111 MMOL/L (98-107); CREATININE 2.1 MG/DL (0.55-1.30); POTASSIUM 4.6 MMOL/L (3.5-5.1); SODIUM 143 MMOL/L (136-145)
[2017-11-17 08:41] LABS: WHITE BLOOD COUNT 1.3 K/UL (4.8-10.8)
[2017-11-17] MEDS ORDERED: Pantoprazole Inj IV SCH ×2 (09:00)
[2017-11-17] MEDS ORDERED: Heparin 5000 units/ml inj SUBQ SCH (09:00)
--- NOTE | 2017-11-17 09:55 | Pulmonolgy Critical Care Note ---
Critical Care - Asmt/Plan Problems: (1) Acute respiratory failure (2) Severe protein-calorie malnutrition (3) Renal insufficiency (4) Sepsis (5) Pneumonia Respiratory: monitor respiratory rate, adjust FIO2, CXR, ABG Cardiac: continue to monitor HR/BP Renal: F/U I&O, keep IV fluid Infectious Disease: check cultures, continue antibiotics Gastrointestinal: hold feedings, abdominal imaging Endocrine: monitor blood sugar Hematologic: monitor H/H Neurologic: PRN Ativan, PRN Morphine Affect: PRN ativan Prophylaxis: Protonix Notes Reviewed: director pediatric, renal Discussed with: nurses, consultants, case assistantassistant real estate manager - Objective Last 24 Hour Vital Signs Date Time Temp Pulse Resp B/P (MAP) Pulse Ox O2 Delivery O2 Flow Rate FiO2 11/17/17 09:29 116 26 100 11/17/17 07:28 123 28 100 11/17/17 05:43 129 24 100 11/17/17 04:00 98.0 25 107/51 95 Non-Rebreather 10.0 98.0 11/17/17 03:27 131 11/17/17 02:05 97.2 139 24 115/53 96 Non-Rebreather 10.0 97.2 11/17/17 01:30 96.1 25 136/75 100 Non-Rebreather 10.0 96.1 11/17/17 00:28 100.7 130 31 107/50 93 Non-Rebreather 10.0 100.7 11/16/17 23:45 123 22 94 Non-Rebreather 11/16/17 23:34 120 22 93 Non-Rebreather 11/16/17 23:33 120 24 93 Non-Rebreather 15.0 100 11/16/17 23:16 116 24 93 Non-Rebreather 15.0 100 11/16/17 23:15 115 22 93 Non-Rebreather 11/16/17 23:08 113 24 91 Non-Rebreather 15.0 100 11/16/17 22:05 98.0 130 24 100/44 91 Non-Rebreather 10.0 98.1 Status: obtunded Condition: critical HEENT: atraumatic Lungs: rales, rhonchi Heart: HR/BP stable Abdomen: soft, feeding tube Extremities: edema Decubiti: stage Micro: Microbiology Date/Time Source Procedure Growth Status 11/17/17 02:00 Nasal Nares Influenza Types A,B Antigen (HAJA) - Final Complete Accucheck: 41 Critical Care - Subjective ROS Limited/Unobtainable: Yes ICU Day: 1 Intubation Day: 1 Interval Events: 82-year-old male with hx of CVA, Gtube, bed bound, Dementia, [facility] resident presented to ED for evaluation of shortness of breath 1 day with low O2 sat at the facility. Brought here with O2 sats improved on oxygen. He was admitted to ICU early this morning and had a Code Blue at 5 am. pt was revived and remained critical. FI02: 100 Vent Support Breath Rate: 16 Vent Support Mode: AC Vent Tidal Volume: 600 Sputum Amount: Small PEEP: 5.0 PIP: 19 Fluids: NS 75 cc/hour I&O: Intake and Output 11/16/17 11/17/17 19:00 07:00 Intake Total 610 ml Output Total 375 ml Balance 235 ml Intake Oral 0 ml IV Total 610 ml Output Urine Total 225 ml Stool Total 150 ml # Bowel Movements 1 CXR: bilateral infiltrate, ET in good position ET-Tube: 7.5 ET Position: 20 Labs: Laboratory Tests Test 11/16/17 22:40 11/17/17 01:15 11/17/17 01:45 11/17/17 04:00 White Blood Count 1.8 K/UL (4.8-10.8) *L Red Blood Count 3.59 M/UL (4.70-6.10) L Hemoglobin 11.5 G/DL (14.2-18.0) L Hematocrit 33.6 % (42.0-52.0) L Mean Corpuscular Volume 94 FL (80-99) Mean Corpuscular Hemoglobin 32.1 PG (27.0-31.0) H Mean Corpuscular Hemoglobin Concent 34.3 G/DL (32.0-36.0) Red Cell Distribution Width 16.4 % (11.6-14.8) H Platelet Count 243 K/UL (150-450) Mean Platelet Volume 6.3 FL (6.5-10.1) L Neutrophils (%) (Auto) % (45.0-75.0) Lymphocytes (%) (Auto) % (20.0-45.0) Monocytes (%) (Auto) % (1.0-10.0) Eosinophils (%) (Auto) % (0.0-3.0) Basophils (%) (Auto) % (0.0-2.0) Sodium Level 139 MMOL/L (136-145) Potassium Level 4.2 MMOL/L (3.5-5.1) Chloride Level 104 MMOL/L (98-107) Carbon Dioxide Level 23 MMOL/L (21-32) Anion Gap 13 mmol/L (5-15) Blood Urea Nitrogen 38 mg/dL (7-18) H Creatinine 1.8 MG/DL (0.55-1.30) H Estimat Glomerular Filtration Rate mL/min (>60) Glucose Level 96 MG/DL (74-106) Lactic Acid Level 4.10 mmol/L (0.66-2.22) H 6.30 mmol/L (0.66-2.22) H Calcium Level 8.4 MG/DL (8.5-10.1) L Total Bilirubin 1.0 MG/DL (0.2-1.0) Aspartate Amino Transf (AST/SGOT) 25 U/L (15-37) Alanine Aminotransferase (ALT/SGPT) 29 U/L (12-78) Alkaline Phosphatase 119 U/L (46-116) H Total Creatine Kinase 37 U/L (26-308) Creatine Kinase MB < 0.5 NG/ML (0.0-3.6) Creatine Kinase MB Relative Index 1.3 Troponin I 0.081 ng/mL (0.000-0.056) Pro-B-Type Natriuretic Peptide 4926 pg/mL (0-125) H Total Protein 6.0 G/DL (6.4-8.2) L Albumin 2.0 G/DL (3.4-5.0) L Globulin 4.0 g/dL Albumin/Globulin Ratio 0.5 (1.0-2.7) L Urine Color Yellow Urine Appearance Cloudy Urine pH 7 (4.5-8.0) Urine Specific Marty 1.010 (1.005-1.035) Urine Protein 2+ (NEGATIVE) H Urine Glucose (UA) Negative (NEGATIVE) Urine Ketones Negative (NEGATIVE) Urine Occult Blood 3+ (NEGATIVE) H Urine Nitrite Negative (NEGATIVE) Urine Bilirubin Negative (NEGATIVE) Urine Urobilinogen 1 MG/DL (0.0-1.0) H Urine Leukocyte Esterase 3+ (NEGATIVE) H Urine RBC 2-4 /HPF (0 - 0) H Urine WBC 60-80 /HPF (0 - 0) H Urine Squamous Epithelial Cells None /LPF (NONE/OCC) Urine Bacteria Many /HPF (NONE) H Arterial Blood pH 7.201 (7.350-7.450) Arterial Blood Partial Pressure CO2 43.7 mmHg (35.0-45.0) Arterial Blood Partial Pressure O2 < 46.0 mmHg (75.0-100.0) Arterial Blood HCO3 16.7 mmol/L (22.0-26.0) L Arterial Blood Oxygen Saturation 64.1 % (92.0-98.0) L Arterial Blood Base Excess -10.8 Donnie Test Positive Test 11/17/17 06:13 11/17/17 08:15 Arterial Blood pH 7.109 (7.350-7.450) Arterial Blood Partial Pressure CO2 49.6 mmHg (35.0-45.0) H Arterial Blood Partial Pressure O2 83.2 mmHg (75.0-100.0) Arterial Blood HCO3 15.4 mmol/L (22.0-26.0) L Arterial Blood Oxygen Saturation 91.2 % (92.0-98.0) L Arterial Blood Base Excess -13.8 Donnie Test Positive White Blood Count 1.3 K/UL (4.8-10.8) *L Red Blood Count 2.89 M/UL (4.70-6.10) L Hemoglobin 9.3 G/DL (14.2-18.0) L Hematocrit 28.9 % (42.0-52.0) L Mean Corpuscular Volume 100 FL (80-99) H Mean Corpuscular Hemoglobin 32.3 PG (27.0-31.0) H Mean Corpuscular Hemoglobin Concent 32.4 G/DL (32.0-36.0) Red Cell Distribution Width 17.0 % (11.6-14.8) H Platelet Count 132 K/UL (150-450) L Mean Platelet Volume 6.8 FL (6.5-10.1) Neutrophils (%) (Auto) % (45.0-75.0) Lymphocytes (%) (Auto) % (20.0-45.0) Monocytes (%) (Auto) % (1.0-10.0) Eosinophils (%) (Auto) % (0.0-3.0) Basophils (%) (Auto) % (0.0-2.0) Differential Total Cells Counted 100 Neutrophils % (Manual) 52 % (45-75) Lymphocytes % (Manual) 12 % (20-45) L Monocytes % (Manual) 5 % (1-10) Eosinophils % (Manual) 0 % (0-3) Basophils % (Manual) 0 % (0-2) Metamyelocytes % 1 % (0-0) H Band Neutrophils 30 % (0-8) H Platelet Estimate Decreased L Platelet Morphology Normal Hypochromasia Anisocytosis 1+ Sodium Level 143 MMOL/L (136-145) Potassium Level 4.6 MMOL/L (3.5-5.1) Chloride Level 111 MMOL/L (98-107) H Carbon Dioxide Level 22 MMOL/L (21-32) Anion Gap 10 mmol/L (5-15) Blood Urea Nitrogen 44 mg/dL (7-18) H Creatinine 2.1 MG/DL (0.55-1.30) H Estimat Glomerular Filtration Rate mL/min (>60) Glucose Level 124 MG/DL (74-106) H Calcium Level 7.2 MG/DL (8.5-10.1) L Magnesium Level 2.0 MG/DL (1.8-2.4) Troponin I 0.107 ng/mL (0.000-0.056) Earnestine Hanson MD Nov 17, 2017 09:54
--- NOTE | 2017-11-17 10:10 | Emergency Room Report ---
History of Present Illness General Chief Complaint: Altered Level of Consciousness Source: Medical Record Present Illness Allergies: Coded Allergies: No Known Allergies (Unverified , 09/15/17) Nursing Documentation-PMH Hx Cardiac Problems: Yes - HTN and Hyperlipidemia Hx Hypertension: Yes Hx Diabetes: Yes Hx Cancer: No Hx Gastrointestinal Problems: Yes - GI Hemmorrhage and GERD, GTUBE Hx Neurological Problems: Yes Hx Cerebrovascular Accident: Yes - Left side weakness Hx Dementia: Yes Hx Dysphasia: Yes Hx Weakness: Yes - left side Physical Exam Vital Signs Date Time Temp Pulse Resp B/P (MAP) Pulse Ox O2 Delivery O2 Flow Rate FiO2 11/16/17 22:05 98.0 130 24 100/44 91 Non-Rebreather 10.0 98.1 11/16/17 23:08 100 Procedures CPR/Code Blue CPR/Code Blue Narrative I Pal got called for CODE BLUE, 82-year-old male, cardiac arrest. Initial rhythm was asystole. Patient was already intubated, being bagged, chest compressions were being performed At be given 3, 1 amp of sodium bicarbonate Pulses regained, Patient in V. tach, defibrillated at 200 J Patient now in sinus tachycardia, heart rate of 140 Medical Decision Making Diagnostic Impression: Primary Impression: Pneumonia Additional Impressions: Renal insufficiency Sepsis UTI (urinary tract infection) Last Vital Signs Date Time Temp Pulse Resp B/P (MAP) Pulse Ox O2 Delivery O2 Flow Rate FiO2 11/17/17 09:29 116 26 100 11/17/17 04:00 98.0 107/51 95 Non-Rebreather 10.0 98.0 Disposition: ADMITTED INPATIENT Condition: Critical Referrals: Tito Blanco MD (PCP) Alexa Ngo M.D. Nov 17, 2017 10:10
--- NOTE | 2017-11-17 10:49 | Diagnostic Imaging Report ---
Indication: Shortness of breath Technique: One view of the chest Comparison: 11/09/2017 Findings: Previously demonstrated pneumoperitoneum is no longer evident. There is increased interstitial and airspace disease as compared to the prior study. However, the left hemidiaphragm is better delineated. Degenerative changes of the left shoulder again noted Impression: Increased mostly interstitial congestion or infiltrates bilaterally, since prior study 11/09/2017 Improved left-sided pleural effusion and dense retrocardiac consolidation Previously demonstrated postoperative pneumoperitoneum is no longer evident This agrees with the preliminary interpretation provided by the emergency room physician
--- NOTE | 2017-11-17 10:58 | Diagnostic Imaging Report ---
Indication: Post intubation Technique: One view of the chest Comparison: 11/16/2017 Findings: Interim endotracheal intubation, endotracheal tube tip projecting approximately 6 cm above the paulo in good position. Bilateral interstitial and alveolar infiltrates versus edema persist, probably unchanged. Normal heart size. Overlying defibrillator paddle noted Impression: Satisfactory endotracheal intubation Other stable findings as described This agrees with the preliminary interpretation provided overnight by [facility] teleradiology service.
[2017-11-17] MEDS ORDERED: NS IV SCH (11:00)
[2017-11-17] MEDS ORDERED: AMIKACIN IV SCH (11:00)
[2017-11-17] MEDS ORDERED: Vancomycin 1250mg/D5W 250ml IVPB ONE (12:00)
--- NOTE | 2017-11-17 18:31 | Cardiology Report ---
APPROVED REPORT EKG Measurement Heart [id number] Sinus tachycardia Biatrial enlargement Nonspecific ST abnormality Abnormal ECG
[2017-11-18] MEDS ORDERED: Vancomycin 1gm/D5W 275ml IVPB SCH ×2 (12:00)
--- NOTE | 2017-11-19 10:11 | Discharge Summary ---
Discharge Summary Hospital Course Date of Admission Nov 16, 2017 at 23:34 Date of Discharge Nov 17, 2017 at 11:30 Admitting Diagnosis sob, asthma HPI Ammon Melendez is a 82 year old male who was admitted on Nov 16, 2017 at 23:34 for Shortness Of Breath,Asthma Hospital Course [id number] Discharge Discharge Disposition Patient Angelia Gutiérrez NP Nov 19, 2017 10:11
--- NOTE | 2017-11-20 04:01 | Discharge Summary 2 SIG ---
DATE OF ADMISSION: 11/16/2017 DATE OF DISCHARGE: 11/17/2017 BRIEF SUMMARY: The patient is an unfortunate 82-year-old male, who was transferred from residential facility for complaints of altered level of consciousness and shortness of breath. The patient had low oxygen saturation at the facility. He was then taken to the ER. The patient has dementia and was unable to provide any additional history. On arrival to ED, he was showing mild distress with retractions. He has medical history significant for diabetes mellitus, hypertension, gastroesophageal reflux disease, and CVA/transient ischemic attack. He has a G-tube, hypertension, hyperlipidemia, and left-sided weakness. WBC showed leukopenia, WBC was 1.8. He had elevated lactate 4.1. BUN and creatinine were elevated to 1.8. Troponin was 0.081. Urine showed wbc 60 to 80 with 3+ leukocyte esterase, negative nitrite, and 2+ protein. He had a chest x-ray done that showed bilateral lobe infiltrates. He was given nebulizer treatments and was given IV hydration and was started on IV broad-spectrum antibiotics. He was admitted to [facility], however, became more increasingly hypoxic. Code Elver was called. The patient was orally intubated and was transferred to intensive care unit. He was given amikacin and vancomycin. He again went into cardiac arrest. Code Blue was called. The patient had several codes. Resuscitative efforts failed and the patient eventually . FINAL DIAGNOSES: 1. Acute respiratory failure requiring intubation. 2. Pneumonia. 3. Severe protein-calorie malnutrition. 4. Sepsis. 5. Acute kidney injury. Tito Blanco M.D. I have been assigned to dictate discharge summary on this account and I was not involved in the patient's management. Angelia Gutiérrez N.P. DR: BRITNEY JOB#: [id number] CC: MIKA
== END 2017-11-17 11:30 | disposition expired | DRG 871 ==
LOC: EDBD 22:12 → EMR 23:29 → 2W 23:34 → EDBEDREQ 11-17 01:03 → ICU 11-17 05:15
PROC: 0BH17EZ Insertion of Endotracheal Airway into Trachea, Via Natural or Artificial Opening (ICD-10-PCS; principal; 2017-11-17)
PROC: 5A12012 Performance of Cardiac Output, Single, Manual (ICD-10-PCS; principal; 2017-11-17)
DX: A41.9 Sepsis, unspecified organism (principal); J96.00 Acute respiratory failure, unspecified whether with hypoxia or hypercapnia; I46.9 Cardiac arrest, cause unspecified; E43 Unspecified severe protein-calorie malnutrition; J18.9 Pneumonia, unspecified organism; E11.9 Type 2 diabetes mellitus without complications; N39.0 Urinary tract infection, site not specified; I69.354 Hemiplegia and hemiparesis following cerebral infarction affecting left non-dominant side; F03.90 Unspecified dementia, unspecified severity, without behavioral disturbance, psychotic disturbance, mood disturbance, and anxiety; N28.9 Disorder of kidney and ureter, unspecified; I10 Essential (primary) hypertension; K21.9 Gastro-esophageal reflux disease without esophagitis; E78.5 Hyperlipidemia, unspecified; R47.02 Dysphasia
CPT/HCPCS: 36415; 36600; 71045; 80048; 80053; 81003; 82550; 82553; 82803; 82962; 83605; 83735; 83880; 84484; 85007; 85025; 86710; 87040; 87081; 87086; 87181; 92950; 93005; 94002; 94003; 94640; 99291